=== PATIENT | male | born 1945 | race Caucasian/White ===

== ENCOUNTER 2017-10-11 02:50 | Emergency (ER) | payer MEDICARE, SELFPAY ==
[2017-10-11 02:51] VITALS: BP 134/69; PULSE 54; RESP 20; TEMP 36.4; O2SAT 98; BMI 25.8
--- NOTE | 2017-10-11 03:24 | ED.DCSUM_ITS ---
- ER Visit Summary Date of Service: 10/11/17 Chief Complaint: Unable to urinate History of Present Illness: The patient is a 72 M unable to urinate. Last urination was 3 hours ago. Normally urinates every 2 hours. History of BPH with TURP procedure July [address] Jean Baptiste. Taken off Flomax by PCP due to low blood pressure previously. States had right testicular swelling over the past 5 days, ultrasound performed outpatient Jocelyn today at [place]. He is placed on Levaquin by PCP for past 3 days. No fevers. No back pain. States that suprapubic discomfort. History of similar in the past. Physical Examination: General: Alert and oriented ?3, no acute distress HEENT: Normocephalic, atraumatic. Moist mucosa membranes Neck: supple, nontender. Cardiovascular: Regular rate and rhythm, no murmurs Respiratory: Normal breath sounds, symmetric, no distress Abdomen: Soft, mild suprapubic distention, nontender. : No testicular swelling, larger right-sided testicle versus left. No epididymal tenderness. Extremities: Nontender, no edema, pulses intact ?4 Neuro: no focal neurological deficits. Test Results: UA noted 250 blood. Urine culture pending. Emergency Department Course and Treatment: Patient initial straight cath had 100 cc of urine. Urine negative for infection. Discussed with patient no significant retention at this time. However he further stated he has been self cathing for the past 2 days. He has history of BPH with TURP in 2015. He was taken off Flomax. Patient was concerned that he would have recurrent symptoms and he will continue self cath and requested a Betancur. This was placed due to patient request. He will start Flomax for which he has at home. He will monitor his blood pressure. He will be given follow-up with urology as an outpatient. He will continue his Levaquin. All questions are answered. Treatment Plan: [] Disposition: Discharge Impression: Urine retention This note was generated with [employer] dictation software. It may contain incorrect words, spelling, and punctuation that were not noted in review of the chart prior to signing ED Disposition - Plan for ED Patient: Disposition: Home or Assisted Living Chief Complaint: Complaint Diagnosis: Urine retention Instructions: ED Retention Urinary Male Referrals: Julio Guzman, MAKAYLA-C [Primary Care Provider] - Baltazar Blood MD [STAFF PHYSICIAN] - 3-5 Days Additional Instructions: Start Flomax daily at home. Monitor blood pressure. Finish your antibiotics of Levaquin.
[2017-10-11] MEDS: Lidocaine Jelly 2% 20 ML Syringe (URO-JET) 20 APPLIC TOPICAL (03:36)
--- NOTE | 2017-10-11 03:43 | NURSING ---
100 CC OF CLEAR YELLOW URINE FROM STRAIGHT CATH
[2017-10-11 03:44] LABS: Bacteria 0 SEEN /hpf (None Seen); Mucous, Urine 0 SEEN /hpf (<or=2+); Squamous Epithelial Cells - UA 0 SEEN /hpf (0-5); White Blood Cells 0 SEEN /hpf (0-5)
[2017-10-11 03:45] LABS: Color, Urine Yellow (Yellow); Glucose, Dipstick Normal (Normal); Ketone-Dipstick Negative (Negative); Leukocyte Esterase-Dipstick Negative /ul (Negative); Nitrite-Dipstick Negative (Negative); Occult Blood-Urine 250 /ul (Negative); Protein-Dipstick Negative (Negative); Specific Gravity, Urine 1.015 (1.002-1.030); Urine Bilirubin Dipstick Negative (Negative); Urine Clarity Clear (Clear); Urine Urobilinogen Normal (Normal)
[2017-10-11 03:56] LABS: Red Blood Cells-Urine 5-10 SEEN /hpf (0-5)
[2017-10-11 05:04] VITALS: BP 115/61; PULSE 56; RESP 17; O2SAT 97
== END 2017-10-11 05:05 | disposition home or self-care (01) ==
PROVIDERS: Emergency Provider Emergency Medicine; Family Provider Nurse Practitioner Family; PCP Nurse Practitioner Family
DX: R33.9 Retention of urine, unspecified (principal); I10 Essential (primary) hypertension; N40.0 Benign prostatic hyperplasia without lower urinary tract symptoms; C91.10 Chronic lymphocytic leukemia of B-cell type not having achieved remission; Z79.899 Other long term (current) drug therapy
CPT/HCPCS: 51702; 81001; 87086; 99283; P9612

== ENCOUNTER → 2017-11-18 13:40 | Outpatient (CLI) | payer MEDICARE, SELFPAY ==
[2017-11-18 15:18] LABS: Albumin, Serum 3.4 g/dL (3.2-5.0); BUN 16 mg/dL (7-18); BUN/Creat Ratio 12.3 RATIO (10-20); Calcium,Total 8.3 mg/dL (8.5-10.1); Chloride 103 mmol/L (98-107); EST Glomerular Filtration Rate 58 mL/min (>60); Est Glom Filt Rate - Afr Amer 70 mL/min (>60); Glucose 117 mg/dL (74-106); Phosphorus 2.3 mg/dL (2.5-4.9); Potassium 3.9 mmol/L (3.5-5.1); Sodium Level 141 mmol/L (136-145)
== END ==
PROVIDERS: Family Provider Nurse Practitioner Family; PCP Nurse Practitioner Family; Visit Provider Internal Medicine Nephrology
DX: N18.3 Chronic kidney disease, stage 3 (moderate) (principal)
CPT/HCPCS: 36415; 80069

== ENCOUNTER → 2017-11-19 14:03 | Outpatient (CLI) | payer MEDICARE, SELFPAY ==
--- NOTE | 2017-11-19 14:25 | FLU_PTH ---
PATIENT: DAVID DOYLE LOC: [facility] U#:[id number] AGE/SX: 79/M ROOM: RE11/19/[address]: ERICK Camejo : 1945 BED: DIS: SPEC #: [id number] RECD: 11/19/17 15:30 STATUS: STEW BEVERLY #: [id number] TOMMY: 11/19/17 14:[address]: Julio Guzman NP DEPT: CYTOLOGY RECD BY: Lloyd Thorne Tissues: Urine Procedures: Special Stain Group II Cytospin Fluid HEADER OPERATION: Not noted PRE-OP DIAGNOSIS: Hematuria TISSUE SUBMITTED: Urine for cytology DIAGNOSIS CYTOLOGY Urine for cytology (cytospin): Negative for malignant cells. Bloody specimen. See cytology study and comment. SJ:rosmery 11/21/17 COMMENT Clinical correlation and appropriate follow up are necessary. CYTOLOGY STUDY Slides are reviewed. The specimen is bloody and consists of benign squamous cells and urothelial cells. CYTOLOGY GROSS Received is 30 ml of cloudy dark ehsan fluid labeled with the patient's name and and designated per the requisition as urine. Submitted for cytology. 11/20/17 TC:5 CPT: 90539
[2017-11-19 14:27] LABS: Cytology, Body Fluid / CSF SEE PATHOLOGY REPORT
[2017-11-19 15:03] LABS: Absolute Lymphocyte Count 0.74 X10^3/ul (0.83-4.51); Absolute Neutrophil Count 0.4 X10^3/uL (2.0-7.7); Basophil# 0.02 X10^3/uL; Basophil% 1.1 % (0-1); Eosinophil# 0.03 X10^3/uL; Eosinophils% 1.7 % (0-5); Hematocrit 37.6 % (40-54); Hemoglobin 12.2 g/dl (13.0-16.5); Lymphocyte # 0.74 X10^3/ul (4.0); Lymphocyte % 41.1 % (19-41); Mean Corp Hgb Conc 32.4 g/gl (32-36); Mean Corpuscular Hgb 30.7 pg (27.0-32.0); Mean Corpuscular Volume 94.5 fL (80-94); Monocyte# 0.61 X10^3/uL; Monocyte% 33.9 % (0-10); Neutrophil # 0.38 X10^3/uL (2.7-7.7); Neutrophil % 21.1 % (47-70); Platelet Count 91 K/mm3 (150-450); RBC Distribution Width CV 14.2 % (11.6-14.6); RBC Distribution Width SD 46.8 fl (35.1-43.9); Red Blood Count 3.98 M/mm3 (4.6-6.2); White Blood Count 1.8 K/mm3 (4.4-11.0)
[2017-11-19 15:04] LABS: Differential Indicated SCAN CRITERIA MET; POSITIVE COUNT NO; POSITIVE DIFFERENTIAL YES; POSITIVE MORPHOLOGY NO
== END ==
PROVIDERS: Family Provider Nurse Practitioner Family; PCP Nurse Practitioner Family; Visit Provider Nurse Practitioner Family
DX: R31.29 Other microscopic hematuria (principal); R50.9 Fever, unspecified; C91.10 Chronic lymphocytic leukemia of B-cell type not having achieved remission
CPT/HCPCS: 85025; 87086; 88108; 88305; 88313

== ENCOUNTER → 2018-04-24 19:15 | Outpatient (CLI) | payer MEDICARE, SELFPAY ==
[2018-04-09 11:06] VITALS: BMI 26.1
--- OUTSIDE RECORDS SUMMARY | 2018-06-10 15:06 | XMS RPT_ITS ---
:1945 Author Organization [facility] Support Name Relationship Address Phone R Unavailable Unavailable Unavailable JORDAN DOYLE Unavailable [address] + [place] [address] R Unavailable Unavailable Unavailable JORDAN DOYLE Unavailable [address] + [place] [address] R Unavailable Unavailable Unavailable JORDAN DOYLE Unavailable [address] + [place] [address] R Unavailable Unavailable Unavailable JORDAN DOYLE Unavailable [address] + [place] [address] R Unavailable Unavailable Unavailable JORDAN DOYLE Unavailable [address] + [place] [address] JORDAN DOYLE Unavailable [address] + [place] [address] DAVID DOYLE Unavailable Unavailable Unavailable R Unavailable Unavailable Unavailable JORDAN DOYLE Unavailable [address] + [place] [address] JORDAN DOYLE Unavailable [address] + [place] [address] DAVID DOYLE Unavailable Unavailable Unavailable R Unavailable Unavailable Unavailable JORDAN DOYLE Unavailable [address] + [place] [address] JORDAN DOYLE Unavailable [address] + [place] [address] DAVID DOYLE Unavailable Unavailable Unavailable R Unavailable Unavailable Unavailable JORDAN DOYLE Unavailable [address] + [place] [address] R Unavailable Unavailable Unavailable JORDAN DOYLE Unavailable [address] + [place] [address] R Unavailable Unavailable Unavailable JORDAN DOYLE Unavailable [address] + [place] [address] R Unavailable Unavailable Unavailable JORDAN DOYLE Unavailable [address] + [place] [address] JORDAN DOYLE Unavailable [address] + [place] [address] JORDAN DOYLE Unavailable [address] + [place] [address] R Unavailable Unavailable Unavailable NAYLA DOYLELEY Unavailable [address] [phone] [place] [address] R Unavailable Unavailable Unavailable NAYLA DOYLELEY Unavailable [address] [phone] [place] [address] JORDAN DOYLE Unavailable [address] + [place] [address] JORDAN DOYLE Unavailable [address] + [place] [address] NAYLA DOYLELEY Unavailable [address] + [place] [address] VIVEKLETICIADAVID Unavailable Unavailable Unavailable R Unavailable Unavailable Unavailable NAYLA DOYLELEY Unavailable [address] [phone] [place] [address] R Unavailable Unavailable Unavailable NAYLA DOYLELEY Unavailable [address] [phone] [place] [address] R Unavailable Unavailable Unavailable NAYLA DOYLELEY Unavailable [address] [phone] [place] [address] JORDAN DOYLE Unavailable [address] + [place] [address] VIVEKLETICIADAVID Unavailable Unavailable Unavailable R Unavailable Unavailable Unavailable VIVEKNAYLAJORDAN Unavailable [address] [phone] [place] [address] R Unavailable Unavailable Unavailable NAYLA DOYLELEY Unavailable [address] [phone] [place] [address] Care Team Providers Name Role Phone LUCAS WHYTE Attending Unavailable ANGÉLICA JEAN BAPTISTE Referring Unavailable ANGÉLICA JEAN BAPTISTE Primary Care Unavailable LUCAS WHYTE Attending Unavailable ANGÉLICA JEAN BAPTISTE Referring Unavailable ANGÉLICA JEAN BAPTISTE Primary Care Unavailable ZANE SOLORZANO Attending Unavailable LUCAS WHYTE Referring Unavailable ANGÉLICA JEAN BAPTISTE Primary Care Unavailable LUCAS WHYTE Attending Unavailable ANGÉLICA JEAN BAPTISTE Referring Unavailable ANGÉLICA JEAN BAPTISTE Primary Care Unavailable LUCAS WHYTE Attending Unavailable ANGÉLICA JEAN BAPTISTE Referring Unavailable PRAH, ALFREDO Primary Care Unavailable THOMAS JULIO YING Attending Unavailable THOMAS JULIO YING Primary Care Unavailable LD LUZ CNP Attending Unavailable THOMAS JULIO YING Primary Care Unavailable Natty, Ld Orta Attending Unavailable Ld Luz Referring Unavailable Prah, Alfredo Attending Unavailable SchenectadyJulio ortega BANK VAULT ATTENDANT-C Referring Unavailable THOMAS, JULIO Primary Care Unavailable Prah, Alfredo Consulting Unavailable Prah, Alfredo Attending Unavailable THOMAS, JULIO Primary Care Unavailable ThomasJulio sweeney. BANK VAULT ATTENDANT-C Referring Unavailable Prah, Alfredo Attending Unavailable Prah, Alfredo Referring Unavailable THOMAS, JULIO Primary Care Unavailable Prah, Alfredo Consulting Unavailable Kandi, Alfredo Attending Unavailable ThomasJulio ortega BANK VAULT ATTENDANT-C Referring Unavailable THOMAS, JULIO Primary Care Unavailable Prah, Alfredo Consulting Unavailable Gi Wright Attending Unavailable Kandi, Alfredo Attending Unavailable ThomasJulio ortega BANK VAULT ATTENDANT-C Referring Unavailable THOMAS, JULIO Primary Care Unavailable Prah, Alfredo Consulting Unavailable Gi Wright Attending Unavailable THOMAS, JULIO Primary Care Unavailable Prah, Alfredo Attending Unavailable ThomasJulio ortega BANK VAULT ATTENDANT-C Referring Unavailable THOMAS, JLUIO Primary Care Unavailable Prah, Alfredo Consulting Unavailable Noah Potter Attending Unavailable Julio Guzman BANK VAULT ATTENDANT-C Primary Care Unavailable Ld Luz Attending Unavailable SchenectadyJulio ortega BANK VAULT ATTENDANT-C Primary Care Unavailable Prabahman, Alfredo Attending Unavailable SchenectadyJulio ortega BANK VAULT ATTENDANT-C Referring Unavailable THOMAS, JULIO Primary Care Unavailable Prabahman, Alfredo Consulting Unavailable Gi Wright Attending Unavailable Gi Wright Referring Unavailable SchenectadyJulio ortega. BANK VAULT ATTENDANT-C Primary Care Unavailable ThomasJulio sweeney BANK VAULT ATTENDANT-C Attending Unavailable SchenectadyJulio ortega. BANK VAULT ATTENDANT-C Referring Unavailable SchenectadyJulio sweeney. BANK VAULT ATTENDANT-C Primary Care Unavailable Prabahman, Alfredo Attending Unavailable SchenectadyJulio ortega. BANK VAULT ATTENDANT-C Referring Unavailable THOMAS, JULIO Primary Care Unavailable Prah, Alfredo Consulting Unavailable Baltazar Blood Attending Unavailable Julio Guzman BANK VAULT ATTENDANT-C Primary Care Unavailable Kandi, Alfredo Attending Unavailable SchenectadyJulio ortega BANK VAULT ATTENDANT-C Referring Unavailable THOMAS, JULIO Primary Care Unavailable Prah, Alfredo Consulting Unavailable Prah, Alfredo Attending Unavailable Thomas, Julio D. 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 / Community D80.1(ICD-10) Hospital Repository Unknown R31.29 - Other Natty, Active [facility] microscopic hematuria / Ld M Community R31.29(ICD-10) Hospital Repository Admitting Follow-up / 145() LUCAS WHYTE Active [place] [address] diagnosis [facility] Repository Admitting Chronic lymphocytic JEANINEZANE [place] [address] diagnosis leukemia of B-cell type [place] in remission / [facility] C91.11(ICD-10) Center Repository Admitting Fever, unspecified / [place] [address] diagnosis R50.9(ICD-10) [facility] Repository Unknown 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, unspecified, in Community remission / Hospital C91.91(ICD-10) Repository Unknown C91.10 - Chronic Alfredo Chau Active [facility] lymphocytic leukemia of Community B-cell type not having Hospital achieved remission / Repository C91.10(ICD-10) Unknown Z79.899 - Other long-term Alfredo Chau Active [facility] (current) drug therapy / Community Z79.899(ICD-10) Hospital Repository PROCEDURES PROCEDURES No Procedure Records FoundRESULTS RESULTS ONCOLOGY VISIT REPORT Observed: 05/08/2018 Status: F Source: AMITY 11:33 AM [facility] REPOSITORY [facility] [address] [place] [address] OFFICE VISIT Date of Service: 05/08/18 1130 MR#: [id number] Acct: [id number] Name: DAVID DOYLE Rep #: [id number] : 1945 From: Alfredo Chau MD Age/Sex: 72/M Location: ONC Status: Signed Subjective - Date of Service Date of Service:: 05/08/18 - Chief Complaint F/u for CLL. 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 S/P left neck node biopsy showing SLL/CLL 2010 and bone marrow aspirate and biopsy showing extensive involvement by B cell CLL 11/16/2010. Deletion 6q and flow cytometry consistent with CLL/SLL. CD38 negative. Progressive anemia and thrombocytopenia, S/P 4 cycles of FR therapy 11/06/2010 - 02/07/2011. S/P BR x3 cycles 04/16/2011 - 06/20/2011. S/P febrile neutropenia requiring hospitalization 06/28/2011. Progressive CLL October 2012 and on ibrutinib since 12/30/2012 under the care if Dr. Wade Horta at [facility]. Hypogammaglobulinemia, received monthly IVIG from 04/16/2016 to 06/25/2016. He remains on Ibrutinib. Information from [facility] suggested he should get IVIG monthly for 6 months as of his last visit. IVIG is on hold since August 2017 because of high levels. He had CBC done on 11/19/2017 which showed WBC 1.8 and Neutrophils 0.4. He stopped Ibrutinib on 11/22/2017 and counts recovered. He is back on Ibrutinib. Had follow up at [facility]. Comes in for IVIG. - Past Medical/Social History Past Medical History Past Medical History: Anemia,Hypertension,Thyroid disease Other Past Medical History: HYPOGAMMAGLOBULINEMIA Pneumonia 2weeks ago. Tx'd with oral antibiotics . Cancer: Leukemia,Other Past Surgical History Surgical: Cholecystectomy Other Surgical History: MULTIPLE KNEE SURGERIES L SHOULDER Family History Paternal Past Medical History: Heart disease Maternal Past Medical History: Unknown Social History Social History: No changes Smoking Status Never smoker Review of Systems Constitutional:: Denies: Fever, Sweats, Weight loss, Appetite change, Chills Cardiovascular:: Denies: Chest pain, Palpitations, Dyspnea on exertion, Orthopnea, PND, Shortness of breath Respiratory: Denies: Cough, Hemoptysis, Shortness of Breath, Wheezing Gastrointestinal:: Denies: Abdominal pain, Nausea, Vomiting, Diarrhea, Constipation, Hematochezia Genitourinary: Denies: Dysuria, Hematuria, 15, Flank pain Musculoskeletal:: Denies: Back pain, Myalgia, Arthralgia Skin: Denies: Rash, Skin Changes, Wounds Neurological:: Denies: Headache, Dizziness, Visual changes, Tinnitus, Hearing loss Psychiatric: Denies: Anxiety, Depression, Homicidal Ideations, Suicidal Ideations Vital Signs Height 5 ft 10 in Weight: 81.012 kg Weight in Pounds 178.6 lbs Pulse Ox 99 - Physical Exam General: Alert, Oriented x3, No apparent distress HEENT: Atraumatic, PERRLA, EOMI, Normocephalic Oropharynx:: Dry mucosa Neck:: Supple, Trachea midline. Negative for: JVD, bilateral Cardiac:: Regular rate, Regular rhythm, Normal S1, Normal S2. Negative for: Murmur Lungs: Clear to auscultation, Excusion symmetrical. Negative for: Rhonchi, Wheezes Abdomen:: Bowel sounds x 4, Soft, Non-tender, Non-distended. Negative for: Hepatosplenomegaly Extremities:: Negative for: Cyanosis, Edema Neurological: Neuro grossly intact Skin:: Negative for: Lesions, Rash, Petechiae, Ecchymosis Psychiatric:: Appropriate affect, Euthymic Lymphatics:: Negative for: Cervical lymphadenopathy, Supraclavicular lymphadenopathy, Axillary lymphadenopathy Laboratory Data: Laboratory Tests Assessment and Plan CLL on Ibrutinib, in hematologic remission, clinically stable. Counts have recovered. Hypogammaglobulinemia, IgG was 550 on 05/07/2018. Plan is to hold IVIG. Check Ig Levels before next visit. RTC 4 weeks with labs. Medications: Prescriptions This Visit Medication Instructions Recorded Finasteride [Proscar] 5 mg PO DAILY 10/30/17 Losartan Potassium [Cozaar] 50 mg PO DAILY 04/09/18 Bethanechol Chloride 25 mg PO TID 05/08/18 Primary Care Provider: Julio Guzman Referring Provider: - Problem List (1) Hypogammaglobulinemia, acquired Status: Chronic (2) Chronic lymphocytic leukemia in remission Status: Chronic 05/08/18 1133 <Electronically signed by Alfredo Chau MD> Date Alfredo Chau MD Cosigner Signature: Date (if applicable) CC: CBC W/DIFF, AUTOMATED Collected: 05/07/2018 Status: F Source: DEJON 11:13 AM [facility] REPOSITORY Order Comment: Reason for Laboratory Test . TYPE CODE TESTS RESULT OUT OF RANGE REFERENCE UNITS LAB L100.1000 4.4-11.0 K/mm3 Normal WBC 10.8 LAB L100.1200 4.6-6.2 M/mm3 Low RBC 4.54 LAB L100.1300 13.0-16.5 g/dl Normal HGB 13.7 LAB L100.1400 40-54 % Normal HCT 42.0 LAB L100.1500 80-94 fL Normal MCV 92.5 LAB L100.1600 27.0-32.0 pg Normal MCH 30.2 LAB L100.1700 32-36 g/gl Normal MCHC 32.6 LAB L100.1810 11.6-14.6 % High RDW CV 15.6 LAB L100.1820 35.1-43.9 fl High RDW SD 51.8 LAB L100.1900 150-450 K/mm3 Low PLT 111 LAB L100.2000 6.2-12.0 fl Normal MPV 11.7 LAB L100.2100 47-70 % High NEUT% 83.1 LAB L100.2200 19-41 % Low LY% 9.2 LAB L100.2300 0-10 % Normal MONO% 6.6 LAB L100.2400 0-5 % Normal EO% 0.3 LAB L100.2500 0-1 % Normal BASO% 0.3 LAB L100.2550 0.0-0.9 % Normal IM GRAN % 0.500 Result Comment: IG% - Immature Granulocytes (promyelocytes, myelocytes and metamyelocytes) > 1% indicates that a LEFT SHIFT is Present. LAB L100.2620 2.0-7.7 X10 3/uL High Absolute Neut 9.0 LAB L100.2720 0.83-4.51 X10 3/ul Normal Absolute Lymph 0.99 Performed By: #### L100.0100 #### [facility] [address] [place], [address] COMPREHENSIVE METABOLIC Collected: 05/07/2018 Status: F Source: DEJON GARCIA 11:13 AM [facility] REPOSITORY Order Comment: Reason for Laboratory Test . TYPE CODE TESTS RESULT OUT OF RANGE REFERENCE UNITS LAB L501.0100 74-106 mg/dL Normal GLU 84 Result Comment: Please note revised GLUCOSE reference range effective 2017. LAB L501.1000 7-18 mg/dL Normal BUN 16 LAB L501.1100 0.70-1.30 mg/dL Normal CREAT,SERUM 1.21 Result Comment: The validity of the calculated GFR AND GFRAA in patients over 70 years has not been determined. Clinical correlation is essential. LAB L501.1110 >60 mL/min Normal EST GFR 63 Result Comment: Non- GFR Calc LAB L501.1115 >60 mL/min Normal EST GFR - AA 76 Result Comment: GFR Calc LAB L501.1255 ml/min Normal Estimated CRCL 56.98 LAB L501.1300 10-20 RATIO Normal BUN/CRE 13.2 LAB L501.1500 6.4-8. g/dL Low 2 T PROT 6.3 LAB L501.1800 3.2-5. g/dL Normal 0 ALB 3.4 LAB L501.1950 2.2-4. g/dL Normal 2 GLOB 2.9 LAB L501.2000 0.9-2. RATIO Normal 4 A/G 1.2 LAB L501.2200 8.5-10 mg/dL Low .1 CA 8.3 LAB L501.4100 15-37 U/L High AST 87 LAB L501.4305 45-117 U/L High ALK P 137 LAB L501.4405 16-61 U/L High ALT 88 LAB L501.4600 0.20-1 mg/dL High .00 T BILI 4.10 LAB L501.5300 136-14 mmol/L Normal 5 NA 138 LAB L501.5600 3.5-5. mmol/L Normal 1 K 4.2 LAB L501.5900 98-107 mmol/L Normal CL 104 LAB L501.6100 21.0-3 mmol/L Normal 2.0 CO2 28.0 LAB L501.6200 5-15 Normal GAP 6 Performed By: #### L500.4050 #### [facility] [address] [place], [address] IMMUNOGLOBULIN G Collected: 05/07/2018 Status: F Source: DEJON 11:13 AM [facility] REPOSITORY Order Comment: Reason for Laboratory Test . TYPE CODE TESTS RESULT OUT OF REFERENCE UNITS RANGE LAB L3200.7832 009-1735 mg/dL Low IMMUNO G 550 Result Comment: Performed at: [facility] [id number] New Client Banking Services Clerk: Ricardo Martins PhD, Phone: [phone] Performed By: #### L3200.1300 #### [facility] (refer to report for specific site) refer to report for address and phone number Observed: 04/24/2018 Status: F Source: AMITY CULTURE, URINE 10:06 AM [facility] REPOSITORY Urine Culture Culture exhibits no growth. Performed By: #### M100.0650 #### [facility] [address] [place], [address] ONCOLOGY VISIT REPORT Observed: 04/09/2018 Status: F Source: DEJON 4:10 PM [facility] REPOSITORY [facility] [address] [place] [address] OFFICE VISIT Date of Service: 04/09/18 1115 MR#: [id number] Acct: [id number] Name: DAVID DOYLE Rep #: [id number] : 1945 From: Alfredo Chau MD Age/Sex: 72/M Location: ONC Status: Signed Subjective - Date of Service Date of Service:: 04/09/18 - Chief Complaint F/u for CLL. 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 S/P left neck node biopsy showing SLL/CLL 2010 and bone marrow aspirate and biopsy showing extensive involvement by B cell CLL 11/16/2010. Deletion 6q and flow cytometry consistent with CLL/SLL. CD38 negative. Progressive anemia and thrombocytopenia, S/P 4 cycles of FR therapy 11/06/2010 - 02/07/2011. S/P BR x3 cycles 04/16/2011 - 06/20/2011. S/P febrile neutropenia requiring hospitalization 06/28/2011. Progressive CLL October 2012 and on ibrutinib since 12/30/2012 under the care if Dr. Wade Horta at [facility]. Hypogammaglobulinemia, received monthly IVIG from 04/16/2016 to 06/25/2016. He remains on Ibrutinib. Information from [facility] suggested he should get IVIG monthly for 6 months as of his last visit. IVIG is on hold since August 2017 because of high levels. He had CBC done on 11/19/2017 which showed WBC 1.8 and Neutrophils 0.4. He stopped Ibrutinib on 11/22/2017 and counts recovered. He is back on Ibrutinib. Had follow up at [facility]. Comes in for IVIG. He developed a cold-URI symptoms yesterday. - Past Medical/Social History Past Medical History Past Medical History: Anemia,Hypertension,Thyroid disease Other Past Medical History: HYPOGAMMAGLOBULINEMIA Pneumonia 2weeks ago. Tx'd with oral antibiotics . Cancer: Leukemia,Other Past Surgical History Surgical: Cholecystectomy Other Surgical History: MULTIPLE KNEE SURGERIES L SHOULDER Family History Paternal Past Medical History: Heart disease Maternal Past Medical History: Unknown Social History Social History: No changes Smoking Status Never smoker Review of Systems Constitutional:: Denies: Fever, Sweats, Weight loss, Appetite change, Chills Cardiovascular:: Denies: Chest pain, Palpitations, Dyspnea on exertion, Orthopnea, PND, Shortness of breath Respiratory: Denies: Cough, Hemoptysis, Shortness of Breath, Wheezing Gastrointestinal:: Denies: Abdominal pain, Nausea, Vomiting, Diarrhea, Constipation, Hematochezia Genitourinary: Denies: Dysuria, Hematuria, 15, Flank pain Musculoskeletal:: Denies: Back pain, Myalgia, Arthralgia Skin: Denies: Rash, Skin Changes, Wounds Neurological:: Denies: Headache, Dizziness, Visual changes, Tinnitus, Hearing loss Psychiatric: Denies: Anxiety, Depression, Homicidal Ideations, Suicidal Ideations Vital Signs Height 5 ft 10 in Weight: 82.554 kg Weight in Pounds 182.0 lbs Pulse Ox 99 - Physical Exam General: Alert, Oriented x3, No apparent distress HEENT: Atraumatic, PERRLA, EOMI, Normocephalic Oropharynx:: Dry mucosa Neck:: Supple, Trachea midline. Negative for: JVD, bilateral Cardiac:: Regular rate, Regular rhythm, Normal S1, Normal S2. Negative for: Murmur Lungs: Clear to auscultation, Excusion symmetrical. Negative for: Rhonchi, Wheezes Abdomen:: Bowel sounds x 4, Soft, Non-tender, Non-distended. Negative for: Hepatosplenomegaly Extremities:: Negative for: Cyanosis, Edema Neurological: Neuro grossly intact Skin:: Negative for: Lesions, Rash, Petechiae, Ecchymosis Psychiatric:: Appropriate affect, Euthymic Lymphatics:: Negative for: Cervical lymphadenopathy, Supraclavicular lymphadenopathy, Axillary lymphadenopathy Laboratory Data: 03/31/2018 labs done at [facility] reviewed. IgG 400. Assessment and Plan CLL on Ibrutinib, in hematologic remission, clinically stable. Counts have recovered. Hypogammaglobulinemia, IgG is less than 600. Plan is to resume IVIG. Check Ig Levels before next visit. RTC 4 weeks with labs. Medications: Prescriptions This Visit Medication Instructions Recorded Finasteride [Proscar] 5 mg PO DAILY 10/30/17 Losartan Potassium [Cozaar] 50 mg PO DAILY 04/09/18 Primary Care Provider: Julio Guzman Referring Provider: - Problem List (1) Hypogammaglobulinemia, acquired Status: Chronic (2) Chronic lymphocytic leukemia in remission Status: Chronic Code Visit Office Visits / Consults: [id number] OV L3 Est 04/09/18 1610 <Electronically signed by Alfredo Chau MD> Date Alfredo Chau MD Cosigner Signature: Date (if applicable) CC: METABOLIC PANEL - CHRI Collected: 03/31/2018 Status: F Source: [facility] 1:44 PM [facility] REPOSITORY TYPE CODE TESTS RESULT OUT OF REFERENCE UNITS RANGE LAB NA 133-143 mmol/L Sodium 140 LAB K 3.5-5.0 mmol/L Potassium 4.3 LAB CL 98-108 mmol/L Chloride 103 LAB BUN 7-22 mg/dL BUN 22 LAB CREA 0.70-1.30 mg/dL Creatinine High 1.50 LAB GLUC 70-99 mg/dL Glucose 99 LAB CA 8.6-10.5 mg/dL Calcium 9.3 LAB ALP 32-126 U/L Alkaline Phosphatase 100 LAB AST 14-40 U/L AST 26 LAB TP 6.4-8.3 g/dL Low Total Protein 5.7 LAB ALB 3.5-5.0 g/dL Albumin 3.9 LAB BILT <1.5 mg/dL Bilirubin High Total 2.6 LAB CO2 22-30 mmol/L Carbon Dioxide 30 LAB GAP 7-17 mmol/L Anion Gap 11 LAB ALT 10-52 U/L ALT 32 LAB GFR >60 mL/min/1.7 Low 3sqM Est GFR,non 46 LAB GFRA >60 mL/min/1.7 Low 3sqM Est GFR, 56 LAB [facility] 278-305 mOsm/kg Osmolality (Calc) 297 Performed By: #### DEONDREJ #### [facility] [address] [place] [address] #### ALEXANDRE, BTKRB #### [facility] [address] [place] [address] [place] [address] INORG PHOSPHATE - CHRI Collected: 03/31/2018 Status: F Source: [facility] 1:44 PM [facility] REPOSITORY TYPE CODE TESTS RESULT OUT OF REFERENCE UNITS RANGE LAB IP 2.2-4.6 mg/dL Inorg Phosphate 3.0 Performed By: #### CARLADFJ #### [facility] [address] [place] [address] #### BENTONMM, BTKRB #### [facility] [address] [place] [address] [address] [place] [address] LD - CHRI Collected: 03/31/2018 Status: F Source: [facility] 1:44 PM [facility] REPOSITORY TYPE CODE TESTS RESULT OUT OF RANGE REFERENCE UNITS LAB LD 100-190 U/L LD Total 183 Performed By: #### CARLADFJ #### [facility] [address] [place] [address] #### QIMM, BTKRB #### [facility] [address] [place] [address] [facility] [address] [place] [address] MAGNESIUM - CHRI Collected: 03/31/2018 Status: F Source: [facility] 1:44 PM [facility] REPOSITORY TYPE CODE TESTS RESULT OUT OF REFERENCE UNITS RANGE LAB MG 1.6-2.6 mg/dL Magnesium 1.7 Performed By: #### CBCDFJ #### [facility], [facility] [address] [place] [address] #### QIMM, BTKRB #### [facility] [address] [place] [id number] [place] [address] [place] [address] URIC ACID - CHRI Collected: 03/31/2018 Status: F Source: [facility] 1:44 PM [facility] REPOSITORY TYPE CODE TESTS RESULT OUT OF RANGE REFERENCE UNITS LAB URIC 3.5-7.0 mg/dL High Uric Acid 8.6 Performed By: #### CBCDFJ #### [facility] [address] [place] [address] #### QIMM, BTKRB #### [facility] [address] [place] [address] [facility] [address] [place] [address] CBC WITH DIFF SANDRO Collected: 03/31/2018 Status: F Source: [facility] 1:44 PM [facility] REPOSITORY TYPE CODE TESTS RESULT OUT OF REFERENCE UNITS RANGE LAB WBC 3.73-10.10 K/uL WBC Count 4.69 LAB RBC 4.38-5.83 M/uL RBC Count 4.58 LAB HGB 13.4-16.8 g/dL Hemoglobin 13.9 LAB HCT 39.6-48.8 % Hematocrit 42.6 LAB MCV 79.0-94.5 fL Mean Cell 93.0 Volume LAB MCH 26.1-33.3 pg Mean Cell 30.3 Hgb LAB MCHC 31.9-36.5 g/dL Mean Cell 32.6 Hgb Conc LAB RDW 10.9-14.3 % RBC 14.8 High Distribution LAB PLT 146-337 K/uL Platelet 125 Low Count LAB MPV 8.7-12.3 fL Mean 11.2 Platelet Volume LAB NRBC 0.0-0.2 /100 WBC NUCLEATED 0.0 RBC LAB DTYPE Electronic DIFFERENTIAL TYPE Differential LAB IGRE % IMMATURE 1.5 GRANS % LAB SEGS % NEUTROPHIL 71.5 SEGMENTED LAB LYM % LYMPHOCYTE 17.1 % LAB MON % MONOCYTE % 8.1 LAB EOS % EOSINOPHIL 0.9 % LAB BASO % BASOPHIL % 0.9 LAB IGABS 0.00-0.07 K/uL IMMATURE 0.07 GRANS ABSOLUTE LAB SBANS 1.57-6.19 K/uL SEGS + 3.36 Bands,Absolute LAB ALYM 0.83-3.57 K/uL Abs Lymph 0.80 Low LAB AMONO 0.24-0.93 K/uL Abs Barron 0.38 LAB AEOS 0.00-0.48 K/uL Abs Eos 0.04 LAB ABASO 0.00-0.09 K/uL Abs Baso 0.04 Performed By: #### DEONDREJ #### [facility] [address] [place] [address] #### ALEXANDRE, BTKRB #### [facility] [address] [place] [address] [place] [address] QUANTITATIVE Collected: 03/31/2018 Status: F Source: [facility]UN[facility] 1:44 PM [facility] REPOSITORY TYPE CODE TESTS RESULT OUT OF RANGE REFERENCE UNITS LAB IGG 600-1560 mg/dL Low IgG 409 LAB IGA 90-410 mg/dL IgA 170 LAB IGM 30-360 mg/dL Low IgM 20 Performed By: #### CARLADFJ #### [facility] [address] [place] [address] #### BENTONMM, BTKRB #### [facility] [address] [place] [address] [address] [address] BTK RESISTANCE Observed: 03/31/2018 Status: F Source: [facility] MUTATION,BLD - BK 1:44 PM [facility] REPOSITORY Peripheral blood NOT DETECTED 0.0 The BTK C481S mutation is NOT detected by digital droplet PCR in DNA extracted from immunodensity-purified B-cells. Oscar Horta M.D. Performed By: #### CBCDFJ #### Sandro [facility], [facility] [address] [place], [place] [address] #### QIMM, BTKRB #### [facility] [address] [place] [address] [facility] [address] [place], [place] [address] IMMUNOPHENOTYPING, BLOOD Collected: Status: F Source: [facility] 03/31/2018 1:44 PM [facility] REPOSITORY TYPE CODE TESTS RESULT OUT OF REFERENCE UNITS RANGE LAB ICINT Immunophenotyping (PBIPP) SEE NOTES Result Comment: (NOTE) IMMUNOPHENOTYPING DIAGNOSIS PATIENT NAME: DAVID DOYLE : 1945 ACCN#: [id number] REVIEWED BY: Jethro Gilbert M.D. [id number] SAMPLE TYPE: Peripheral Blood LABORATORY INTERPRETATION: Flow cytometric analysis demonstrates lambda restricted (dim) population of B cells that express immunophenotype c/w chronic lymphocytic leukemia. CLL cells represent 2% of all lymphocytes and 0.3% of all leukocytes analyzed. These findings are c/w positive CLL MRD (0.3%) . The CD4:CD8 ratio is normal. The T lymphocytes show no evidence of an aberrant loss of expression of CD3, CD5 or CD7 antigens. However, discrete subset of lymphocytes shows CD3 expression without coexpression of CD26 antigen (85% of all [id number] T cells). This is an aberrant T cell immunophenotype and while it may be secondary to immunomodulation, the possibility it represents a clonal T cell process cannot be excluded. Close follow-up and correlation with detailed phenotypic characterization of T lymphocytes including characterization of TCR-Vb repertoire is recommended if clinically indicated. PHENOTYPIC DESCRIPTION: Flow cytometric analysis of peripheral blood was performed using a ten color technique with a gating strategy based on CD45 staining and light side scatter characteristics. Lymphocytes represent 16.2 % of the total events analyzed. Of the lymphocytes: 86.9 % are T cells (CD3+) with a CD4:CD8 ratio of 0.9 and an absolute CD4+/CD3+ count of 310 ABS/mm3. 9.0 % are NK cells (positive for CD56 and/or CD16 and negative for CD3). The B cells represent 2.0 % of the lymphocytes (0.3 % of the total events analyzed) and zane as indicated in the tables below. 1.5 % of the lymphocytes coexpress CD19, CD5, CD43 and lack CD79b. Analysis of surface immunoglobulin light chains shows a [place]:Lambda ratio of 0:2 with dim staining intensity. The T cells are further characterized in the table below. MARKER DESCRIPTION LYM REG% ABS/mm3 NORMAL % NML ABS ABSOLUTE LYMPHOCYTE COUNT [phone] CD19+ B CELL 2.0 16 2.0-21.0 20-1008 CD19+/CD20+ B CELL 1.3 10 2.0-21.0 20-1008 SIG SURFACE IG 2 K/L KAPPA/LAMBDA 0:2 RATIO CD2+ T CELL 93.7 750 70.0-92.0 700-4416 CD3+ T CELL 86.9 695 59.0-92.0 590-4416 CD4+/CD3- T CELL 3.2 CD4+/CD3+ T HELPER 38.7 310 32.0-62.0 320-2976 CD8+/CD3- T CELL 1.6 CD8+/CD3+ T SUPPRESSOR 45.3 362 11.0-40.0 110-1920 HSRA CD4/CD8 0.9 RATIO CD5+/CD19- T CELL 79.0 CD5+/CD19+ 2.2 CD23+ B CELL SUBSET 1.9 CD19+/CD10+ 0.0 CD10+ MASOUD 0.0 CD7+/CD2- T CELL 0.4 CD7+/CD2+ T CELL 69.2 CD13+/HLA DR- MONO/GRAN 0.[address]+/CD13+ 2.5 HLADR+/CD13- 68.7 CD14+/CD13- 0.0 CD13+/CD14+ 0.8 CD56/16+/CD3- NATURAL KILLER 9.0 72 3.0-25.0 30-1200 CLL MARKERS LYM REG % CD19+/CD79b- 1.6 CD19+/CD79b+ 0.0 CD43+/CD19+ 1.5 CD43+/CD79b+ 0.0 CD38+/CD19+ 0.0 CD19+/CD9+ 1.0 CD81+/CD19+ 1.5 CD81+/CD19- 97.7 CD19+/CD81- 0.2 FMC7+/CD19- 0.1 CD19+/FMC7+ 0.0 CD19+/CD22+ 0.6 CD19+/CD5+/CD43+/CD79b-/CD9+/CD38+ 0.0 CD19+/CD5+/CD43+/CD79b-/CD9+/CD38- 0.9 CD19+/CD5+/CD43+/CD79b-/CD9-/CD38+ 0.0 CD19+/CD5+/CD43+/CD79b-/CD9-/CD38- 0.6 TOTAL CD19+/CD5+/CD43+/CD79b- 1.5 T CELL MARKERS LYM REG % *CD26-/CD3+ 64.2 *CD26-/CD4+ 20.4 *CD26-/CD7+ 59.2 MARKERS TESTED: CD10, CD13, CD14, CD19, CD2, CD20, CD22, CD23, CD26, CD3, CD38, CD4, CD43, CD45, CD5, CD56/16, CD7, CD79b, CD8, CD81, CD9, FMC7, HLA DR, KAPPA, LAMBDA MARKERS BILLED: 25 This test was developed and its performance characteristics determined The Flow Cytometry Laboratory at [facility]. It has not been cleared or approved by the FDA. This laboratory is certified under the Clinical Laboratory Improvement Amendments (CLIA) as qualified to perform high complexity clinical laboratory testing. This test is used for clinical purposes. It should not be regarded as investigational or for research. The [facility] Flow [facility]ometry Laboratory lower limit of CLL MRD detection is 0.1% of the gated lymphocytes. Performed By: #### PBIPP #### [facility] [address] [place] [address] [facility] [address] [place], [place] [address] ONCOLOGY VISIT REPORT Observed: 01/15/2018 Status: F Source: [facility] 11:10 AM [facility] REPOSITORY [facility] [address] [facility] [place] [address] OFFICE VISIT Date of Service: 01/15/18 1053 MR#: [id number] Acct: [id number] Name: DAVID DOYLE Rep #: [id number] : 1945 From: Alfredo Chau MD Age/Sex: 72/M Location: ONC Status: Signed Subjective - Date of Service Date of Service:: 01/15/18 - Chief Complaint F/u for CLL. 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 S/P left neck node biopsy showing SLL/CLL 2010 and bone marrow aspirate and biopsy showing extensive involvement by B cell CLL 11/16/2010. Deletion 6q and flow cytometry consistent with CLL/SLL. CD38 negative. Progressive anemia and thrombocytopenia, S/P 4 cycles of FR therapy 11/06/2010 - 02/07/2011. S/P BR x3 cycles 04/16/2011 - 06/20/2011. S/P febrile neutropenia requiring hospitalization 06/28/2011. Progressive CLL October 2012 and on ibrutinib since 12/30/2012 under the care if Dr. Wade Horta at [facility]. Hypogammaglobulinemia, received monthly IVIG from 04/16/2016 to 06/25/2016. He remains on Ibrutinib. Information from [facility] suggested he should get IVIG monthly for 6 months as of his last visit. IVIG is on hold since August 2017 because of high levels. He had CBC done on 11/19/2017 which showed WBC 1.8 and Neutrophils 0.4. He stopped Ibrutinib on 11/22/2017 and counts recovered. He did not feel well from around 11/13/2017. He is back on Ibrutinib. Comes in for follow up. - Past Medical/Social History Past Medical History Past Medical History: Anemia,Hypertension,Thyroid disease Other Past Medical History: HYPOGAMMAGLOBULINEMIA Pneumonia 2weeks ago. Tx'd with oral antibiotics . Cancer: Leukemia,Other Past Surgical History Surgical: Cholecystectomy Other Surgical History: MULTIPLE KNEE SURGERIES L SHOULDER Family History Paternal Past Medical History: Heart disease Maternal Past Medical History: Unknown Social History Social History: No changes Smoking Status Never smoker Review of Systems Constitutional:: Denies: Fever, Sweats, Weight loss, Appetite change, Chills Cardiovascular:: Denies: Chest pain, Palpitations, Dyspnea on exertion, Orthopnea, PND, Shortness of breath Respiratory: Denies: Cough, Hemoptysis, Shortness of Breath, Wheezing Gastrointestinal:: Denies: Abdominal pain, Nausea, Vomiting, Diarrhea, Constipation, Hematochezia Genitourinary: Denies: Dysuria, Hematuria, 15, Flank pain Musculoskeletal:: Denies: Back pain, Myalgia, Arthralgia Skin: Denies: Rash, Skin Changes, Wounds Neurological:: Denies: Headache, Dizziness, Visual changes, Tinnitus, Hearing loss Psychiatric: Denies: Anxiety, Depression, Homicidal Ideations, Suicidal Ideations Vital Signs Height 5 ft 10 in Weight: 82.1 kg Weight in Pounds 181.0 lbs Pulse Ox 99 - Physical Exam General: Alert, Oriented x3, No apparent distress HEENT: Atraumatic, PERRLA, EOMI, Normocephalic Oropharynx:: Dry mucosa Neck:: Supple, Trachea midline. Negative for: JVD, bilateral Cardiac:: Regular rate, Regular rhythm, Normal S1, Normal S2. Negative for: Murmur Lungs: Clear to auscultation, Excusion symmetrical. Negative for: Rhonchi, Wheezes Abdomen:: Bowel sounds x 4, Soft, Non-tender, Non-distended. Negative for: Hepatosplenomegaly Extremities:: Negative for: Cyanosis, Edema Neurological: Neuro grossly intact Skin:: Negative for: Lesions, Rash, Petechiae, Ecchymosis Psychiatric:: Appropriate affect, Euthymic Lymphatics:: Negative for: Cervical lymphadenopathy, Supraclavicular lymphadenopathy, Axillary lymphadenopathy Laboratory Data: 01/06/2018 CBC/CMP done at [facility] reviewed, within normal limits. Assessment and Plan CLL on Ibrutinib, in hematologic remission, clinically stable. Counts have recovered. Hypogammaglobulinemia, IVIG replacement on hold. Plan is to resume Ibrutinib. Check Ig Levels before next visit. RTC 2 months. Medications: Prescriptions This Visit Medication Instructions Recorded Finasteride [Proscar] 5 mg PO DAILY 10/30/17 Primary Care Provider: Julio Guzman Referring Provider: - Problem List (1) Hypogammaglobulinemia, acquired Status: Chronic (2) Chronic lymphocytic leukemia in remission Status: Chronic Code Visit Office Visits / Consults: [id number] OV L3 Est 01/15/18 1110 <Electronically signed by Alfredo Chau MD> Date Alfredo Chau MD Cosigner Signature: Date (if applicable) CC: CBC WITH DIFF SANDRO Collected: 01/06/2018 Status: F Source: [facility] 10:55 AM [facility] REPOSITORY TYPE CODE TESTS RESULT OUT OF REFERENCE UNITS RANGE LAB WBC 4.23-9.07 K/uL WBC Count 7.54 LAB RBC 4.63-6.08 M/uL RBC Count 4.41 Low LAB HGB 13.7-17.5 g/dL Hemoglobin 13.1 Low LAB HCT 40.1-51.0 % Hematocrit 40.8 LAB MCV 79.0-92.2 fL Mean Cell 92.5 High Volume LAB MCH 25.7-32.2 pg Mean Cell 29.7 Hgb LAB MCHC 32.3-36.5 g/dL Mean Cell 32.1 Low Hgb Conc LAB RDW 11.6-14.4 % RBC 14.5 High Distribution LAB PLT 163-337 K/uL Platelet 105 Low Count LAB MPV 9.4-12.4 fL Mean 12.2 Platelet Volume LAB NRBC 0.0-0.2 /100 WBC NUCLEATED 0.0 RBC LAB DTYPE Electronic DIFFERENTIAL TYPE Differential LAB IGRE % IMMATURE 1.3 GRANS % LAB SEGS % NEUTROPHIL 70.1 SEGMENTED LAB LYM % LYMPHOCYTE 18.6 % LAB MON % MONOCYTE % 7.8 LAB EOS % EOSINOPHIL 1.7 % LAB BASO % BASOPHIL % 0.5 LAB IGABS <0.04 K/uL IMMATURE 0.10 High GRANS ABSOLUTE LAB SBANS 1.78-5.38 K/uL SEGS + 5.28 Bands,Absolute LAB ALYM 1.32-3.57 K/uL Abs Lymph 1.40 LAB AMONO 0.30-0.82 K/uL Abs Barron 0.59 LAB AEOS <0.55 K/uL Abs Eos 0.13 LAB ABASO <0.09 K/uL Abs Baso 0.04 Performed By: #### CBCDFJ #### [facility]ro [facility], [facility] [address] [place] [address] #### BTKRB #### [facility] [address] [place] [address] [facility] [address] [place], [place] [address] METABOLIC PANEL - CHRI Collected: 01/06/2018 Status: F Source: [facility] 10:55 AM [facility] REPOSITORY TYPE CODE TESTS RESULT OUT OF REFERENCE UNITS RANGE LAB NA 133-143 mmol/L Sodium 139 LAB K 3.5-5.0 mmol/L Potassium 4.4 LAB CL 98-108 mmol/L Chloride 105 LAB BUN 7-22 mg/dL BUN 20 LAB CREA 0.70-1.30 mg/dL Creatinine High 1.31 LAB GLUC 70-99 mg/dL Glucose 89 LAB CA 8.6-10.5 mg/dL Calcium 8.8 LAB ALP 32-126 U/L Alkaline Phosphatase 103 LAB AST 14-40 U/L AST 21 LAB TP 6.4-8.3 g/dL Low Total Protein 5.9 LAB ALB 3.5-5.0 g/dL Albumin 3.8 LAB BILT <1.5 mg/dL Bilirubin High Total 2.4 LAB CO2 22-30 mmol/L Carbon Dioxide 27 LAB GAP 7-17 mmol/L Anion Gap 11 LAB ALT 10-52 U/L ALT 18 LAB GFR >60 mL/min/1.7 Low 3sqM Est GFR,non 54 LAB GFRA >60 mL/min/1.7 3sqM Est GFR, >60 LAB [facility] 278-305 mOsm/kg Osmolality (Calc) 294 Performed By: #### CBCDFJ #### [facility] [address] [place] [address] #### BTKRB #### [facility] [address] [place] [address] [facility] [address] [place] [address] INORG PHOSPHATE - CHRI Collected: 01/06/2018 Status: F Source: [facility] 10:55 AM [facility] REPOSITORY TYPE CODE TESTS RESULT OUT OF REFERENCE UNITS RANGE LAB IP 2.2-4.6 mg/dL Inorg Phosphate 2.9 Performed By: #### CARLADFJ #### [facility] [address] [place] [address] #### BTKRB #### [facility] [address] [place] [address] [facility] [address] [address] LD - CHRI Collected: 01/06/2018 Status: F Source: [facility] 10:55 [facility] REPOSITORY TYPE CODE TESTS RESULT OUT OF RANGE REFERENCE UNITS LAB LD 100-190 U/L High LD Total 198 Performed By: #### CARLADFJ #### [facility] [address] [place] [address] #### BTKRB #### [facility] [address] [place] [address] [facility] [address] [place] [address] MAGNESIUM - CHRI Collected: 01/06/2018 Status: F Source: [facility] 10:55 AM [facility] REPOSITORY TYPE CODE TESTS RESULT OUT OF REFERENCE UNITS RANGE LAB MG 1.6-2.6 mg/dL Magnesium 2.0 Performed By: #### CARLADFJ #### [facility] [address] [place] [address] #### BTKRB #### [facility] [address] [place] [address] [facility] [address] [place] [address] URIC ACID - CHRI Collected: 01/06/2018 Status: F Source: [facility] 10:55 AM [facility] REPOSITORY TYPE CODE TESTS RESULT OUT OF RANGE REFERENCE UNITS LAB URIC 3.5-7.0 mg/dL High Uric Acid 8.9 Performed By: #### CBCDFJ #### Sandro [facility], [facility] [address] [place] [address] #### BTKRB #### [facility] [address] [place] [address] [facility] [address] [place] [address] BTK RESISTANCE Observed: 01/06/2018 Status: F Source: [facility] MUTATION,BLD - BK 10:55 AM [facility] REPOSITORY Peripheral blood NOT DETECTED 0.0 The BTK C481S mutation is NOT detected by digital droplet PCR in DNA extracted from immunodensity-purified B-cells. Jose Sinclair M.D. Performed By: #### CBCDFJ #### [facility]ro [facility], [facility] [address] [place] [address] #### BTKRB #### [facility] [address] [place] [address] [facility] [address] [place] [address] CBC WITH DIFF SANDRO Collected: 11/27/2017 Status: F Source: [facility] 2:24 PM [facility] REPOSITORY TYPE CODE TESTS RESULT OUT OF REFERENCE UNITS RANGE LAB WBC 4.23-9.07 K/uL WBC Count 5.15 LAB RBC 4.63-6.08 M/uL RBC Count 4.02 Low LAB HGB 13.7-17.5 g/dL Hemoglobin 12.2 Low LAB HCT 40.1-51.0 % Hematocrit 37.1 Low LAB MCV 79.0-92.2 fL Mean Cell 92.3 High Volume LAB MCH 25.7-32.2 pg Mean Cell 30.3 Hgb LAB MCHC 32.3-36.5 g/dL Mean Cell 32.9 Hgb Conc LAB RDW 11.6-14.4 % RBC 14.1 Distribution LAB PLT 163-337 K/uL Platelet 141 Low Count LAB MPV 9.4-12.4 fL Mean 11.0 Platelet Volume LAB NRBC 0.0-0.2 /100 WBC NUCLEATED 0.0 RBC LAB DTYPE Electronic DIFFERENTIAL TYPE Differential LAB IGRE % IMMATURE 2.9 GRANS % LAB SEGS % NEUTROPHIL 60.2 SEGMENTED LAB LYM % LYMPHOCYTE 21.2 % LAB MON % MONOCYTE % 12.6 LAB EOS % EOSINOPHIL 2.3 % LAB BASO % BASOPHIL % 0.8 LAB IGABS <0.04 K/uL IMMATURE 0.15 High GRANS ABSOLUTE LAB SBANS 1.78-5.38 K/uL SEGS + 3.10 Bands,Absolute LAB ALYM 1.32-3.57 K/uL Abs Lymph 1.09 Low LAB AMONO 0.30-0.82 K/uL Abs Barron 0.65 LAB AEOS <0.55 K/uL Abs Eos 0.12 LAB ABASO <0.09 K/uL Abs Baso 0.04 Performed By: #### CARLADFJ #### [facility]ro [facility], [facility] [address] [place], [place] [address] METABOLIC PANEL - CHRI Collected: 11/27/2017 Status: F Source: [facility] 2:24 PM [facility] REPOSITORY TYPE CODE TESTS RESULT OUT OF REFERENCE UNITS RANGE LAB NA 133-143 mmol/L Sodium 139 LAB K 3.5-5.0 mmol/L Potassium 4.4 LAB CL 98-108 mmol/L Chloride 104 LAB BUN 7-22 mg/dL BUN 20 LAB CREA 0.70-1.30 mg/dL Creatinine 1.18 LAB GLUC 70-99 mg/dL Glucose 89 LAB CA 8.6-10.5 mg/dL Calcium 8.6 LAB ALP 32-126 U/L Alkaline High Phosphatase 156 LAB AST 14-40 U/L AST 21 LAB TP 6.4-8.3 g/dL Low Total Protein 5.8 LAB ALB 3.5-5.0 g/dL Albumin 3.8 LAB BILT <1.5 mg/dL Bilirubin High Total 2.4 LAB CO2 22-30 mmol/L Carbon Dioxide 27 LAB GAP 7-17 mmol/L Anion Gap 12 LAB ALT 10-52 U/L ALT 39 LAB GFR >60 mL/min/1.7 3sqM Est GFR,non >60 LAB GFRA >60 mL/min/1.7 3sqM Est GFR, >60 LAB [facility] 278-305 mOsm/kg Osmolality (Calc) 294 Performed By: #### CARLADFJ #### Sandro [facility], [facility] [address] [place], [place] [address] LD - CHRI Collected: 11/27/2017 Status: F Source: [facility] 2:24 PM [facility] REPOSITORY TYPE CODE TESTS RESULT OUT OF RANGE REFERENCE UNITS LAB LD 100-190 U/L High LD Total 210 Performed By: #### CBCDFJ #### [facility] [address] [place], [place] [address] ONCOLOGY VISIT REPORT Observed: 11/25/2017 Status: F Source: [facility] 4:34 PM [facility] REPOSITORY [facility] [address] [place] [address] OFFICE VISIT Date of Service: 11/25/17 1613 MR#: [id number] Acct: [id number] Name: DAVID DOYLE Rep #: [id number] : 1945 From: Alfredo Chau MD Age/Sex: 72/M Location: OMD Status: Signed Subjective - Date of Service Date of Service:: 11/25/17 - Chief Complaint F/u for low white counts. 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 S/P left neck node biopsy showing SLL/CLL 2010 and bone marrow aspirate and biopsy showing extensive involvement by B cell CLL 11/16/2010. Deletion 6q and flow cytometry consistent with CLL/SLL. CD38 negative. Progressive anemia and thrombocytopenia, S/P 4 cycles of FR therapy 11/06/2010 - 02/07/2011. S/P BR x3 cycles 04/16/2011 - 06/20/2011. S/P febrile neutropenia requiring hospitalization 06/28/2011. Progressive CLL October 2012 and on ibrutinib since 12/30/2012 under the care if Dr. Wade Horta at [facility]. Hypogammaglobulinemia, received monthly IVIG from 04/16/2016 to 06/25/2016. He remains on Ibrutinib. Information from [facility] suggested he should get IVIG monthly for 6 months as of his last visit. IVIG is on hold since August 2017 because of high levels. He had CBC done on 11/19/2017 which showed WBC 1.8 and Neutrophils 0.4. He stopped Ibrutinib on 11/22/2017, comes for follow up. He did not feel well from around 11/13/2017. - Past Medical/Social History Past Medical History Past Medical History: Anemia,Hypertension,Thyroid disease Other Past Medical History: HYPOGAMMAGLOBULINEMIA Pneumonia 2weeks ago. Tx'd with oral antibiotics . Cancer: Leukemia,Other Past Surgical History Surgical: Cholecystectomy Other Surgical History: MULTIPLE KNEE SURGERIES L SHOULDER Family History Paternal Past Medical History: Heart disease Maternal Past Medical History: Unknown Social History Social History: No changes Smoking Status Never smoker Review of Systems Constitutional:: Denies: Fever, Sweats, Weight loss, Appetite change, Chills Cardiovascular:: Denies: Chest pain, Palpitations, Dyspnea on exertion, Orthopnea, PND, Shortness of breath Respiratory: Denies: Cough, Hemoptysis, Shortness of Breath, Wheezing Gastrointestinal:: Denies: Abdominal pain, Nausea, Vomiting, Diarrhea, Constipation, Hematochezia Genitourinary: Denies: Dysuria, Hematuria, 15, Flank pain Musculoskeletal:: Denies: Back pain, Myalgia, Arthralgia Skin: Denies: Rash, Skin Changes, Wounds Neurological:: Denies: Headache, Dizziness, Visual changes, Tinnitus, Hearing loss Psychiatric: Denies: Anxiety, Depression, Homicidal Ideations, Suicidal Ideations Vital Signs Height 5 ft 10 in Weight: 81.193 kg Weight in Pounds 179.0 lbs Pulse Ox 99 - Physical Exam General: Alert, Oriented x3, No apparent distress HEENT: Atraumatic, PERRLA, EOMI, Normocephalic Oropharynx:: Dry mucosa Neck:: Supple, Trachea midline. Negative for: JVD, bilateral Cardiac:: Regular rate, Regular rhythm, Normal S1, Normal S2. Negative for: Murmur Lungs: Clear to auscultation, Excusion symmetrical. Negative for: Rhonchi, Wheezes Abdomen:: Bowel sounds x 4, Soft, Non-tender, Non-distended. Negative for: Hepatosplenomegaly Extremities:: Negative for: Cyanosis, Edema Neurological: Neuro grossly intact Skin:: Negative for: Lesions, Rash, Petechiae, Ecchymosis Psychiatric:: Appropriate affect, Euthymic Lymphatics:: Negative for: Cervical lymphadenopathy, Supraclavicular lymphadenopathy, Axillary lymphadenopathy Laboratory Data: Laboratory Tests WBC 4.5 (4.4-11.0) K/mm3 RBC 4.09 L (4.6-6.2) M/mm3 Hgb 12.5 L (13.0-16.5) g/dl Assessment and Plan CLL on Ibrutinib, in hematologic remission, clinically stable. Counts have recovered. Discussed the case with [facility] provider, can resume Ibrutinib. Hypogammaglobulinemia, IVIG replacement on hold. Plan is to resume Ibrutinib. RTC as scheduled. Medications: Prescriptions This Visit Medication Instructions Recorded Spironolactone [Aldactone] 25 mg PO DAILY 08/07/17 Finasteride [Proscar] 5 mg PO DAILY 10/30/17 Primary Care Provider: Julio Guzman Referring Provider: - Problem List (1) Hypogammaglobulinemia, acquired Status: Chronic (2) Chronic lymphocytic leukemia in remission Status: Chronic (3) Neutropenia Status: Resolved Qualifiers: Neutropenia type: unspecified Qualified Code(s): D70.9 - Neutropenia, unspecified Code Visit Office Visits / Consults: 46292 OV L3 Est 11/25/17 1634 <Electronically signed by Alfredo Chau MD> Date Alfredo Chau MD Cosigner Signature: Date (if applicable) CC: CBC W/DIFF, AUTOMATED Collected: 11/25/2017 Status: F Source: [facility] 2:16 PM [facility] REPOSITORY Order Comment: Reason for Laboratory Test . TYPE CODE TESTS RESULT OUT OF RANGE REFERENCE UNITS LAB L100.1000 4.4-11.0 K/mm3 Normal WBC 4.5 LAB L100.1200 4.6-6.2 M/mm3 Low RBC 4.09 LAB L100.1300 13.0-16.5 g/dl Low HGB 12.5 LAB L100.1400 40-54 % Low HCT 38.3 LAB L100.1500 80-94 fL Normal MCV 93.6 LAB L100.1600 27.0-32.0 pg Normal MCH 30.6 LAB L100.1700 32-36 g/gl Normal MCHC 32.6 LAB L100.1810 11.6-14.6 % Normal RDW CV 14.3 LAB L100.1820 35.1-43.9 fl High RDW SD 48.2 LAB L100.1900 150-450 K/mm3 Low PLT 122 LAB L100.2000 6.2-12.0 fl Normal MPV 10.5 LAB L100.2100 47-70 % Normal NEUT% 62.3 LAB L100.2200 19-41 % Low LY% 15.4 LAB L100.2300 0-10 % High MONO% 17.4 LAB L100.2400 0-5 % Normal EO% 2.2 LAB L100.2500 0-1 % Normal BASO% 0.9 LAB L100.2550 0.0-0.9 % High IM GRAN % 1.800 Result Comment: IG% - Immature Granulocytes (promyelocytes, myelocytes and metamyelocytes) > 1% indicates that a LEFT SHIFT is Present. LAB L100.2620 2.0-7.7 X10 3/uL Normal Absolute Neut 2.8 LAB L100.2720 0.83-4.51 X10 3/ul Low Absolute Lymph 0.69 Performed By: #### L100.0100 #### [facility] [address] [place], [address] CBC W/DIFF, AUTOMATED Collected: 11/19/2017 Status: F Source: [facility] 2:25 PM [facility] REPOSITORY TYPE CODE TESTS RESULT OUT OF RANGE REFERENCE UNITS LAB L100.1000 4.4-11.0 K/mm3 Low WBC 1.8 LAB L100.1200 4.6-6.2 M/mm3 Low RBC 3.98 LAB L100.1300 13.0-16.5 g/dl Low HGB 12.2 LAB L100.1400 40-54 % Low HCT 37.6 LAB L100.1500 80-94 fL High MCV 94.5 LAB L100.1600 27.0-32.0 pg Normal MCH 30.7 LAB L100.1700 32-36 g/gl Normal MCHC 32.4 LAB L100.1810 11.6-14.6 % Normal RDW CV 14.2 LAB L100.1820 35.1-43.9 fl High RDW SD 46.8 LAB L100.1900 150-450 K/mm3 Low PLT 91 LAB L100.2000 6.2-12.0 fl Normal MPV 11.0 LAB L100.2100 47-70 % Low NEUT% 21.1 LAB L100.2200 19-41 % High LY% 41.1 LAB L100.2300 0-10 % High MONO% 33.9 LAB L100.2400 0-5 % Normal EO% 1.7 LAB L100.2500 0-1 % High BASO% 1.1 LAB L100.2550 0.0-0.9 % High IM GRAN % 1.100 Result Comment: IG% - Immature Granulocytes (promyelocytes, myelocytes and metamyelocytes) > 1% indicates that a LEFT SHIFT is Present. LAB L100.2620 2.0-7.7 X10 3/uL Low Absolute Neut 0.4 LAB L100.2720 0.83-4.51 X10 3/ul Low Absolute Lymph 0.74 LAB L100.4500 SMEAR Normal COMMENT Result Comment: NEUTROPENIA NOTED Performed By: #### L100.0100 #### [facility] [address] [place], [place], [address] FLUID/WASHING Observed: 11/19/2017 Status: F Source: AMITY 2:25 PM [facility] REPOSITORY Patient: DAVID DOYLE : 1945 (72/M) Acct Num: [id number] Phys: ERICK Camejo Unit Num: [id number] Loc: LAB Specimen: [id number] Received: 11/19/17 - 1530 Spec Type: Fluid TISSUES TISSUES: Urine COMMENT Clinical correlation and appropriate follow up are necessary. CYTOLOGY GROSS Received is 30 ml of cloudy dark ehsan fluid labeled with the patient's name and and designated per the requisition as urine. Submitted for cytology. / TC:5 CPT: 69046 CYTOLOGY STUDY Slides are reviewed. The specimen is bloody and consists of benign squamous cells and urothelial cells. DIAGNOSIS CYTOLOGY Urine for cytology (cytospin): Negative for malignant cells. Bloody specimen. See cytology study and comment. SJ:rosmery 11/21/17 HEADER OPERATION: Not noted PRE-OP DIAGNOSIS: Hematuria TISSUE SUBMITTED: Urine for cytology Signed Saravanan Johnston 11/21/17 <signature on file> Performed By: #### PFLU #### [facility] [address] [place], [address] Observed: 11/19/2017 Status: F Source: DEJON CULTURE, URINE 2:25 PM [facility] REPOSITORY Urine Culture Culture exhibits no growth. Performed By: #### M100.0650 #### [facility] [address] [place], [address] CYTOLOGY, BODY FLUID / Collected: 11/19/2017 Status: F Source: DEJON CSF 2:25 PM [facility] REPOSITORY Order Comment: Specimen Source: URINE CYTOLOGY TYPE CODE TESTS RESULT OUT OF RANGE REFERENCE UNITS LAB L350.1000 SEE Normal PATHOLOGY CYTOLOGY,BF REPORT /CSF Result Comment: Specimen submitted to Anatomical Pathology Department for testing. Performed By: #### L350.1000 #### [facility] [address] [place], [address] RENAL PROFILE Collected: 11/18/2017 Status: F Source: DEJON 1:48 PM [facility] REPOSITORY TYPE CODE TESTS RESULT OUT OF RANGE REFERENCE UNITS LAB L501.0100 74-106 mg/dL High GLU 117 Result Comment: Fasting Glucose result from 100 to 125 mg/dL suggests IMPAIRED HOMEOSTASIS per A.D.A. criteria. Please note revised GLUCOSE reference range effective 2017. LAB L501.1000 7-18 mg/dL Normal BUN 16 LAB L501.1100 0.70-1.30 mg/dL Normal CREAT,SERUM 1.30 Result Comment: The validity of the calculated GFR AND GFRAA in patients over 70 years has not been determined. Clinical correlation is essential. LAB L501.1110 >60 mL/min Low EST GFR 58 Result Comment: Non- GFR Calc LAB L501.1115 >60 mL/min Normal EST GFR - AA 70 Result Comment: GFR Calc LAB L501.1300 10-20 RATIO Normal BUN/CRE 12.3 LAB L501.1800 3.2-5.0 g/dL Normal ALB 3.4 LAB L501.2200 8.5-10.1 mg/dL Low CA 8.3 LAB L501.2300 2.5-4.9 mg/dL Low PHOS 2.3 LAB L501.5300 136-145 mmol/L NA Normal 141 LAB L501.5600 3.5-5.1 mmol/L K Normal 3.9 LAB L501.5900 98-107 mmol/L CL Normal 103 LAB L501.6100 21.0-32.0 mmol/L Normal CO2 32.0 Performed By: #### L500.3600 #### [facility] [address] [place], [address] ONCOLOGY VISIT REPORT Observed: 10/30/2017 Status: F Source: AMITY 3:05 PM [facility] REPOSITORY [facility] [place] [address] OFFICE VISIT Date of Service: 10/30/17 1455 MR#: [id number] Acct: [id number] Name: DAVID DOYLE Tru Rep #: [id number] : 1945 From: Alfredo Chau MD Age/Sex: 72/M Location: [facility] Status: Signed Subjective - Date of Service Date of Service:: 10/30/17 - Chief Complaint F/u for IVIG. 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 S/P left neck node biopsy showing SLL/CLL 2010 and bone marrow aspirate and biopsy showing extensive involvement by B cell CLL 11/16/2010. Deletion 6q and flow cytometry consistent with CLL/SLL. CD38 negative. Progressive anemia and thrombocytopenia, S/P 4 cycles of FR therapy 11/06/2010 - 02/07/2011. S/P BR x3 cycles 04/16/2011 - 06/20/2011. S/P febrile neutropenia requiring hospitalization 06/28/2011. Progressive CLL October 2012 and on ibrutinib since 12/30/2012 under the care if Dr. Wade Horta at [facility]. Hypogammaglobulinemia, received monthly IVIG from 04/16/2016 to 06/25/2016. He remains on Ibrutinib. Information from [facility] suggested he should get IVIG monthly for 6 months as of his last visit. Comes for follow up. IVIG is on hold since August 2017 because of high levels. He feels well, had urine retention and does catheterization. He has developed epididymitis and took Levoquin. - Past Medical/Social History Past Medical History Past Medical History: Anemia,Hypertension,Thyroid disease Other Past Medical History: HYPOGAMMAGLOBULINEMIA Pneumonia 2weeks ago. Tx'd with oral antibiotics . Cancer: Leukemia,Other Past Surgical History Surgical: Cholecystectomy Other Surgical History: MULTIPLE KNEE SURGERIES L SHOULDER Family History Paternal Past Medical History: Heart disease Maternal Past Medical History: Unknown Social History Social History: No changes Smoking Status Never smoker Review of Systems Constitutional:: Denies: Fever, Sweats, Weight loss, Appetite change, Chills Cardiovascular:: Denies: Chest pain, Palpitations, Dyspnea on exertion, Orthopnea, PND, Shortness of breath Respiratory: Denies: Cough, Hemoptysis, Shortness of Breath, Wheezing Gastrointestinal:: Denies: Abdominal pain, Nausea, Vomiting, Diarrhea, Constipation, Hematochezia Genitourinary: Denies: Dysuria, Hematuria, 15, Flank pain Musculoskeletal:: Denies: Back pain, Myalgia, Arthralgia Skin: Denies: Rash, Skin Changes, Wounds Neurological:: Denies: Headache, Dizziness, Visual changes, Tinnitus, Hearing loss Psychiatric: Denies: Anxiety, Depression, Homicidal Ideations, Suicidal Ideations Vital Signs Height 5 ft 10 in Weight: 82.1 kg Weight in Pounds 181.0 lbs Pulse Ox 99 - Physical Exam General: Alert, Oriented x3, No apparent distress HEENT: Atraumatic, PERRLA, EOMI, Normocephalic Oropharynx:: Dry mucosa Neck:: Supple, Trachea midline. Negative for: JVD, bilateral Cardiac:: Regular rate, Regular rhythm, Normal S1, Normal S2. Negative for: Murmur Lungs: Clear to auscultation, Excusion symmetrical. Negative for: Rhonchi, Wheezes Abdomen:: Bowel sounds x 4, Soft, Non-tender, Non-distended, - - sliight tederness R testis.. Negative for: Hepatosplenomegaly Extremities:: Negative for: Cyanosis, Edema Neurological: Neuro grossly intact Skin:: Negative for: Lesions, Rash, Petechiae, Ecchymosis Psychiatric:: Appropriate affect, Euthymic Lymphatics:: Negative for: Cervical lymphadenopathy, Supraclavicular lymphadenopathy, Axillary lymphadenopathy Assessment and Plan CLL on Ibrutinib, in hematologic remission, clinically stable. Hypogammaglobulinemia, IVIG replacement on hold. Epididymitis. Plan is to hold IVIG. Follow up with Urologist. RTC 8 wks with cbc/cmp. Medications: Prescriptions This Visit Medication Instructions Recorded Spironolactone [Aldactone] 25 mg PO DAILY 08/07/17 Finasteride [Proscar] 5 mg PO DAILY 10/30/17 Primary Care Provider: Julio Guzman Referring Provider: - Problem List (1) Hypogammaglobulinemia, acquired Status: Chronic (2) Chronic lymphocytic leukemia in remission Status: Chronic Code Visit Office Visits / Consults: 45032 OV L3 Est 10/30/17 1505 <Electronically signed by Alfredo Chau MD> Date Alfredo Chau MD Cosigner Signature: Date (if applicable) CC: US RENAL Observed: 10/24/2017 Status: F Source: [facility] [employer] 3:00 PM [facility] REPOSITORY ORIGINAL US RENAL CLINICAL INDICATION: INCOMPLETE BLADDER EMPTYING the patient ate 3 hours ago. He feels like he has an urgency to urinate for about 2 weeks. Incomplete bladder emptying. COMPARISON: Ultrasound of the abdomen 09/05/2011 FINDINGS: KIDNEYS: RIGHT: 9.2 x 4.6 x 4.2 cm Cortex: Unremarkable No hydronephrosis, shadowing stone, or discrete cortical mass. There are multiple subcentimeter anechoic structures scattered throughout the cortex of the RIGHT kidney which likely represent simple cysts. LEFT: 9.0 x 5.5 x 4.3 cm Cortex: Unremarkable No hydronephrosis, shadowing stone, or discrete cortical mass. There is an exophytic, anechoic structure within the mid LEFT kidney which measures 2.0 x 2.0 x 1.9 cm. There are multiple other subcentime ter anechoic structures scattered throughout the cortex of the LEFT kidney which likely represent simple cysts. Urinary bladder is unremarkable. Aorta: Segmentally visualized; unremarkable. IVC: Segmentally visualized; patent. IMPRESSION: 1. There is a simple cyst within the mid LEFT kidney. 2. There are multiple subcentimeter anechoic structures scattered throughout the kidneys bilaterally which likely represents a simple cysts. Interpreted By: Vivian Ceja MD Preliminary Report By: Vivian Ceja MD Electronically Signed By: Vivian Ceja MD Dictated Date: 10/24/2017 4:23:52 PM Prelim Date: 10/24/2017 4:23:52 PM Sign Date: 10/24/2017 4:41:49 PM EMERGENCY DEPARTMENT Observed: 10/11/2017 Status: F Source: AMITY SUMMARY 4:56 AM [facility] Medical Records Department [address] [place] [address] Emergency Department Summary 10/11/17 0323 MR#: [id number] Acct: [id number] Name: DAVID DOYLE Rep #: [id number] : 1945 72 From: Noah Garrison PCP: ERICK Camejo Status: REG ER - ER Visit Summary Date of Service: 10/11/17 Chief Complaint: Unable to urinate History of Present Illness: The patient is a 72 M unable to urinate. Last urination was 3 hours ago. Normally urinates every 2 hours. History of BPH with TURP procedure July [address] Jean Baptiste. Taken off Flomax by PCP due to low blood pressure previously. States had right testicular swelling over the past 5 days, ultrasound performed outpatient Jocelyn today at [place]. He is placed on Levaquin by PCP for past 3 days. No fevers. No back pain. States that suprapubic discomfort. History of similar in the past. Physical Examination: General: Alert and oriented 3, no acute distress HEENT: Normocephalic, atraumatic. Moist mucosa membranes Neck: supple, nontender. Cardiovascular: Regular rate and rhythm, no murmurs Respiratory: Normal breath sounds, symmetric, no distress Abdomen: Soft, mild suprapubic distention, nontender. : No testicular swelling, larger right-sided testicle versus left. No epididymal tenderness. Extremities: Nontender, no edema, pulses intact 4 Neuro: no focal neurological deficits. Test Results: UA noted 250 blood. Urine culture pending. Emergency Department Course and Treatment: Patient initial straight cath had 100 cc of urine. Urine negative for infection. Discussed with patient no significant retention at this time. However he further stated he has been self cathing for the past 2 days. He has history of BPH with TURP in 2016. He was taken off Flomax. Patient was concerned that he would have recurrent symptoms and he will continue self cath and requested a Betancur. This was placed due to patient request. He will start Flomax for which he has at home. He will monitor his blood pressure. He will be given follow-up with urology as an outpatient. He will continue his Levaquin. All questions are answered. Treatment Plan: [] Disposition: Discharge Impression: Urine retention This note was generated with [employer] dictation software. It may contain incorrect words, spelling, and punctuation that were not noted in review of the chart prior to signing ED Disposition - Plan for ED Patient: Disposition: Home or Assisted Living Chief Complaint: Complaint Diagnosis: Urine retention Instructions: ED Retention Urinary Male Referrals: Julio Guzman NP-C [Primary Care Provider] - Baltazar Blood MD [STAFF PHYSICIAN] - 3-5 Days Additional Instructions: Start Flomax daily at home. Monitor blood pressure. Finish your antibiotics of Levaquin. What to do if you have Problems For any increased pain, shortness of breath, bleeding, nausea or vomiting, chest pain, or any unexpected problems, contact your Primary Care Provider. Call [facility] ([phone]) or report to the closest Emergency Room. Call 911 if necessary. 10/11/17 0456 <Electronically signed by Noah Garrison> Date Noah Garrison Cosigner Signature (If Indicated): Date CC: BANK [employer]ULT ATTENDANT-C Julio Hillpkins URINALYSIS, COMPLETE Collected: 10/11/2017 Status: F Source: DEJON 3:30 AM [facility] REPOSITORY Order Comment: How was Urine Obtained? CATHETER SPECIMEN TYPE CODE TESTS RESULT OUT OF RANGE REFERENCE UNITS LAB L400.3000 Yellow COLOR Normal Yellow LAB L400.3050 Clear Normal CLARITY Clear LAB L400.3200 Normal mg/dl Normal GLUCOSE, UR Normal LAB L400.3300 Negative mg/dL Normal BILIRUBIN URINE Negative LAB L400.3400 Negative mg/dl Normal KETONE UR Negative LAB L400.3465 1.002-1.030 Normal SP.GR. DIPSTX 1.015 LAB L400.3550 5.0 - 8.0 pH UR Normal 6.0 LAB L400.3600 Negative mg/dl PROT Normal DIPSTX Negative LAB L400.3700 Normal mg/dl Normal UROBILI Normal LAB L400.3750 Negative Normal NITRITE UR Negative LAB L400.3780 Negative /ul High OCCULT BLOOD-UR 250 LAB L400.3800 Negative /ul LEUK Normal ESTERASE Negative LAB L400.4050 0-5 /hpf WBC 0 Normal SEEN LAB L400.4100 0-5 /hpf Normal RBC-UA 5-10 SEEN LAB L400.4150 0-5 /hpf SQUAM 0 Normal EPI SEEN LAB L400.4300 None Seen /hpf 0 Normal BACTERIA SEEN LAB L400.4350 <or=2+ /hpf 0 Normal MUCUS, URINE SEEN Performed By: #### L400.0001 #### [facility] [address] [place], [place], [address] Observed: 10/11/2017 Status: F Source: DEJON CULTURE, URINE 3:30 AM [facility] REPOSITORY Has pt arrived? Y Urine Culture Culture exhibits no growth. Performed By: #### M100.0650 #### [facility] [address] [place], [address] US SCROTUM CONTENTS Observed: 10/10/2017 Status: F Source: [place] [employer] 8:30 AM [facility] REPOSITORY ORIGINAL Scrotal ultrasound, 10/10/2017. CLINICAL INFORMATION: Right testicular swelling. COMPARISON: None Right and left testicles measure 3 x 2.3 x 2.4 and 3.3 x 2.3 x 2.2 cm size respectively. Punctate hyperechoic focus in right testicle could be a small calcification. There is bilateral testicular blood flow. Right epididymis is enlarged and very heterogeneous and contains irregular shaped fluid collection. Epididymitis is a consideration. The left epididymis is normal size and there is a hypoechoic left epi didymal cyst or spermatocele measuring 6.6 mm. There are bilateral scrotal fluid collections suggesting [id number] hydroceles. IMPRESSION: Normal-sized testicles with small punctate calcification within the right testicular substance. Enlarged heterogeneous right epididymis with irregular cystic space raising concern for epididymitis. Small to moderate bilateral scrotal hydroceles. Interpreted By: Sandro Malave MD Preliminary Report By: Sandro Malave MD Electronically Signed By: Sandro Malave MD Dictated Date: 10/11/2017 9:57:51 AM Prelim Date: 10/11/2017 9:57:51 AM Sign Date: 10/11/2017 10:02:30 AM CBC WITH DIFF SANDRO Collected: 10/09/2017 Status: F Source: [facility] 11:29 AM [facility] REPOSITORY TYPE CODE TESTS RESULT OUT OF REFERENCE UNITS RANGE LAB WBC 4.23-9.07 K/uL WBC High Count 9.62 LAB RBC 4.63-6.08 M/uL Low RBC Count 4.32 LAB HGB 13.7-17.5 g/dL Hemoglobin 13.7 LAB HCT 40.1-51.0 % Hematocrit 41.1 LAB MCV 79.0-92.2 fL Mean High Cell Volume 95.1 Result Comment: Results inconsistent with previous results LAB MCH 25.7-32.2 pg Mean Cell 31.7 Hgb LAB MCHC 32.3-36.5 g/dL Mean Cell 33.3 Hgb Conc LAB RDW 11.6-14.4 % RBC 14.6 High Distribution LAB PLT 163-337 K/uL Platelet 132 Low Count LAB MPV 9.4-12.4 fL Mean 11.1 Platelet Volume LAB NRBC 0.0-0.2 /100 WBC NUCLEATED 0.0 RBC LAB DTYPE Electronic DIFFERENTIAL TYPE Differential LAB IGRE % IMMATURE 1.7 GRANS % LAB SEGS % NEUTROPHIL 78.5 SEGMENTED LAB LYM % LYMPHOCYTE 12.5 % LAB MON % MONOCYTE % 6.7 LAB EOS % EOSINOPHIL 0.3 % LAB BASO % BASOPHIL % 0.3 LAB IGABS 0.00-0.03 K/uL IMMATURE 0.16 High GRANS ABSOLUTE LAB SBANS 1.78-5.38 K/uL SEGS + 7.56 High Bands,Absolute LAB ALYM 1.32-3.57 K/uL Abs Lymph 1.20 Low LAB AMONO 0.30-0.82 K/uL Abs Barron 0.64 LAB AEOS 0.04-0.54 K/uL Abs Eos <0.04 Low LAB ABASO 0.01-0.08 K/uL Abs Baso <0.04 Performed By: #### CBCDFJ #### Sandro CC[facility], [facility] [address] [place] [address] #### BTKRB #### [facility] [address] [place] [address] METABOLIC PANEL - CHRI Collected: 10/09/2017 Status: F Source: [facility] 11:29 AM [facility] REPOSITORY TYPE CODE TESTS RESULT OUT OF REFERENCE UNITS RANGE LAB NA 133-143 mmol/L Sodium 138 LAB K 3.5-5.0 mmol/L Potassium 4.7 LAB CL 98-108 mmol/L Chloride 102 LAB BUN 7-22 mg/dL BUN 18 LAB CREA 0.70-1.30 mg/dL Creatinine High 1.47 LAB GLUC 70-99 mg/dL Glucose 96 LAB CA 8.6-10.5 mg/dL Calcium 9.2 LAB ALP 32-126 U/L Alkaline Phosphatase 109 LAB AST 14-40 U/L AST 16 LAB TP 6.4-8.3 g/dL Low Total Protein 6.1 LAB ALB 3.5-5.0 g/dL Albumin 4.2 LAB BILT <1.5 mg/dL Bilirubin High Total 3.6 LAB CO2 22-30 mmol/L Carbon Dioxide 30 LAB GAP 7-17 mmol/L Anion Gap 11 LAB ALT 10-52 U/L ALT 15 LAB GFR >60 mL/min/1.7 Low 3sqM Est GFR,non 47 LAB GFRA >60 mL/min/1.7 Low 3sqM Est GFR, 57 LAB [facility] 278-305 mOsm/kg Osmolality (Calc) 292 Performed By: #### CBCDFJ #### [facility] [address] [place] [address] #### BTKRB #### [facility] [address] [place] [address] [facility] [address] [place] [address] INORG PHOSPHATE - CHRI Collected: 10/09/2017 Status: F Source: [facility] 11:29 AM [facility] REPOSITORY TYPE CODE TESTS RESULT OUT OF REFERENCE UNITS RANGE LAB IP 2.2-4.6 mg/dL Inorg Phosphate 2.9 Performed By: #### CARLADFJ #### [facility] [address] [place], [place] [id number] #### BTKRB #### [facility] [address] [place] [address] [place] [address] LD - CHRI Collected: 10/09/2017 Status: F Source: [facility] 11:29 [facility] REPOSITORY TYPE CODE TESTS RESULT OUT OF RANGE REFERENCE UNITS LAB LD 100-190 U/L High LD Total 208 Performed By: #### CBCDFJ #### Sandro [facility] [address] [place] [address] #### BTKRB #### [facility] [address] [place] [address] [facility] [address] [place] [address] MAGNESIUM - CHRI Collected: 10/09/2017 Status: F Source: [facility] 11:29 AM [facility] REPOSITORY TYPE CODE TESTS RESULT OUT OF REFERENCE UNITS RANGE LAB MG 1.6-2.6 mg/dL Magnesium 2.0 Performed By: #### CBCDFJ #### Sandro MATTSON, [facility] [address] [place] [address] #### BTKRB #### [facility] [address] [place] [address] [facility] [address] [place] [address] URIC ACID - CHRI Collected: 10/09/2017 Status: F Source: [facility] 11:29 AM [facility] REPOSITORY TYPE CODE TESTS RESULT OUT OF RANGE REFERENCE UNITS LAB URIC 3.5-7.0 mg/dL High Uric Acid 8.8 Performed By: #### CBCDFJ #### Sandro [facility] [address] [place] [address] #### BTKRB #### [facility] [address] [place] [id number] [place] [address] [address] [place] [address] BTK RESISTANCE Observed: 10/09/2017 Status: F Source: [facility], BLOOD 11:29 AM [facility] REPOSITORY Peripheral blood NOT DETECTED 0.0 The BTK C481S mutation is NOT detected by digital droplet PCR in DNA extracted from immunodensity-purified B-cells. Tanja Randolph MD,PhD Performed By: #### CBCDFJ #### Sandro [facility], [facility] [address] [place] [address] #### BTKRB #### [facility] [address] [place] [address] [place] [address] ONCOLOGY VISIT REPORT Observed: 09/04/2017 Status: F Source: [facility] 11:27 AM [facility] REPOSITORY [facility] [address] [place] [address] OFFICE VISIT Date of Service: 09/04/17 1110 MR#: [id number] Acct: [id number] Name: DAVID DOYLE Tru Rep #: [id number] : 1945 From: Alfredo Chau MD Age/Sex: 71/M Location: [facility] Status: Signed Subjective - Date of Service Date of Service:: 09/04/17 - Chief Complaint F/u for IVIG. 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 S/P left neck node biopsy showing SLL/CLL 2010 and bone marrow aspirate and biopsy showing extensive involvement by B cell CLL 11/16/2010. Deletion 6q and flow cytometry consistent with CLL/SLL. CD38 negative. Progressive anemia and thrombocytopenia, S/P 4 cycles of FR therapy 11/06/2010 - 02/07/2011. S/P BR x3 cycles 04/16/2011 - 06/20/2011. S/P febrile neutropenia requiring hospitalization 06/28/2011. Progressive CLL October 2012 and on ibrutinib since 12/30/2012 under the care if Dr. Wade Horta at [facility]. Hypogammaglobulinemia, received monthly IVIG from 04/16/2016 to 06/25/2016. He remains on Ibrutinib. Information from [facility] suggested he should get IVIG monthly for 6 months as of his last visit. Comes for IVIG today for the 5th month which was held last month because IgG was greater than 700. - Past Medical/Social History Past Medical History Past Medical History: Anemia,Hypertension,Thyroid disease Other Past Medical History: HYPOGAMMAGLOBULINEMIA Pneumonia 2weeks ago. Tx'd with oral antibiotics . Cancer: Leukemia,Other Past Surgical History Surgical: Cholecystectomy Other Surgical History: MULTIPLE KNEE SURGERIES L SHOULDER Family History Paternal Past Medical History: Heart disease Maternal Past Medical History: Unknown Social History Social History: No changes Smoking Status Never smoker Review of Systems Constitutional:: Denies: Fever, Sweats, Weight loss, Appetite change, Chills Cardiovascular:: Denies: Chest pain, Palpitations, Dyspnea on exertion, Orthopnea, PND, Shortness of breath Respiratory: Denies: Cough, Hemoptysis, Shortness of Breath, Wheezing Gastrointestinal:: Denies: Abdominal pain, Nausea, Vomiting, Diarrhea, Constipation, Hematochezia Genitourinary: Denies: Dysuria, Hematuria, 15, Flank pain Musculoskeletal:: Denies: Back pain, Myalgia, Arthralgia Skin: Denies: Rash, Skin Changes, Wounds Neurological:: Denies: Headache, Dizziness, Visual changes, Tinnitus, Hearing loss Psychiatric: Denies: Anxiety, Depression, Homicidal Ideations, Suicidal Ideations Vital Signs Height 5 ft 10 in Weight: 86.001 kg Weight in Pounds 189.6 lbs Pulse Ox 100 - Physical Exam General: Alert, Oriented x3, No apparent distress HEENT: Atraumatic, PERRLA, EOMI, Normocephalic Oropharynx:: Dry mucosa Laboratory Data: Laboratory Tests Creatinine 1.92 H Alkaline Phosphatase 161 H IgG 571 L Assessment and Plan CLL on Ibrutinib, in hematologic remission, clinically stable. Hypogammaglobulinemia on IVIG replacement as suggested by [facility] treatment group. IgG level was 571 on 08/28/2017. He would like to hold off IVIG for the Spring and Summer. Increased Cr is being addressed by Machine [employer] Eng[employer]ver. Plan is to hold IVIG. RTC 8 wks. Medications: Prescriptions This Visit Medication Instructions Recorded Lactobacillus Acidophilus/Fos 1 each PO 07/10/17 [Acidophilus Probiotic Tablet] Spironolactone [Aldactone] 25 mg PO DAILY 08/07/17 Medications Added to Medication List This Visit Immune Globulin 20 gm [Octagam 10% 20gm] 30 gm ONC NC 09/04/17 08:30 Ordered Premixed Bag 1 bag IV X1 Primary Care Provider: Julio Guzman Referring Provider: - Problem List (1) Hypogammaglobulinemia, acquired Status: Chronic (2) Chronic lymphocytic leukemia in remission Status: Chronic Code Visit Office Visits / Consults: 38256 OV L3 Est 09/04/17 1127 <Electronically signed by Alfredo Chau MD> Date Alfredo Chau MD Cosigner Signature: Date (if applicable) CC: CBC W/DIFF, AUTOMATED Collected: 08/28/2017 Status: C Source: DEJON 1:37 PM [facility] REPOSITORY Order Comment: Reason for Laboratory Test . TYPE CODE TESTS RESULT OUT OF RANGE REFERENCE UNITS LAB L100.1000 4.4-11.0 K/mm3 Normal WBC 5.1 LAB L100.1200 4.6-6.2 M/mm3 Normal RBC 4.63 LAB L100.1300 13.0-16.5 g/dl Normal HGB 14.2 LAB L100.1400 40-54 % Normal HCT 43.1 LAB L100.1500 80-94 fL Normal MCV 93.1 LAB L100.1600 27.0-32.0 pg Normal MCH 30.7 LAB L100.1700 32-36 g/gl Normal MCHC 32.9 LAB L100.1810 11.6-14.6 % High RDW CV 15.3 LAB L100.1820 35.1-43.9 fl High RDW SD 51.8 LAB L100.1900 150-450 K/mm3 Low PLT 145 LAB L100.2000 6.2-12.0 fl Normal MPV 12.0 LAB L100.2100 47-70 % Normal NEUT% 62.1 LAB L100.2200 19-41 % Normal LY% 22.4 LAB L100.2300 0-10 % High MONO% 10.3 LAB L100.2400 0-5 % Normal EO% 1.9 LAB L100.2500 0-1 % Normal BASO% 0.8 LAB L100.2550 0.0-0.9 % High IM GRAN % 2.500 Result Comment: IG% - Immature Granulocytes (promyelocytes, myelocytes and metamyelocytes) > 1% indicates that a LEFT SHIFT is Present. LAB L100.2620 2.0-7.7 X10 3/uL Normal Absolute Neut 3.2 LAB L100.2720 0.83-4.51 X10 3/ul Normal Absolute Lymph 1.15 LAB L100.9900 Normal PATH REV Reviewed Result Comment: AMENDED REPORT 08/29/17 1156 PATH REV previously reported as: September christina Performed By: #### L100.0100, L500.4050 #### [facility] [address] [place], [address] COMPREHENSIVE METABOLIC Collected: 08/28/2017 Status: F Source: [facility] 1:37 PM [facility] REPOSITORY Order Comment: Reason for Laboratory Test . TYPE CODE TESTS RESULT OUT OF RANGE REFERENCE UNITS LAB L501.0100 74-106 mg/dL Normal GLU 106 Result Comment: Fasting Glucose result from 100 to 125 mg/dL suggests IMPAIRED HOMEOSTASIS per A.D.A. criteria. Please note revised GLUCOSE reference range effective 2017. LAB L501.1000 7-18 mg/dL High BUN 25 LAB L501.1100 0.70-1.30 mg/dL High CREAT,SERUM 1.92 Result Comment: The validity of the calculated GFR AND GFRAA in patients over 70 years has not been determined. Clinical correlation is essential. LAB L501.1110 >60 mL/min Low EST GFR 37 Result Comment: Non- GFR Calc LAB L501.1115 >60 mL/min Low EST GFR - AA 45 Result Comment: GFR Calc LAB L501.1255 ml/min Normal Estimated CRCL 36.44 LAB L501.1300 10-20 RATIO Normal BUN/CRE 13.0 LAB L501.1500 6.4-8. g/dL Normal 2 T PROT 6.6 LAB L501.1800 3.2-5. g/dL Normal 0 ALB 3.6 LAB L501.1950 2.2-4. g/dL Normal 2 GLOB 3.0 LAB L501.2000 0.9-2. RATIO Normal 4 A/G 1.2 LAB L501.2200 8.5-10 mg/dL Low .1 CA 8.4 LAB L501.4100 15-37 U/L High AST 44 LAB L501.4305 45-117 U/L High ALK P 161 LAB L501.4405 16-61 U/L High ALT 88 LAB L501.4600 0.20-1 mg/dL High .00 T BILI 1.40 LAB L501.5300 136-14 mmol/L Normal 5 NA 138 LAB L501.5600 3.5-5. mmol/L Normal 1 K 4.6 LAB L501.5900 98-107 mmol/L Normal CL 105 LAB L501.6100 21.0-3 mmol/L Normal 2.0 CO2 25.0 LAB L501.6200 5-15 Normal GAP 8 Performed By: #### L100.0100, L500.4050 #### [facility] [address] [place], [address] IMMUNOGLOBULINS G/A/M Collected: 08/28/2017 Status: F Source: [facility] 1:37 PM [facility] REPOSITORY Order Comment: Reason for Laboratory Test . Is Patient Fasting? N TYPE CODE TESTS RESULT OUT OF RANGE REFERENCE UNITS LAB L3200.7034 912-6003 mg/dL Low IMMUNO G 571 LAB L3200.1400 61-437 mg/dL Normal IMMUNO A 177 LAB L3200.1500 15-143 mg/dL Normal IMMUNOGL M 20 Result Comment: Result confirmed on concentration. Performed at: - [facility] [id number] New Client Banking Services Clerk: Ricardo Martins PhD, Phone: [phone] Performed By: #### L3200.1200 #### [facility] (refer to report for specific site) refer to report for address and phone number ONCOLOGY VISIT REPORT Observed: 08/07/2017 Status: F Source: [facility] 10:51 AM [facility] REPOSITORY [facility] [address] OFFICE VISIT Date of Service: 08/07/17 1042 MR#: [id number] Acct: [id number] Name: DAVID DOYLE Rep #: [id number] : 1945 From: Alfredo Chau MD Age/Sex: 71/M Location: [facility] Status: Signed Subjective - Date of Service Date of Service:: 08/07/17 - Chief Complaint F/u for IVIG. 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 S/P left neck node biopsy showing SLL/CLL 2010 and bone marrow aspirate and biopsy showing extensive involvement by B cell CLL 11/16/2010. Deletion 6q and flow cytometry consistent with CLL/SLL. CD38 negative. Progressive anemia and thrombocytopenia, S/P 4 cycles of FR therapy 11/06/2010 - 02/07/2011. S/P BR x3 cycles 04/16/2011 - 06/20/2011. S/P febrile neutropenia requiring hospitalization 06/28/2011. Progressive CLL October 2012 and on ibrutinib since 12/30/2012 [address] care if Dr. Wade Horta at [facility]. Hypogammaglobulinemia, received monthly IVIG from 04/16/2016 to 06/25/2016. He remains on Ibrutinib. Information from [facility] suggested he should get IVIG monthly for 6 months as of his last visit. Comes for IVIG today for the 5th month. - Past Medical/Social History Past Medical History Past Medical History: Anemia,Hypertension,Thyroid disease Other Past Medical History: HYPOGAMMAGLOBULINEMIA Pneumonia 2weeks ago. Tx'd with oral antibiotics . Cancer: Leukemia,Other Past Surgical History Surgical: Cholecystectomy Other Surgical History: MULTIPLE KNEE SURGERIES L SHOULDER Family History Paternal Past Medical History: Heart disease Maternal Past Medical History: Unknown Social History Social History: No changes Smoking Status Never smoker Review of Systems Constitutional:: Denies: Fever, Sweats, Weight loss, Appetite change, Chills Cardiovascular:: Denies: Chest pain, Palpitations, Dyspnea on exertion, Orthopnea, PND, Shortness of breath Respiratory: Denies: Cough, Hemoptysis, Shortness of Breath, Wheezing Gastrointestinal:: Denies: Abdominal pain, Nausea, Vomiting, Diarrhea, Constipation, Hematochezia Genitourinary: Denies: Dysuria, Hematuria, 15, Flank pain Musculoskeletal:: Denies: Back pain, Myalgia, Arthralgia Skin: Denies: Rash, Skin Changes, Wounds Neurological:: Denies: Headache, Dizziness, Visual changes, Tinnitus, Hearing loss Psychiatric: Denies: Anxiety, Depression, Homicidal Ideations, Suicidal Ideations Vital Signs Height 5 ft 10 in Weight: 87.09 kg Weight in Pounds 192.0 lbs Pulse Ox 98 - Physical Exam General: Alert, Oriented x3, No apparent distress HEENT: Atraumatic, PERRLA, EOMI, Normocephalic Oropharynx:: Dry mucosa Neck:: Supple, Trachea midline. Negative for: JVD, bilateral Cardiac:: Regular rate, Regular rhythm, Normal S1, Normal S2. Negative for: Murmur Lungs: Clear to auscultation, Excusion symmetrical. Negative for: Rhonchi, Wheezes Abdomen:: Bowel sounds x 4, Soft, Non-tender, Non-distended. Negative for: Hepatosplenomegaly Extremities:: Negative for: Cyanosis, Edema Neurological: Neuro grossly intact Skin:: Negative for: Lesions, Rash, Petechiae, Ecchymosis Psychiatric:: Appropriate affect, Euthymic Lymphatics:: Negative for: Cervical lymphadenopathy, Supraclavicular lymphadenopathy, Axillary lymphadenopathy Laboratory Data: 08/05/2017 IgG 724, CBC/CMP normal. Assessment and Plan CLL on Ibrutinib, clinically stable. Hypogammaglobulinemia on IVIG replacement as suggested by [facility] treatment group. IgG level is greater than normal. Plan is to hold IVIG this month. RTC 4 wks with CBC, CMP/IgG/A/M . Medications: Prescriptions This Visit Medication Instructions Recorded Lactobacillus Acidophilus/Fos 1 each PO 07/10/17 [Acidophilus Probiotic Tablet] Spironolactone [Aldactone] 25 mg PO DAILY 08/07/17 Primary Care Provider: Julio Guzman Referring Provider: - Problem List (1) Hypogammaglobulinemia, acquired Status: Chronic (2) Chronic lymphocytic leukemia in remission Status: Chronic Code Visit Office Visits / Consults: 11950 OV L3 Est 08/07/17 1051 <Electronically signed by Alfredo Chau MD> Date Alfredo Chau MD Cosigner Signature: Date (if applicable) CC: COMPREHENSIVE METABOLIC Collected: 08/05/2017 Status: F Source: DEJON GARCIA 1:40 PM [facility] REPOSITORY Order Comment: Reason for Laboratory Test . TYPE CODE TESTS RESULT OUT OF RANGE REFERENCE UNITS LAB L501.0100 74-106 mg/dL Normal GLU 81 Result Comment: Please note revised GLUCOSE reference range effective 2017. LAB L501.1000 7-18 mg/dL High BUN 19 LAB L501.1100 0.70-1.30 mg/dL High CREAT,SERUM 1.52 Result Comment: The validity of the calculated GFR AND GFRAA in patients over 70 years has not been determined. Clinical correlation is essential. LAB L501.1110 >60 mL/min Low EST GFR 48 Result Comment: Non- GFR Calc LAB L501.1115 >60 mL/min Low EST GFR - AA 58 Result Comment: GFR Calc LAB L501.1255 ml/min Normal Estimated CRCL 46.03 LAB L501.1300 10-20 RATIO Normal BUN/CRE 12.5 LAB L501.1500 6.4-8. g/dL Normal 2 T PROT 6.5 LAB L501.1800 3.2-5. g/dL Normal 0 ALB 3.5 LAB L501.1950 2.2-4. g/dL Normal 2 GLOB 3.0 LAB L501.2000 0.9-2. RATIO Normal 4 A/G 1.2 LAB L501.2200 8.5-10 mg/dL Low .1 CA 8.4 LAB L501.4100 15-37 U/L Normal AST 19 LAB L501.4305 45-117 U/L Normal ALK P 95 LAB L501.4405 16-61 U/L Normal ALT 26 Result Comment: Please note revised ALT reference range effective 2017. LAB L501.4600 0.20-1.00 mg/dL High T BILI 2.50 LAB L501.5300 136-145 mmol/L Normal NA 142 LAB L501.5600 3.5-5.1 mmol/L Normal K 4.5 LAB L501.5900 98-107 mmol/L Normal CL 105 LAB L501.6100 21.0-32.0 mmol/L Normal CO2 32.0 LAB L501.6200 5-15 Normal GAP 5 Performed By: #### L500.4050, L100.0100 #### [facility] [address] [place], [address] CBC W/DIFF, AUTOMATED Collected: 08/05/2017 Status: F Source: [facility] 1:40 PM [facility] REPOSITORY Order Comment: Reason for Laboratory Test . TYPE CODE TESTS RESULT OUT OF RANGE REFERENCE UNITS LAB L100.1000 4.4-11.0 K/mm3 Normal WBC 6.4 LAB L100.1200 4.6-6.2 M/mm3 Normal RBC 4.90 LAB L100.1300 13.0-16.5 g/dl Normal HGB 14.8 LAB L100.1400 40-54 % Normal HCT 45.5 LAB L100.1500 80-94 fL Normal MCV 92.9 LAB L100.1600 27.0-32.0 pg Normal MCH 30.2 LAB L100.1700 32-36 g/gl Normal MCHC 32.5 LAB L100.1810 11.6-14.6 % High RDW CV 15.0 LAB L100.1820 35.1-43.9 fl High RDW SD 49.2 LAB L100.1900 150-450 K/mm3 Low PLT 110 LAB L100.2000 6.2-12.0 fl Normal MPV 11.2 LAB L100.2100 47-70 % High NEUT% 71.5 LAB L100.2200 19-41 % Low LY% 18.7 LAB L100.2300 0-10 % Normal MONO% 6.4 LAB L100.2400 0-5 % Normal EO% 1.7 LAB L100.2500 0-1 % Normal BASO% 0.3 LAB L100.2550 0.0-0.9 % High IM GRAN % 1.400 Result Comment: IG% - Immature Granulocytes (promyelocytes, myelocytes and metamyelocytes) > 1% indicates that a LEFT SHIFT is Present. LAB L100.2620 2.0-7.7 X10 3/uL Normal Absolute Neut 4.6 LAB L100.2720 0.83-4.51 X10 3/ul Normal Absolute Lymph 1.20 Performed By: #### L500.4050, L100.0100 #### [facility] [address] [place], [address] IMMUNOGLOBULINS G/A/M Collected: 08/05/2017 Status: F Source: [facility] 1:40 PM [facility] REPOSITORY Order Comment: Reason for Laboratory Test . Is Patient Fasting? N TYPE CODE TESTS RESULT OUT OF RANGE REFERENCE UNITS LAB L3200.6481 249-4301 mg/dL Normal IMMUNO G 724 LAB L3200.1400 61-437 mg/dL Normal IMMUNO A 174 LAB L3200.1500 15-143 mg/dL Normal IMMUNOGL M 22 Result Comment: Result confirmed on concentration. Performed at: - [facility] [address] [id number] New Client Banking Services Clerk: Ricardo Martins PhD, Phone: [phone] Performed By: #### L3200.1200 #### [facility] (refer to report for specific site) refer to report for address and phone number CBC WITH DIFF SANDRO Collected: 07/22/2017 Status: F Source: [facility] 1:39 PM [facility] REPOSITORY TYPE CODE TESTS RESULT OUT OF REFERENCE UNITS RANGE LAB WBC 4.23-9.07 K/uL WBC Count 5.56 LAB RBC 4.63-6.08 M/uL RBC Count 4.84 LAB HGB 13.7-17.5 g/dL Hemoglobin 14.3 LAB HCT 40.1-51.0 % Hematocrit 43.4 LAB MCV 79.0-92.2 fL Mean Cell 89.7 Volume LAB MCH 25.7-32.2 pg Mean Cell 29.5 Hgb LAB MCHC 32.3-36.5 g/dL Mean Cell 32.9 Hgb Conc LAB RDW 11.6-14.4 % RBC 14.3 Distribution LAB PLT 163-337 K/uL Platelet 100 Low Count LAB MPV 9.4-12.4 fL Mean 12.1 Platelet Volume LAB NRBC 0.0-0.2 /100 WBC NUCLEATED 0.0 RBC LAB DTYPE Electronic DIFFERENTIAL TYPE Differential LAB IGRE % IMMATURE 1.1 GRANS % LAB SEGS % NEUTROPHIL 71.0 SEGMENTED LAB LYM % LYMPHOCYTE 19.8 % LAB MON % MONOCYTE % 6.5 LAB EOS % EOSINOPHIL 0.9 % LAB BASO % BASOPHIL % 0.7 LAB IGABS 0.00-0.03 K/uL IMMATURE 0.06 High GRANS ABSOLUTE LAB SBANS 1.78-5.38 K/uL SEGS + 3.95 Bands,Absolute LAB ALYM 1.32-3.57 K/uL Abs Lymph 1.10 Low LAB AMONO 0.30-0.82 K/uL Abs Barron 0.36 LAB AEOS 0.04-0.54 K/uL Abs Eos 0.05 LAB ABASO 0.01-0.08 K/uL Abs Baso 0.04 Performed By: #### CBCDFJ #### Sandro EAGLET, [facility] [address] [place] [address] #### QIMM, BTKRB #### [facility] [address] [place] [id number] [place] [address] [place] [address] METABOLIC PANEL - CHRI Collected: 07/22/2017 Status: F Source: [facility] 1:39 PM [facility] REPOSITORY TYPE CODE TESTS RESULT OUT OF REFERENCE UNITS RANGE LAB NA 133-143 mmol/L Sodium 141 LAB K 3.5-5.0 mmol/L Potassium 4.1 LAB CL 98-108 mmol/L Chloride 103 LAB BUN 7-22 mg/dL BUN 17 LAB CREA 0.70-1.30 mg/dL Creatinine High 1.44 LAB GLUC 70-99 mg/dL Glucose High 100 LAB CA 8.6-10.5 mg/dL Calcium 9.3 LAB ALP 32-126 U/L Alkaline Phosphatase 93 LAB AST 14-40 U/L AST 37 LAB TP 6.4-8.3 g/dL Low Total Protein 6.1 LAB ALB 3.5-5.0 g/dL Albumin 3.8 LAB BILT <1.5 mg/dL Bilirubin High Total 2.5 LAB CO2 22-30 mmol/L Carbon High Dioxide 33 LAB GAP 7-17 mmol/L Anion Gap 9 LAB ALT 10-52 U/L ALT 41 LAB GFR >60 mL/min/1.7 Low 3sqM Est GFR,non 48 LAB GFRA >60 mL/min/1.7 Low 3sqM Est GFR, 59 LAB [facility] 278-305 mOsm/kg Osmolality (Calc) 296 Performed By: #### JONAH #### Sandro [facility] [address] [place] [address] #### QICATARINO, BTKRB #### [facility] [address] [place] [address] [place] [address] INORG PHOSPHATE - CHRI Collected: 07/22/2017 Status: F Source: [facility] 1:39 PM [facility] REPOSITORY TYPE CODE TESTS RESULT OUT OF REFERENCE UNITS RANGE LAB IP 2.2-4.6 mg/dL Inorg Phosphate 2.3 Performed By: #### DEONDREJ #### [facility] [address] [place] [address] #### QIMM, BTKRB #### [facility] [address] [place] [address] [place] [address] LD - CHRI Collected: 07/22/2017 Status: F Source: [facility] 1:39 PM [facility] REPOSITORY TYPE CODE TESTS RESULT OUT OF RANGE REFERENCE UNITS LAB LD 100-190 U/L LD Total 170 Performed By: #### DEONDREJ #### [facility] [address] [place], [place] [id number] #### QIMM, BTKRB #### [facility] [address] [place] [address] [place] [address] MAGNESIUM - CHRI Collected: 07/22/2017 Status: F Source: [facility] 1:39 PM [facility] REPOSITORY TYPE CODE TESTS RESULT OUT OF REFERENCE UNITS RANGE LAB MG 1.6-2.6 mg/dL Magnesium 1.9 Performed By: ###Preston MENDOSAJ #### Sandro [facility], [facility] [address] [place] [address] #### ALEXANDRE, BTKRB #### [facility] [address] [place] [address] [facility] [address] [place] [address] URIC ACID - CHRI Collected: 07/22/2017 Status: F Source: [facility] 1:39 PM [facility] REPOSITORY TYPE CODE TESTS RESULT OUT OF RANGE REFERENCE UNITS LAB URIC 3.5-7.0 mg/dL High Uric Acid 8.1 Performed By: #### DEONDREJ #### Sandro [place], [facility] [address] [place] [address] #### ALEXANDRE, BTKRB #### [facility] [address] [place] [id number] [place] [address] [place] [address] QUANTITATIVE Collected: 07/22/2017 Status: F Source: [facility] IMMUNOGLOBULINS 1:39 PM [facility] REPOSITORY TYPE CODE TESTS RESULT OUT OF RANGE REFERENCE UNITS LAB IGG 600-1560 mg/dL IgG 860 LAB IGA 90-410 mg/dL IgA 170 LAB IGM 30-360 mg/dL Low IgM 23 Performed By: ###Preston MENDOSAJ #### Sandro [place], [facility] [address] [place] [address] #### ALEXANDRE, BTKRB #### [facility] [address] [place] [address] [facility] [address] [place] [address] BTK RESISTANCE Observed: 07/22/2017 Status: F Source: [facility] MUTATION, BLOOD 1:39 PM [facility] REPOSITORY Peripheral blood NOT DETECTED 0.0 The BTK C481S mutation is NOT detected by digital droplet PCR in DNA extracted from immunodensity-purified B-cells. Oscar Horta M.D. Performed By: ###Preston MCKENZIE #### Sandro EAGLET, [facility] [address] [place], [place] [address] #### QIMM, BTKRB #### [facility] [address] [place] [address] [facility] [address] [place], [place] [address] IMMUNOPHENOTYPING, BLOOD Collected: Status: F Source: [facility] 07/22/2017 1:39 PM [facility] REPOSITORY TYPE CODE TESTS RESULT OUT OF REFERENCE UNITS RANGE LAB ICINT Immunophenotyping (PBIPP) SEE NOTES Result Comment: (NOTE) IMMUNOPHENOTYPING DIAGNOSIS PATIENT NAME: DAVID DOYLE : 1945 ACCN#: [id number] REVIEWED BY: Latoya Escobedo M.D. [id number] SAMPLE TYPE: Peripheral Blood LABORATORY INTERPRETATION: Immunophenotypic analysis demonstrates a monoclonal lambda population of B lymphocytes, consistent with a B cell lymphoproliferative disorder. The immunophenotype is consistent with chronic lymphocytic leukemia. The T cells are unremarkable. PHENOTYPIC DESCRIPTION: Flow cytometric analysis of peripheral blood was performed using a ten color technique with a gating strategy based on CD45 staining and light side scatter characteristics. Lymphocytes represent 18.4 % of the total events analyzed. Of the lymphocytes: 84.8 % are T cells (CD3+) with a CD4:CD8 ratio of 1.0 and an absolute CD4+/CD3+ count of 442 ABS/mm3. 9.6 % are NK cells (positive for CD56 and/or CD16 and negative for CD3). The B cells represent 4.5 % of the lymphocytes (0.8% of the total events analyzed) and express CD19+, CD5+, CD20+ dim, CD23+, CD43+, CD81+, CD9+ and are essentially negative for CD10, CD79b, CD38, CD22 and FMC7. 4.1 % of the lymphocytes coexpress CD19, CD5, CD43 and lack CD79b. Analysis of surface immunoglobulin light chains shows a [place]:Lambda ratio of 1:5 with dim staining intensity. MARKER DESCRIPTION LYM REG% ABS/mm3 NORMAL % NML ABS ABSOLUTE LYMPHOCYTE COUNT 1100 [phone] CD19+ B CELL 4.5 50 2.0-21.0 20-1008 CD19+/CD20+ B CELL 2.8 31 2.0-21.0 20-1008 SIG SURFACE IG 6 K/L KAPPA/LAMBDA 1:5 RATIO CD2+ T CELL 93.1 1024 70.0-92.0 700-4416 CD3+ T CELL 84.8 933 59.0-92.0 590-4416 CD4+/CD3- T CELL 1.3 CD4+/CD3+ T HELPER 40.2 442 32.0-62.0 320-2976 CD8+/CD3- T CELL 2.4 CD8+/CD3+ T SUPPRESSOR 41.1 452 11.0-40.0 110-1920 HSRA CD4/CD8 1.0 RATIO CD5+/CD19- T CELL 77.0 CD5+/CD19+ 4.6 CD23+ B CELL SUBSET 4.1 CD19+/CD10+ 0.0 CD10+ MASOUD 0.1 CD7+/CD2- T CELL 0.7 CD7+/CD2+ T CELL 76.3 CD13+/HLA DR- MONO/GRAN 0.[address]+/CD13+ 1.4 HLADR+/CD13- 54.0 CD14+/CD13- 0.2 CD13+/CD14+ 0.4 CD56/16+/CD3- NATURAL KILLER 9.6 106 3.0-25.0 30-1200 CLL MARKERS LYM REG % CD19+/CD79b- 4.2 CD19+/CD79b+ 0.0 CD43+/CD19+ 4.1 CD43+/CD79b+ 0.0 CD38+/CD19+ 0.0 CD19+/CD9+ 3.6 CD81+/CD19+ 3.0 CD81+/CD19- 93.5 CD19+/CD81- 1.2 FMC7+/CD19- 0.0 CD19+/FMC7+ 0.1 CD19+/CD22+ 0.3 CD19+/CD5+/CD43+/CD79b-/CD9+/CD38+ 0.0 CD19+/CD5+/CD43+/CD79b-/CD9+/CD38- 3.5 CD19+/CD5+/CD43+/CD79b-/CD9-/CD38+ 0.0 CD19+/CD5+/CD43+/CD79b-/CD9-/CD38- 0.6 TOTAL CD19+/CD5+/CD43+/CD79b- 4.1 MARKERS TESTED: CD10, CD13, CD14, CD19, CD2, CD20, CD22, CD23, CD3, CD38, CD4, CD43, CD45, CD5, CD56/16, CD7, CD79b, CD8, CD81, CD9, FMC7, HLA DR, KAPPA, LAMBDA MARKERS BILLED: 24 This test was developed and its performance characteristics determined The Flow Cytometry Laboratory at [facility]. It has not been cleared or approved by the FDA. This laboratory is certified under the Clinical Laboratory Improvement Amendments (CLIA) as qualified to perform high complexity clinical laboratory testing. This test is used for clinical purposes. It should not be regarded as investigational or for research. The [facility] Flow [facility] Laboratory lower limit of CLL MRD detection is 0.1% of the gated lymphocytes. Performed By: #### PBIPP #### [facility] [address] [place] [address] CBC W/DIFF, AUTOMATED Collected: 07/08/2017 Status: F Source: DEJON 9:56 AM [facility] REPOSITORY TYPE CODE TESTS RESULT OUT OF RANGE REFERENCE UNITS LAB L100.1000 4.4-11.0 K/mm3 Normal WBC 6.9 LAB L100.1200 4.6-6.2 M/mm3 Normal RBC 4.91 LAB L100.1300 13.0-16.5 g/dl Normal HGB 14.7 LAB L100.1400 40-54 % Normal HCT 45.6 LAB L100.1500 80-94 fL Normal MCV 92.9 LAB L100.1600 27.0-32.0 pg Normal MCH 29.9 LAB L100.1700 32-36 g/gl Normal MCHC 32.2 LAB L100.1810 11.6-14.6 % High RDW CV 14.9 LAB L100.1820 35.1-43.9 fl High RDW SD 50.4 LAB L100.1900 150-450 K/mm3 Low PLT 111 LAB L100.2000 6.2-12.0 fl Normal MPV 11.7 LAB L100.2100 47-70 % High NEUT% 71.6 LAB L100.2200 19-41 % Low LY% 18.8 LAB L100.2300 0-10 % Normal MONO% 6.7 LAB L100.2400 0-5 % Normal EO% 0.9 LAB L100.2500 0-1 % Normal BASO% 0.3 LAB L100.2550 0.0-0.9 % High IM GRAN % 1.700 Result Comment: IG% - Immature Granulocytes (promyelocytes, myelocytes and metamyelocytes) > 1% indicates that a LEFT SHIFT is Present. LAB L100.2620 2.0-7.7 X10 3/uL Normal Absolute Neut 4.9 LAB L100.2720 0.83-4.51 X10 3/ul Normal Absolute Lymph 1.29 Performed By: #### L100.0100 #### [facility] [address] [place], [place], [address] COMPREHENSIVE METABOLIC Collected: 07/08/2017 Status: F Source: [facility] 9:55 AM [facility] REPOSITORY Order Comment: Reason for Laboratory Test IVIG TYPE CODE TESTS RESULT OUT OF RANGE REFERENCE UNITS LAB L501.0100 74-106 mg/dL Normal GLU 90 Result Comment: Please note revised GLUCOSE reference range effective 2017. LAB L501.1000 7-18 mg/dL Normal BUN 18 LAB L501.1100 0.70-1.30 mg/dL High CREAT,SERUM 1.44 Result Comment: The validity of the calculated GFR AND GFRAA in patients over 70 years has not been determined. Clinical correlation is essential. LAB L501.1110 >60 mL/min Low EST GFR 51 Result Comment: Non- GFR Calc LAB L501.1115 >60 mL/min Normal EST GFR - AA 62 Result Comment: GFR Calc LAB L501.1255 ml/min Normal Estimated CRCL 48.58 LAB L501.1300 10-20 RATIO Normal BUN/CRE 12.5 LAB L501.1500 6.4-8. g/dL Normal 2 T PROT 6.4 LAB L501.1800 3.2-5. g/dL Normal 0 ALB 3.4 LAB L501.1950 2.2-4. g/dL Normal 2 GLOB 3.0 LAB L501.2000 0.9-2. RATIO Normal 4 A/G 1.1 LAB L501.2200 8.5-10 mg/dL Low .1 CA 8.2 LAB L501.4100 15-37 U/L Normal AST 26 LAB L501.4305 45-117 U/L Normal ALK P 100 LAB L501.4405 16-61 U/L Normal ALT 34 Result Comment: Please note revised ALT reference range effective 2017. LAB L501.4600 0.20-1.00 mg/dL High T BILI 2.50 LAB L501.5300 136-145 mmol/L Normal NA 140 LAB L501.5600 3.5-5.1 mmol/L Normal K 4.7 LAB L501.5900 98-107 mmol/L Normal CL 104 LAB L501.6100 21.0-32.0 mmol/L Normal CO2 30.0 LAB L501.6200 5-15 Normal GAP 6 Performed By: #### L500.4050 #### [facility] [address] [place], [address] CBC W/DIFF, AUTOMATED Collected: 06/12/2017 Status: F Source: [facility] 10:06 AM [facility] REPOSITORY Order Comment: Reason for Laboratory Test PRE-TREATMENT TYPE CODE TESTS RESULT OUT OF RANGE REFERENCE UNITS LAB L100.1000 4.4-11.0 K/mm3 Normal WBC 8.2 LAB L100.1200 4.6-6.2 M/mm3 Normal RBC 4.84 LAB L100.1300 13.0-16.5 g/dl Normal HGB 14.5 LAB L100.1400 40-54 % Normal HCT 45.6 LAB L100.1500 80-94 fL High MCV 94.2 LAB L100.1600 27.0-32.0 pg Normal MCH 30.0 LAB L100.1700 32-36 g/gl Low MCHC 31.8 LAB L100.1810 11.6-14.6 % High RDW CV 15.1 LAB L100.1820 35.1-43.9 fl High RDW SD 51.5 LAB L100.1900 150-450 K/mm3 Low PLT 98 LAB L100.2000 6.2-12.0 fl Normal MPV 11.8 LAB L100.2100 47-70 % Normal NEUT% 69.2 LAB L100.2200 19-41 % Normal LY% 19.6 LAB L100.2300 0-10 % Normal MONO% 7.8 LAB L100.2400 0-5 % Normal EO% 1.2 LAB L100.2500 0-1 % Normal BASO% 0.4 LAB L100.2550 0.0-0.9 % High IM GRAN % 1.800 Result Comment: IG% - Immature Granulocytes (promyelocytes, myelocytes and metamyelocytes) > 1% indicates that a LEFT SHIFT is Present. LAB L100.2620 2.0-7.7 X10 3/uL Normal Absolute Neut 5.7 LAB L100.2720 0.83-4.51 X10 3/ul Normal Absolute Lymph 1.61 Performed By: #### L100.0100 #### [facility] [address] [place], [place], [address] COMPREHENSIVE METABOLIC Collected: 06/12/2017 Status: F Source: [facility] 10:06 AM [facility] REPOSITORY Order Comment: Reason for Laboratory Test PRE-TREATMENT TYPE CODE TESTS RESULT OUT OF RANGE REFERENCE UNITS LAB L501.0100 70-110 mg/dL Normal GLU 82 LAB L501.1000 7-18 mg/dL Normal BUN 16 LAB L501.1100 0.70-1.30 mg/dL High 1.34 CREAT,SERUM Result Comment: The validity of the calculated GFR AND GFRAA in patients over 70 years has not been determined. Clinical correlation is essential. LAB L501.1110 >60 mL/min Low EST GFR 56 Result Comment: Non- GFR Calc LAB L501.1115 >60 mL/min Normal EST GFR - AA 67 Result Comment: GFR Calc LAB L501.1255 ml/min Normal Estimated CRCL 52.21 LAB L501.1300 10-20 RATIO Normal BUN/CRE 11.9 LAB L501.1500 6.4-8. g/dL Normal 2 T PROT 6.6 LAB L501.1800 3.2-5. g/dL Normal 0 ALB 3.7 LAB L501.1950 2.2-4. g/dL Normal 2 GLOB 2.9 LAB L501.2000 0.9-2. RATIO Normal 4 A/G 1.3 LAB L501.2200 8.5-10 mg/dL Low .1 CA 8.0 LAB L501.4100 15-37 U/L Normal AST 26 LAB L501.4305 45-117 U/L Normal ALK P 95 LAB L501.4405 16-61 U/L Normal ALT 30 Result Comment: Please note revised ALT reference range effective 2017. LAB L501.4600 0.20-1.00 mg/dL High T BILI 2.70 LAB L501.5300 136-145 mmol/L Normal NA 140 LAB L501.5600 3.5-5.1 mmol/L Normal K 4.3 LAB L501.5900 98-107 mmol/L Normal CL 104 LAB L501.6100 21.0-32.0 mmol/L Normal CO2 30.0 LAB L501.6200 5-15 Normal GAP 6 Performed By: #### L500.4050 #### [facility] [address] [place], [address] ALLERGIES ALLERGIES DATE TYPE / CODE NAME / CODE REACTION SEVERITY SOURCE 05/08/2018 Drug Penicillins/ Abd SV [facility] Allergy/4160 [id number](R cramps/diarrhea Hospital 42167(SNOMED XNORM) Repository CT) ENCOUNTERS ENCOUNTERS ADMIT/DISCHARGE ACCOUNT NUMBER ADMITTING ENCOUNTER LOCATION SOURCE CLASS 05/19/2018 [id number] Ambulatory [facility] ding:LAB.FUT Repository URE 05/08/2018 [id number] Ambulatory BMSBuilding: [place] BMS.CF.[facility] Repository 05/08/2018 [id number] Ambulatory [facility] ding:OMD Repository 04/24/2018 [id number] Ambulatory [facility] ding:LABSPEC Repository 04/09/2018 [id number] Ambulatory BMSBuilding: [place] BMS.CF.[facility] Repository 03/31/2018 [id number] Ambulatory Building:CT5 [facility] Repository 01/15/2018 [id number] Ambulatory BMSBuilding: [place] BMS.CF.[facility] Repository 01/06/2018 [id number] Ambulatory Building:CT5 [facility] Repository 12/09/2017 [id number] Ambulatory [facility] ding:LAB.FUT Repository URE 11/27/2017 [id number] Ambulatory Building:CT5 [facility] Repository 11/25/2017 [id number] Ambulatory BMSBuilding: [place] BMS.CF.[facility] Repository 11/19/2017 [id number] Ambulatory [facility] ding:LAB Repository 11/18/2017 [id number] Ambulatory [facility] ding:LAB.FUT Repository URE 10/30/2017 [id number] Ambulatory BMSBuilding: [place] BMS.CF.[facility] Repository 10/24/2017/10/25/19 [id number] Ambulatory [address] ding:[facility] Repository 10/21/2017 [id number] Ambulatory [facility] ding:LAB.FUT Repository URE 10/11/2017/10/12/19 [id number] Emergency [address] ding:ED Repository 10/10/2017/10/11/19 [id number] Ambulatory [address] ding:[facility] Repository 10/09/2017 [id number] Ambulatory Building:CT5 [facility] Repository 09/04/2017 [id number] Ambulatory BMSBuilding: [place] BMS.CF.[facility] Repository 08/12/2017 [id number] Ambulatory [facility] ding:LAB.FUT Repository URE 08/07/2017 [id number] Ambulatory BMSBuilding: [place] BMS.CF.[facility] Repository 07/22/2017 [id number] Ambulatory Building:CT5 [facility] Repository 07/10/2017 [id number] Ambulatory BMSBuilding: [place] BMS.[facility] Repository 06/12/2017 [id number] Ambulatory BMSBuilding: [place] BMS.[facility] Repository PAYERS PAYERS ENCOUNTER GUARANTOR PAYER SUBSCRIBER SOURCE 05/19/2018 DAVID Ott Primary Insurance:LISHA Cherycarmen DOYLE[address] [place], [place] [address]y Number: ROSSDOB: [facility] RUBI [id number], [place] Date:0447-94-16JB BOX Repository [address]Mbk: [phone] [place], [place] [phone] (HP) [address]OO: 05/19/2018 Secondary NOT GIVENUNK [place] Insurance:SELF PAY Community INSURANCEPolicy Number: Hospital Effective Repository Date:2018-05-19 05/08/2018 DAVID Ott Primary Insurance:AETNA DAVID Tru [place] [id number] SPR[address] MCRPolicy Number: ROSSDOB: Community RUN DRAPPLE [id number] [facility] Date:8057-89-84GJ BOX Repository [address]Mnx: [phone] [place], [place] [phone] (HP) [address]ZD: 05/08/2018 Secondary NOT GIVENUNK [place] Insurance:SELF PAY Community INSURANCEPolicy Number: Hospital Effective Repository Date:2018-05-08 05/08/2018 DAVID Ott Primary Insurance:AETNA DAVID Tru [place] spring MCRPolicy Number: ROSSDOB: Community RUN DRAPPLE [id number] Memorial Hospital, [place] Date:4177-16-96VB BOX Repository [address]Wqr: [phone] [facility] [place] [phone] (HP) [address]JO: 05/08/2018 Secondary NOT GIVENUNK [place] Insurance:SELF PAY Community INSURANCEPolicy Number: Hospital Effective Repository Date:2016-10-01 04/24/2018 DAVID Ott Primary Insurance:AETNA DAVID Ott [place] [id number] SPR[address] MCRPolicy Number: ROSSDOB: Community RUN DRAPPLE [id number] Memorial Hospital[place] Date:4017-14-05ET BOX Repository [address]Hyv: [phone] [place] [phone] (HP) [address]HY: 04/24/2018 Secondary NOT GIVENUNK [place] Insurance:SELF PAY Community INSURANCEPolicy Number: Hospital Effective Repository Date:2018-04-24 04/09/2018 DAVID Ott Primary Insurance:AETNA DAVID Ott Dejoncarmen [id number] MCRPolicy Number: ROSSDOB: Community RUN DRTC [id number], [place] Date:0193-64-20KK BOX Repository [address]Nsf: [phone] [place] [phone] (HP) [address]UV: 04/09/2018 Secondary NOT GIVENUNK [place] Insurance:SELF PAY Community INSURANCEPolicy Number: Hospital Effective Repository Date:2018-04-09 03/31/2018 DAVID Ott Primary DAVID Ott [facility] ROSSDOB: Insurance:MEDICARE ROSSB: [place] [facility] HOSPITALOPolicy Number: [id number] Flexion [facility] Tappr [facility] [id number] [facility], Date:9417-71-41Soua [facility], Repository [place] [address]Mro: Name:[facility] [address]Bzw: (VO) (HG) 01/15/2018 DAVID Ott Primary Insurance:AETNA DAVID Ashford [id number] SPRING MCRPolicy Number: ROSSDOB: Community RUN DRTC [id number], [place] Date:6366-92-34AU BOX Repository [address]Wsd: [phone], [place] [phone] (HP) [address]YI: 01/15/2018 Secondary NOT GIVENUNK [place] Insurance:SELF PAY Community INSURANCEPolicy Number: Hospital Effective Repository Date:2018-01-15 01/06/2018 DAVID Ott Primary [facility]ID Ott [facility]: Insurance:MEDICARE [facility] MEX[facility]OB: [place] AETNA PPOPolicy Number: [id number] [facility] Tappr [place] [id number] [facility], Date:0942-86-04Lydp [facility], Repository [place] [address]Fgx: Name:CARE [place] [address]Yuf: (HP) (HP) 12/09/2017 DAVID Ott Primary Insurance:AETNA DAVID Ott [place] [id number] [facility] Number: ROSSDOB: Community RUN RUBI [id number] Memorial Hospital, [place] Date:0791-90-22BG BOX Repository [address]Vcb: [phone] [facility] [place] [phone] (HP) [address]FX: 12/09/2017 Secondary NOT GIVENUNK [place] Insurance:SELF PAY Community INSURANCEPolicy Number: Hospital Effective Repository Date:2017-12-09 11/27/2017 DAVID Ott Primary DAVID Tru [facility] ROSSDOB: Insurance:RESEARCH ROSSDOB: [place] MEDICARE [id number] [place], [place] [address]icy [facility]ENTERSRINIVAS SUN, Number: RUBI SUN, [facility] [address]Khg: [id number] [place] [address]Wrx: Date:Plan Name:CARE () (HP) 11/27/[address] [facility] Insurance:MEDICARE ROSSDOB: [facility] UptownOPolicy Number: [id number] [facility] [id number] [facility] Date:2375-99-78Cpaw RUBI SUN, Repository Name:[facility] [address]Bft: (HP) 11/25/2017 DAVID Tru Primary Insurance:AETNA DAVID Ott [place] [id number] [place] [facility]PITALPoly Number: ROSSDOB: Community RUN RUBI [id number] Memorial Hospital, [place] Date:8446-19-77SF BOX Repository [address]Aah: [phone] [place] [phone] (HP) [address]ZG: 11/25/2017 Secondary NOT GIVENUNK [place] Insurance:SELF PAY Community INSURANCEPolicy Number: Hospital Effective Repository Date:2017-11-25 11/19/2017 DAVID Ott Primary Insurance:AETNA DAVID Ott [place] [id number] SPRING MCRPolicy Number: ROSSDOB: Community RUN DRAPPLE [id number] Memorial Hospital, [place] Date:2140-52-48ZA BOX Repository [address]Oou: [phone] [place] [phone] (HP) [address]GT: 11/19/2017 Secondary NOT GIVENUNK [place] Insurance:SELF PAY Community INSURANCEPolicy Number: Hospital Effective Repository Date:2017-11-19 11/18/2017 DAVID Ott Primary Insurance:AETHARJIT Ott [place] spring MCRPolicy Number: ROSSDOB: Community RUN DRAPPLE [id number] Memorial Hospital, [place] Date:7780-38-25UJ BOX Repository [address]Yse: [phone] [place] [phone] (HP) [phone]: 11/18/2017 Secondary NOT GIVENUNK [place] Insurance:SELF PAY Community INSURANCEPolicy Number: Hospital Effective Repository Date:2017-11-18 10/30/2017 DAVID Ott Primary Insurance:AETNA DAVID Ott [place] spring MCRPolicy Number: ROSSDOB: Community RUN DRAPPLE [id number] Memorial Hospital, [place] Date:1472-79-70WJ BOX Repository [address]Hsw: [phone] [place] [phone] (HP) [address]GH: 10/30/2017 Secondary NOT GIVENUNK [place] Insurance:SELF PAY Community INSURANCEPolicy Number: Hospital Effective Repository Date:2017-10-30 10/24/2017 DAVID Ott Primary Insurance:AETNA DAVID Ott [facility] VIVEKDOB: MEDICARE HMO AMEPjacobi medical centerjustin CARRANZAB: [facility] Number: [id number] Repository SPR[place] RUN [id number] SPR[place] RUN RUBI ORUTSARARMIUT, Date:2017-10-22 - [place], [place] 8431-33-38Dbvi Name:[place] [address]Iou: [address]~HSDU745@S [address]Bi GURINDER Maier SS.NET.COMTel: [phone]: (800) (HP)Tel: [phone] (WP) (HP) 10/21/2017 DAVID Ott Primary Insurance:AETHARJIT Ott [place] [id number] SPRING MCRPolicy Number: ROSSDOB: Community RUN RUBI [id number], [place] Date:8886-32-37FH BOX Repository [address]Owr: [id number] GURINDER MAIER [phone]: [phone] [phone] (HP) [phone] 10/21/2017 Secondary NOT GIVENUNK [place] Insurance:SELF PAY Community INSURANCEPolicy Number: Hospital Effective Repository Date:2017-10-21 10/11/2017 DAVID Ott Primary Insurance:AETHARJIT Ott [place] [id number] SPRING MCRPolicy Number: ROSSDOB: Community RUN RUBI [id number] [id number], [place] Date:5149-65-57LN BOX Repository [address]Tum: [id number] [place] [phone]~33 [address]QG: [phone] (HP) [phone] 10/11/2017 Secondary NOT GIVENUNK [place] Insurance:SELF PAY Community INSURANCEPolicy Number: Hospital Effective Repository Date:2017-10-11 10/10/2017 DAVID Ott Primary Insurance:AETHARJIT Ott [facility] ROSSDOB: MEDICARE HMO AMEPolicy TEREB: [facility] Number: [id number] Repository SPR[place] RUN [id number] SPR[place] RUN RUBI SUN, Date:2017-10-08 - [place], [place] 6687-01-94Zfpt Name:[place] [address]Hmk: [id number]~[id number]@S [address]Xj GURINDER Maier SS.NET.COMTel: [phone]: (800) (HP)Tel: 000-0000 (WP) (HP) 10/09/2017 DAVID Ott Primary DAVID Ott [facility] ROSSDOB: Insurance:MEDICARE ROSSDOB: [place] AETNA PPOPolicy Number: [id number] [facility] CenterBN6V3ZEffeSt. [facility] CENTERSRINIVAS ORUTSARARMIUT, Date:0512-91-59Jign [facility]ALE[facility], Repository [place] [address]Mfr: Name:[facility] [address]Ith: (GU) (HP) 09/04/2017 DAVID Ott Primary Insurance:AETNA DAVID Ott [place] [id number] SPRING MCRPolicy Number: ROSSDOB: Community RUN RUBI [id number], [place] Date:8912-44-33TM BOX Repository [address]Dpl: [id number] [place], [place] [phone]~33 [phone]: [phone] (HP) [phone] 09/04/2017 Secondary NOT GIVENUNK [place] Insurance:SELF PAY Community INSURANCEPolicy Number: Hospital Effective Repository Date:2017-09-04 08/12/2017 DAVID Ott Primary Insurance:AETNA DAVID Ott [place] [id number] SPRING MCRPolicy Number: ROSSDOB: Community RUN GREG [id number], [place] Date:0388-21-77HN BOX Repository [address]Yvp: [id number] [place], [place] [phone]~33 [address]TQ: [phone] 0-3 (HP) [phone] 08/12/2017 Secondary NOT GIVENUNK [place] Insurance:SELF PAY Community INSURANCEPolicy Number: Hospital Effective Repository Date:2017-08-12 08/07/2017 DAVID Ott Primary Insurance:AETNA DAVID Ott [place] [id number] SPRING MCRPolicy Number: ROSSDOB: Community RUN DRAPPLE [id number] Memorial Hospital, [place] Date:4421-89-97CD BOX Repository [address]Iui: [id number] GURINDER MAIER [phone]~33 [phone]: [phone] 0-3 (HP) [phone] 08/07/2017 Secondary NOT GIVENUNK [place] Insurance:SELF PAY Community INSURANCEPolicy Number: Hospital Effective Repository Date:2017-08-07 07/22/2017 DAVID Ott Primary DAVID Ott [facility] ROSSDOB: Insurance:MEDICARE ROSSDOB: [place] AETNA PPOPolicy Number: [id number] [facility] [id number] [facility], Date:6004-44-14HfkpPelham Medical Center, Repository [place] [address]Tpo: Name:[facility] [address]Dri: (KU) (HP) 07/10/2017 DAVID Ott Primary Insurance:AETHARJIT Ott [place] [id number] SPR[place] MCRPolicy Number: ROSSDOB: Community RUN DRAPPLE [id number] Babb [place] [facility] [place] Date:9482-49-89VD BOX Repository [address]Mtu: [id number] SLADE [phone]~33 [phone]: [phone] 0-3 (HP) [phone] 07/10/2017 Secondary NOT GIVENUNK [place] Insurance:SELF PAY Community INSURANCEPolicy Number: Hospital Effective Repository Date:2017-07-10 06/12/2017 DAVID Ott Primary Insurance:AETNA DAVID Ott [place] [id number] SPRING MCRPolicy Number: ROSSDOB: Community RUN DRAPPLE [id number] Memorial Hospital, [place] Date:6199-96-82UW BOX Repository [address]Gca: [id number] LIVIER GURINDER [phone]: [phone] ([phone] 06/12/2017 Secondary NOT GIVENUNK [place] Insurance:SELF PAY Community INSURANCEPolicy Number: Hospital Effective Repository Date:2017-06-12
== END ==
PROVIDERS: Referring Provider Nurse Practitioner Adult Health; Visit Provider Nurse Practitioner Adult Health
DX: R31.29 Other microscopic hematuria (principal)
CPT/HCPCS: 87086

== ENCOUNTER → 2018-09-17 16:24 | Outpatient (CLI) | payer MEDICARE, SELFPAY ==
[2018-09-10 13:21] VITALS: BMI 26.5
--- NOTE | 2018-09-17 16:28 | CT_ITS ---
STUDY: CT PELVIS WITH CONTRAST REASON FOR EXAM: Male, 72 years old. Mass right buttock RADIATION DOSAGE (If Supplied By Facility): CTDIvol = ( 26.74 ) mGy, DLP = ( 1509.71 ) mGycm TECHNIQUE: Transaxial imaging of the pelvis was performed without oral contrast. 100 IV Isovue 300 was administered intravenously. Individualized dose optimization techniques were used for this CT. COMPARISON: CT abdomen and pelvis June 07, 2015 FINDINGS: Normal urinary bladder. Normal visualized small intestine. Normal visualized colon. There is no pelvic fluid. There is no pelvic lymphadenopathy or mass lesion. Normal visualized pelvic arteries. Induration and subcutaneous gas and fluid collection right perianal region measuring approximately 18 x 19 mm. Ischiorectal fossa and rectum appear normal. Normal osseous structures. CT/Pelvis WITH IV Contrast IMPRESSION: Small right perianal abscess Electronically Signed: Emerson Dwyer MD at 20:39 EDT , Service support ,
[2018-09-17 16:46] LABS: CREATININE FINGERSTICK 1.4 mg/dL (0.70-1.30)
== END ==
PROVIDERS: Family Provider Nurse Practitioner Family; PCP Nurse Practitioner Family; Referring Provider Surgery; Visit Provider Surgery
DX: R22.9 Localized swelling, mass and lump, unspecified (principal)
CPT/HCPCS: 72193

== ENCOUNTER 2018-09-29 11:09 | Day surgery (SDC) | payer MEDICARE, SELFPAY ==
[2018-09-19 09:01] VITALS: BMI 26.5
[2018-09-29] VITALS (7 sets, daily range): BP systolic 117–149; BP diastolic 55–83; PULSE 57–66; RESP 16; TEMP 36.3–36.8; O2SAT 97–100; BMI 25.8
--- NOTE | 2018-09-29 12:37 | HP.PCM_ITS ---
Problem List (1) Perirectal abscess Status: Acute History and Physical Date of Admission: 09/29/18 Intake Vital Signs 09/19/18 Body Mass Index (BMI) 26.5 Intake Visit Reasons: discuss CT Chief Complaint: right buttock lump--painful Allergies Penicillins Adverse Reaction (Severe, Verified 09/18/18 13:48) Abd cramps/diarrhea Medications Atenolol [Tenormin (Beta Kevin)] 25 mg PO BID 11/10/13 [History Confirmed 09/18/18] Levothyroxine [Synthroid] 100 mcg PO DAILY 02/22/14 [History Confirmed 09/18/18] Ibrutinib [Imbruvica] 420 mg PO DAILY 02/08/15 [History Confirmed 09/18/18] Fluticasone 0.05% [Flonase Nasal [place]] 2 spray NASAL DAILY 07/03/16 [History Confirmed 09/18/18] Finasteride [Proscar] 5 mg PO DAILY 10/30/17 [History Confirmed 09/18/18] Losartan Potassium [Cozaar] 50 mg PO DAILY 04/09/18 [History Confirmed 09/18/18] amoxicillin 875 mg-potassium clavulanate 125 mg tablet 1 tab PO BID #20 tab 09/18/18 [Rx Confirmed 09/18/18] PFS Medical History Actinic keratitis (Acute) Anemia (Acute) History of pneumonia (Acute) Hyperlipidemia (Acute) Hypogammaglobulinemia (Acute) Thyroid disease (Acute) CKD (chronic kidney disease) (Chronic) Surgical History History of arthroscopy of left knee (Acute) History of cholecystectomy (Acute) History of colonoscopy (Acute ~2018) History of knee surgery (Acute) Hx of shoulder surgery (Acute) Family History Father Heart disease Hypertension Mother Hypertension Social History Smoking Status: Never smoker HPI HPI HPI: DAVID DOYLE, is a 72 M who presents to the office today for HPI HPI Surgical H&P: Yes HPI: DAVID DOYLE, is a 72 M who presents to the office today for right buttock mass. The patient had a right buttock mass is been there for a month now. She reports that it is slightly better but he is not having any drainage or tenderness except when sitting on hard surface. ROS General General: No weight change or fatigue Cardio Cardiovascular: No murmur, pacemaker, heart disease, atrial fibrillation, high blood pressure, heart attack, heart stent, palpitations, shortness of breat with exertion or chest pain Psych Psychiatric: No depression or anxiety Resp Respiratory: No shortness of breath, No sleep apnea, No cough, No COPD, No asthma, No emphysema, No wheezing Gastro Gastrointestinal: No abdominal pain, No nausea or vomiting, No diarrhea, No constipation, No blood in stool, No acid reflux, No hemorrhoids, No ulcers, No gallbladder problem, No black,tarry stools Madhu Hematologic: No blood thinners Exam Const General: cooperative Orientation: alert, oriented x3 Resp Effort & Inspection: normal respiratory effort Auscultation: clear to auscultation bilaterally Cardio Rate: regular rate Rhythm: regular rhythm Heart Sounds: no murmurs GI Inspection: non-distended Palpation: soft, nontender Other: Right buttock firm soft tissue mass. Skin is nonerythematous On rectal exam there is no internal mass or blood. Assessment & Plan Problems 1. Perianal abscess K61.[address] scan revealed that he has an abscess in his right buttock with induration. 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 Patient likely needs exam under anesthesia with seton placement and debridement. I explained seton placement to the patient as well as the risks of the procedure. The patient agrees to proceed with exam under anesthesia. Paresh Weaver MD Pager: [facility] [address] [place] [address], [address] [place] [address] Office:
[2018-09-29] MEDS: Lubricating Jelly 60 GM Tube 30 GM TOPICAL (13:25)
[2018-09-29] MEDS: Dibucaine 30 GM Tube 1 APPLIC (13:35)
[2018-09-29] MEDS: Bupivacaine Mpf 0.5% 30 ML VIAL (13:40)
--- NOTE | 2018-09-29 14:12 | PCM.DC.REC ---
Discharge Diet: No Restrictions Discharge Activity: Return to Normal Activity, May Not Drive - while you are taking narcotic pain medications. Do not drive, work with heavy equipment or sign legal documents for 24 hours after your surgery., May Shower, May Take a Tub Bath Additional Activity Instructions:: Be aware that pain medications may cause nausea. You should typically eat light foods as you take your pain medications. Pain medications may also cause constipation, if you have difficulty with this please discuss with your doctor. Sitz baths after BM and BID. If no BM for 2 days take miralax. Use Dibucaine cream as needed 4 times per day. Call your doctor if your incision/area has: Continuous Slow Oozing, Sudden Increased Bleeding, Increased Pain/ Swelling, Increased Redness, Foul Smelling Discharge, Swelling at the incision site Call your doctor if you observe: Fever of 101 or Higher Additional Dressing/Incision Instructions:: Leave the operative bandage on for 2 days. A local anesthetic plug was placed in the anal area, try not to expel for [address] dibucaine ointment on the perianal area as needed. Sitz baths twice daily and after bowel movements. Allergies/Adverse Reactions: Allergies Penicillins Adverse Reaction (Severe, Verified 09/26/18 14:43) Abd cramps/diarrhea Medications to take at Discharge Atenolol [Tenormin (Beta Kevin)] 25 mg PO BID 11/10/13 Levothyroxine [Synthroid] 100 mcg PO DAILY 02/22/14 Ibrutinib [Imbruvica] 420 mg PO DAILY 02/08/15 Fluticasone 0.05% [Flonase Nasal [place]] 2 spray NASAL DAILY 07/03/16 Finasteride [Proscar] 5 mg PO DAILY 10/30/17 Losartan Potassium [Cozaar] 50 mg PO DAILY 04/09/18 amoxicillin 875 mg-potassium clavulanate 125 mg tablet 1 tab PO BID #20 tab 09/18/18 Acyclovir [Zovirax] 400 mg PO BID 09/26/18 Dibucaine 1 applic TOPICAL 4X/DAY PRN PRN 14 Days #2 tube 09/29/18 Docusate Sodium [Colace] 100 mg PO BID #50 capsule 09/29/18 Oxycodone HCl/Acetaminophen [Percocet 5/325] 1 - 2 tablet PO Q4H PRN PRN 7 Days #50 tablet 09/29/18 The following prescriptions were given: Oxycodone HCl/Acetaminophen [Percocet 5/325] 1 - 2 tablet PO Q4H PRN PRN 7 Days #50 tablet PRN Reason: Pain Dibucaine 1 applic TOPICAL 4X/DAY PRN PRN 14 Days #2 tube PRN Reason: Pain Docusate Sodium [Colace] 100 mg PO BID #50 capsule Primary Care Physician: Julio Guzman, PATTERN SETTER-C [Primary Care Provider] - Test Results: Test results from this visit will be discussed in further detail at your follow-up appointment, if applicable. Please Follow Up With: Paresh Weaver MD When: Please call to schedule 1 week follow up appointment. [phone]
--- NOTE | 2018-09-29 14:18 | DCINST_ITS ---
Discharge Diet: No Restrictions Discharge Activity: Return to Normal Activity, May Not Drive - while you are taking narcotic pain medications. Do not drive, work with heavy equipment or sign legal documents for 24 hours after your surgery., May Shower, May Take a Tub Bath Additional Activity Instructions:: Be aware that pain medications may cause nausea. You should typically eat light foods as you take your pain medications. Pain medications may also cause constipation, if you have difficulty with this please discuss with your doctor. Sitz baths after BM and BID. If no BM for 2 days take miralax. Use Dibucaine cream as needed 4 times per day. Call your doctor if your incision/area has: Continuous Slow Oozing, Sudden Increased Bleeding, Increased Pain/ Swelling, Increased Redness, Foul Smelling Discharge, Swelling at the incision site Call your doctor if you observe: Fever of 101 or Higher Additional Dressing/Incision Instructions:: Leave the operative bandage on for 2 days. A local anesthetic plug was placed in the anal area, try not to expel for [address] dibucaine ointment on the perianal area as needed. Sitz baths twice daily and after bowel movements. Allergies/Adverse Reactions: Allergies Penicillins Adverse Reaction (Severe, Verified 09/26/18 14:43) Abd cramps/diarrhea Medications to take at Discharge Atenolol [Tenormin (Beta Kevin)] 25 mg PO BID 11/10/13 Levothyroxine [Synthroid] 100 mcg PO DAILY 02/22/14 Ibrutinib [Imbruvica] 420 mg PO DAILY 02/08/15 Fluticasone 0.05% [Flonase Nasal [place]] 2 spray NASAL DAILY 07/03/16 Finasteride [Proscar] 5 mg PO DAILY 10/30/17 Losartan Potassium [Cozaar] 50 mg PO DAILY 04/09/18 amoxicillin 875 mg-potassium clavulanate 125 mg tablet 1 tab PO BID #20 tab 09/18/18 Acyclovir [Zovirax] 400 mg PO BID 09/26/18 Dibucaine 1 applic TOPICAL 4X/DAY PRN PRN 14 Days #2 tube 09/29/18 Docusate Sodium [Colace] 100 mg PO BID #50 capsule 09/29/18 Oxycodone HCl/Acetaminophen [Percocet 5/325] 1 - 2 tablet PO Q4H PRN PRN 7 Days #50 tablet 09/29/18 The following prescriptions were given: Oxycodone HCl/Acetaminophen [Percocet 5/325] 1 - 2 tablet PO Q4H PRN PRN 7 Days #50 tablet PRN Reason: Pain Dibucaine 1 applic TOPICAL 4X/DAY PRN PRN 14 Days #2 tube PRN Reason: Pain Docusate Sodium [Colace] 100 mg PO BID #50 capsule Primary Care Physician: Julio Guzman, BOARD CERTIFIED FAMILY PHYSICIAN-C [Primary Care Provider] - Test Results: Test results from this visit will be discussed in further detail at your follow- up appointment, if applicable. Please Follow Up With: Paresh Weaver MD When: Please call to schedule 1 week follow up appointment. [phone]
--- NOTE | 2018-09-29 14:20 | PCM.OPRPT ---
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 A small retractor was placed into the rectum after being lubricated and there was copious purulent discharge from posterior rectum. Patient also had a posterior fissure. The purulent material was cultured. A small area in the right gluteus was anesthetized and a small skin ilir was made. A hemostat was used to dissect down to the abscess cavity. There was flow of purulent material through this incision. A seton suture vessel loop was placed into the posterior rectal opening and into the abscess cavity. A hemostat was used to grasp this from the abscess cavity and bring it through. The seton suture was secured together using a 3-0 silk suture. This was then trimmed. A dibucaine soaked Gelfoam pad was rolled and placed into the rectal vault. The patient was rolled back onto his back and taken to PACU in stable condition. - Admit VTE Documentation VTE Mechan Device Prophylaxis: SCD's
== END 2018-09-29 15:50 | disposition home or self-care (01) ==
LOC: SDC 11:12 → AC 11:49
PROVIDERS: Family Provider Nurse Practitioner Family; PCP Nurse Practitioner Family; Referring Provider Surgery; Visit Provider Surgery
PROC: (CPT 46020; principal; 2018-09-29 12:35)
DX: K60.2 Anal fissure, unspecified (principal); I12.9 Hypertensive chronic kidney disease with stage 1 through stage 4 chronic kidney disease, or unspecified chronic kidney disease; N18.9 Chronic kidney disease, unspecified; D80.1 Nonfamilial hypogammaglobulinemia; E07.9 Disorder of thyroid, unspecified; E78.5 Hyperlipidemia, unspecified; Z79.899 Other long term (current) drug therapy; Z88.0 Allergy status to penicillin; Z85.6 Personal history of leukemia; Z87.01 Personal history of pneumonia (recurrent); Z90.49 Acquired absence of other specified parts of digestive tract
CPT/HCPCS: 00902; 46020; 46050; 87070; 87075; 87077; 87186; 87205; J7120; J2405

== ENCOUNTER → 2018-10-24 14:59 | Outpatient (CLI) | payer MEDICARE, SELFPAY ==
[2018-10-10 08:48] VITALS: BMI 26.1
--- NOTE | 2018-10-24 15:01 | CT_ITS ---
HISTORY: Right buttock abscess x 2 months, minimal drainage from drain, recently completed antibiotics. Hx CLL with chemotherapy, hypertension. TECHNIQUE: CT of the pelvis was performed with IV contrast. A radiation dose optimization technique was used for this scan. IV Contrast dosage and agent: 100 ml of Isovue 300 Enteric contrast: None. Number of images including paperwork: 457. COMPARISON: 09/17/2018 FINDINGS: BLADDER: Unremarkable. REPRODUCTIVE ORGANS: Unremarkable. GASTROINTESTINAL TRACT: Colonic diverticulosis. Normal appendix. A seton is noted in the right perianal and gluteal soft tissues. A small rim-enhancing abscess is present with air and fluid component measuring approximately 1.7 x 1.4 cm on series 2 image 68. Abnormal enhancement extends superior, anterior and inferior to this collection. PERITONEUM AND RETROPERITONEUM: No free air. No significant free fluid. LYMPH NODES: No enlarged pelvic lymph nodes. ABDOMINAL WALL: No definite hernia. SKELETON AND SOFT TISSUE STRUCTURES: No acute skeletal findings. OTHER: Partially visualized left lower pole renal hypodense lesion measuring 7 mm, likely a cyst. CT/Pelvis WITH IV Contrast IMPRESSION: Residual right perianal abscess. Individualized dose optimization techniques were used for this CT. at 0406 Reported and signed by: Estela Naranoj MD Electronically Signed: Estela Naranjo MD at 4:06 EDT Tel , Service support ,
== END ==
PROVIDERS: Family Provider Nurse Practitioner Family; PCP Nurse Practitioner Family; Referring Provider Surgery; Visit Provider Surgery
DX: L02.31 Cutaneous abscess of buttock (principal)
CPT/HCPCS: 72193; Q9967

== ENCOUNTER → 2018-11-10 08:29 | Outpatient (CLI) | payer MEDICARE, SELFPAY ==
[2018-10-29 14:09] VITALS: BMI 25.8
[2018-11-10] VITALS (9 sets, daily range): BP systolic 121–192; BP diastolic 65–89; PULSE 44–54; RESP 12–18; TEMP 36.5; O2SAT 53–100; BMI 25.8
--- NOTE | 2018-11-10 08:47 | CT_ITS ---
PROCEDURE: CT guided drainage of the right perianal abscess. DATE OF EXAMINATION: November 10, 2018. INDICATION: Male, 73 years old. Right perianal abscess. PHYSICIAN: Dr. Jones. RADIATION DOSAGE (If Supplied By Facility): CTDIvol = ( 15.5 ) mGy, DLP = ( 633.23 ) mGycm CONSENT: The risks, benefits and alternatives to the procedure were explained to the patient, and the patient agreed to the procedure and signed the consent. SEDATION: 2 mg of Versed and 50 mcg of fentanyl intravenously. Conscious sedation protocol was followed. Conscious sedation was started at 9:51 AM and terminated at 10:08 AM. The patient was independently monitored by the department nurse. STERILE BARRIER TECHNIQUE: The following sterile barrier precautions were used during the procedure: hand hygiene; use of 2% chlorhexidine aseptic; use of a cap, mask, sterile gown, sterile gloves, sterile full body drape, and a large sterile sheet. PROCEDURE/TECHNIQUE: (All elements of maximal sterile barrier technique followed, including US elements as applicable) The risks, benefits, and alternatives to the procedure were explained to patient, and the patient agreed to the procedure and signed a consent form for the procedure. A timeout was performed to confirm the patient's identity, the type of procedure, to be performed and the site of entry. A small collection of air is seen along the right perianal region. An 18-gauge Chiba needle was placed into the collection. 2 cc of blood-tinged fluid was aspirated. The specimen was sent to the laboratory for analysis. CT/CT Guidance Abscess Drg w/Cath IMPRESSION: Percutaneous aspiration of a left perirectal abscess. Electronically Signed: Bowen Jones, at 11:27 EDT , Service support ,
[2018-11-10 08:48] LABS: Absolute Lymphocyte Count 0.76 X10^3/ul (0.83-4.51); Absolute Neutrophil Count 3.2 X10^3/uL (2.0-7.7); Basophil# 0.01 X10^3/uL; Basophil% 0.2 % (0-1); Eosinophil# 0.08 X10^3/uL; Eosinophils% 1.8 % (0-5); Hemoglobin 14.3 g/dl (13.0-16.5); Lymphocyte # 0.76 X10^3/ul (4.0); Lymphocyte % 17.4 % (19-41); Mean Corp Hgb Conc 32.5 g/gl (32-36); Mean Corpuscular Volume 92.2 fL (80-94); Mean Platelet Vol. 11.4 fl (6.2-12.0); Monocyte# 0.34 X10^3/uL; Monocyte% 7.8 % (0-10); Neutrophil # 3.16 X10^3/uL (2.7-7.7); Neutrophil % 72.3 % (47-70); Platelet Count 84 K/mm3 (150-450); RBC Distribution Width CV 14.4 % (11.6-14.6); RBC Distribution Width SD 48.2 fl (35.1-43.9); Red Blood Count 4.77 M/mm3 (4.6-6.2); White Blood Count 4.4 K/mm3 (4.4-11.0)
[2018-11-10 08:50] LABS: POSITIVE COUNT NO; POSITIVE DIFFERENTIAL NO; POSITIVE MORPHOLOGY NO
[2018-11-10 08:55] LABS: Partial Thromboplast Time 28.1 Seconds (24.1-36.2); Prothrombin Time (Protime)PT. 13.3 SECONDS (11.7-14.9)
[2018-11-10 09:04] LABS: ALB/GLOB Ratio 1.3 RATIO (0.9-2.4); AST(SGOT) 23 U/L (15-37); Alanine Aminotransfer ALT/SGPT 23 U/L (16-61); Albumin, Serum 3.5 g/dL (3.2-5.0); Alkaline Phosphatase 114 U/L (45-117); Anion Gap 1 (5-15); BUN 16 mg/dL (7-18); BUN/Creat Ratio 11.7 RATIO (10-20); Calcium,Total 8.6 mg/dL (8.5-10.1); Chloride 109 mmol/L (98-107); Creatinine, Serum 1.37 mg/dL (0.70-1.30); EST Glomerular Filtration Rate 54 mL/min (>60); Est Glom Filt Rate - Afr Amer 66 mL/min (>60); Globulin 2.7 g/dL (2.2-4.2); Glucose 92 mg/dL (74-106); Potassium 4.7 mmol/L (3.5-5.1); Protein, Total 6.2 g/dL (6.4-8.2); Sodium Level 140 mmol/L (136-145)
[2018-11-10] MEDS: Midazolam 2 MG/2 ML Syringe IV (09:51)
[2018-11-10] MEDS: fentaNYL 100 MCG/2 ML Ampul IV (09:53)
[2018-11-11 16:23] LABS: Immunoglobulin G 575 mg/dL (700-1600)
== END ==
PROVIDERS: Internal Medicine Medical Oncology; Family Provider Nurse Practitioner Family; PCP Nurse Practitioner Family; Referring Provider Surgery; Visit Provider Surgery
DX: L02.31 Cutaneous abscess of buttock (principal); K61.1 Rectal abscess; C91.91 Lymphoid leukemia, unspecified, in remission; D80.1 Nonfamilial hypogammaglobulinemia; Z79.899 Other long term (current) drug therapy; Z79.51 Long term (current) use of inhaled steroids; D64.9 Anemia, unspecified; E78.5 Hyperlipidemia, unspecified; E07.9 Disorder of thyroid, unspecified; N18.9 Chronic kidney disease, unspecified
CPT/HCPCS: 49406; 36415; 75989; 80053; 82784; 85025; 85610; 85730; 87070; 87075; 87205; 99156; 99157; J7030; J7040

== ENCOUNTER → 2019-08-06 10:43 | Outpatient (CLI) | payer MEDICARE, SELFPAY ==
[2019-06-16 10:11] VITALS: BMI 18.2
[2019-08-06 12:11] LABS: Absolute Lymphocyte Count 1.34 X10^3/uL (0.83-4.51); Absolute Neutrophil Count 5.1 X10^3/uL (2.0-7.7); Basophil# 0.06 X10^3/uL; Basophil% 0.8 % (0-1); Eosinophil# 0.09 X10^3/uL; Eosinophils% 1.2 % (0-5); Hemoglobin 15.6 g/dL (13.0-16.5); Lymphocyte # 1.34 X10^3/ul (4.0); Lymphocyte % 18.3 % (19-41); Mean Corp Hgb Conc 32.5 g/dL (32-36); Mean Corpuscular Hgb 30.8 pg (27.0-32.0); Mean Corpuscular Volume 94.9 fL (80-94); Mean Platelet Vol. 11.8 fl (6.2-12.0); Monocyte# 0.65 X10^3/uL; Monocyte% 8.9 % (0-10); NRBC Flagged by Analyzer 0 % (0-5); Neutrophil # 5.05 X10^3/uL (2.7-7.7); Neutrophil % 69.2 % (47-70); Platelet Count 110 K/mm3 (150-450); RBC Distribution Width CV 14.3 % (11.6-14.6); RBC Distribution Width SD 49.5 fl (35.1-43.9); Red Blood Count 5.06 M/mm3 (4.6-6.2); White Blood Count 7.3 K/mm3 (4.4-11.0)
[2019-08-06 12:28] LABS: ALB/GLOB Ratio 1.6 RATIO (0.9-2.4); AST(SGOT) 31 U/L (15-37); Alanine Aminotransfer ALT/SGPT 29 U/L (16-61); Albumin, Serum 3.7 g/dL (3.2-5.0); Alkaline Phosphatase 106 U/L (45-117); Anion Gap 4 (5-15); BUN 20 mg/dL (7-18); BUN/Creat Ratio 15.2 RATIO (10-20); Calcium,Total 8.4 mg/dL (8.5-10.1); Chloride 106 mmol/L (98-107); Creatinine, Serum 1.32 mg/dL (0.70-1.30); EST Glomerular Filtration Rate 56 mL/min (>60); Est Glom Filt Rate - Afr Amer 68 mL/min (>60); Globulin 2.3 g/dL (2.2-4.2); Glucose 81 mg/dL (74-106); LDH 231 U/L (87-241); Magnesium 2.1 mg/dL (1.6-2.6); Phosphorus 2.8 mg/dL (2.5-4.9); Potassium 4.8 mmol/L (3.5-5.1); Sodium Level 141 mmol/L (136-145); Uric Acid 7.7 mg/dL (3.5-7.2)
[2019-08-07 04:06] LABS: Immunoglobulin A 154 mg/dL (61-437)
[2019-08-07 12:50] LABS: Immunoglobulin G 372 mg/dL (700-1600); Immunoglobulin M 13 mg/dL (15-143)
== END ==
PROVIDERS: Internal Medicine Medical Oncology; PCP Nurse Practitioner Family; Visit Provider Internal Medicine Nephrology
DX: C91.10 Chronic lymphocytic leukemia of B-cell type not having achieved remission (principal); C91.91 Lymphoid leukemia, unspecified, in remission; D80.1 Nonfamilial hypogammaglobulinemia
CPT/HCPCS: 36415; 80053; 82784; 83615; 83735; 84100; 84550; 85025

== ENCOUNTER → 2020-04-11 10:58 | Outpatient (CLI) | payer MEDICARE, SELFPAY ==
[2020-02-24 10:07] VITALS: BMI 27.2
[2020-04-11 11:33] LABS: Absolute Lymphocyte Count 1.05 X10^3/uL (0.83-4.51); Absolute Neutrophil Count 5.2 X10^3/uL (2.0-7.7); Basophil# 0.04 X10^3/uL; Basophil% 0.6 % (0-1); Eosinophil# 0.06 X10^3/uL; Eosinophils% 0.9 % (0-5); Hematocrit 46.9 % (40-54); Hemoglobin 15.8 g/dL (13.0-16.5); Lymphocyte # 1.05 X10^3/ul (4.0); Lymphocyte % 14.9 % (19-41); Mean Corp Hgb Conc 33.7 g/dL (32-36); Mean Corpuscular Hgb 31.9 pg (27.0-32.0); Mean Corpuscular Volume 94.7 fL (80-94); Mean Platelet Vol. 11.5 fl (6.2-12.0); Monocyte# 0.56 X10^3/uL; NRBC Flagged by Analyzer 0 % (0-5); Neutrophil # 5.24 X10^3/uL (2.7-7.7); Neutrophil % 74.3 % (47-70); Platelet Count 107 K/mm3 (150-450); RBC Distribution Width CV 13.9 % (11.6-14.6); RBC Distribution Width SD 48.2 fl (35.1-43.9); Red Blood Count 4.95 M/mm3 (4.6-6.2)
[2020-04-11 11:48] LABS: ALB/GLOB Ratio 1.5 RATIO (0.9-2.4); AST(SGOT) 24 U/L (15-37); Alanine Aminotransfer ALT/SGPT 31 U/L (16-61); Albumin, Serum 3.8 g/dL (3.2-5.0); Alkaline Phosphatase 117 U/L (45-117); Anion Gap 2 (5-15); BUN 16 mg/dL (7-18); BUN/Creat Ratio 10.9 RATIO (10-20); Chloride 108 mmol/L (98-107); Creatinine, Serum 1.47 mg/dL (0.70-1.30); EST Glomerular Filtration Rate 50 mL/min (>60); Est Glom Filt Rate - Afr Amer 60 mL/min (>60); Globulin 2.6 g/dL (2.2-4.2); Glucose 95 mg/dL (74-106); LDH 238 U/L (87-241); Magnesium 2.2 mg/dL (1.6-2.6); Phosphorus 2.7 mg/dL (2.5-4.9); Potassium 4.4 mmol/L (3.5-5.1); Protein, Total 6.4 g/dL (6.4-8.2); Sodium Level 141 mmol/L (136-145); Uric Acid 8.2 mg/dL (3.5-7.2)
[2020-04-11 19:26] LABS: Xtra Tube EP Lab EXTRA TUBE
== END ==
PROVIDERS: PCP Nurse Practitioner Family
DX: C91.10 Chronic lymphocytic leukemia of B-cell type not having achieved remission (principal); D80.1 Nonfamilial hypogammaglobulinemia; N17.9 Acute kidney failure, unspecified
CPT/HCPCS: 36415; 80053; 82784; 83615; 83735; 84100; 84550; 85025

== ENCOUNTER → 2020-04-11 11:20 | Outpatient (CLI) | payer MEDICARE, SELFPAY ==
[2019-06-16 10:11] VITALS: BMI 18.2
[2020-02-24 10:07] VITALS: BMI 27.2
[2020-04-12 06:07] LABS: Immunoglobulin A 133 mg/dL (61-437); Immunoglobulin G 527 mg/dL (603-1613)
[2020-04-12 08:25] LABS: Immunoglobulin M 13 mg/dL (15-143)
== END ==
PROVIDERS: Internal Medicine Medical Oncology; PCP Nurse Practitioner Family; Referring Provider Internal Medicine Nephrology; Visit Provider Internal Medicine Nephrology
DX: N17.9 Acute kidney failure, unspecified (principal); D80.1 Nonfamilial hypogammaglobulinemia
CPT/HCPCS: 82784

== ENCOUNTER → 2020-06-10 | Outpatient (CLI) | payer MEDICARE, SELFPAY ==
[2020-02-24 10:07] VITALS: BMI 27.2
== END | disposition home or self-care (01) ==
LOC: LABSPEC 17:09
PROVIDERS: PCP Nurse Practitioner Family; Referring Provider Nurse Practitioner Family; Visit Provider Nurse Practitioner Family
DX: U07.1 COVID-19 (principal); J06.9 Acute upper respiratory infection, unspecified
CPT/HCPCS: 87635; C9803; U0003

== ENCOUNTER 2020-06-13 09:35 | Inpatient (IN) | payer MEDICARE, SELFPAY ==
[2020-02-24 10:07] VITALS: BMI 27.2
[2020-06-13] VITALS (8 sets, daily range): BP systolic 132–176; BP diastolic 71–95; PULSE 63–80; RESP 18–31; TEMP 36–37.3; O2SAT 2–94; BMI 26.9; BMI 26.4
--- NOTE | 2020-06-13 09:56 | EKG12_ITS ---
Test Reason : SOB Blood Pressure : / mmHG Vent. Rate : 069 BPM Atrial Rate : 069 BPM P-R Int : 188 ms QRS Dur : 104 ms QT Int : 410 ms P-R-T Axes : 031 -02 004 degrees QTc Int : 439 ms Sinus rhythm with Premature atrial complexes in a pattern of bigeminy Otherwise normal ECG Confirmed by CARLOZ COOL, LIOR ([id number]), technical writer and editor PETRA ARCEO ([id number]) on 06/15/2020 1:29:01 PM Referred By: GEORGE Confirmed By:LIOR CARTY MD
--- NOTE | 2020-06-13 09:59 | ED.DCSUM_ITS ---
- ER Visit Summary Date of Service: 06/13/20 Chief Complaint: Shortness of breath History of Present Illness: The patient is a 74 M who presents with shortness of breath that has been getting worse over the past 5 days. Patient states his breathing is worse with any exertion. Patient had an outpatient COVID-19 test on Saturday, 3 days ago, which was positive. Patient got his results today. Patient states his breathing is better when he sits and rests. Patient admits to a fever of 102 at home. Patient admits to some lower chest pain that comes on whenever he exerts himself and goes away with rest. Patient denies any cough. Patient denies any nausea or vomiting. Patient does admit to a mild hea dache. Patient states he did recently return from [place]. Patient also has a history of hypertension, hypothyroidism, and CLL. Patient denies any other cardiac or PE risk factors. Physical Examination: Vital signs are stable except for mild tachypnea of 31 and a pulse oximeter of 87% on room air. Patient is afebrile. Patient is in no acute distress. Oral mucosa is pink and moist. Neck is supple. Trachea is midline. There is no JVD. Heart was regular rate and rhythm. Lungs showed few rales in the lower lobes bilaterally. There is good respiratory effort. There are no retractions noted. Abdomen is soft. Bowel sounds are normal. There is no tenderness. Cranial nerves II through XII are intact. There are no focal motor or sensory deficits noted. Extremities are intact. There is no calf tenderness or edema. Test Results: EKG was obtained. On my interpretation, there is normal sinus rhythm with a rate of 69 and frequent PACs. There are no acute ST or T wave changes. Other than the PACs, this was unchanged compared to previous EKG dated 02/10/2015. CBC shows a slight leukocytosis of 11.5. BUN was 19 and creatinine was 1.32. Total bilirubin was slightly elevated at 2.5. Troponin was slightly elevated at 0.059. D-dimer was elevated at 1.41. Lactate was normal at 2.0. CTA of the chest was obtained. There is no evidence of pulmonary embolism. There are bilateral infiltrates, worse on the right. Emergency Department Course and Treatment: Patient was placed on oxygen. Patient was given albuterol inhaler here. Patient was feeling somewhat better on reexamination. Patient was given Decadron. Case was discussed with the hospitalist, Dr. Diego. She will admit the patient to her service. Patient understood and was agreeable with the plan. All questions were answered. Disposition: Admit to hospital Impression: 1. COVID-19 pneumonia 2. Hypoxemia This note was generated with [employer] dictation software. It may contain incorrect words, spelling, and punctuation that were not noted in review of the chart prior to signing ED Disposition - Plan for ED Patient: Disposition: Acute Care Hospital [facility] Diagnosis: Pneumonia due to COVID-19 virus, Hypoxemia Referrals: uJlio Guzman PAVER LAYER, PAVER LAYER-C [Primary Care Provider] -
[2020-06-13 10:17] LABS: Absolute Lymphocyte Count 0.49 X10^3/uL (0.83-4.51); Absolute Neutrophil Count 9.6 X10^3/uL (2.0-7.7); Basophil# 0.03 X10^3/uL; Basophil% 0.3 % (0-1); Hematocrit 41.3 % (40-54); Hemoglobin 13.2 g/dL (13.0-16.5); Lymphocyte # 0.49 X10^3/ul (4.0); Lymphocyte % 4.3 % (19-41); Mean Corpuscular Hgb 28.8 pg (27.0-32.0); Mean Corpuscular Volume 90.2 fL (80-94); Mean Platelet Vol. 12.5 fl (6.2-12.0); Monocyte# 1.09 X10^3/uL; Monocyte% 9.5 % (0-10); NRBC Flagged by Analyzer 0 % (0-5); Neutrophil # 9.58 X10^3/uL (2.7-7.7); Neutrophil % 83.6 % (47-70); POSITIVE DIFFERENTIAL YES; Platelet Count 139 K/mm3 (150-450); RBC Distribution Width CV 13.2 % (11.6-14.6); RBC Distribution Width SD 43.8 fl (35.1-43.9); Red Blood Count 4.58 M/mm3 (4.6-6.2); White Blood Count 11.5 K/mm3 (4.4-11.0)
[2020-06-13 10:20] LABS: Differential Indicated SCAN CRITERIA MET
[2020-06-13] MEDS: Acetaminophen 325 MG Tablet 650 MG PO (10:30)
[2020-06-13 10:31] LABS: ALB/GLOB Ratio 0.7 RATIO (0.9-2.4); AST(SGOT) 45 U/L (15-37); Alanine Aminotransfer ALT/SGPT 51 U/L (16-61); Albumin, Serum 2.4 g/dL (3.2-5.0); Alkaline Phosphatase 339 U/L (45-117); Anion Gap 9 (5-15); BUN 19 mg/dL (7-18); BUN/Creat Ratio 14.4 RATIO (10-20); Calcium,Total 8.2 mg/dL (8.5-10.1); Chloride 101 mmol/L (98-107); Creatinine, Serum 1.32 mg/dL (0.70-1.30); EST Glomerular Filtration Rate 56 mL/min (>60); Est Glom Filt Rate - Afr Amer 68 mL/min (>60); Estimated Creatinine Clearance 50.69 ml/min; Globulin 3.6 g/dL (2.2-4.2); Glucose 130 mg/dL (74-106); Potassium 3.8 mmol/L (3.5-5.1); Sodium Level 134 mmol/L (136-145)
[2020-06-13 10:33] LABS: D-Dimer Quantitative (DVT/PE) 1.41 FEU/ug/m (0.27-0.49)
--- NOTE | 2020-06-13 10:40 | CT_ITS ---
STUDY: CTA CHEST REASON FOR EXAM: Male, 74 years old. SOB, COVID + SYMPTOMS X 1 WK, HX-HLD, ANEMIA, CKD, HTN,M CLL-HAD CHEMO RADIATION DOSAGE (If Supplied By Facility): CTDIvol = ( 12.66 ) mGy, DLP = ( 441.72 ) mGycm TECHNIQUE: The examination was performed with the intravenous administration of IV 100mL Isovue-370. Post-processing of the angiographic images was performed, with multiplanar reformation and 3D reconstruction. Individualized dose optimization techniques were used for this CT. COMPARISON: None. FINDINGS: Normal enhancement of the main pulmonary artery and right and left pulmonary arteries. Normal enhancement of the bilateral peripheral pulmonary arteries. There is no demonstrated pulmonary embolism. There is atherosclerotic calcification of the aortic arch with tortuosity. There is no demonstrated aortic dissection. Normal heart and pericardium. Normal mediastinum. Normal hilar regions. Normal visualized trachea and bronchi. The lungs are well expanded. Dense consolidation in the right upper lobe as well as in the right middle lobe and right lower areas of groundglass appearance infiltrate in the left lower lobe as well as patchy infiltrates in the left upper lobe and lingular segment of the left upper lobe. Small right pleural effusion. Normal chest wall structures. Normal osseous structures. Normal visualized upper abdomen. CT/CTA Chest W/WO Contrast IMPRESSION: Bilateral pulmonary infiltrates worse in the right hemithorax. No evidence of pulmonary emboli. Electronically Signed: Bowen Jones MD at 11:43 EST , Service support ,
--- NOTE | 2020-06-13 12:19 | HP.PCM_ITS ---
Problem List (1) Pneumonia due to COVID-19 virus Status: Acute (2) Hypertension Status: Chronic Qualifiers: Hypertension type: essential hypertension Qualified Code(s): I10 - Essential (primary) hypertension History of Present Illness Date of Admission: 06/13/20 Chief Complaint: Shortness of breath - a couple of days The patient is a 74 year old M with past medical history of hyperlipidemia, hypogammaglobinemia, who comes in with shortness of breath ongoing for a couple of days. Patient started having symptoms of COVID-19 infection a week ago with fatigue, headaches, generalized body aches. He denied any fever or chills. He has some loose bowel movement. He received his COVID-19 test was positive on 06/10/20. Overnight was noted that his oxygen saturation was low. Labs in the ED showed temperature of 99.1F, heart rate 72, blood pressure was 176/95, respiratory rate was 31, SPO2 was 87% on room air, improved to 92% on 2 L. WBC count 11.5, hemoglobin 13.2, platelet count 139, D-dimer 1.41, sodium 134, potassium 3.8, chloride 101, bicarbonate 24, BUN 19, creatinine 1.32, which is about his baseline. Potassium was 2.0, improved to 0.90, total bilirubin was 2.5, AST 45, ALT 51, ALP 339, troponin 0.059, albumin 2.4 CTA of the chest shows bilateral pulmonary infiltrates, worse in the right hemithorax. No acute PE. 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 WITH LIGHT THERAPY-TRILLIUM GRAYLING Anemia D64.9 History of pneumonia Z87.01 Hyperlipidemia E78.5 Hypogammaglobulinemia D80.1 Thyroid disease E07.9 CKD (chronic kidney disease) N18.9 Allergies Penicillins Adverse Reaction (Severe, Verified 06/13/20 09:37) Abd cramps/diarrhea Home Medications: Ambulatory Orders Medication Instructions Recorded Atenolol [Tenormin (Beta Kevin)] 25 mg PO BID 11/10/13 Ibrutinib [Imbruvica] 420 mg PO DAILY 02/08/15 Fluticasone 0.05% [Flonase Nasal 2 spray NASAL PRN PRN 07/03/16 [place]] Finasteride [Proscar] 5 mg PO DAILY 10/30/17 Acyclovir [Zovirax] 400 mg PO BID 09/26/18 biotin 1 mg capsule 1 mg PO DAILY 10/29/18 Valsartan [Diovan] 160 mg PO DAILY 11/07/18 Levothyroxine [Synthroid] 100 mcg PO DAILY 04/21/19 Surgical History: Surgical History (Last Reviewed 02/24/20 @ 10:06 by Yashira Estrada) History of arthroscopy of left knee Z98.890 History of cholecystectomy Z98.890, Z90.49 History of colonoscopy Onset Date: ~2017 Z98.890 History of knee surgery Z98.890 left knee 1973 and two for bone chip removal 1993 Hx of shoulder surgery Z98.890 left shoulder, spurs Surgical History: cholecystectomy, - - Status post arthroscopy of the left knee, shoulder surgery, knee surgery Psychiatric History: No pertinent psych hx Lives: Spouse/ Significant Other Smoking Status: Never smoker Tobacco Use: Non-smoker Alcohol: None Drugs: None - *Family History Maternal Family History: Family History (Last Reviewed 02/24/20 @ 10:06 by Yashira Estrada) Father Heart disease Hypertension Mother Hypertension History Items: Hypertension Paternal Family History: Family History (Last Reviewed 02/24/20 @ 10:06 by Yashira Estrada) Father Heart disease Hypertension Mother Hypertension History Items: Heart Disease, Hypertension Review of Systems Constitutional: Reports: Anorexia, Malaise, Weakness, Fatigue. Denies: Chills, Fever, Weight Change Eyes: Denies: Blurred vision, Cataracts, Conjunctivae Inflammation, Pain, Redness, Vision Change HEENT: Denies: Difficulty Hearing, Difficulty Swallowing, Head Aches, Hearing Changes, Sinus Congestion, Sinus Drainage Cardiovascular: Reports: Chest Tightness. Denies: Chest Pain, Claudication, Orthopnea, Palpitations, Paroxysmal Noc. Dyspnea Respiratory: Reports: Cough, Shortness of Breath, Shortness of breath at rest, Shortness of breath upon exertion. Denies: Sputum production Gastrointestinal: Denies: Abdominal Pain, Constipation, Hematemesis, Hematochezia, Nausea, Vomiting Genitourinary: Denies: Dysuria, Frequency, Incontinence, Nocturia Musculoskeletal: Denies: Joint Pain, Joint stiffness, Joint swelling, Joint Tenderness Skin: Denies: Pruritis, Rash, Wounds Neurological: Denies: Difficulty swallowing, Focal weakness, Numbness, Tingling Psychiatric: Denies: Anxiety, Depression, Homicidal Ideations, Suicidal Ideations Hematologic/ Lymphatic: Denies: Easy Bruising, Easy Bleeding VTE Information - Inpt Only VTE Present on Admission: No VTE Pharm Prophylaxis ordered?: Yes Patient Problems: Active and Suspected Problems (Last Reviewed 02/24/20 @ 10:06 by Yashira Estrada) Pneumonia due to COVID-19 virus (Acute) Hypoxemia (Acute) - Physical Exam Vitals/I&O's: Vital Signs Temp Pulse Resp BP Pulse Ox 99.1 F 72 31 H 176/95 H 2 06/13/20 09:37 06/13/20 09:37 06/13/20 09:37 06/13/20 09:37 06/13/20 09:58 Oxygen Flow Rate (L/min) 2 Oxygen Delivery Method Nasal Cannula Weight: 85.3 kg Body Mass Index (BMI) 26.9 General: Alert, Oriented x3, Cooperative, No apparent distress, - - On 2 L of oxygen HEENT: Atraumatic, PERRLA, EOMI, Normocephalic Oral: Moist Mucosa Neck: Supple Lungs: Diminished Cardiovascular: Regular rate, Regular Rhythm, Normal S1, Normal S2, No murmurs Abdomen: Bowel Sounds Present, Soft, Non Tender, Non-Distended, No Hepato- splenomegaly Extremities: No edema Skin: No rashes Musculoskeletal: No Tenderness to Palpation of Joints or Extremities Neurological: Cranial nerves II-XII grossly intact Psych/Mental Status: Normal Affect, Appropriate Laboratory Results 06/13/20 09:40: WBC 11.5 H, RBC 4.58 L, Hgb 13.2, Hct 41.3, MCV 90.2, MCH 28.8, MCHC 32.0, RDW Std Deviation 43.8, RDW Coeff of Jesús 13.2, Plt Count 139 L, MPV 12.5 H, Immature Gran % (Auto) 2.300 H, Neut % (Auto) 83.6 H, Lymph % (Auto) 4.3 L, [place] % (Auto) 9.5, Eos % (Auto) 0.0, Baso % (Auto) 0.3, Absolute Neuts (auto) 9.6 H, Absolute Lymphs (auto) 0.49 L, Nucleated RBC % 0, Differential Comment COMMENT 06/13/20 09:40: D-Dimer Quant (PE/DVT) 1.41 H* 06/13/20 09:40: Sodium 134 L, Potassium 3.8, Chloride 101, Carbon Dioxide 24.0, Anion Gap 9, BUN 19 H, Creatinine 1.32 H, Estim Creat Clear Calc 50.69, Est GFR (MDRD) Af Amer 68, Est GFR (MDRD) Non-Af 56 L, BUN/Creatinine Ratio 14.4, Glucose 130 H, Calcium 8.2 L, Total Bilirubin 2.50 H, AST 45 H, ALT 51, Alkaline Phosphatase 339 H, Troponin I 0.059 H, Total Protein 6.0 L, Albumin 2.4 L, Globulin 3.6, Albumin/Globulin Ratio 0.7 L 06/13/20 09:40: Lactic Acid 2.0 Assessment/Plan All Active Problems (Last Reviewed 02/24/20 @ 10:06 by Yashira Estrada) Perirectal abscess (Acute) Pneumonia due to COVID-19 virus (Acute) Hypoxemia (Acute) Chronic lymphoid leukemia (Resolved) Encounter for venous access device care (Acute) Encounter for care related to vascular access port (Acute) Skin lesion (Acute) Neutropenia (Resolved) 1. Acute hypoxic respiratory sufficiency secondary to acute COVID-19 pneumonia Continue with breathing treatments, po steroids, encourage use of incentive spirometer. Wean off oxygen for SPO2 more than 94% 2. Acute COVID-19 pneumonia with hypoxia, severe Continue on oral Decadron ID consulted; recommendations for remdesivir per ID Trend labs in a.m. 3. Indeterminate troponins, will trend 4. Hypertension, controlled, on continue with home regimen -valsartan 5. Hypothyroidism, continue on synthroid 6. CLL/hypogammaglobulinemia, follows in the outpatient for IVIG Hold ibrutinib 7. DVT PPx- Lovenox SC 8. CODE STATUS: DNR CCA, no intubation I discussed and explained in details the various types of CODE STATUS-full code, DNR CCA, DNR CC. Patient chose DNR CCA, no intubation. He does not want any aggressive care in the event of cardiopulmonary arrest. Time spent discussing CODE STATUS 16 minutes Inpatient E&M: 11142 Init Hosp L3 Procedures: 53262 Advncd Care Plan 30 Min
[2020-06-13] MEDS: 0.9% Normal Saline 1,000 ML 1000 ML IV (12:26)
[2020-06-13] MEDS: dexAMETHasone 10 MG/ML Vial IV (12:31)
[2020-06-13 14:10] LABS: Reflex Lactate? Y
[2020-06-13] MEDS: 0.9% Saline Lock 10 ML Syringe IV ×2 (14:31→17:04)
[2020-06-13 15:06] LABS: Lactic Acid 0.9 mmol/L (0.4-1.9)
--- NOTE | 2020-06-13 15:10 | PCS.PANDOC ---
PANDEMIC DOCUMENTATION INITIATED: Date: 06/13/20 Time: 7795
--- NOTE | 2020-06-13 15:20 | CASEMGMT ---
LW/POA forms scanned into summary tab of echart. YRN Wallace
--- NOTE | 2020-06-13 15:42 | PCM.HP.ID ---
Problem List (1) Pneumonia due to COVID-19 virus Status: Acute Reason for Consult: covid Consulted by: Dr. Diego History of Present Illness: The patient is a 74 year old M with h/o CLL, presented with 1 week of chills, headache, dyspnea, not feeling well. No change in taste or smell. Lives with who is feeling ok. Came to ED, admitted on O2, dex. Full ROS performed and neg except as noted above. - Medical History Past Medical History (Chronic Problems): Chronic Problems (Last Reviewed 02/24/20 @ 10:06 by Yashira Estrada) Hypertension (Chronic) Hypogammaglobulinemia, acquired (Chronic) Chronic lymphocytic leukemia (Chronic) Chronic lymphocytic leukemia in remission (Chronic) Allergies/Adverse Reactions: Allergies Penicillins Adverse Reaction (Severe, Verified 06/13/20 09:37) Abd cramps/diarrhea Home Medications: Ambulatory Orders Medication Instructions Recorded Atenolol [Tenormin (Beta Kevin)] 25 mg PO BID 11/10/13 Ibrutinib [Imbruvica] 420 mg PO DAILY 02/08/15 Fluticasone 0.05% [Flonase Nasal 2 spray NASAL PRN PRN 07/03/16 [place]] Finasteride [Proscar] 5 mg PO DAILY 10/30/17 Acyclovir [Zovirax] 400 mg PO BID 09/26/18 biotin 1 mg capsule 1 mg PO DAILY 10/29/18 Valsartan [Diovan] 160 mg PO DAILY 11/07/18 Levothyroxine [Synthroid] 100 mcg PO DAILY 04/21/19 - Social History Tobacco Use: non-smoker Vital Signs Temp Pulse Resp BP Pulse Ox 97.1 F L 80 20 H 158/78 H 93 06/13/20 13:53 06/13/20 13:53 06/13/20 13:53 06/13/20 13:53 06/13/20 13:53 Oxygen Flow Rate (L/min) 2 Oxygen Delivery Method Nasal Cannula Weight: 83.461 kg Body Mass Index (BMI) 26.4 Laboratory Tests Past 24 Hrs 06/13/20 06/13/20 06/13/20 09:40 09:40 09:40 WBC 11.5 H RBC 4.58 L Hgb 13.2 Hct 41.3 MCV 90.2 MCH 28.8 MCHC 32.0 RDW Std Deviation 43.8 RDW Coeff of Jesús 13.2 Plt Count 139 L MPV 12.5 H Immature Gran % (Auto) 2.300 H Neut % (Auto) 83.6 H Lymph % (Auto) 4.3 L [place] % (Auto) 9.5 Eos % (Auto) 0.0 Baso % (Auto) 0.3 Absolute Neuts (auto) 9.6 H Absolute Lymphs (auto) 0.49 L Nucleated RBC % 0 Differential Comment COMMENT D-Dimer Quant (PE/DVT) 1.41 H* Sodium 134 L Potassium 3.8 Chloride 101 Carbon Dioxide 24.0 Anion Gap 9 BUN 19 H Creatinine 1.32 H Estim Creat Clear Calc 50.69 Est GFR (MDRD) Af Amer 68 Est GFR (MDRD) Non-Af 56 L BUN/Creatinine Ratio 14.4 Glucose 130 H Lactic Acid Calcium 8.2 L Total Bilirubin 2.50 H AST 45 H ALT 51 Alkaline Phosphatase 339 H Troponin I 0.059 H Total Protein 6.0 L Albumin 2.4 L Globulin 3.6 Albumin/Globulin Ratio 0.7 L 06/13/20 06/13/20 06/13/20 09:40 14:00 14:25 WBC RBC Hgb Hct MCV MCH MCHC RDW Std Deviation RDW Coeff of Jesús Plt Count MPV Immature Gran % (Auto) Neut % (Auto) Lymph % (Auto) [place] % (Auto) Eos % (Auto) Baso % (Auto) Absolute Neuts (auto) Absolute Lymphs (auto) Nucleated RBC % Differential Comment D-Dimer Quant (PE/DVT) Sodium Potassium Chloride Carbon Dioxide Anion Gap BUN Creatinine Estim Creat Clear Calc Est GFR (MDRD) Af Amer Est GFR (MDRD) Non-Af BUN/Creatinine Ratio Glucose Lactic Acid 2.0 0.9 Calcium Total Bilirubin AST ALT Alkaline Phosphatase Troponin I 0.047 H Total Protein Albumin Globulin Albumin/Globulin Ratio - Other Studies Radiology: [] reviewed Other Studies: [] Route of nutrition/ use of supplements: [] Nutritional Intake: [] IV Site: [] Betancur Catheter: [] - Physical Exam General: Alert, Oriented x3, Cooperative, No apparent distress HEENT: Atraumatic, PERRLA, EOMI Neck: Supple, No Nodes Lungs: Diminished Cardiovascular: Regular rate, Regular Rhythm Abdomen: Soft, Non Tender, Non-Distended Extremities: No edema Skin: No rashes IV Site: Peripheral, without redness Musculoskeletal: No Tenderness to Palpation of Joints or Extremities Neurological: Cranial nerves II-XII grossly intact - Assessment/Plan Antibiotics: [] Assessment/Plan: [] Active and Suspected Problems (Last Reviewed 02/24/20 @ 10:06 by Yashira Estrada) Pneumonia due to COVID-19 virus (Acute) Hypoxemia (Acute) Covid with hypoxia - sx started around 06/06, on dex, will order remdesivir and monitoring labs. D-dimer 1.4, on lovenox 30mg bid. Covid (+) 06/10. CT neg for PE. Will follow, thank you
[2020-06-13] MEDS: Atenolol 25 MG Tablet PO (19:56)
[2020-06-13] MEDS: Acyclovir 200 MG Capsule 400 MG PO (19:56)
[2020-06-13] MEDS: Enoxaparin 30 MG/0.3 ML Syringe SC (19:56)
[2020-06-14] VITALS (10 sets, daily range): BP systolic 143–181; BP diastolic 74–84; PULSE 56–85; RESP 16–20; TEMP 36.4–36.9; O2SAT 78–95
[2020-06-14] MEDS: 0.9% Saline Lock 10 ML Syringe IV (03:58)
[2020-06-14 04:20] LABS: Hematocrit 36.4 % (40-54); Hemoglobin 12.4 g/dL (13.0-16.5); Mean Corp Hgb Conc 34.1 g/dL (32-36); Mean Corpuscular Hgb 30.8 pg (27.0-32.0); Mean Corpuscular Volume 90.5 fL (80-94); Platelet Count 104 K/mm3 (150-450); RBC Distribution Width CV 13.4 % (11.6-14.6); Red Blood Count 4.02 M/mm3 (4.6-6.2); White Blood Count 5.9 K/mm3 (4.4-11.0)
[2020-06-14 04:34] LABS: ALB/GLOB Ratio 0.6 RATIO (0.9-2.4); AST(SGOT) 33 U/L (15-37); Alanine Aminotransfer ALT/SGPT 41 U/L (16-61); Alkaline Phosphatase 296 U/L (45-117); Anion Gap 9 (5-15); BUN 22 mg/dL (7-18); BUN/Creat Ratio 18.3 RATIO (10-20); Chloride 105 mmol/L (98-107); EST Glomerular Filtration Rate 63 mL/min (>60); Est Glom Filt Rate - Afr Amer 76 mL/min (>60); Estimated Creatinine Clearance 55.76 ml/min; Globulin 3.6 g/dL (2.2-4.2); Glucose 125 mg/dL (74-106); Potassium 3.9 mmol/L (3.5-5.1); Protein, Total 5.6 g/dL (6.4-8.2); Sodium Level 138 mmol/L (136-145)
--- NOTE | 2020-06-14 07:25 | PCM.PN.HOSP ---
Patient Problems: Active and Suspected Problems (Last Reviewed 02/24/20 @ 10:06 by Yashira Estrada) Pneumonia due to COVID-19 virus (Acute) Hypoxemia (Acute) Reason for Visit: Follow-up on hypoxia/Acute COVID-19 infection Subjective: Patient was seen and examined. Denies any new complaints. Denies worsening SOB, chest pain, palpitations. Objective: Physical exam: General: Alert, Oriented x3, Cooperative, No apparent distress, - - On 4 L of oxygen HEENT: Atraumatic, PERRLA, EOMI, Normocephalic Oral: Moist Mucosa Neck: Supple Lungs: Diminished Cardiovascular: Regular rate, Regular Rhythm, Normal S1, Normal S2, No murmurs Abdomen: Bowel Sounds Present, Soft, Non Tender, Non-Distended, No Hepato-splenomegaly Extremities: No edema Skin: No rashes Musculoskeletal: No Tenderness to Palpation of Joints or Extremities Neurological: Cranial nerves II-XII grossly intact Psych/Mental Status: Normal Affect, Appropriate Vitals/I&O's: Vital Signs Temp Pulse Resp BP Pulse Ox 97.8 F 56 L 16 158/81 H 93 06/14/20 04:00 06/14/20 04:00 06/14/20 04:00 06/14/20 04:00 06/14/20 04:00 Oxygen Flow Rate (L/min) 4 Oxygen Delivery Method Nasal Cannula Weight: 81.5 kg Body Mass Index (BMI) 26.4 Intake and Output for Last 24 Hours 06/12/20 06/13/20 06/14/20 23:59 23:59 23:59 Intake Total 1775 / 1775 240 / 240 Balance 1775 / 1775 240 / 240 Microbiology Past 72 Hours 06/13/20 15:45 Mucosa - Nasopharyngeal Respiratory Panel (PCR) - Final Laboratory Results 06/13/20 09:40: WBC 11.5 H, RBC 4.58 L, Hgb 13.2, Hct 41.3, MCV 90.2, MCH 28.8, MCHC 32.0, RDW Std Deviation 43.8, RDW Coeff of Jesús 13.2, Plt Count 139 L, MPV 12.5 H, Immature Gran % (Auto) 2.300 H, Neut % (Auto) 83.6 H, Lymph % (Auto) 4.3 L, [place] % (Auto) 9.5, Eos % (Auto) 0.0, Baso % (Auto) 0.3, Absolute Neuts (auto) 9.6 H, Absolute Lymphs (auto) 0.49 L, Nucleated RBC % 0, Differential Comment COMMENT 06/13/20 09:40: D-Dimer Quant (PE/DVT) 1.41 H* 06/13/20 09:40: Sodium 134 L, Potassium 3.8, Chloride 101, Carbon Dioxide 24.0, Anion Gap 9, BUN 19 H, Creatinine 1.32 H, Estim Creat Clear Calc 50.69, Est GFR (MDRD) Af Amer 68, Est GFR (MDRD) Non-Af 56 L, BUN/Creatinine Ratio 14.4, Glucose 130 H, Calcium 8.2 L, Total Bilirubin 2.50 H, AST 45 H, ALT 51, Alkaline Phosphatase 339 H, Troponin I 0.059 H, Total Protein 6.0 L, Albumin 2.4 L, Globulin 3.6, Albumin/Globulin Ratio 0.7 L 06/13/20 09:40: Lactic Acid 2.0 06/13/20 14:00: Troponin I 0.047 H 06/13/20 14:25: Lactic Acid 0.9 06/13/20 16:55: Troponin I 0.024 06/13/20 19:50: Troponin I 0.025 06/14/20 04:05: WBC 5.9, RBC 4.02 L, Hgb 12.4 L, Hct 36.4 L, MCV 90.5, MCH 30.8, MCHC 34.1 D, RDW Std Deviation 44.0 H, RDW Coeff of Jesús 13.4, Plt Count 104 L, MPV 12.0 06/14/20 04:05: Sodium 138, Potassium 3.9, Chloride 105, Carbon Dioxide 24.0, Anion Gap 9, BUN 22 H, Creatinine 1.20, Estim Creat Clear Calc 55.76, Est GFR (MDRD) Af Amer 76, Est GFR (MDRD) Non-Af 63, BUN/Creatinine Ratio 18.3, Glucose 125 H, Calcium 8.0 L, Total Bilirubin 1.20 H, AST 33, ALT 41, Alkaline Phosphatase 296 H, Total Protein 5.6 L, Albumin 2.0 L, Globulin 3.6, Albumin/Globulin Ratio 0.6 L Current Medications Acetaminophen (Acetaminophen 325 Mg Tablet) 650 mg PO Q6H PRN PRN PRN Reason: Pain Score 1-10/Temp > 100.7 F Acyclovir (Acyclovir 200 Mg Capsule) 400 mg PO BID [facility] Last Admin: 06/13/20 19:56 Dose: 400 mg Documented by: Albuterol Sulfate (Albuterol 2.5 Mg/3 Ml Vial.Neb.) 2.5 mg INHALATION Q2H PRN PRN PRN Reason: Shortness of Breath/Wheezing Atenolol (Atenolol 25 Mg Tablet) 25 mg PO BID [facility] Last Admin: 06/13/20 19:56 Dose: 25 mg Documented by: Dexamethasone (Dexamethasone 4 Mg Tablet) 6 mg PO DAILY [facility] Stop: 06/22/20 10:01 Enoxaparin Sodium (Enoxaparin 30 Mg/0.3 Ml Syringe) 30 mg SC BID [facility] Last Admin: 06/13/20 19:56 Dose: 30 mg Documented by: Finasteride (Finasteride 5 Mg Tablet) 5 mg PO DAILY [facility] Fluticasone Propionate (Fluticasone 0.05% 1 [place] Nasal.Sry) 2 spray NASAL DAILY PRN PRN PRN Reason: ALLERGIES Sodium Chloride () 250 mls @ 15 mls/hr IV .[id number] PRN PRN Reason: Saline Flush Last Infusion: 06/13/20 20:00 Dose: 0 mls/hr Documented by: Sodium Chloride () 250 mls @ 15 mls/hr IV .[id number] PRN PRN Reason: Additional IVPB Infusion Remdesivir 100 mg/ Sodium (Chloride) 250 mls @ 125 mls/hr IV DAILY [facility]; Protocol Stop: 06/17/20 11:59 Levothyroxine Sodium (Levothyroxine 100 Mcg Tablet) 100 mcg PO DAILY [facility] Losartan Potassium (Losartan Potassium 50 Mg Tablet) 50 mg PO DAILY [facility] Ondansetron HCl (Ondansetron 4 Mg/2 Ml Vial) 4 mg IV Q8H PRN PRN PRN Reason: NAUSEA/VOMITING Senna/Docusate Sodium (Senna/Docusate Sodium 1 Tablet) 2 tablet PO BID PRN PRN PRN Reason: Constipation Sodium Chloride (0.9% Saline Lock 10 Ml Syringe) 10 - 40 ml IV UD PRN PRN Reason: SALINE FLUSH Last Admin: 02/02/21 03:58 Dose: 10 ml Documented by: STROKE Vital Signs/Narrative: Vital Signs Temp Pulse Resp BP Pulse Ox 06/14/20 04:00 97.8 F 56 L 16 158/81 H 93 Medical Necessity - Tobacco Use Smoking Status: Never smoker Tobacco Use: Non-smoker Assessment/Plan All Active Problems (Last Reviewed 02/24/20 @ 10:06 by Yashira Estrada) Perirectal abscess (Acute) Pneumonia due to COVID-19 virus (Acute) Hypoxemia (Acute) Chronic lymphoid leukemia (Resolved) Encounter for venous access device care (Acute) Encounter for care related to vascular access port (Acute) Skin lesion (Acute) Neutropenia (Resolved) 1. Acute hypoxic respiratory sufficiency secondary to acute COVID-19 pneumonia Continue with breathing treatments, po steroids, encourage use of incentive spirometer. Wean off oxygen for SPO2 more than 94% 2. Acute COVID-19 pneumonia with hypoxia, severe Continue on oral Decadron and remdesivir ID following 3. Indeterminate troponin, likely secondary to demand from hypoxia 4. Hypertension, controlled, on continue with home regimen -Losartan, atenolol 5. Hypothyroidism, continue on synthroid 6. CLL/hypogammaglobulinemia, follows in the outpatient for IVIG Continue hold ibrutinib 7. DVT PPx- Lovenox SC 8. CODE STATUS: DNR CCA, no intubation Inpatient E&M: 16042 Subs Hosp L2
[2020-06-14 08:27] LABS: BNP,B-Type NATRIURETIC PEPTIDE 68.3 pg/mL (0-100)
--- NOTE | 2020-06-14 10:00 | PCM.PN.ID ---
Patient Problems: Active and Suspected Problems (Last Reviewed 02/24/20 @ 10:06 by Yashira Estrada) Pneumonia due to COVID-19 virus (Acute) Hypoxemia (Acute) Subjective: Feeling better, dyspnea improved, no fever - Physical Exam Vitals/I&O's: Vital Signs Temp Pulse Resp BP Pulse Ox 97.8 F 56 L 16 158/81 H 93 06/14/20 04:00 06/14/20 04:00 06/14/20 04:00 06/14/20 04:00 06/14/20 06:59 Oxygen Flow Rate (L/min) 4 Oxygen Delivery Method Nasal Cannula Weight: 81.5 kg Body Mass Index (BMI) 26.4 Intake and Output for Last 24 Hours 06/12/20 06/13/20 06/14/20 23:59 23:59 23:59 Intake Total 1775 / 1775 240 / 240 Balance 1775 / 1775 240 / 240 General: Alert, Cooperative, No apparent distress Lungs: Clear to auscultation, Diminished Cardiovascular: Regular rate, Regular Rhythm Abdomen: Soft, Non Tender, Non-Distended Skin: No rashes Microbiology Past 72 Hours 06/13/20 15:45 Mucosa - Nasopharyngeal Respiratory Panel (PCR) - Final Laboratory Results 06/13/20 09:40: WBC 11.5 H, RBC 4.58 L, Hgb 13.2, Hct 41.3, MCV 90.2, MCH 28.8, MCHC 32.0, RDW Std Deviation 43.8, RDW Coeff of Jesús 13.2, Plt Count 139 L, MPV 12.5 H, Immature Gran % (Auto) 2.300 H, Neut % (Auto) 83.6 H, Lymph % (Auto) 4.3 L, [place] % (Auto) 9.5, Eos % (Auto) 0.0, Baso % (Auto) 0.3, Absolute Neuts (auto) 9.6 H, Absolute Lymphs (auto) 0.49 L, Nucleated RBC % 0, Differential Comment COMMENT 06/13/20 09:40: D-Dimer Quant (PE/DVT) 1.41 H* 06/13/20 09:40: Sodium 134 L, Potassium 3.8, Chloride 101, Carbon Dioxide 24.0, Anion Gap 9, BUN 19 H, Creatinine 1.32 H, Estim Creat Clear Calc 50.69, Est GFR (MDRD) Af Amer 68, Est GFR (MDRD) Non-Af 56 L, BUN/Creatinine Ratio 14.4, Glucose 130 H, Calcium 8.2 L, Total Bilirubin 2.50 H, AST 45 H, ALT 51, Alkaline Phosphatase 339 H, Troponin I 0.059 H, Total Protein 6.0 L, Albumin 2.4 L, Globulin 3.6, Albumin/Globulin Ratio 0.7 L 06/13/20 09:40: Lactic Acid 2.0 06/13/20 14:00: Troponin I 0.047 H 06/13/20 14:25: Lactic Acid 0.9 06/13/20 16:55: Troponin I 0.024 06/13/20 19:50: Troponin I 0.025 06/14/20 04:05: WBC 5.9, RBC 4.02 L, Hgb 12.4 L, Hct 36.4 L, MCV 90.5, MCH 30.8, MCHC 34.1 D, RDW Std Deviation 44.0 H, RDW Coeff of Jesús 13.4, Plt Count 104 L, MPV 12.0 06/14/20 04:05: Sodium 138, Potassium 3.9, Chloride 105, Carbon Dioxide 24.0, Anion Gap 9, BUN 22 H, Creatinine 1.20, Estim Creat Clear Calc 55.76, Est GFR (MDRD) Af Amer 76, Est GFR (MDRD) Non-Af 63, BUN/Creatinine Ratio 18.3, Glucose 125 H, Calcium 8.0 L, Total Bilirubin 1.20 H, AST 33, ALT 41, Alkaline Phosphatase 296 H, Total Protein 5.6 L, Albumin 2.0 L, Globulin 3.6, Albumin/Globulin Ratio 0.6 L 06/14/20 04:05: B-Natriuretic Peptide 68.3 Current Medications Acetaminophen (Acetaminophen 325 Mg Tablet) 650 mg PO Q6H PRN PRN PRN Reason: Pain Score 1-10/Temp > 100.7 F Acyclovir (Acyclovir 200 Mg Capsule) 400 mg PO BID [facility] Last Admin: 06/13/20 19:56 Dose: 400 mg Documented by: Albuterol Sulfate (Albuterol 2.5 Mg/3 Ml Vial.Neb.) 2.5 mg INHALATION Q2H PRN PRN PRN Reason: Shortness of Breath/Wheezing Atenolol (Atenolol 25 Mg Tablet) 25 mg PO BID [facility] Last Admin: 06/13/20 19:56 Dose: 25 mg Documented by: Dexamethasone (Dexamethasone 4 Mg Tablet) 6 mg PO DAILY [facility] Stop: 06/22/20 10:01 Enoxaparin Sodium (Enoxaparin 30 Mg/0.3 Ml Syringe) 30 mg SC BID [facility] Last Admin: 06/13/20 19:56 Dose: 30 mg Documented by: Finasteride (Finasteride 5 Mg Tablet) 5 mg PO DAILY [facility] Fluticasone Propionate (Fluticasone 0.05% 1 [place] Nasal.Sry) 2 spray NASAL DAILY PRN PRN PRN Reason: ALLERGIES Sodium Chloride () 250 mls @ 15 mls/hr IV .[id number] PRN PRN Reason: Saline Flush Last Infusion: 06/13/20 20:00 Dose: 0 mls/hr Documented by: Sodium Chloride () 250 mls @ 15 mls/hr IV .[id number] PRN PRN Reason: Additional IVPB Infusion Remdesivir 100 mg/ Sodium (Chloride) 250 mls @ 125 mls/hr IV DAILY [facility]; Protocol Stop: 06/17/20 11:59 Levothyroxine Sodium (Levothyroxine 100 Mcg Tablet) 100 mcg PO DAILY [facility] Losartan Potassium (Losartan Potassium 50 Mg Tablet) 50 mg PO DAILY [facility] Ondansetron HCl (Ondansetron 4 Mg/2 Ml Vial) 4 mg IV Q8H PRN PRN PRN Reason: NAUSEA/VOMITING Senna/Docusate Sodium (Senna/Docusate Sodium 1 Tablet) 2 tablet PO BID PRN PRN PRN Reason: Constipation Sodium Chloride (0.9% Saline Lock 10 Ml Syringe) 10 - 40 ml IV UD PRN PRN Reason: SALINE FLUSH Last Admin: 06/14/20 03:58 Dose: 10 ml Documented by: Medical Necessity - Tobacco Use Smoking Status: Never smoker Tobacco Use: Non-smoker Route of nutrition/ use of supplements: [] Nutritional Intake: [] IV Site: [] Betancur Catheter: [] - Assessment/Plan Antibiotics: [] Assessment/Plan: [] Active and Suspected Problems (Last Reviewed 02/24/20 @ 10:06 by Yashira K [place]) Pneumonia due to COVID-19 virus (Acute) Hypoxemia (Acute) Covid with hypoxia - sx started around 06/06, on dex, on remdesivir. D-dimer 1.4, on lovenox 30mg bid. Covid (+) 06/10. CT neg for PE. Plan on 20 days of quarantine starting 06/06, 10 days of dex, recommend 2 weeks of eliquis 2.5mg bid or xarelto 10mg daily at discharge. Will follow
[2020-06-14] MEDS: Acyclovir 200 MG Capsule 400 MG PO ×2 (11:11→21:19)
[2020-06-14] MEDS: dexAMETHasone 4 MG Tablet 6 MG PO (11:11)
[2020-06-14] MEDS: Atenolol 25 MG Tablet PO ×2 (11:12→21:19)
[2020-06-14] MEDS: Levothyroxine 100 MCG Tablet PO (11:12)
[2020-06-14] MEDS: Finasteride 5 MG Tablet PO (11:12)
[2020-06-14] MEDS: Enoxaparin 30 MG/0.3 ML Syringe SC ×2 (11:12→21:19)
[2020-06-14] MEDS: Losartan Potassium 50 MG Tablet PO (11:14)
--- NOTE | 2020-06-14 11:32 | CASEMGMT ---
Addendum entered by Rakesh Porter 06/20/20 13:16: COVID testing through [facility] Original Note: RN CM Assessment Note Introduced role of CM to patient via phone. Patient is awake, alert and able to participate in assessment. Demographics, PCP verified. The patient states he lives independently with his @ home. No DME and no assistance needed. Pt states his is not symptomatic and pt is able to isolate at home. His daughter from [place] is coming to assist on dc. Presentation: shortness of breath Diagnosis: COVID-19 pneumonia PCP: [facility] Specialists: Dr. Wright, nephrology; Dr. David, hematology @ [facility] Insurance: [facility] Preferred Pharmacy: [facility] [place] Prescription Benefit: yes LNOK: Living Arrangements: Lives in one story home with 2 steps into home. States he has been independent with ADL's and does not require assistance. Tranportation: drives DME: pulse ox. no other equipment @ home. Reviewed list of DME providers per [facility] website: Eugene Velázquez [facility] (hospital affiliated). Pt states he does not have a preference. Will order home oxygen through [facility] HHC: none SNF: none Patient DC Goals: Home DC Plan: anticipate home with home oxygen. Recommend oxygen testing at rest and with exertion prior to dc. CM available for discharge planning coordination. Contact CM for any concerns/needs that may arise. Nazario HARGROVE RN ACM
--- NOTE | 2020-06-14 16:18 | CHAPLAIN ---
Type of Pastoral Visit ___ Initial Visit ___ Follow-up Visit ___ On-call Visit ___ General Patient Visit ___ Spiritual Assessment ___ Family Conference ___ Bereavement ___ Rapid Response ___ Code Blue _x__ Other (describe below) Pastoral Care Referral From _x__ Patient ___ Family ___ Nurse ___ Physician ___ Apartment Maintenance ___ Chief Strategy Officer ___ Other (describe below) Sacrament/Intervention _x__ Active listening ___ Anointing ___ Jain ___ Bereavement ___ Communion _x__ Jessica exploration ___ ___ Life review _x__ Prayer ___ Reconciliation ___ Sacrament of Sick ___ Supportive presence ___ Wedding ___ Other (describe below) Pastoral Comments patient is in isolation so phone call was made to room; pt answers call and welcomes the support of this model photographers'; pt states a daughter has come home from out of state to be supportive of his ; pt has active membership in a local zoroastrianism and receives support from them; pt requests prayer for his recovery and expresses gratitude for the call
[2020-06-14] MEDS: Albuterol 2.5 MG/3 ML VIAL.NEB. INHALATION (21:52)
[2020-06-15] VITALS (33 sets, daily range): BP systolic 137–183; BP diastolic 68–101; PULSE 49–93; RESP 16–24; TEMP 36.1–36.6; O2SAT 90–96
[2020-06-15 04:41] LABS: Hematocrit 37.9 % (40-54); Hemoglobin 12.7 g/dL (13.0-16.5); Mean Corp Hgb Conc 33.5 g/dL (32-36); Mean Corpuscular Hgb 29.5 pg (27.0-32.0); Mean Corpuscular Volume 88.1 fL (80-94); Mean Platelet Vol. 12.1 fl (6.2-12.0); Platelet Count 142 K/mm3 (150-450); RBC Distribution Width CV 13.2 % (11.6-14.6); RBC Distribution Width SD 42.7 fl (35.1-43.9); White Blood Count 13.2 K/mm3 (4.4-11.0)
[2020-06-15 04:58] LABS: ALB/GLOB Ratio 0.7 RATIO (0.9-2.4); AST(SGOT) 27 U/L (15-37); Alanine Aminotransfer ALT/SGPT 38 U/L (16-61); Albumin, Serum 2.1 g/dL (3.2-5.0); Alkaline Phosphatase 244 U/L (45-117); Anion Gap 7 (5-15); BUN 28 mg/dL (7-18); BUN/Creat Ratio 26.4 RATIO (10-20); Calcium,Total 8.2 mg/dL (8.5-10.1); Chloride 107 mmol/L (98-107); Creatinine, Serum 1.06 mg/dL (0.70-1.30); EST Glomerular Filtration Rate 72 mL/min (>60); Est Glom Filt Rate - Afr Amer 88 mL/min (>60); Estimated Creatinine Clearance 63.13 ml/min; Globulin 3.1 g/dL (2.2-4.2); Glucose 119 mg/dL (74-106); Protein, Total 5.2 g/dL (6.4-8.2); Sodium Level 139 mmol/L (136-145)
--- NOTE | 2020-06-15 07:26 | PCM.PN.HOSP ---
Patient Problems: Active and Suspected Problems (Last Reviewed 02/24/20 @ 10:06 by Yashira Estrada) Pneumonia due to COVID-19 virus (Acute) Hypoxemia (Acute) Encounter for venous access device care (Acute) Reason for Visit: Follow-up on hypoxia/Acute COVID-19 infection Subjective: Patient was seen and examined. His oxygen requirements went up. Currently on able 60L, FiO2 55% He denies fever or chills or chest pain or palpitations. Objective: Physical exam: General: Alert, Oriented x3, Cooperative, No apparent distress, - - on Airvo HEENT: Atraumatic, PERRLA, EOMI, Normocephalic Oral: Moist Mucosa Neck: Supple Lungs: Diminished Cardiovascular: Regular rate, Regular Rhythm, Normal S1, Normal S2, No murmurs Abdomen: Bowel Sounds Present, Soft, Non Tender, Non-Distended, No Hepato-splenomegaly Extremities: No edema Skin: No rashes Musculoskeletal: No Tenderness to Palpation of Joints or Extremities Neurological: Cranial nerves II-XII grossly intact Psych/Mental Status: Normal Affect, Appropriate Vitals/I&O's: Vital Signs Temp Pulse Resp BP Pulse Ox 97.1 F L 57 L 16 168/88 H 96 06/15/20 04:00 06/15/20 07:00 06/15/20 07:00 06/15/20 07:00 06/15/20 07:00 Oxygen Flow Rate (L/min) [ 0 AMBULATING on Room Air] Oxygen Flow Rate (L/min) [ 6 AMBULATION with Oxygen] Oxygen Flow Rate (L/min) [At 0 REST on Room Air] Oxygen Flow Rate (L/min) 60 Oxygen Delivery Method Airvo Weight: 82.6 kg Body Mass Index (BMI) 26.4 Intake and Output for Last 24 Hours 06/13/20 06/14/20 06/15/20 23:59 23:59 23:59 Intake Total 1775 / 1775 490 / 490 120 / 120 Output Total 350 / 350 325 / 325 Balance 1775 / 1775 140 / 140 -205 / -205 Microbiology Past 72 Hours 06/13/20 15:45 Mucosa - Nasopharyngeal Respiratory Panel (PCR) - Final Laboratory Results 06/14/20 04:05: B-Natriuretic Peptide 68.3 06/15/20 04:30: WBC 13.2 H, RBC 4.30 L, Hgb 12.7 L, Hct 37.9 L, MCV 88.1, MCH 29.5, MCHC 33.5, RDW Std Deviation 42.7, RDW Coeff of Jesús 13.2, Plt Count 142 L, MPV 12.1 H 06/15/20 04:30: Sodium 139, Potassium 4.0, Chloride 107, Carbon Dioxide 25.0, Anion Gap 7, BUN 28 H, Creatinine 1.06, Estim Creat Clear Calc 63.13, Est GFR (MDRD) Af Amer 88, Est GFR (MDRD) Non-Af 72, BUN/Creatinine Ratio 26.4 H, Glucose 119 H, Calcium 8.2 L, Total Bilirubin 0.90, AST 27, ALT 38, Alkaline Phosphatase 244 H, Total Protein 5.2 L, Albumin 2.1 L, Globulin 3.1, Albumin/Globulin Ratio 0.7 L Current Medications Acetaminophen (Acetaminophen 325 Mg Tablet) 650 mg PO Q6H PRN PRN PRN Reason: Pain Score 1-10/Temp > 100.7 F Acyclovir (Acyclovir 200 Mg Capsule) 400 mg PO BID [facility] Last Admin: 06/14/20 21:19 Dose: 400 mg Documented by: Albuterol Sulfate (Albuterol 2.5 Mg/3 Ml Vial.Neb.) 2.5 mg INHALATION Q2H PRN PRN PRN Reason: Shortness of Breath/Wheezing Last Admin: 06/14/20 21:52 Dose: 2.5 mg Documented by: Atenolol (Atenolol 25 Mg Tablet) 25 mg PO BID [facility] Last Admin: 06/14/20 21:19 Dose: 25 mg Documented by: Dexamethasone (Dexamethasone 4 Mg Tablet) 6 mg PO DAILY [facility] Stop: 06/22/20 10:01 Last Admin: 06/14/20 11:11 Dose: 6 mg Documented by: Enoxaparin Sodium (Enoxaparin 30 Mg/0.3 Ml Syringe) 30 mg SC BID [facility] Last Admin: 06/14/20 21:19 Dose: 30 mg Documented by: Finasteride (Finasteride 5 Mg Tablet) 5 mg PO DAILY [facility] Last Admin: 06/14/20 11:12 Dose: 5 mg Documented by: Fluticasone Propionate (Fluticasone 0.05% 1 [place] Nasal.Sry) 2 spray NASAL DAILY PRN PRN PRN Reason: ALLERGIES Sodium Chloride () 250 mls @ 15 mls/hr IV .[id number] PRN PRN Reason: Saline Flush Last Infusion: 06/13/20 20:00 Dose: 0 mls/hr Documented by: Sodium Chloride () 250 mls @ 15 mls/hr IV .[id number] PRN PRN Reason: Additional IVPB Infusion Remdesivir 100 mg/ Sodium (Chloride) 250 mls @ 125 mls/hr IV DAILY [facility]; Protocol Stop: 06/17/20 11:59 Last Infusion: 06/14/20 14:16 Dose: Infused Documented by: Levothyroxine Sodium (Levothyroxine 100 Mcg Tablet) 100 mcg PO DAILY [facility] Last Admin: 06/14/20 11:12 Dose: 100 mcg Documented by: Losartan Potassium (Losartan Potassium 50 Mg Tablet) 50 mg PO DAILY [facility] Last Admin: 06/14/20 11:14 Dose: 50 mg Documented by: Ondansetron HCl (Ondansetron 4 Mg/2 Ml Vial) 4 mg IV Q8H PRN PRN PRN Reason: NAUSEA/VOMITING Senna/Docusate Sodium (Senna/Docusate Sodium 1 Tablet) 2 tablet PO BID PRN PRN PRN Reason: Constipation Sodium Chloride (0.9% Saline Lock 10 Ml Syringe) 10 - 40 ml IV UD PRN PRN Reason: SALINE FLUSH Last Admin: 06/14/20 03:58 Dose: 10 ml Documented by: STROKE Vital Signs/Narrative: Vital Signs Temp Pulse Resp BP Pulse Ox 06/15/20 07:00 57 L 16 168/88 H 96 06/15/20 06:00 57 L 17 154/82 H 96 06/15/20 05:00 60 22 H 163/92 H 94 06/15/20 04:56 59 L 22 H 94 06/15/20 04:00 97.1 F L 53 L 16 145/101 H 94 Medical Necessity - Tobacco Use Smoking Status: Never smoker Tobacco Use: Non-smoker Assessment/Plan All Active Problems (Last Reviewed 02/24/20 @ 10:06 by Yashira Estrada) Perirectal abscess (Acute) Pneumonia due to COVID-19 virus (Acute) Hypoxemia (Acute) Chronic lymphoid leukemia (Resolved) Encounter for venous access device care (Acute) Encounter for care related to vascular access port (Acute) Skin lesion (Acute) Neutropenia (Resolved) 1. Acute hypoxic respiratory sufficiency secondary to acute COVID-19 pneumonia, worsening Currently on high oxygen levels with Airvo. Continue with breathing treatments, po steroids, encourage use of incentive spirometer. Wean off oxygen for SPO2 more than 94% 2. Acute COVID-19 pneumonia with hypoxia, severe Continue on oral Decadron and remdesivir ID following 3. Indeterminate troponin, likely secondary to demand from hypoxia 4. Hypertension, controlled, on continue with home regimen -Losartan, atenolol 5. Hypothyroidism, continue on Synthroid 6. CLL/hypogammaglobulinemia, follows in the outpatient for IVIG Continue hold ibrutinib 7. DVT PPx- Lovenox SC 8. CODE STATUS: DNR CCA, no intubation Inpatient E&M: 89885 Subs Hosp L3
--- NOTE | 2020-06-15 10:28 | CON.PCM_ITS ---
Problem List (1) Pneumonia due to COVID-19 virus Status: Acute (2) Hypoxemia Status: Acute (3) Chronic lymphoid leukemia Status: Resolved Comment: research trial at [facility] (4) Encounter for venous access device care Status: Acute (5) Hypogammaglobulinemia, acquired Status: Chronic (6) Chronic lymphocytic leukemia in remission Status: Chronic Reason for Consult Date of Consultation: 06/15/20 Reason for Consultation: Hypoxic respiratory failure History of Present Illness: The patient is a 74 year old M, with past medical history listed below, who presented to [facility] on 06/13/2020 secondary to progressive shortness of breath over the past 5 days. Patient had reported initial symptoms approximately 7 days prior with headache and body aches. Patient had developed some shortness of breath and was tested on the for COVID-19 that was found to be positive. On the day of presentation, patient had reported shortness of breath at rest and a fever to 102 ?F at home. Patient had some lower chest pain that was worse with exertion, but denied any cough, nausea, vomiting or diarrhea. Patient was recently in [place]. Patient does have a history of CLL and is on chronic immunosuppression. Patient denies any previous pulmonary issues such as asthma, tobacco exposure or COPD. Patient does report a remote history of asbestos. In the ER, patient was noted to be tachypneic at 31 breaths/min and saturating 87% on room air. Lungs reportedly had rales bilaterally. EKG was unremarkable. Patient did have a slight leukocytosis at 11.5 with an elevated creatinine of 1.32. Total bili was slightly elevated at 2.5, but liver functions were otherwise within normal limits. D-dimer was elevated at 1.41 and a lactate was normal at 2. A CTA of the chest showed no PE, but bilateral infiltrates, right greater than left. Patient was admitted to the cohort unit on supplemental oxygen and was doing well until last night. Over the last 24 hours, patient has had progressive worsening in oxygenation requiring Airvo at 60% to maintain saturations. Patient feels better this morning on higher flow nasal cannula oxygen. Patient is still having intermittent chest pains with deep inhalation, but feels this is also improved. Patient denies any nausea or vomiting. Review of systems otherwise negative from a constitutional, HEENT, respiratory, cardiovascular, GI, genitourinary, musculoskeletal, skin, neurologic, psychiatric and hematologic system unless stated above. 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 WITH LIGHT THERAPY-[facility] [place] Anemia D64.9 History of pneumonia Z87.01 Hyperlipidemia E78.5 Hypogammaglobulinemia D80.1 Thyroid disease E07.9 CKD (chronic kidney disease) N18.9 Allergies Penicillins Adverse Reaction (Severe, Verified 06/13/20 09:37) Abd cramps/diarrhea Home Medications: Ambulatory Orders Medication Instructions Recorded Atenolol [Tenormin (Beta Kevin)] 25 mg PO BID 11/10/13 Ibrutinib [Imbruvica] 420 mg PO DAILY 02/08/15 Fluticasone 0.05% [Flonase Nasal 2 spray NASAL PRN PRN 07/03/16 [place]] Finasteride [Proscar] 5 mg PO DAILY 10/30/17 Acyclovir [Zovirax] 400 mg PO BID 09/26/18 biotin 1 mg capsule 1 mg PO DAILY 10/29/18 Valsartan [Diovan] 160 mg PO DAILY 11/07/18 Levothyroxine [Synthroid] 100 mcg PO DAILY 04/21/19 Surgical History: Surgical History (Last Reviewed 02/24/20 @ 10:06 by Yashira Estrada) History of arthroscopy of left knee Z98.890 History of cholecystectomy Z98.890, Z90.49 History of colonoscopy Onset Date: ~2017 Z98.890 History of knee surgery Z98.890 left knee 1973 and two for bone chip removal 1993 Hx of shoulder surgery Z98.890 left shoulder, spurs Surgical History: cholecystectomy, - - Status post arthroscopy of the left knee, shoulder surgery, knee surgery Psychiatric History: No pertinent psych hx Lives: Spouse/ Significant Other Smoking Status: Never smoker Tobacco Use: Non-smoker Alcohol: None Drugs: None - *Family History Maternal Family History: Family History (Last Reviewed 02/24/20 @ 10:06 by Yashira Estrada) Father Heart disease Hypertension Mother Hypertension History Items: Hypertension Paternal Family History: Family History (Last Reviewed 02/24/20 @ 10:06 by Yashira Estrada) Father Heart disease Hypertension Mother Hypertension History Items: Heart Disease, Hypertension Review of Systems Comment: See HPI Patient Problems: Active and Suspected Problems (Last Reviewed 02/24/20 @ 10:06 by Yashira Estrada) Pneumonia due to COVID-19 virus (Acute) Hypoxemia (Acute) Objective: All imaging was personally reviewed. CTA was described in HPI. Patient does not have a recent echocardiogram or pulmonary function test available for aleksandar goldman. - Physical Exam Vitals/I&O's: Vital Signs Temp Pulse Resp BP Pulse Ox 36.2 C L 65 19 H 168/88 H 95 06/15/20 04:00 06/15/20 07:30 06/15/20 07:30 06/15/20 07:00 06/15/20 07:30 Oxygen Flow Rate (L/min) [ 0 AMBULATING on Room Air] Oxygen Flow Rate (L/min) [ 6 AMBULATION with Oxygen] Oxygen Flow Rate (L/min) [At 0 REST on Room Air] Oxygen Flow Rate (L/min) 60 Oxygen Delivery Method Airvo Weight: 82.6 kg Body Mass Index (BMI) 26.4 Intake and Output for Last 24 Hours 06/13/20 06/14/20 06/15/20 23:59 23:59 23:59 Intake Total 1775 / 1775 490 / 490 120 / 120 Output Total 350 / 350 325 / 325 Balance 1775 / 1775 140 / 140 -205 / -205 General: Alert, Oriented x3, Cooperative, No apparent distress - On Airvo, - - Appears stated age HEENT: Atraumatic, PERRLA, EOMI, Normocephalic, - - No scleral icterus or injection noted Oral: Moist Mucosa, No Gingival or Mucosal Lesions/ Ulcerations Neck: Supple, No JVD, No Nodes, Trachea Midline Lungs: No rhonchi, No wheeze, No rales, Diminished, - - Symmetric expansion. No dullness to percussion. Cardiovascular: Regular rate, Regular Rhythm, Normal S1, Normal S2, No murmurs, No rub noted, No Gallop Abdomen: Bowel Sounds Present, Soft, Non Tender, Non-Distended Extremities: No clubbing, No cyanosis, No edema Skin: No rashes, No breakdown Musculoskeletal: No Tenderness to Palpation of Joints or Extremities Lymphatic: No Cervical, Supraclavicular, or Inguinal Adenopathy Neurological: Cranial nerves II-XII grossly intact, Neuro grossly intact, Motor Exam 5/5 strength throughout Psych/Mental Status: Alert and oriented to time, place, person, mood and affect Microbiology Past 72 Hours 06/13/20 10:12 Blood Culture (Wb) - Anticubital Right Blood Culture - Preliminary No growth in 48 hours. 06/13/20 09:40 Blood Culture (Wb) - Anticubital Left Blood Culture - Preliminary No growth in 48 hours. 06/13/20 15:45 Mucosa - Nasopharyngeal Respiratory Panel (PCR) - Final Laboratory Results 06/15/20 04:30: WBC 13.2 H, RBC 4.30 L, Hgb 12.7 L, Hct 37.9 L, MCV 88.1, MCH 29.5, MCHC 33.5, RDW Std Deviation 42.7, RDW Coeff of Jesús 13.2, Plt Count 142 L, MPV 12.1 H 06/15/20 04:30: Sodium 139, Potassium 4.0, Chloride 107, Carbon Dioxide 25.0, Anion Gap 7, BUN 28 H, Creatinine 1.06, Estim Creat Clear Calc 63.13, Est GFR (MDRD) Af Amer 88, Est GFR (MDRD) Non-Af 72, BUN/Creatinine Ratio 26.4 H, Glucose 119 H, Calcium 8.2 L, Total Bilirubin 0.90, AST 27, ALT 38, Alkaline Phosphatase 244 H, Total Protein 5.2 L, Albumin 2.1 L, Globulin 3.1, Albumin/Globulin Ratio 0.7 L Current Medications Acetaminophen (Acetaminophen 325 Mg Tablet) 650 mg PO Q6H PRN PRN PRN Reason: Pain Score 1-10/Temp > 100.7 F Acyclovir (Acyclovir 200 Mg Capsule) 400 mg PO BID [facility] Last Admin: 06/14/20 21:19 Dose: 400 mg Documented by: Albuterol Sulfate (Albuterol 2.5 Mg/3 Ml Vial.Neb.) 2.5 mg INHALATION Q2H PRN PRN PRN Reason: Shortness of Breath/Wheezing Last Admin: 06/14/20 21:52 Dose: 2.5 mg Documented by: Atenolol (Atenolol 25 Mg Tablet) 25 mg PO BID [facility] Last Admin: 06/14/20 21:19 Dose: 25 mg Documented by: Dexamethasone (Dexamethasone 4 Mg Tablet) 6 mg PO DAILY [facility] Stop: 06/22/20 10:01 Last Admin: 06/14/20 11:11 Dose: 6 mg Documented by: Enoxaparin Sodium (Enoxaparin 30 Mg/0.3 Ml Syringe) 30 mg SC BID [facility] Last Admin: 06/14/20 21:19 Dose: 30 mg Documented by: Finasteride (Finasteride 5 Mg Tablet) 5 mg PO DAILY [facility] Last Admin: 06/14/20 11:12 Dose: 5 mg Documented by: Fluticasone Propionate (Fluticasone 0.05% 1 [place] Nasal.Sry) 2 spray NASAL DAILY PRN PRN PRN Reason: ALLERGIES Sodium Chloride () 250 mls @ 15 mls/hr IV .[id number] PRN PRN Reason: Saline Flush Last Infusion: 06/13/20 20:00 Dose: 0 mls/hr Documented by: Sodium Chloride () 250 mls @ 15 mls/hr IV .[id number] PRN PRN Reason: Additional IVPB Infusion Remdesivir 100 mg/ Sodium (Chloride) 250 mls @ 125 mls/hr IV DAILY [facility]; Protocol Stop: 06/17/20 11:59 Last Infusion: 06/14/20 14:16 Dose: Infused Documented by: Levothyroxine Sodium (Levothyroxine 100 Mcg Tablet) 100 mcg PO DAILY [facility] Last Admin: 06/14/20 11:12 Dose: 100 mcg Documented by: Losartan Potassium (Losartan Potassium 50 Mg Tablet) 50 mg PO DAILY [facility] Last Admin: 06/14/20 11:14 Dose: 50 mg Documented by: Ondansetron HCl (Ondansetron 4 Mg/2 Ml Vial) 4 mg IV Q8H PRN PRN PRN Reason: NAUSEA/VOMITING Senna/Docusate Sodium (Senna/Docusate Sodium 1 Tablet) 2 tablet PO BID PRN PRN PRN Reason: Constipation Sodium Chloride (0.9% Saline Lock 10 Ml Syringe) 10 - 40 ml IV UD PRN PRN Reason: SALINE FLUSH Last Admin: 06/14/20 03:58 Dose: 10 ml Documented by: Assessment/Plan Active and Suspected Problems (Last Reviewed 02/24/20 @ 10:06 by Yashira Estrada) Pneumonia due to COVID-19 virus (Acute) Hypoxemia (Acute) RECOMMENDATIONS: 1. Continue Decadron and remdesivir with appropriate monitoring 2. Wean supplemental oxygen as tolerated 3. Okay to hold Imbruvica during acute condition 4. Encourage incentive spirometer and Acapella IMPRESSIONS: 1. Acute hypoxic respiratory failure secondary to acute COVID-19 pneumonia Patient does not have a significant pulmonary history, but is immunosuppressed at baseline. Increasing oxygen demands may be secondary to progression of COVID-19. Patient is appropriately on Decadron and remdesivir. Infectious disease is following. Continue to wean oxygen as tolerated. Did discuss with the patient and he is potentially open to intubation if it will make a difference. May challenge with diuretics intermittently to keep fluid balance even. 2. Indeterminate troponin Clinical suspicion for elevated troponin secondary to global hypoxia. Patient does not have any significant EKG changes at this time. Okay to use Lovenox, but full anticoagulation is likely not indicated. 3. 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 Okay to hold Imbruvica from my perspective. Unclear if IVIG needs to be continued. Would defer to infectious disease. Patient is not currently acting as a bacterial superinfection at this time. Inpatient E&M: 37903 Init Hosp L3
[2020-06-15] MEDS: Finasteride 5 MG Tablet PO (11:54)
[2020-06-15] MEDS: Enoxaparin 30 MG/0.3 ML Syringe SC ×2 (11:54→19:53)
[2020-06-15] MEDS: Levothyroxine 100 MCG Tablet PO (11:54)
[2020-06-15] MEDS: Atenolol 25 MG Tablet PO ×2 (11:55→19:53)
[2020-06-15] MEDS: Losartan Potassium 50 MG Tablet PO (11:55)
[2020-06-15] MEDS: dexAMETHasone 4 MG Tablet 6 MG PO (11:55)
[2020-06-15] MEDS: Acyclovir 200 MG Capsule 400 MG PO ×2 (11:55→19:53)
[2020-06-15] MEDS: 0.9% Saline Lock 10 ML Syringe IV (11:55)
--- NOTE | 2020-06-15 13:19 | PCM.PN.ID ---
Patient Problems: Active and Suspected Problems (Last Reviewed 02/24/20 @ 10:06 by Yashira Estrada) Pneumonia due to COVID-19 virus (Acute) Hypoxemia (Acute) Encounter for venous access device care (Acute) Subjective: Feeling a little better, no fever, no n/v/d - Physical Exam Vitals/I&O's: Vital Signs Temp Pulse Resp BP Pulse Ox 97.1 F L 65 19 H 168/88 H 95 06/15/20 04:00 06/15/20 07:30 06/15/20 07:30 06/15/20 07:00 06/15/20 07:30 Oxygen Flow Rate (L/min) [ 0 AMBULATING on Room Air] Oxygen Flow Rate (L/min) [ 6 AMBULATION with Oxygen] Oxygen Flow Rate (L/min) [At 0 REST on Room Air] Oxygen Flow Rate (L/min) 60 Oxygen Delivery Method Airvo Weight: 82.6 kg Body Mass Index (BMI) 26.4 Intake and Output for Last 24 Hours 06/13/20 06/14/20 06/15/20 23:59 23:59 23:59 Intake Total 1775 / 1775 490 / 490 420 / 420 Output Total 350 / 350 1075 / 1075 Balance 1775 / 1775 140 / 140 -655 / -655 General: Alert, Cooperative, No apparent distress Lungs: Diminished Cardiovascular: Regular rate, Regular Rhythm Abdomen: Soft, Non Tender, Non-Distended Skin: No rashes Microbiology Past 72 Hours 06/13/20 10:12 Blood Culture (Wb) - Anticubital Right Blood Culture - Preliminary No growth in 48 hours. 06/13/20 09:40 Blood Culture (Wb) - Anticubital Left Blood Culture - Preliminary No growth in 48 hours. 06/13/20 15:45 Mucosa - Nasopharyngeal Respiratory Panel (PCR) - Final Laboratory Results 06/15/20 04:30: WBC 13.2 H, RBC 4.30 L, Hgb 12.7 L, Hct 37.9 L, MCV 88.1, MCH 29.5, MCHC 33.5, RDW Std Deviation 42.7, RDW Coeff of Jesús 13.2, Plt Count 142 L, MPV 12.1 H 06/15/20 04:30: Sodium 139, Potassium 4.0, Chloride 107, Carbon Dioxide 25.0, Anion Gap 7, BUN 28 H, Creatinine 1.06, Estim Creat Clear Calc 63.13, Est GFR (MDRD) Af Amer 88, Est GFR (MDRD) Non-Af 72, BUN/Creatinine Ratio 26.4 H, Glucose 119 H, Calcium 8.2 L, Total Bilirubin 0.90, AST 27, ALT 38, Alkaline Phosphatase 244 H, Total Protein 5.2 L, Albumin 2.1 L, Globulin 3.1, Albumin/Globulin Ratio 0.7 L Current Medications Acetaminophen (Acetaminophen 325 Mg Tablet) 650 mg PO Q6H PRN PRN PRN Reason: Pain Score 1-10/Temp > 100.7 F Acyclovir (Acyclovir 200 Mg Capsule) 400 mg PO BID [facility] Last Admin: 06/15/20 11:55 Dose: 400 mg Documented by: Albuterol Sulfate (Albuterol 2.5 Mg/3 Ml Vial.Neb.) 2.5 mg INHALATION Q2H PRN PRN PRN Reason: Shortness of Breath/Wheezing Last Admin: 06/14/20 21:52 Dose: 2.5 mg Documented by: Atenolol (Atenolol 25 Mg Tablet) 25 mg PO BID [facility] Last Admin: 06/15/20 11:55 Dose: 25 mg Documented by: Dexamethasone (Dexamethasone 4 Mg Tablet) 6 mg PO DAILY [facility] Stop: 06/22/20 10:01 Last Admin: 06/15/20 11:55 Dose: 6 mg Documented by: Enoxaparin Sodium (Enoxaparin 30 Mg/0.3 Ml Syringe) 30 mg SC BID [facility] Last Admin: 06/15/20 11:54 Dose: 30 mg Documented by: Finasteride (Finasteride 5 Mg Tablet) 5 mg PO DAILY [facility] Last Admin: 06/15/20 11:54 Dose: 5 mg Documented by: Fluticasone Propionate (Fluticasone 0.05% 1 [place] Nasal.Sry) 2 spray NASAL DAILY PRN PRN PRN Reason: ALLERGIES Sodium Chloride () 250 mls @ 15 mls/hr IV .[id number] PRN PRN Reason: Saline Flush Last Infusion: 06/13/20 20:00 Dose: 0 mls/hr Documented by: Sodium Chloride () 250 mls @ 15 mls/hr IV .[id number] PRN PRN Reason: Additional IVPB Infusion Remdesivir 100 mg/ Sodium (Chloride) 250 mls @ 125 mls/hr IV DAILY [facility]; Protocol Stop: 06/17/20 11:59 Last Admin: 06/15/20 11:54 Dose: 125 mls/hr Documented by: Levothyroxine Sodium (Levothyroxine 100 Mcg Tablet) 100 mcg PO DAILY [facility] Last Admin: 06/15/20 11:54 Dose: 100 mcg Documented by: Losartan Potassium (Losartan Potassium 50 Mg Tablet) 50 mg PO DAILY [facility] Last Admin: 06/15/20 11:55 Dose: 50 mg Documented by: Ondansetron HCl (Ondansetron 4 Mg/2 Ml Vial) 4 mg IV Q8H PRN PRN PRN Reason: NAUSEA/VOMITING Senna/Docusate Sodium (Senna/Docusate Sodium 1 Tablet) 2 tablet PO BID PRN PRN PRN Reason: Constipation Sodium Chloride (0.9% Saline Lock 10 Ml Syringe) 10 - 40 ml IV UD PRN PRN Reason: SALINE FLUSH Last Admin: 06/15/20 11:55 Dose: 10 ml Documented by: Medical Necessity - Tobacco Use Smoking Status: Never smoker Tobacco Use: Non-smoker Route of nutrition/ use of supplements: [] Nutritional Intake: [] IV Site: [] Betancur Catheter: [] - Assessment/Plan Antibiotics: [] Assessment/Plan: [] Active and Suspected Problems (Last Reviewed 02/24/20 @ 10:06 by Yashira Estrada) Pneumonia due to COVID-19 virus (Acute) Hypoxemia (Acute) Covid with hypoxia - sx started around 06/06, on dex, on remdesivir. D-dimer 1.4, on lovenox 30mg bid. Covid (+) 06/10. CT neg for PE. Plan on 20 days of quarantine starting 06/06, 10 days of dex, recommend 2 weeks of eliquis 2.5mg bid or xarelto 10mg daily at discharge. Pulm following now. Will follow
[2020-06-16] VITALS (36 sets, daily range): BP systolic 103–183; BP diastolic 68–97; PULSE 48–129; RESP 15–26; TEMP 35.9–36.7; O2SAT 90–95
[2020-06-16 04:03] LABS: Hematocrit 39.1 % (40-54); Hemoglobin 12.9 g/dL (13.0-16.5); Mean Corpuscular Hgb 29.7 pg (27.0-32.0); Mean Corpuscular Volume 89.9 fL (80-94); Mean Platelet Vol. 11.8 fl (6.2-12.0); Platelet Count 168 K/mm3 (150-450); RBC Distribution Width CV 13.3 % (11.6-14.6); RBC Distribution Width SD 44.3 fl (35.1-43.9); Red Blood Count 4.35 M/mm3 (4.6-6.2); White Blood Count 14.2 K/mm3 (4.4-11.0)
[2020-06-16 05:07] LABS: ALB/GLOB Ratio 0.7 RATIO (0.9-2.4); AST(SGOT) 40 U/L (15-37); Alanine Aminotransfer ALT/SGPT 45 U/L (16-61); Alkaline Phosphatase 243 U/L (45-117); Anion Gap 6 (5-15); BUN 32 mg/dL (7-18); BUN/Creat Ratio 29.1 RATIO (10-20); Calcium,Total 8.3 mg/dL (8.5-10.1); Chloride 108 mmol/L (98-107); EST Glomerular Filtration Rate 69 mL/min (>60); Est Glom Filt Rate - Afr Amer 84 mL/min (>60); Estimated Creatinine Clearance 60.83 ml/min; Glucose 113 mg/dL (74-106); Potassium 4.2 mmol/L (3.5-5.1); Sodium Level 139 mmol/L (136-145)
[2020-06-16 06:02] LABS: Magnesium 2.2 mg/dL (1.6-2.6); Phosphorus 4.1 mg/dL (2.5-4.9)
--- NOTE | 2020-06-16 06:58 | PCM.PN.INT ---
Subjective: Patient did well overnight. Patient was on nasal cannula for some time yesterday evening, but did have to be transitioned to Airvo secondary to perceived apnea overnight. Patient feels subjectively improved compared to previous. Patient is not reporting any current chest pain, nausea or vomiting. General: Alert, Oriented x3, Cooperative, No apparent distress - On Airvo HEENT: Atraumatic, PERRLA, EOMI, Normocephalic, - - No scleral icterus or injection noted Oral: Moist Mucosa, No Gingival or Mucosal Lesions/ Ulcerations Neck: Supple, No JVD, No Nodes, Trachea Midline Lungs: No rhonchi, No wheeze, No rales, Diminished Cardiovascular: Regular rate, Regular Rhythm, Normal S1, Normal S2, No murmurs, No rub noted, No Gallop Abdomen: Bowel Sounds Present, Soft, Non Tender, Non-Distended Extremities: No clubbing, No cyanosis, No edema Skin: No rashes, No breakdown Musculoskeletal: No Tenderness to Palpation of Joints or Extremities Lymphatic: No Cervical, Supraclavicular, or Inguinal Adenopathy Neurological: Cranial nerves II-XII grossly intact, Neuro grossly intact, Motor Exam 5/5 strength throughout Psych/Mental Status: Alert and oriented to time, place, person, mood and affect Vital Signs Temp Pulse Resp BP Pulse Ox 36.2 C L 51 L 21 H 139/79 H 91 06/16/20 00:00 06/16/20 06:00 06/16/20 06:00 06/16/20 06:00 06/16/20 06:00 Oxygen Flow Rate (L/min) [ 0 AMBULATING on Room Air] Oxygen Flow Rate (L/min) [ 6 AMBULATION with Oxygen] Oxygen Flow Rate (L/min) [At 0 REST on Room Air] Oxygen Flow Rate (L/min) 60 Oxygen Delivery Method Airvo Weight: 82.2 kg Body Mass Index (BMI) 26.4 Intake and Output for Last 24 Hours 06/14/20 06/15/20 06/16/20 23:59 23:59 23:59 Intake Total 490 / 490 1120 / 1120 0 / 0 Output Total 350 / 350 2700 / 2700 400 / 400 Balance 140 / 140 -1580 / -1580 -400 / -400 Labs (Last 48 Hours) 06/14/20 06/15/20 06/15/20 04:05 04:30 04:30 WBC 13.2 H RBC 4.30 L Hgb 12.7 L Hct 37.9 L MCV 88.1 MCH 29.5 MCHC 33.5 RDW Std Deviation 42.7 RDW Coeff of Jesús 13.2 Plt Count 142 L MPV 12.1 H Sodium 139 Potassium 4.0 Chloride 107 Carbon Dioxide 25.0 Anion Gap 7 BUN 28 H Creatinine 1.06 Estim Creat Clear Calc 63.13 Est GFR (MDRD) Af Amer 88 Est GFR (MDRD) Non-Af 72 BUN/Creatinine Ratio 26.4 H Glucose 119 H Calcium 8.2 L Phosphorus Magnesium Total Bilirubin 0.90 AST 27 ALT 38 Alkaline Phosphatase 244 H B-Natriuretic Peptide 68.3 Total Protein 5.2 L Albumin 2.1 L Globulin 3.1 Albumin/Globulin Ratio 0.7 L 06/16/20 06/16/20 06/16/20 03:50 03:50 03:50 WBC 14.2 H RBC 4.35 L Hgb 12.9 L Hct 39.1 L MCV 89.9 MCH 29.7 MCHC 33.0 RDW Std Deviation 44.3 H RDW Coeff of Jesús 13.3 Plt Count 168 MPV 11.8 Sodium 139 Potassium 4.2 Chloride 108 H Carbon Dioxide 25.0 Anion Gap 6 BUN 32 H Creatinine 1.10 Estim Creat Clear Calc 60.83 Est GFR (MDRD) Af Amer 84 Est GFR (MDRD) Non-Af 69 BUN/Creatinine Ratio 29.1 H Glucose 113 H Calcium 8.3 L Phosphorus 4.1 Magnesium 2.2 Total Bilirubin 1.00 AST 40 H ALT 45 Alkaline Phosphatase 243 H B-Natriuretic Peptide Total Protein 5.0 L Albumin 2.0 L Globulin 3.0 Albumin/Globulin Ratio 0.7 L Microbiology 06/13/20 10:12 Blood Culture (Wb) - Anticubital Right Blood Culture - Preliminary No growth in 48 hours. 06/13/20 09:40 Blood Culture (Wb) - Anticubital Left Blood Culture - Preliminary No growth in 48 hours. Medical Necessity - Tobacco Use Smoking Status: Never smoker Tobacco Use: Non-smoker Assessment/Plan All Active Problems (Last Reviewed 02/24/20 @ 10:06 by Yashira Estrada) Perirectal abscess (Acute) Pneumonia due to COVID-19 virus (Acute) Hypoxemia (Acute) Chronic lymphoid leukemia (Resolved) Encounter for venous access device care (Acute) Encounter for care related to vascular access port (Acute) Skin lesion (Acute) Neutropenia (Resolved) RECOMMENDATIONS: 1. Continue Decadron and remdesivir with appropriate monitoring 2. Wean supplemental oxygen as tolerated 3. Okay to hold Imbruvica during acute condition 4. Encourage incentive spirometer and Acapella 5. No need to discontinue Remdesivir with mild liver enzyme increase IMPRESSIONS: 1. Acute hypoxic respiratory failure secondary to acute COVID-19 pneumonia Patient does not have a significant pulmonary history, but is immunosuppressed at baseline. Increasing oxygen demands may be secondary to progression of COVID-19. Patient is appropriately on Decadron and remdesivir. Infectious disease is following. Continue to wean oxygen as tolerated. Did discuss with the patient and he is potentially open to intubation if it will make a difference. May challenge with diuretics intermittently to keep fluid balance even. Some of patient's liver function are elevated, but not to the point that Remdesivir would be able to be discontinued. 2. Indeterminate troponin Clinical suspicion for elevated troponin secondary to global hypoxia. Patient does not have any significant EKG changes at this time. Okay to use Lovenox, but full anticoagulation is likely not indicated. 3. 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 Okay to hold Imbruvica from my perspective. Unclear if IVIG needs to be continued. Would defer to infectious disease. Patient is not currently acting as a bacterial superinfection at this time. Inpatient E&M: [id number] [facility] L3
[2020-06-16] MEDS: Enoxaparin 30 MG/0.3 ML Syringe SC (08:30)
[2020-06-16] MEDS: dexAMETHasone 4 MG Tablet 6 MG PO (08:31)
[2020-06-16] MEDS: Acyclovir 200 MG Capsule 400 MG PO ×2 (08:31→21:28)
[2020-06-16] MEDS: Losartan Potassium 50 MG Tablet PO (08:31)
[2020-06-16] MEDS: Finasteride 5 MG Tablet PO (08:32)
[2020-06-16] MEDS: Atenolol 25 MG Tablet PO (08:32)
--- NOTE | 2020-06-16 09:34 | EKG12_ITS ---
Test Reason : CONVERTED TO SR Blood Pressure : / mmHG Vent. Rate : 058 BPM Atrial Rate : 058 BPM P-R Int : 172 ms QRS Dur : 096 ms QT Int : 472 ms P-R-T Axes : 034 031 -05 degrees QTc Int : 463 ms Sinus bradycardia Otherwise normal ECG When compared with ECG of 16-JUN-2020 10:00, MANUAL COMPARISON REQUIRED, DATA IS UNCONFIRMED Confirmed by CARLOZ COOL, LIOR ([id number]), editor in chief newspaper LIAN ARMAS ([id number]) on 06/21/2020 8:34:03 AM Referred By: Rosaura VIVEROS Confirmed By:LIOR CARTY MD
[2020-06-16] MEDS: Levothyroxine 100 MCG Tablet PO (09:57)
[2020-06-16] MEDS: 0.9% Saline Lock 10 ML Syringe IV ×2 (09:58→13:10)
--- NOTE | 2020-06-16 10:00 | EKG12_ITS ---
Test Reason : ARRYTHMIA Blood Pressure : / mmHG Vent. Rate : 123 BPM Atrial Rate : 104 BPM P-R Int : 000 ms QRS Dur : 100 ms QT Int : 312 ms P-R-T Axes : 000 011 -46 degrees QTc Int : [address] depression, consider subendocardial injury or digitalis effect Abnormal ECG Confirmed by CARLOZ COOL, LIOR ([id number]), editor in chief LIAN ARMAS ([id number]) on 06/21/2020 8:38:36 AM Referred By: JACKELINE Confirmed By:LIOR CARTY MD
[2020-06-16] MEDS: Acetaminophen 325 MG Tablet 650 MG PO (12:15)
[2020-06-16] MEDS: Metoprolol Tartrate 5 MG/5 ML Vial 2.5 MG IV (13:09)
--- NOTE | 2020-06-16 13:17 | PCM.PN.HOSP ---
Patient Problems: Active and Suspected Problems (Last Reviewed 02/24/20 @ 10:06 by Yashira Estrada) Pneumonia due to COVID-19 virus (Acute) Hypoxemia (Acute) Encounter for venous access device care (Acute) Subjective: Patient was transitioned from 7 L high flow nasal cannula to Airvo early this morning she is on a flow rate of 60 L/min with an FiO2 of 55%. Vitals/I&O's: Vital Signs Temp Pulse Resp BP Pulse Ox 97.9 F 124 H 25 H 131/72 H 93 06/16/20 12:00 06/16/20 13:09 06/16/20 13:00 06/16/20 13:09 06/16/20 13:00 Oxygen Flow Rate (L/min) [ 0 AMBULATING on Room Air] Oxygen Flow Rate (L/min) [ 6 AMBULATION with Oxygen] Oxygen Flow Rate (L/min) [At 0 REST on Room Air] Oxygen Flow Rate (L/min) 60 Oxygen Delivery Method Airvo Weight: 82.2 kg Body Mass Index (BMI) 26.4 Intake and Output for Last 24 Hours 06/14/20 06/15/20 06/16/20 23:59 23:59 23:59 Intake Total 490 / 490 1120 / 1120 840 / 840 Output Total 350 / 350 2700 / 2700 1600 / 1600 Balance 140 / 140 -1580 / -1580 -760 / -760 General: Alert, Oriented x3, Cooperative, No apparent distress, Well developed, Well nourished, - - Older white male sitting up in bed on air Vo, TV is very loud, patient is in no acute distress and appears nontoxic HEENT: Atraumatic, PERRLA, EOMI, Normocephalic, EAC Clear Oral: Moist Mucosa, No Gingival or Mucosal Lesions/ Ulcerations, - - Mallampati 2, dentition fair Neck: Supple, No Nodes, Trachea Midline, Thyroid Normal Size and Texture Lungs: No rhonchi, No wheeze, No rales, Diminished - Fusilli Cardiovascular: Normal S1, Normal S2, No murmurs, No Ectopic Activity, No rub noted, No Gallop, Tachycardic, - - Irregularly irregular rhythm Abdomen: Bowel Sounds Present, Soft, Non Tender, Non-Distended, No hernias noted Extremities: No clubbing, No cyanosis, No edema, Capillary Refill Less than 3 Seconds, Peripheral Pulses Normal Skin: No rashes, No breakdown, - - Pale Musculoskeletal: No Tenderness to Palpation of Joints or Extremities, No Muscle Wasting, Arthritic Changes Lymphatic: No Cervical, Supraclavicular, or Inguinal Adenopathy Neurological: Cranial nerves II-XII grossly intact, Neuro grossly intact, Muscle tone normal, Sensory exam intact to light touch and pain, Coordination normal Psych/Mental Status: Normal Affect, Appropriate Microbiology Past 72 Hours 06/13/20 10:12 Blood Culture (Wb) - Anticubital Right Blood Culture - Preliminary No growth in 48 hours. 06/13/20 09:40 Blood Culture (Wb) - Anticubital Left Blood Culture - Preliminary No growth in 48 hours. 06/13/20 15:45 Mucosa - Nasopharyngeal Respiratory Panel (PCR) - Final Laboratory Results 06/16/20 03:50: WBC 14.2 H, RBC 4.35 L, Hgb 12.9 L, Hct 39.1 L, MCV 89.9, MCH 29.7, MCHC 33.0, RDW Std Deviation 44.3 H, RDW Coeff of Jesús 13.3, Plt Count 168, MPV 11.8 06/16/20 03:50: Sodium 139, Potassium 4.2, Chloride 108 H, Carbon Dioxide 25.0, Anion Gap 6, BUN 32 H, Creatinine 1.10, Estim Creat Clear Calc 60.83, Est GFR (MDRD) Af Amer 84, Est GFR (MDRD) Non-Af 69, BUN/Creatinine Ratio 29.1 H, Glucose 113 H, Calcium 8.3 L, Total Bilirubin 1.00, AST 40 H, ALT 45, Alkaline Phosphatase 243 H, Total Protein 5.0 L, Albumin 2.0 L, Globulin 3.0, Albumin/Globulin Ratio 0.7 L 06/16/20 03:50: Phosphorus 4.1, Magnesium 2.2 Current Medications Acetaminophen (Acetaminophen 325 Mg Tablet) 650 mg PO Q6H PRN PRN PRN Reason: Pain Score 1-10/Temp > 100.7 F Last Admin: 06/16/20 12:15 Dose: 650 mg Documented by: Acyclovir (Acyclovir 200 Mg Capsule) 400 mg PO BID BIJAL Last Admin: 06/16/20 08:31 Dose: 400 mg Documented by: Albuterol Sulfate (Albuterol 2.5 Mg/3 Ml Vial.Neb.) 2.5 mg INHALATION Q2H PRN PRN PRN Reason: Shortness of Breath/Wheezing Last Admin: 06/14/20 21:52 Dose: 2.5 mg Documented by: Atenolol (Atenolol 50 Mg Tablet) 50 mg PO BID [facility] Dexamethasone (Dexamethasone 4 Mg Tablet) 6 mg PO DAILY [facility] Stop: 06/22/20 10:01 Last Admin: 06/16/20 08:31 Dose: 6 mg Documented by: Enoxaparin Sodium (Enoxaparin 30 Mg/0.3 Ml Syringe) 30 mg SC BID [facility] Last Admin: 06/16/20 08:30 Dose: 30 mg Documented by: Finasteride (Finasteride 5 Mg Tablet) 5 mg PO DAILY [facility] Last Admin: 06/16/20 08:32 Dose: 5 mg Documented by: Fluticasone Propionate (Fluticasone 0.05% 1 [place] Nasal.Sry) 2 spray NASAL DAILY PRN PRN PRN Reason: ALLERGIES Sodium Chloride () 250 mls @ 15 mls/hr IV .[id number] PRN PRN Reason: Saline Flush Last Infusion: 06/16/20 00:09 Dose: Infused Documented by: Sodium Chloride () 250 mls @ 15 mls/hr IV .[id number] PRN PRN Reason: Additional IVPB Infusion Remdesivir 100 mg/ Sodium (Chloride) 250 mls @ 125 mls/hr IV DAILY [facility]; Protocol Stop: 06/17/20 11:59 Last Infusion: 06/16/20 12:01 Dose: Infused Documented by: Levothyroxine Sodium (Levothyroxine 100 Mcg Tablet) 100 mcg PO DAILY [facility] Last Admin: 06/16/20 09:57 Dose: 100 mcg Documented by: Losartan Potassium (Losartan Potassium 50 Mg Tablet) 50 mg PO DAILY [facility] Last Admin: 06/16/20 08:31 Dose: 50 mg Documented by: Ondansetron HCl (Ondansetron 4 Mg/2 Ml Vial) 4 mg IV Q8H PRN PRN PRN Reason: NAUSEA/VOMITING Senna/Docusate Sodium (Senna/Docusate Sodium 1 Tablet) 2 tablet PO BID PRN PRN PRN Reason: Constipation Sodium Chloride (0.9% Saline Lock 10 Ml Syringe) 10 - 40 ml IV UD PRN PRN Reason: SALINE FLUSH Last Admin: 06/16/20 13:10 Dose: 10 ml Documented by: STROKE Vital Signs/Narrative: Vital Signs Temp Pulse Resp BP BP Pulse Ox 06/16/20 13:09 124 H 131/72 H 06/16/20 13:00 124 H 25 H 131/72 H 93 06/16/20 12:00 97.9 F 118 H 25 H 155/91 H 94 06/16/20 11:15 109 H 25 H 91 06/16/20 11:09 122 H 06/16/20 11:00 97 26 H 150/97 H 93 06/16/20 10:00 98.1 F 112 H 24 H 150/94 H 92 06/16/20 09:31 129 H Medical Necessity - Tobacco Use Smoking Status: Never smoker Tobacco Use: Non-smoker Assessment/Plan All Active Problems (Last Reviewed 02/24/20 @ 10:06 by Yashira Estrada) Perirectal abscess (Acute) Pneumonia due to COVID-19 virus (Acute) Hypoxemia (Acute) Chronic lymphoid leukemia (Resolved) Encounter for venous access device care (Acute) Encounter for care related to vascular access port (Acute) Skin lesion (Acute) Neutropenia (Resolved) Acute hypoxic respiratory failure secondary to acute Covid pneumonia -Patient is on Decadron with completion date of 06/22/2020 -Continue remdesivir with a completion date of 06/17/2020 -Remains on Airvo but FiO2 has been weaned to 55% and sats remain above 92% -Patient remains tachypneic with respiratory rates in the mid 20s -Sinew to wean oxygen as able -Continue IS and Acapella -Appreciate ID and pulmonary input New onset A. fib with RVR -Patient has failed beta-blockers and heart rate still is in the 1 teens to 120s -Amnio bolus now with a drip to follow -Start Eliquis 5 mg twice daily -See prophylactic Lovenox -Consider echo out of isolation -check TSH Indeterminate troponin -Suspect related to demand ischemia -No EKG changes were noted Leukocytosis -Suspect related to Decadron -Continue to monitor Mild anemia -Close to baseline -Continue to monitor CKD stage II -Creatinine is stable -Continue to monitor -Watch urine output Hypertension -Continue atenolol -Hold ARB sitter restarting if blood pressures remain elevated Hypothyroidism -Continue levothyroxine 100 mgcs daily Hypogammaglobulinemia -No acute issues -Follow-up with hematology as an outpatient CLL -Hold biological agent until she is recovered DVT prophylaxis -Eliquis 5 mg twice daily CODE STATUS -DNR CCA no intubation Inpatient E&M: [id number] [facility] L3
[2020-06-16] MEDS: Amiodarone 360 MG in Dextrose 5% Viaflo Bag 192.8 ML 33.3 MG CONT INF (16:20)
[2020-06-16] MEDS: Amiodarone 360 MG in Dextrose 5% Viaflo Bag 192.8 ML 16.7 MG CONT INF (21:25)
[2020-06-16] MEDS: APIXABAN 5 MG TABLET PO (21:27)
[2020-06-16] MEDS: Atenolol 50 MG Tablet PO (21:31)
--- NOTE | 2020-06-16 22:51 | CPS ---
Pt.'s FiO2 increased to 60%; improve oxygenation while sleeping
[2020-06-17] VITALS (34 sets, daily range): BP systolic 109–166; BP diastolic 63–101; PULSE 51–95; RESP 12–30; TEMP 35.8–36.7; O2SAT 89–98
[2020-06-17] MEDS: Albuterol 2.5 MG/3 ML VIAL.NEB. INHALATION (04:09)
--- NOTE | 2020-06-17 04:10 | RAD_ITS ---
HISTORY: COVID +SOB, INCREASED O2 REQUIREMENTS EXAM: XR Chest 1 View: COMPARISON: Most recent comparison study is a chest CT from June 13, 2020. Most recent comparison chest x-rays from October 16, 2016 FINDINGS: # of images incl. paperwork: 1 Severe bilateral airspace disease, right greater than left is similar to that is from the CT scan of the chest Heart is not enlarged. No acute osseous pathology perceived. Pulmonary vascularity is distinct. No effusions. RAD/Chest 1 View (Portable) IMPRESSION: Severe bilateral airspace disease right greater than left consistent with Covid 19 pneumonia. Findings appear to be similar to that of the chest CT June 13, 2020. at 0456 Reported and signed by: Louis Vazquez MD Electronically Signed: Louis Vazquez MD at 4:54 EST Tel , Service support ,
[2020-06-17 05:08] LABS: Hematocrit 42.5 % (40-54); Hemoglobin 13.9 g/dL (13.0-16.5); Mean Corp Hgb Conc 32.7 g/dL (32-36); Mean Corpuscular Volume 88.7 fL (80-94); Mean Platelet Vol. 11.7 fl (6.2-12.0); Platelet Count 212 K/mm3 (150-450); RBC Distribution Width CV 13.6 % (11.6-14.6); RBC Distribution Width SD 44.4 fl (35.1-43.9); Red Blood Count 4.79 M/mm3 (4.6-6.2); White Blood Count 17.8 K/mm3 (4.4-11.0)
[2020-06-17 05:33] LABS: ALB/GLOB Ratio 0.7 RATIO (0.9-2.4); AST(SGOT) 103 U/L (15-37); Alanine Aminotransfer ALT/SGPT 127 U/L (16-61); Albumin, Serum 2.2 g/dL (3.2-5.0); Alkaline Phosphatase 259 U/L (45-117); Anion Gap 7 (5-15); BUN 31 mg/dL (7-18); BUN/Creat Ratio 28.7 RATIO (10-20); Calcium,Total 8.1 mg/dL (8.5-10.1); Chloride 107 mmol/L (98-107); Creatinine, Serum 1.08 mg/dL (0.70-1.30); EST Glomerular Filtration Rate 71 mL/min (>60); Est Glom Filt Rate - Afr Amer 86 mL/min (>60); Estimated Creatinine Clearance 61.96 ml/min; Globulin 3.1 g/dL (2.2-4.2); Glucose 115 mg/dL (74-106); Potassium 3.9 mmol/L (3.5-5.1); Protein, Total 5.3 g/dL (6.4-8.2); Sodium Level 139 mmol/L (136-145); Thyroid Stim Hormone (TSH) 0.97 uIU/mL (0.358-3.74)
--- NOTE | 2020-06-17 07:23 | PCM.PN.INT ---
Subjective: Patient with decompensation overnight requiring up to 80% Airvo with tachypnea into the 40s. Patient was placed on AVAPS this morning and feels subjectively improved. Chest x-ray overnight shows increasing infiltrates bilaterally. Did discuss with the patient at length and he states that he would be willing to be intubated if necessary, especially with his recent decompensation. Patient does not feel that this is necessary at this time as the BiPAP has made a big difference. General: Alert, Oriented x3, Cooperative, No apparent distress - On BiPAP, - - Good BiPAP synchrony noted HEENT: Atraumatic, PERRLA, EOMI, Normocephalic Oral: No Gingival or Mucosal Lesions/ Ulcerations, Dry Mucosa Neck: Supple, No JVD, No Nodes, Trachea Midline Lungs: No rhonchi, No wheeze, No rales, Diminished, - - Symmetric expansion Cardiovascular: Normal S1, Normal S2, Irregular Rate, No rub noted, No Gallop, - - Remains in A. fib on telemetry Abdomen: Bowel Sounds Present, Soft, Non Tender, Non-Distended Extremities: No clubbing, No cyanosis, Edema - Trace lower extremity Skin: - - No change compared to previous Musculoskeletal: No Tenderness to Palpation of Joints or Extremities Lymphatic: No Cervical, Supraclavicular, or Inguinal Adenopathy Neurological: Cranial nerves II-XII grossly intact, Neuro grossly intact, Motor Exam 5/5 strength throughout Psych/Mental Status: Alert and oriented to time, place, person, mood and affect Vital Signs Temp Pulse Resp BP Pulse Ox 36.0 C L 83 30 H 116/66 92 06/17/20 04:00 06/17/20 07:00 06/17/20 07:00 06/17/20 07:00 06/17/20 07:00 Oxygen Flow Rate (L/min) [ 0 AMBULATING on Room Air] Oxygen Flow Rate (L/min) [ 6 AMBULATION with Oxygen] Oxygen Flow Rate (L/min) [At 0 REST on Room Air] Oxygen Flow Rate (L/min) 60 Oxygen Delivery Method Bi-pap Weight: 81.2 kg Body Mass Index (BMI) 26.4 Intake and Output for Last 24 Hours 06/15/20 06/16/20 06/17/20 23:59 23:59 23:59 Intake Total 1120 / 1120 1352.27 / 1352.27 Output Total 2700 / 2700 2600 / 2800 800 / 800 Balance -1580 / -1580 -1247.73 / -1447.73 -800 / -800 Labs (Last 48 Hours) 06/16/20 06/16/20 06/16/20 03:50 03:50 03:50 WBC 14.2 H RBC 4.35 L Hgb 12.9 L Hct 39.1 L MCV 89.9 MCH 29.7 MCHC 33.0 RDW Std Deviation 44.3 H RDW Coeff of Jesús 13.3 Plt Count 168 MPV 11.8 Sodium 139 Potassium 4.2 Chloride 108 H Carbon Dioxide 25.0 Anion Gap 6 BUN 32 H Creatinine 1.10 Estim Creat Clear Calc 60.83 Est GFR (MDRD) Af Amer 84 Est GFR (MDRD) Non-Af 69 BUN/Creatinine Ratio 29.1 H Glucose 113 H Calcium 8.3 L Phosphorus 4.1 Magnesium 2.2 Total Bilirubin 1.00 AST 40 H ALT 45 Alkaline Phosphatase 243 H Total Protein 5.0 L Albumin 2.0 L Globulin 3.0 Albumin/Globulin Ratio 0.7 L TSH 06/17/20 06/17/20 04:48 04:48 WBC 17.8 H RBC 4.79 Hgb 13.9 Hct 42.5 MCV 88.7 MCH 29.0 MCHC 32.7 RDW Std Deviation 44.4 H RDW Coeff of Jesús 13.6 Plt Count 212 MPV 11.7 Sodium 139 Potassium 3.9 Chloride 107 Carbon Dioxide 25.0 Anion Gap 7 BUN 31 H Creatinine 1.08 Estim Creat Clear Calc 61.96 Est GFR (MDRD) Af Amer 86 Est GFR (MDRD) Non-Af 71 BUN/Creatinine Ratio 28.7 H Glucose 115 H Calcium 8.1 L Phosphorus Magnesium Total Bilirubin 1.10 H AST 103 H ALT 127 H Alkaline Phosphatase 259 H Total Protein 5.3 L Albumin 2.2 L Globulin 3.1 Albumin/Globulin Ratio 0.7 L TSH 0.97 Microbiology 06/13/20 10:12 Blood Culture (Wb) - Anticubital Right Blood Culture - Preliminary No growth in 48 hours. 06/13/20 09:40 Blood Culture (Wb) - Anticubital Left Blood Culture - Preliminary No growth in 48 hours. Clinical Impression(s) from Imaging Studies Chest X-Ray 06/17/20 04:10 IMPRESSION: Severe bilateral airspace disease right greater than left consistent with Covid 19 pneumonia. Findings appear to be similar to that of the chest CT June 13, 2020. at 0456 Reported and signed by: Louis Vazquez MD Electronically Signed: Louis Vazquez MD at 4:54 EST Tel , Service support , Medical Necessity - Tobacco Use Smoking Status: Never smoker Tobacco Use: Non-smoker Assessment/Plan All Active Problems (Last Reviewed 02/24/20 @ 10:06 by Yashira Estrada) Perirectal abscess (Acute) Pneumonia due to COVID-19 virus (Acute) Hypoxemia (Acute) Chronic lymphoid leukemia (Resolved) Encounter for venous access device care (Acute) Encounter for care related to vascular access port (Acute) Skin lesion (Acute) Neutropenia (Resolved) RECOMMENDATIONS: 1. Continue Decadron and remdesivir with appropriate monitoring 2. BiPAP breaks as tolerated. Wean FiO2 as tolerated 3. Okay to hold Imbruvica during acute condition 4. Encourage incentive spirometer and Acapella 5. No need to discontinue Remdesivir with mild liver enzyme increase 6. Change CODE STATUS to full code IMPRESSIONS: 1. Acute hypoxic respiratory failure secondary to acute COVID-19 pneumonia Patient does not have a significant pulmonary history, but is immunosuppressed at baseline. Increasing oxygen demands may be secondary to progression of COVID-19. Patient is appropriately on Decadron and remdesivir. Infectious disease is following. Continue to wean oxygen as tolerated. Patient with worsening infiltrates on chest x-ray. Patient has been negative for the past 2 days with decreasing weights, so it is likely not secondary to fluid retention. Clinical suspicion for an element of atelectasis and BiPAP will help with recruitment. Cannot exclude the necessity of intubation. Liver enzymes are only slightly elevated and patient can likely complete course from my perspective. 2. Indeterminate troponin Clinical suspicion for elevated troponin secondary to global hypoxia. Patient does not have any significant EKG changes at this time. Okay to use Lovenox, but full anticoagulation is likely not indicated. 3. 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 Okay to hold Imbruvica from my perspective. Unclear if IVIG needs to be continued. Would defer to infectious disease. Patient is not currently acting as a bacterial superinfection at this time. TIME: 32 minutes critical care time spent addressing patient's acute hypoxic respiratory failure, CLL, review of CODE STATUS, review of all data and collaboration with care team (6:30 AM to 7:30 AM) [id number]: [id number] Critical care first hour
--- NOTE | 2020-06-17 07:33 | PCM.PN.HOSP ---
Patient Problems: Active and Suspected Problems (Last Reviewed 02/24/20 @ 10:06 by Yashira Estrada) Pneumonia due to COVID-19 virus (Acute) Hypoxemia (Acute) Encounter for venous access device care (Acute) Reason for Visit: Follow-up on hypoxic respiratory failure/Acute COVID-19 infection Subjective: Patient was seen and examined. He got progressively worse overnight. Currently on BiPAP. Upon further discussion with him by requirements analyst, CODE STATUS revoked to full code. He complains of chest tightness and stated that his breathing is fair' Objective: Physical exam: General: Alert, Oriented x3, Cooperative, No apparent distress, - - on Airvo HEENT: Atraumatic, PERRLA, EOMI, Normocephalic Oral: Moist Mucosa Neck: Supple Lungs: Diminished Cardiovascular: Regular rate, Regular Rhythm, Normal S1, Normal S2, No murmurs Abdomen: Bowel Sounds Present, Soft, Non Tender, Non-Distended, No Hepato-splenomegaly Extremities: No edema Skin: No rashes Musculoskeletal: No Tenderness to Palpation of Joints or Extremities Neurological: Cranial nerves II-XII grossly intact Psych/Mental Status: Normal Affect, Appropriate Vitals/I&O's: Vital Signs Temp Pulse Resp BP Pulse Ox 96.8 F L 76 30 H 116/66 92 06/17/20 04:00 06/17/20 07:29 06/17/20 07:00 06/17/20 07:00 06/17/20 07:00 Oxygen Flow Rate (L/min) [ 0 AMBULATING on Room Air] Oxygen Flow Rate (L/min) [ 6 AMBULATION with Oxygen] Oxygen Flow Rate (L/min) [At 0 REST on Room Air] Oxygen Flow Rate (L/min) 60 Oxygen Delivery Method Bi-pap Weight: 81.2 kg Body Mass Index (BMI) 26.4 Intake and Output for Last 24 Hours 06/15/20 06/16/20 06/17/20 23:59 23:59 23:59 Intake Total 1120 / 1120 1352.27 / 1352.27 Output Total 2700 / 2700 2600 / 2800 800 / 800 Balance -1580 / -1580 -1247.73 / -1447.73 -800 / -800 Microbiology Past 72 Hours 06/13/20 10:12 Blood Culture (Wb) - Anticubital Right Blood Culture - Preliminary No growth in 48 hours. 06/13/20 09:40 Blood Culture (Wb) - Anticubital Left Blood Culture - Preliminary No growth in 48 hours. Laboratory Results 06/17/20 04:48: WBC 17.8 H, RBC 4.79, Hgb 13.9, Hct 42.5, MCV 88.7, MCH 29.0, MCHC 32.7, RDW Std Deviation 44.4 H, RDW Coeff of Jesús 13.6, Plt Count 212, MPV 11.7 06/17/20 04:48: Sodium 139, Potassium 3.9, Chloride 107, Carbon Dioxide 25.0, Anion Gap 7, BUN 31 H, Creatinine 1.08, Estim Creat Clear Calc 61.96, Est GFR (MDRD) Af Amer 86, Est GFR (MDRD) Non-Af 71, BUN/Creatinine Ratio 28.7 H, Glucose 115 H, Calcium 8.1 L, Total Bilirubin 1.10 H, AST 103 H, ALT 127 H, Alkaline Phosphatase 259 H, Total Protein 5.3 L, Albumin 2.2 L, Globulin 3.1, Albumin/Globulin Ratio 0.7 L, TSH 0.97 Current Medications Acetaminophen (Acetaminophen 325 Mg Tablet) 650 mg PO Q6H PRN PRN PRN Reason: Pain Score 1-10/Temp > 100.7 F Last Admin: 06/16/20 12:15 Dose: 650 mg Documented by: Acyclovir (Acyclovir 200 Mg Capsule) 400 mg PO BID [facility] Last Admin: 06/16/20 21:28 Dose: 400 mg Documented by: Albuterol Sulfate (Albuterol 2.5 Mg/3 Ml Vial.Neb.) 2.5 mg INHALATION Q2H PRN PRN PRN Reason: Shortness of Breath/Wheezing Last Admin: 06/17/20 04:09 Dose: 2.5 mg Documented by: Apixaban (Apixaban 5 Mg Tablet) 5 mg PO BID [facility] Last Admin: 06/16/20 21:27 Dose: 5 mg Documented by: Atenolol (Atenolol 50 Mg Tablet) 50 mg PO BID [facility] Last Admin: 06/16/20 21:31 Dose: 50 mg Documented by: Dexamethasone (Dexamethasone 4 Mg Tablet) 6 mg PO DAILY [facility] Stop: 06/22/20 10:01 Last Admin: 06/16/20 08:31 Dose: 6 mg Documented by: Finasteride (Finasteride 5 Mg Tablet) 5 mg PO DAILY [facility] Last Admin: 06/16/20 08:32 Dose: 5 mg Documented by: Fluticasone Propionate (Fluticasone 0.05% 1 [place] Nasal.Sry) 2 spray NASAL DAILY PRN PRN PRN Reason: ALLERGIES Sodium Chloride () 250 mls @ 15 mls/hr IV .[id number] PRN PRN Reason: Saline Flush Last Infusion: 06/16/20 00:09 Dose: Infused Documented by: Sodium Chloride () 250 mls @ 15 mls/hr IV .[id number] PRN PRN Reason: Additional IVPB Infusion Remdesivir 100 mg/ Sodium (Chloride) 250 mls @ 125 mls/hr IV DAILY [facility]; Protocol Stop: 06/17/20 11:59 Last Infusion: 06/16/20 12:01 Dose: Infused Documented by: Amiodarone HCl 360 mg/ (Dextrose) 200 mls @ 16.667 mls/hr CONT INF .Q12H [facility] Stop: 06/17/20 15:19 Last Admin: 06/16/20 21:25 Dose: 0.5 mg/min, 16.7 mls/hr Documented by: Levothyroxine Sodium (Levothyroxine 100 Mcg Tablet) 100 mcg PO DAILY [facility] Last Admin: 06/16/20 09:57 Dose: 100 mcg Documented by: Losartan Potassium (Losartan Potassium 50 Mg Tablet) 50 mg PO DAILY [facility] Last Admin: 06/16/20 08:31 Dose: 50 mg Documented by: Ondansetron HCl (Ondansetron 4 Mg/2 Ml Vial) 4 mg IV Q8H PRN PRN PRN Reason: NAUSEA/VOMITING Senna/Docusate Sodium (Senna/Docusate Sodium 1 Tablet) 2 tablet PO BID PRN PRN PRN Reason: Constipation Sodium Chloride (0.9% Saline Lock 10 Ml Syringe) 10 - 40 ml IV UD PRN PRN Reason: SALINE FLUSH Last Admin: 06/16/20 13:10 Dose: 10 ml Documented by: STROKE Vital Signs/Narrative: Vital Signs Temp Pulse Resp BP Pulse Ox 06/17/20 07:29 76 06/17/20 07:00 83 30 H 116/66 92 06/17/20 06:56 86 24 H 91 06/17/20 06:05 95 24 H 92 06/17/20 06:00 89 24 H 137/101 H 89 06/17/20 05:00 87 20 H 135/83 H 91 06/17/20 04:09 84 22 H 93 06/17/20 04:00 96.8 F L 74 16 144/78 H 89 Medical Necessity - Tobacco Use Smoking Status: Never smoker Tobacco Use: Non-smoker Assessment/Plan All Active Problems (Last Reviewed 02/24/20 @ 10:06 by Yashira Estrada) Perirectal abscess (Acute) Pneumonia due to COVID-19 virus (Acute) Hypoxemia (Acute) Chronic lymphoid leukemia (Resolved) Encounter for venous access device care (Acute) Encounter for care related to vascular access port (Acute) Skin lesion (Acute) Neutropenia (Resolved) 1. Acute hypoxic respiratory sufficiency secondary to acute COVID-19 pneumonia, worsening Currently on BiPAP, continue with breathing treatments, po steroids, encourage use of incentive spirometer. Wean off oxygen for SPO2 more than 94% 2. Acute COVID-19 pneumonia with hypoxia, severe Continue on oral Decadron and remdesivir ID following 3. A. fib with RVR, new onset, controlled, continue on amiodarone drip, will transition to oral amiodarone Continue on apixaban and atenolol 4. Hypertension, controlled, on continue with home regimen -atenolol Will hold losartan for now due to pending hemodynamic instability 5. Hypothyroidism, continue on Synthroid 6. CLL/hypogammaglobulinemia, follows in the outpatient for IVIG Continue hold ibrutinib 7. DVT PPx- Lovenox SC 8. CODE STATUS: Full code Inpatient E&M: 54253 Subs Hosp L3
[2020-06-17] MEDS: dexAMETHasone 4 MG Tablet 6 MG PO (13:03)
[2020-06-17] MEDS: Finasteride 5 MG Tablet PO (13:05)
[2020-06-17] MEDS: Levothyroxine 100 MCG Tablet PO (13:05)
[2020-06-17] MEDS: APIXABAN 5 MG TABLET PO ×2 (13:05→21:47)
[2020-06-17] MEDS: Acyclovir 200 MG Capsule 400 MG PO ×2 (13:06→21:48)
[2020-06-17] MEDS: Atenolol 50 MG Tablet PO ×2 (13:06→21:47)
--- NOTE | 2020-06-17 14:37 | PCM.PN.ID ---
Patient Problems: Active and Suspected Problems (Last Reviewed 02/24/20 @ 10:06 by Yashira Estrada) Pneumonia due to COVID-19 virus (Acute) Hypoxemia (Acute) Encounter for venous access device care (Acute) Subjective: Feeling ok, breathing better on bipap, no fever - Physical Exam Vitals/I&O's: Vital Signs Temp Pulse Resp BP Pulse Ox 98.1 F 61 23 H 132/73 H 92 06/17/20 08:00 06/17/20 11:01 06/17/20 11:01 06/17/20 11:00 06/17/20 11:01 Oxygen Flow Rate (L/min) [ 0 AMBULATING on Room Air] Oxygen Flow Rate (L/min) [ 6 AMBULATION with Oxygen] Oxygen Flow Rate (L/min) [At 0 REST on Room Air] Oxygen Flow Rate (L/min) 60 Oxygen Delivery Method Bi-pap Weight: 81.2 kg Body Mass Index (BMI) 26.4 Intake and Output for Last 24 Hours 06/15/20 06/16/20 06/17/20 23:59 23:59 23:59 Intake Total 1120 / 1120 1352.27 / 1352.27 200 / 200 Output Total 2700 / 2700 2600 / 2800 800 / 800 Balance -1580 / -1580 -1247.73 / -1447.73 -600 / -600 General: Alert, Cooperative Lungs: Diminished Cardiovascular: Regular rate, Regular Rhythm Abdomen: Soft, Non Tender, Non-Distended Skin: No rashes Microbiology Past 72 Hours 06/13/20 10:12 Blood Culture (Wb) - Anticubital Right Blood Culture - Preliminary No growth in 48 hours. 06/13/20 09:40 Blood Culture (Wb) - Anticubital Left Blood Culture - Preliminary No growth in 48 hours. Laboratory Results 06/17/20 04:48: WBC 17.8 H, RBC 4.79, Hgb 13.9, Hct 42.5, MCV 88.7, MCH 29.0, MCHC 32.7, RDW Std Deviation 44.4 H, RDW Coeff of Jesús 13.6, Plt Count 212, MPV 11.7 06/17/20 04:48: Sodium 139, Potassium 3.9, Chloride 107, Carbon Dioxide 25.0, Anion Gap 7, BUN 31 H, Creatinine 1.08, Estim Creat Clear Calc 61.96, Est GFR (MDRD) Af Amer 86, Est GFR (MDRD) Non-Af 71, BUN/Creatinine Ratio 28.7 H, Glucose 115 H, Calcium 8.1 L, Total Bilirubin 1.10 H, AST 103 H, ALT 127 H, Alkaline Phosphatase 259 H, Total Protein 5.3 L, Albumin 2.2 L, Globulin 3.1, Albumin/Globulin Ratio 0.7 L, TSH 0.97 Current Medications Acetaminophen (Acetaminophen 325 Mg Tablet) 650 mg PO Q6H PRN PRN PRN Reason: Pain Score 1-10/Temp > 100.7 F Last Admin: 06/16/20 12:15 Dose: 650 mg Documented by: Acyclovir (Acyclovir 200 Mg Capsule) 400 mg PO BID [facility] Last Admin: 06/17/20 13:06 Dose: 400 mg Documented by: Albuterol Sulfate (Albuterol 2.5 Mg/3 Ml Vial.Neb.) 2.5 mg INHALATION Q2H PRN PRN PRN Reason: Shortness of Breath/Wheezing Last Admin: 06/17/20 04:09 Dose: 2.5 mg Documented by: Amiodarone HCl (Amiodarone 200 Mg Tablet) 200 mg PO BID [facility] Apixaban (Apixaban 5 Mg Tablet) 5 mg PO BID [facility] Last Admin: 06/17/20 13:05 Dose: 5 mg Documented by: Atenolol (Atenolol 50 Mg Tablet) 50 mg PO BID [facility] Last Admin: 06/17/20 13:06 Dose: 50 mg Documented by: Chlorhexidine Gluconate (Chlorhexidine Gluc 2% Cloth 1 Each [place]) 1 each TOPICAL DAILY [facility] Dexamethasone (Dexamethasone 4 Mg Tablet) 6 mg PO DAILY [facility] Stop: 06/22/20 10:01 Last Admin: 06/17/20 13:03 Dose: 6 mg Documented by: Finasteride (Finasteride 5 Mg Tablet) 5 mg PO DAILY [facility] Last Admin: 06/17/20 13:05 Dose: 5 mg Documented by: Fluticasone Propionate (Fluticasone 0.05% 1 [place] Nasal.Sry) 2 spray NASAL DAILY PRN PRN PRN Reason: ALLERGIES Sodium Chloride () 250 mls @ 15 mls/hr IV .[id number] PRN PRN Reason: Saline Flush Last Infusion: 06/16/20 00:09 Dose: Infused Documented by: Sodium Chloride () 250 mls @ 15 mls/hr IV .[id number] PRN PRN Reason: Additional IVPB Infusion Amiodarone HCl 360 mg/ (Dextrose) 200 mls @ 16.667 mls/hr CONT INF .Q12H [facility] Stop: 06/17/20 15:19 Last Infusion: 06/17/20 09:24 Dose: Infused Documented by: Levothyroxine Sodium (Levothyroxine 100 Mcg Tablet) 100 mcg PO DAILY [facility] Last Admin: 06/17/20 13:05 Dose: 100 mcg Documented by: Ondansetron HCl (Ondansetron 4 Mg/2 Ml Vial) 4 mg IV Q8H PRN PRN PRN Reason: NAUSEA/VOMITING Senna/Docusate Sodium (Senna/Docusate Sodium 1 Tablet) 2 tablet PO BID PRN PRN PRN Reason: Constipation Sodium Chloride (0.9% Saline Lock 10 Ml Syringe) 10 - 40 ml IV UD PRN PRN Reason: SALINE FLUSH Last Admin: 06/16/20 13:10 Dose: 10 ml Documented by: Medical Necessity - Tobacco Use Smoking Status: Never smoker Tobacco Use: Non-smoker Route of nutrition/ use of supplements: [] Nutritional Intake: [] IV Site: [] Betancur Catheter: [] - Assessment/Plan Antibiotics: [] Assessment/Plan: [] Active and Suspected Problems (Last Reviewed 02/24/20 @ 10:06 by Yashira Estrada) Pneumonia due to COVID-19 virus (Acute) Hypoxemia (Acute) Covid with hypoxia - sx started around 06/06, on dex, on remdesivir. D-dimer 1.4, on lovenox 30mg bid. Covid (+) 06/10. CT neg for PE. Plan on 20 days of quarantine starting 06/06, 10 days of dex, recommend 2 weeks of eliquis 2.5mg bid or xarelto 10mg daily at discharge. Pulm following now. On bipap. Will follow
[2020-06-17] MEDS: Amiodarone 200 MG Tablet PO (21:47)
[2020-06-17] MEDS: 0.9% Saline Lock 10 ML Syringe IV (21:48)
[2020-06-17] MEDS: Acetaminophen 325 MG Tablet 650 MG PO (23:34)
[2020-06-17] MEDS: MELATONIN 10 MG TABLET 5 MG PO (23:34)
[2020-06-18] VITALS (35 sets, daily range): BP systolic 102–171; BP diastolic 65–90; PULSE 46–68; RESP 12–24; TEMP 36.1–36.6; O2SAT 60–97
[2020-06-18 05:09] LABS: Hematocrit 40.5 % (40-54); Hemoglobin 13.2 g/dL (13.0-16.5); Mean Corp Hgb Conc 32.6 g/dL (32-36); Mean Corpuscular Hgb 29.3 pg (27.0-32.0); Mean Corpuscular Volume 89.8 fL (80-94); Mean Platelet Vol. 11.7 fl (6.2-12.0); Platelet Count 185 K/mm3 (150-450); RBC Distribution Width CV 13.9 % (11.6-14.6); RBC Distribution Width SD 45.2 fl (35.1-43.9); Red Blood Count 4.51 M/mm3 (4.6-6.2); White Blood Count 14.7 K/mm3 (4.4-11.0)
[2020-06-18 05:31] LABS: ALB/GLOB Ratio 0.7 RATIO (0.9-2.4); AST(SGOT) 34 U/L (15-37); Alanine Aminotransfer ALT/SGPT 90 U/L (16-61); Alkaline Phosphatase 216 U/L (45-117); Anion Gap 7 (5-15); BUN 36 mg/dL (7-18); BUN/Creat Ratio 34.6 RATIO (10-20); Calcium,Total 7.7 mg/dL (8.5-10.1); Chloride 107 mmol/L (98-107); Creatinine, Serum 1.04 mg/dL (0.70-1.30); EST Glomerular Filtration Rate 74 mL/min (>60); Est Glom Filt Rate - Afr Amer 90 mL/min (>60); Estimated Creatinine Clearance 64.34 ml/min; Globulin 2.9 g/dL (2.2-4.2); Glucose 130 mg/dL (74-106); Potassium 4.4 mmol/L (3.5-5.1); Protein, Total 4.9 g/dL (6.4-8.2); Sodium Level 139 mmol/L (136-145)
--- NOTE | 2020-06-18 07:23 | PCM.PN.INT ---
Subjective: Patient did okay overnight. Patient has had bradycardia, but blood pressures have been stable. Patient had an episode of feeling flushed overnight. Patient is also had some periods of nonsustained V. tach. No recurrence of A. fib is been reported. Patient was transitioned to p.o. amiodarone yesterday. General: Alert, Oriented x3, Cooperative, - - Mild conversational dyspnea. Patient denies any nausea or vomiting. HEENT: Atraumatic, PERRLA, EOMI, Normocephalic, - - Slight scleral injection Oral: Moist Mucosa, No Gingival or Mucosal Lesions/ Ulcerations Neck: Supple, No JVD, No Nodes, Trachea Midline Lungs: No rhonchi, No wheeze, No rales, Diminished, - - Symmetric expansion Cardiovascular: Normal S1, Normal S2, No murmurs, Bradycardic, No rub noted, No Gallop Abdomen: Bowel Sounds Present, Soft, Non Tender, Non-Distended Extremities: No clubbing, No cyanosis, Edema - Trace Skin: - - No change compared to previous Musculoskeletal: No Tenderness to Palpation of Joints or Extremities Lymphatic: No Cervical, Supraclavicular, or Inguinal Adenopathy Neurological: Cranial nerves II-XII grossly intact, Neuro grossly intact, Motor Exam 5/5 strength throughout Psych/Mental Status: Alert and oriented to time, place, person, mood and affect Vital Signs Temp Pulse Resp BP Pulse Ox 36.1 C L 51 L 17 160/86 H 92 06/18/20 04:00 06/18/20 07:00 06/18/20 07:00 06/18/20 07:00 06/18/20 07:00 Oxygen Flow Rate (L/min) [ 0 AMBULATING on Room Air] Oxygen Flow Rate (L/min) [ 6 AMBULATION with Oxygen] Oxygen Flow Rate (L/min) [At 0 REST on Room Air] Oxygen Flow Rate (L/min) 60 Oxygen Delivery Method Airvo Weight: 82.6 kg Body Mass Index (BMI) 26.4 Intake and Output for Last 24 Hours 06/16/20 06/17/20 06/18/20 23:59 23:59 23:59 Intake Total 1352.27 / 1352.27 550 / 550 Output Total 2600 / 2800 1350 / 1550 360 / 360 Balance -1247.73 / -1447.73 -800 / -1000 -360 / -360 Labs (Last 48 Hours) 06/17/20 06/17/20 06/18/20 04:48 04:48 05:00 WBC 17.8 H 14.7 H RBC 4.79 4.51 L Hgb 13.9 13.2 Hct 42.5 40.5 MCV 88.7 89.8 MCH 29.0 29.3 MCHC 32.7 32.6 RDW Std Deviation 44.4 H 45.2 H RDW Coeff of Jesús 13.6 13.9 Plt Count 212 185 MPV 11.7 11.7 Sodium 139 Potassium 3.9 Chloride 107 Carbon Dioxide 25.0 Anion Gap 7 BUN 31 H Creatinine 1.08 Estim Creat Clear Calc 61.96 Est GFR (MDRD) Af Amer 86 Est GFR (MDRD) Non-Af 71 BUN/Creatinine Ratio 28.7 H Glucose 115 H Calcium 8.1 L Total Bilirubin 1.10 H AST 103 H ALT 127 H Alkaline Phosphatase 259 H Total Protein 5.3 L Albumin 2.2 L Globulin 3.1 Albumin/Globulin Ratio 0.7 L TSH 0.97 06/18/20 05:00 WBC RBC Hgb Hct MCV MCH MCHC RDW Std Deviation RDW Coeff of Jesús Plt Count MPV Sodium 139 Potassium 4.4 Chloride 107 Carbon Dioxide 25.0 Anion Gap 7 BUN 36 H Creatinine 1.04 Estim Creat Clear Calc 64.34 Est GFR (MDRD) Af Amer 90 Est GFR (MDRD) Non-Af 74 BUN/Creatinine Ratio 34.6 H Glucose 130 H Calcium 7.7 L Total Bilirubin 0.90 AST 34 ALT 90 H Alkaline Phosphatase 216 H Total Protein 4.9 L Albumin 2.0 L Globulin 2.9 Albumin/Globulin Ratio 0.7 L TSH Medical Necessity - Tobacco Use Smoking Status: Never smoker Tobacco Use: Non-smoker Assessment/Plan All Active Problems (Last Reviewed 02/24/20 @ 10:06 by Yashira Estrada) Perirectal abscess (Acute) Pneumonia due to COVID-19 virus (Acute) Hypoxemia (Acute) Chronic lymphoid leukemia (Resolved) Encounter for venous access device care (Acute) Encounter for care related to vascular access port (Acute) Skin lesion (Acute) Neutropenia (Resolved) RECOMMENDATIONS: 1. Continue Decadron and remdesivir with appropriate monitoring 2. BiPAP breaks as tolerated. Wean FiO2 as tolerated 3. Okay to hold Imbruvica during acute condition 4. Encourage incentive spirometer and Acapella 5. Decrease atenolol given bradycardia. Continue amiodarone. 6. Change CODE STATUS to full code IMPRESSIONS: 1. Acute hypoxic respiratory failure secondary to acute COVID-19 pneumonia Patient does not have a significant pulmonary history, but is immunosuppressed at baseline. Increasing oxygen demands may be secondary to progression of COVID-19. Patient is appropriately on Decadron and remdesivir. Infectious disease is following. Continue to wean oxygen as tolerated. Patient with worsening infiltrates on chest x-ray. Patient has been negative for the past 2 days with decreasing weights, so it is likely not secondary to fluid retention. Patient tolerating Airvo at this time. Clinical suspicion the BiPAP will be required overnight. 2. Indeterminate troponin/new onset A. fib Clinical suspicion for elevated troponin secondary to global hypoxia. Patient does not have any significant EKG changes at this time. Patient currently on full anticoagulation given new onset A. fib. Will decrease atenolol given bradycardia. Continue amiodarone p.o. for now. 3. 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 Okay to hold Imbruvica from my perspective. Unclear if IVIG needs to be continued. Would defer to infectious disease. Patient is not currently acting as a bacterial superinfection at this time. TIME: 33 minutes critical care time spent addressing patient's acute hypoxic respiratory failure, CLL, review of CODE STATUS, review of all data and collaboration with care team (6 AM to 7 AM) 9xxxx: [id number] Critical care first hour
--- NOTE | 2020-06-18 07:56 | PN_ITS ---
Patient Problems: Active and Suspected Problems (Last Reviewed 02/24/20 @ 10:06 by Yashira Estrada) Pneumonia due to COVID-19 virus (Acute) Hypoxemia (Acute) Encounter for venous access device care (Acute) Reason for Visit: Follow-up on hypoxic respiratory failure/Acute COVID-19 infection Subjective: Patient was seen and examined. No acute events. He remains on Airvo. He feels improved. Denies fever or chills. Objective: Physical exam: General: Alert, Oriented x3, Cooperative, No apparent distress, - - on Airvo HEENT: Atraumatic, PERRLA, EOMI, Normocephalic Oral: Moist Mucosa Neck: Supple Lungs: Diminished Cardiovascular: Regular rate, Regular Rhythm, Normal S1, Normal S2, No murmurs Abdomen: Bowel Sounds Present, Soft, Non Tender, Non-Distended, No Hepato- splenomegaly Extremities: No edema Skin: No rashes Musculoskeletal: No Tenderness to Palpation of Joints or Extremities Neurological: Cranial nerves II-XII grossly intact Psych/Mental Status: Normal Affect, Appropriate Vitals/I&O's: Vital Signs Temp Pulse Resp BP Pulse Ox 96.9 F L 51 L 17 160/86 H 92 06/18/20 04:00 06/18/20 07:00 06/18/20 07:00 06/18/20 07:00 06/18/20 07:00 Oxygen Flow Rate (L/min) [ 0 AMBULATING on Room Air] Oxygen Flow Rate (L/min) [ 6 AMBULATION with Oxygen] Oxygen Flow Rate (L/min) [At 0 REST on Room Air] Oxygen Flow Rate (L/min) 60 Oxygen Delivery Method Airvo Weight: 82.6 kg Body Mass Index (BMI) 26.4 Intake and Output for Last 24 Hours 06/16/20 06/17/20 06/18/20 23:59 23:59 23:59 Intake Total 1352.27 / 1352.27 550 / 550 Output Total 2600 / 2800 1350 / 1550 360 / 360 Balance -1247.73 / -1447.73 -800 / -1000 -360 / -360 Microbiology Past 72 Hours 06/13/20 10:12 Blood Culture (Wb) - Anticubital Right Blood Culture - Preliminary No growth in 48 hours. 06/13/20 09:40 Blood Culture (Wb) - Anticubital Left Blood Culture - Preliminary No growth in 48 hours. Laboratory Results 06/18/20 05:00: WBC 14.7 H, RBC 4.51 L, Hgb 13.2, Hct 40.5, MCV 89.8, MCH 29.3, MCHC 32.6, RDW Std Deviation 45.2 H, RDW Coeff of Jesús 13.9, Plt Count 185, MPV 11.7 06/18/20 05:00: Sodium 139, Potassium 4.4, Chloride 107, Carbon Dioxide 25.0, Anion Gap 7, BUN 36 H, Creatinine 1.04, Estim Creat Clear Calc 64.34, Est GFR (MDRD) Af Amer 90, Est GFR (MDRD) Non-Af 74, BUN/Creatinine Ratio 34.6 H, Glucose 130 H, Calcium 7.7 L, Total Bilirubin 0.90, AST 34, ALT 90 H, Alkaline Phosphatase 216 H, Total Protein 4.9 L, Albumin 2.0 L, Globulin 2.9, Albumin/Globulin Ratio 0.7 L Current Medications Acetaminophen (Acetaminophen 325 Mg Tablet) 650 mg PO Q6H PRN PRN PRN Reason: Pain Score 1-10/Temp > 100.7 F Last Admin: 06/17/20 23:34 Dose: 650 mg Documented by: Acyclovir (Acyclovir 200 Mg Capsule) 400 mg PO BID [facility] Last Admin: 06/17/20 21:48 Dose: 400 mg Documented by: Albuterol Sulfate (Albuterol 2.5 Mg/3 Ml Vial.Neb.) 2.5 mg INHALATION Q2H PRN PRN PRN Reason: Shortness of Breath/Wheezing Last Admin: 06/17/20 04:09 Dose: 2.5 mg Documented by: Amiodarone HCl (Amiodarone 200 Mg Tablet) 200 mg PO BID [facility] Last Admin: 06/17/20 21:47 Dose: 200 mg Documented by: Apixaban (Apixaban 5 Mg Tablet) 5 mg PO BID [facility] Last Admin: 06/17/20 21:47 Dose: 5 mg Documented by: Atenolol (Atenolol 25 Mg Tablet) 25 mg PO BID [facility] Chlorhexidine Gluconate (Chlorhexidine Gluc 2% Cloth 1 Each [place]) 1 each TOPICAL DAILY [facility] Dexamethasone (Dexamethasone 4 Mg Tablet) 6 mg PO DAILY [facility] Stop: 06/22/20 10:01 Last Admin: 06/17/20 13:03 Dose: 6 mg Documented by: Finasteride (Finasteride 5 Mg Tablet) 5 mg PO DAILY [facility] Last Admin: 06/17/20 13:05 Dose: 5 mg Documented by: Fluticasone Propionate (Fluticasone 0.05% 1 [place] Nasal.Sry) 2 spray NASAL DAILY PRN PRN PRN Reason: ALLERGIES Sodium Chloride () 250 mls @ 15 mls/hr IV .[id number] PRN PRN Reason: Saline Flush Last Infusion: 06/16/20 00:09 Dose: Infused Documented by: Sodium Chloride () 250 mls @ 15 mls/hr IV .[id number] PRN PRN Reason: Additional IVPB Infusion Levothyroxine Sodium (Levothyroxine 100 Mcg Tablet) 100 mcg PO DAILY [facility] Last Admin: 06/17/20 13:05 Dose: 100 mcg Documented by: Melatonin (Melatonin 10 Mg Tablet) 5 mg PO QHS PRN PRN Reason: SLEEP Last Admin: 06/17/20 23:34 Dose: 5 mg Documented by: Ondansetron HCl (Ondansetron 4 Mg/2 Ml Vial) 4 mg IV Q8H PRN PRN PRN Reason: NAUSEA/VOMITING Senna/Docusate Sodium (Senna/Docusate Sodium 1 Tablet) 2 tablet PO BID PRN PRN PRN Reason: Constipation Sodium Chloride (0.9% Saline Lock 10 Ml Syringe) 10 - 40 ml IV UD PRN PRN Reason: SALINE FLUSH Last Admin: 06/17/20 21:48 Dose: 20 ml Documented by: STROKE Vital Signs/Narrative: Vital Signs Temp Pulse Resp BP Pulse Ox 06/18/20 07:00 51 L 17 160/86 H 92 06/18/20 06:00 46 L 17 112/65 92 06/18/20 05:00 48 L 19 H 125/69 H 94 06/18/20 04:36 50 L 16 94 06/18/20 04:00 96.9 F L 49 L 18 120/67 92 Medical Necessity - Tobacco Use Smoking Status: Never smoker Tobacco Use: Non-smoker Assessment/Plan All Active Problems (Last Reviewed 02/24/20 @ 10:06 by Yashira Estrada) Perirectal abscess (Acute) Pneumonia due to COVID-19 virus (Acute) Hypoxemia (Acute) Chronic lymphoid leukemia (Resolved) Encounter for venous access device care (Acute) Encounter for care related to vascular access port (Acute) Skin lesion (Acute) Neutropenia (Resolved) 1. Acute hypoxic respiratory sufficiency secondary to acute COVID-19 pneumonia, worsening On Airvo/BiPAP, continue with breathing treatments, po steroids, encourage use of incentive spirometer. Wean off oxygen for SPO2 more than 94% 2. Acute COVID-19 pneumonia with hypoxia, severe Continue on oral Decadron' Completed Remdesivir ID and pulmo following 3. A. fib with RVR, rate controlled, newly diagnosed Continue on oral amiodarone Continue on apixaban and atenolol 4. Hypertension, uncontrolled, on continue with home regimen -atenolol Will resume losartan 5. Hypothyroidism, continue on Synthroid 6. CLL/hypogammaglobulinemia, follows in the outpatient for IVIG Continue hold ibrutinib 7. DVT PPx- Lovenox SC 8. CODE STATUS: Full code Inpatient E&M: 56018 Subs Hosp L3
[2020-06-18] MEDS: Acyclovir 200 MG Capsule 400 MG PO ×2 (08:34→20:08)
[2020-06-18] MEDS: dexAMETHasone 4 MG Tablet 6 MG PO (08:35)
[2020-06-18] MEDS: Levothyroxine 100 MCG Tablet PO (08:35)
[2020-06-18] MEDS: Amiodarone 200 MG Tablet PO ×2 (08:36→20:06)
[2020-06-18] MEDS: APIXABAN 5 MG TABLET PO ×2 (08:36→20:03)
[2020-06-18] MEDS: Finasteride 5 MG Tablet PO (08:36)
[2020-06-18] MEDS: Atenolol 25 MG Tablet PO ×2 (09:12→20:04)
--- NOTE | 2020-06-18 10:10 | CM.UR ---
Participated in interdisciplinary ICU rounds this am. Family participated via phone. Patient remains on 70% Airvo. Case management will continue to follow. Shasta Lara RN, CCM.
[2020-06-18] MEDS: CHLORHEXIDINE GLUC 2% CLOTH 1 EACH TOWELETTE TOPICAL (11:26)
[2020-06-18] MEDS: Acetaminophen 325 MG Tablet 650 MG PO (20:03)
[2020-06-18] MEDS: MELATONIN 10 MG TABLET 5 MG PO (20:06)
[2020-06-18] MEDS: Losartan Potassium 50 MG Tablet PO (22:06)
[2020-06-19] VITALS (22 sets, daily range): BP systolic 124–167; BP diastolic 72–96; PULSE 45–64; RESP 12–20; TEMP 36.3–37.2; O2SAT 89–96
[2020-06-19 05:17] LABS: Hematocrit 42.4 % (40-54); Hemoglobin 13.5 g/dL (13.0-16.5); Mean Corp Hgb Conc 31.8 g/dL (32-36); Mean Corpuscular Hgb 28.7 pg (27.0-32.0); Mean Corpuscular Volume 90.2 fL (80-94); Mean Platelet Vol. 11.8 fl (6.2-12.0); POSITIVE COUNT YES; POSITIVE DIFFERENTIAL YES; POSITIVE MORPHOLOGY YES; Platelet Count 194 K/mm3 (150-450); RBC Distribution Width CV 13.8 % (11.6-14.6); RBC Distribution Width SD 45.3 fl (35.1-43.9)
[2020-06-19 05:23] LABS: Differential Indicated MANUAL DIFF
[2020-06-19 05:37] LABS: Anion Gap 7 (5-15); BUN 36 mg/dL (7-18); Calcium,Total 7.9 mg/dL (8.5-10.1); Chloride 108 mmol/L (98-107); Creatinine, Serum 1.06 mg/dL (0.70-1.30); EST Glomerular Filtration Rate 72 mL/min (>60); Est Glom Filt Rate - Afr Amer 88 mL/min (>60); Estimated Creatinine Clearance 63.13 ml/min; Glucose 131 mg/dL (74-106); Potassium 4.4 mmol/L (3.5-5.1); Sodium Level 140 mmol/L (136-145)
[2020-06-19] MEDS: Furosemide 20 MG/2 ML VIAL IV (06:24)
[2020-06-19 06:57] LABS: Lymphocyte 5 % (19-41); Monocyte 4 % (0-10); Neutrophil-Segmented 91 % (47-70); Platelet Estimate ADEQUATE (ADEQ); Red Cell Morphology NORM C+C NORMAL (NORM C&C); Total Cells Counted 100 (MANUAL DIFF)
[2020-06-19 06:58] LABS: Absolute Lymphocyte Count 0.75 X10^3/uL (0.83-4.51); Absolute Neutrophil Count 13.7 X10^3/uL (2.0-7.7); Lymphocyte # 0.75 X10^3/ul (4.0); Neutrophil # 16.67 X10^3/uL (2.7-7.7)
--- NOTE | 2020-06-19 07:07 | PN_ITS ---
Subjective: Patient did well overnight. Patient did have some bradycardia, but no hypotension was reported. Patient's oxygen status has remained relatively st able. Patient reports a mild cough. No chest pain is been reported. General: Alert, Oriented x3, Cooperative, No apparent distress, - - Minimal conversational dyspnea HEENT: Atraumatic, PERRLA, EOMI, Normocephalic, - - No scleral icterus or injection noted Oral: Moist Mucosa, No Gingival or Mucosal Lesions/ Ulcerations Neck: Supple, No JVD, No Nodes, Trachea Midline Lungs: No rhonchi, No wheeze, No rales, Diminished Cardiovascular: Regular Rhythm, Normal S1, Normal S2, No murmurs, Bradycardic, No rub noted, No Gallop, - - Sinus bradycardia noted on monitor Abdomen: Bowel Sounds Present, Soft, Non Tender, Non-Distended Extremities: No clubbing, No cyanosis, No edema Skin: No rashes, No breakdown Musculoskeletal: No Tenderness to Palpation of Joints or Extremities Lymphatic: No Cervical, Supraclavicular, or Inguinal Adenopathy Neurological: Cranial nerves II-XII grossly intact, Neuro grossly intact, Motor Exam 5/5 strength throughout Psych/Mental Status: Alert and oriented to time, place, person, mood and affect Vital Signs Temp Pulse Resp BP Pulse Ox 36.3 C L 55 L 18 124/96 H 93 06/19/20 04:00 06/19/20 07:00 06/19/20 07:00 06/19/20 07:00 06/19/20 07:00 Oxygen Flow Rate (L/min) [ 0 AMBULATING on Room Air] Oxygen Flow Rate (L/min) [ 6 AMBULATION with Oxygen] Oxygen Flow Rate (L/min) [At 0 REST on Room Air] Oxygen Flow Rate (L/min) 60 Oxygen Delivery Method Airvo Weight: 82 kg Body Mass Index (BMI) 26.4 Intake and Output for Last 24 Hours 06/17/20 06/18/20 06/19/20 23:59 23:59 23:59 Intake Total 550 / 550 700 / 820 240 / 240 Output Total 1350 / 1550 1060 / 1610 800 / 800 Balance -800 / -1000 -360 / -790 -560 / -560 Labs (Last 48 Hours) 06/18/20 06/18/20 06/19/20 05:00 05:00 04:35 WBC 14.7 H 15.0 H RBC 4.51 L 4.70 Hgb 13.2 13.5 Hct 40.5 42.4 MCV 89.8 90.2 MCH 29.3 28.7 MCHC 32.6 31.8 L RDW Std Deviation 45.2 H 45.3 H RDW Coeff of Jesús 13.9 13.8 Plt Count 185 194 MPV 11.7 11.8 Neut % (Auto) Not Reportable Absolute Neuts (auto) 13.7 H Absolute Lymphs (auto) 0.75 L Total Counted 100 Neutrophils % (Manual) 91 H Lymphocytes % (Manual) 5 L Monocytes % (Manual) 4 Diff Path Review May foll Platelet Estimate ADEQUATE RBC Morphology NORM C+C Sodium 139 Potassium 4.4 Chloride 107 Carbon Dioxide 25.0 Anion Gap 7 BUN 36 H Creatinine 1.04 Estim Creat Clear Calc 64.34 Est GFR (MDRD) Af Amer 90 Est GFR (MDRD) Non-Af 74 BUN/Creatinine Ratio 34.6 H Glucose 130 H Calcium 7.7 L Total Bilirubin 0.90 AST 34 ALT 90 H Alkaline Phosphatase 216 H Total Protein 4.9 L Albumin 2.0 L Globulin 2.9 Albumin/Globulin Ratio 0.7 L 06/19/20 04:35 WBC RBC Hgb Hct MCV MCH MCHC RDW Std Deviation RDW Coeff of Jesús Plt Count MPV Neut % (Auto) Absolute Neuts (auto) Absolute Lymphs (auto) Total Counted Neutrophils % (Manual) Lymphocytes % (Manual) Monocytes % (Manual) Diff Path Review Platelet Estimate RBC Morphology Sodium 140 Potassium 4.4 Chloride 108 H Carbon Dioxide 25.0 Anion Gap 7 BUN 36 H Creatinine 1.06 Estim Creat Clear Calc 63.13 Est GFR (MDRD) Af Amer 88 Est GFR (MDRD) Non-Af 72 BUN/Creatinine Ratio 34.0 H Glucose 131 H Calcium 7.9 L Total Bilirubin AST ALT Alkaline Phosphatase Total Protein Albumin Globulin Albumin/Globulin Ratio Microbiology 06/13/20 10:12 Blood Culture (Wb) - Anticubital Right Blood Culture - Final No growth in 5 days. 06/13/20 09:40 Blood Culture (Wb) - Anticubital Left Blood Culture - Final No growth in 5 days. Medical Necessity - Tobacco Use Smoking Status: Never smoker Tobacco Use: Non-smoker Assessment/Plan All Active Problems (Last Reviewed 10/14/20 @ 10:06 by Yashira Estrada) Perirectal abscess (Acute) Pneumonia due to COVID-19 virus (Acute) Hypoxemia (Acute) Chronic lymphoid leukemia (Resolved) Encounter for venous access device care (Acute) Encounter for care related to vascular access port (Acute) Skin lesion (Acute) Neutropenia (Resolved) RECOMMENDATIONS: 1. Continue Decadron. Completed remdesivir 2. Wean oxygen as tolerated. 3. Okay to hold Imbruvica during acute condition 4. Encourage incentive spirometer and Acapella 5. Discontinue atenolol given bradycardia. Continue amiodarone. 6. Small challenge of Lasix 7. Okay to leave the intensive care unit IMPRESSIONS: 1. Acute hypoxic respiratory failure secondary to acute COVID-19 pneumonia Patient does not have a significant pulmonary history, but is immunosuppressed at baseline. Increasing oxygen demands may be secondary to progression of COVID-19. Patient is appropriately on Decadron and completed remdesivir. Infectious disease is following. Continue to wean oxygen as tolerated. Patient appears to be stabilizing from a respiratory standpoint. Continue to wean oxygen as tolerated and will give a challenge of Lasix therapy today. 2. Indeterminate troponin/new onset A. fib Clinical suspicion for elevated troponin secondary to global hypoxia. Patient does not have any significant EKG changes at this time. Patient currently on full anticoagulation given new onset A. fib. Will discontinue atenolol given bradycardia. Continue amiodarone p.o. for now. 3. 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 Okay to hold Imbruvica from my perspective. Unclear if IVIG needs to be continued. Would defer to infectious disease. Patient is not currently acting as a bacterial superinfection at this time. Inpatient E&M: 27926 [facility] Hosp L3
--- NOTE | 2020-06-19 07:37 | PCM.PN.HOSP ---
Patient Problems: Active and Suspected Problems (Last Reviewed 02/24/20 @ 10:06 by Yashira Estrada) Pneumonia due to COVID-19 virus (Acute) Hypoxemia (Acute) Encounter for venous access device care (Acute) Reason for Visit: Follow-up on hypoxic respiratory failure/Acute COVID-19 infection Subjective: Patient was seen and examined. No acute events. He remains on Airvo. He feels improved. He was bradycardic overnight with atenolol being discontinued. Objective: Physical exam: General: Alert, Oriented x3, Cooperative, No apparent distress, - - on Airvo HEENT: Atraumatic, PERRLA, EOMI, Normocephalic Oral: Moist Mucosa Neck: Supple Lungs: Diminished Cardiovascular: Regular rate, Regular Rhythm, Normal S1, Normal S2, No murmurs Abdomen: Bowel Sounds Present, Soft, Non Tender, Non-Distended, No Hepato-splenomegaly Extremities: No edema Skin: No rashes Musculoskeletal: No Tenderness to Palpation of Joints or Extremities Neurological: Cranial nerves II-XII grossly intact Psych/Mental Status: Normal Affect, Appropriate Vitals/I&O's: Vital Signs Temp Pulse Resp BP Pulse Ox 97.3 F L 55 L 18 124/96 H 93 06/19/20 04:00 06/19/20 07:00 06/19/20 07:00 06/19/20 07:00 06/19/20 07:00 Oxygen Flow Rate (L/min) [ 0 AMBULATING on Room Air] Oxygen Flow Rate (L/min) [ 6 AMBULATION with Oxygen] Oxygen Flow Rate (L/min) [At 0 REST on Room Air] Oxygen Flow Rate (L/min) 60 Oxygen Delivery Method Airvo Weight: 82 kg Body Mass Index (BMI) 26.4 Intake and Output for Last 24 Hours 06/17/20 06/18/20 06/19/20 23:59 23:59 23:59 Intake Total 550 / 550 700 / 820 240 / 240 Output Total 1350 / 1550 1060 / 1610 800 / 800 Balance -800 / -1000 -360 / -790 -560 / -560 Microbiology Past 72 Hours 06/13/20 10:12 Blood Culture (Wb) - Anticubital Right Blood Culture - Final No growth in 5 days. 06/13/20 09:40 Blood Culture (Wb) - Anticubital Left Blood Culture - Final No growth in 5 days. Laboratory Results 06/19/20 04:35: WBC 15.0 H, RBC 4.70, Hgb 13.5, Hct 42.4, MCV 90.2, MCH 28.7, MCHC 31.8 L, RDW Std Deviation 45.3 H, RDW Coeff of Jesús 13.8, Plt Count 194, MPV 11.8, Neut % (Auto) Not Reportable, Absolute Neuts (auto) 13.7 H, Absolute Lymphs (auto) 0.75 L, Total Counted 100, Neutrophils % (Manual) 91 H, Lymphocytes % (Manual) 5 L, Monocytes % (Manual) 4, Diff Path Review September, Platelet Estimate ADEQUATE, RBC Morphology NORM C+C 06/19/20 04:35: Sodium 140, Potassium 4.4, Chloride 108 H, Carbon Dioxide 25.0, Anion Gap 7, BUN 36 H, Creatinine 1.06, Estim Creat Clear Calc 63.13, Est GFR (MDRD) Af Amer 88, Est GFR (MDRD) Non-Af 72, BUN/Creatinine Ratio 34.0 H, Glucose 131 H, Calcium 7.9 L Current Medications Acetaminophen (Acetaminophen 325 Mg Tablet) 650 mg PO Q6H PRN PRN PRN Reason: Pain Score 1-10/Temp > 100.7 F Last Admin: 06/18/20 20:03 Dose: 650 mg Documented by: Acyclovir (Acyclovir 200 Mg Capsule) 400 mg PO BID [facility] Last Admin: 06/18/20 20:08 Dose: 400 mg Documented by: Albuterol Sulfate (Albuterol 2.5 Mg/3 Ml Vial.Neb.) 2.5 mg INHALATION Q2H PRN PRN PRN Reason: Shortness of Breath/Wheezing Last Admin: 06/17/20 04:09 Dose: 2.5 mg Documented by: Amiodarone HCl (Amiodarone 200 Mg Tablet) 200 mg PO BID [facility] Last Admin: 06/18/20 20:06 Dose: 200 mg Documented by: Apixaban (Apixaban 5 Mg Tablet) 5 mg PO BID [facility] Last Admin: 06/18/20 20:03 Dose: 5 mg Documented by: Chlorhexidine Gluconate (Chlorhexidine Gluc 2% Cloth 1 Each Towelette) 1 each TOPICAL DAILY [facility] Last Admin: 06/18/20 11:26 Dose: 1 each Documented by: Dexamethasone (Dexamethasone 4 Mg Tablet) 6 mg PO DAILY [facility] Stop: 06/22/20 10:01 Last Admin: 06/18/20 08:35 Dose: 6 mg Documented by: Finasteride (Finasteride 5 Mg Tablet) 5 mg PO DAILY [facility] Last Admin: 06/18/20 08:36 Dose: 5 mg Documented by: Fluticasone Propionate (Fluticasone 0.05% 1 [place] Nasal.Sry) 2 spray NASAL DAILY PRN PRN PRN Reason: ALLERGIES Sodium Chloride () 250 mls @ 15 mls/hr IV .[id number] PRN PRN Reason: Saline Flush Last Infusion: 06/16/20 00:09 Dose: Infused Documented by: Sodium Chloride () 250 mls @ 15 mls/hr IV .[id number] PRN PRN Reason: Additional IVPB Infusion Levothyroxine Sodium (Levothyroxine 100 Mcg Tablet) 100 mcg PO DAILY [facility] Last Admin: 06/18/20 08:35 Dose: 100 mcg Documented by: Losartan Potassium (Losartan Potassium 50 Mg Tablet) 50 mg PO DAILY [facility] Last Admin: 06/18/20 22:06 Dose: 50 mg Documented by: Melatonin (Melatonin 10 Mg Tablet) 5 mg PO QHS PRN PRN Reason: SLEEP Last Admin: 06/18/20 20:06 Dose: 5 mg Documented by: Ondansetron HCl (Ondansetron 4 Mg/2 Ml Vial) 4 mg IV Q8H PRN PRN PRN Reason: NAUSEA/VOMITING Senna/Docusate Sodium (Senna/Docusate Sodium 1 Tablet) 2 tablet PO BID PRN PRN PRN Reason: Constipation Sodium Chloride (0.9% Saline Lock 10 Ml Syringe) 10 - 40 ml IV UD PRN PRN Reason: SALINE FLUSH Last Admin: 06/17/20 21:48 Dose: 20 ml Documented by: Sodium Chloride (Sodium Chloride 0.65% 1 [place].Btl) 2 spray NASAL TID PRN PRN PRN Reason: NASAL DRYNESS STROKE Vital Signs/Narrative: Vital Signs Temp Pulse Resp BP Pulse Ox 06/19/20 07:00 55 L 18 124/96 H 93 06/19/20 06:00 48 L 14 166/77 H 96 06/19/20 05:00 45 L 16 144/85 H 94 06/19/20 04:00 97.3 F L 48 L 12 144/81 H 95 06/19/20 03:38 49 L Medical Necessity - Tobacco Use Smoking Status: Never smoker Tobacco Use: Non-smoker Assessment/Plan All Active Problems (Last Reviewed 02/24/20 @ 10:06 by Yashira Estrada) Perirectal abscess (Acute) Pneumonia due to COVID-19 virus (Acute) Hypoxemia (Acute) Chronic lymphoid leukemia (Resolved) Encounter for venous access device care (Acute) Encounter for care related to vascular access port (Acute) Skin lesion (Acute) Neutropenia (Resolved) 74-year-old immunocompromised patient who comes in on 06/13/20 with acute COVID-19 pneumonia and hypoxia 1. Acute hypoxic respiratory sufficiency secondary to acute COVID-19 pneumonia, remains about the same On Airvo/BiPAP, continue with breathing treatments, po steroids, encourage use of incentive spirometer. Wean off oxygen for SPO2 more than 94% 2. Acute COVID-19 pneumonia with hypoxia, severe Continue on oral Decadron Completed Remdesivir ID and pulmo following 3. A. fib with RVR, rate controlled, newly diagnosed. Overnight patient was bradycardic, atenolol held Continue on oral amiodarone and apixaban 4. Hypertension, uncontrolled, on continue with home regimen -atenolol Will resume losartan 5. Hypothyroidism, continue on Synthroid 6. CLL/hypogammaglobulinemia, follows in the outpatient for IVIG Continue hold ibrutinib 7. DVT PPx- Lovenox SC 8. CODE STATUS: Full code Inpatient E&M: 83234 Subs Hosp L3
[2020-06-19] MEDS: Acyclovir 200 MG Capsule 400 MG PO ×2 (08:21→20:19)
[2020-06-19] MEDS: APIXABAN 5 MG TABLET PO ×2 (08:21→20:19)
[2020-06-19] MEDS: Losartan Potassium 50 MG Tablet PO (08:21)
[2020-06-19] MEDS: Levothyroxine 100 MCG Tablet PO (08:21)
[2020-06-19] MEDS: Sodium Chloride 0.65% 1 SPRAY SPRAY.BTL 2 SPRAY NASAL (08:22)
[2020-06-19] MEDS: dexAMETHasone 4 MG Tablet 6 MG PO (08:22)
[2020-06-19] MEDS: Amiodarone 200 MG Tablet PO ×2 (08:22→20:19)
[2020-06-19] MEDS: Finasteride 5 MG Tablet PO (08:22)
--- NOTE | 2020-06-19 08:45 | NURSING ---
report called for transfer to room 213, transferred per bed , resp therapist present, belongings sent with patient
[2020-06-20] VITALS (18 sets, daily range): BP systolic 127–148; BP diastolic 73–91; PULSE 53–77; RESP 12–24; TEMP 36–36.6; O2SAT 88–95
--- NOTE | 2020-06-20 06:54 | PN_ITS ---
Patient Problems: Active and Suspected Problems (Last Reviewed 02/24/20 @ 10:06 by Yashira Estrada) Pneumonia due to COVID-19 virus (Acute) Hypoxemia (Acute) Encounter for venous access device care (Acute) Subjective: The patient was seen and examined at the bedside this morning. Events from the last 24 hours have been reviewed. The patient is currently afebrile, hemodynamically stable and maintaining appropriate saturations on Airvo heated high flow oxygen. The patient has completed a treatment course of remdesivir and remains on Decadron. The patient is currently documented to be overall net negative 5+ liters for the hospital admission. Objective: The patient's most recent lab work, culture data and imaging studies have all been personally reviewed. Coronavirus PCR was positive on June 10. - Physical Exam Vitals/I&O's: Vital Signs Temp Pulse Resp BP Pulse Ox 97.8 F 53 L 16 147/91 H 90 06/20/20 02:15 06/20/20 03:49 06/20/20 03:00 06/20/20 02:15 06/20/20 03:04 Oxygen Flow Rate (L/min) [ 0 AMBULATING on Room Air] Oxygen Flow Rate (L/min) [ 6 AMBULATION with Oxygen] Oxygen Flow Rate (L/min) [At 0 REST on Room Air] Oxygen Flow Rate (L/min) 60 Oxygen Delivery Method Bi-pap Weight: 180 lb 1.883 oz Body Mass Index (BMI) 26.4 Intake and Output for Last 24 Hours 06/18/20 06/19/20 06/20/20 23:59 23:59 23:59 Intake Total 700 / 820 540 / 540 Output Total 1060 / 1610 3250 / 3800 900 / 900 Balance -360 / -790 -2710 / -3260 -900 / -900 General: Alert, Cooperative, No apparent distress HEENT: Atraumatic, Normocephalic Oral: No Gingival or Mucosal Lesions/ Ulcerations Neck: Supple, No Nodes, Trachea Midline Lungs: No rhonchi, No wheeze, No rales, Diminished Cardiovascular: Regular rate, Regular Rhythm Abdomen: Bowel Sounds Present, Soft, Non Tender Extremities: No clubbing, No cyanosis, No edema Skin: No breakdown Musculoskeletal: No Tenderness to Palpation of Joints or Extremities, No Muscle Wasting Lymphatic: No Cervical, Supraclavicular, or Inguinal Adenopathy Neurological: Cranial nerves II-XII grossly intact, Neuro grossly intact Psych/Mental Status: Normal Affect, Appropriate Labs (Last 48 Hours) 06/19/20 06/19/20 06/20/20 04:35 04:35 05:16 WBC 15.0 H Cancelled Corrected WBC Cancelled RBC 4.70 Cancelled Hgb 13.5 Cancelled Hct 42.4 Cancelled MCV 90.2 Cancelled MCH 28.7 Cancelled MCHC 31.8 L Cancelled RDW Std Deviation 45.3 H Cancelled RDW Coeff of Jesús 13.8 Cancelled Plt Count 194 Cancelled MPV 11.8 Cancelled Immature Gran % (Auto) Cancelled Neut % (Auto) Not Reportable Cancelled Lymph % (Auto) Cancelled [place] % (Auto) Cancelled Eos % (Auto) Cancelled Baso % (Auto) Cancelled Absolute Neuts (auto) 13.7 H Cancelled Absolute Lymphs (auto) 0.75 L Cancelled Total Counted 100 Cancelled Neutrophils % (Manual) 91 H Cancelled Band Neutrophils % Cancelled Lymphocytes % (Manual) 5 L Cancelled Monocytes % (Manual) 4 Cancelled Eosinophils % (Manual) Cancelled Basophils % (Manual) Cancelled Metamyelocytes % Cancelled Myelocytes % Cancelled Promyelocytes % Cancelled Blast Cells % Cancelled Plasma Cell % (Manual) Cancelled Other Cells % Cancelled Nucleated RBC % Cancelled Nucleated RBCs/100 WBC Cancelled Differential Comment Cancelled Diff Path Review May foll Cancelled Hypersegmented Neuts Cancelled Atypical Lymphocytes Cancelled Reactive Lymphocytes Cancelled Smudge Cells Cancelled Toxic Granulation Cancelled Toxic Vacuolation Cancelled Dohle Bodies Cancelled Shanta Rods Cancelled Platelet Estimate ADEQUATE Cancelled Plt Morphology Comment Cancelled RBC Morphology NORM C+C Cancelled Polychromasia Cancelled Hypochromasia Cancelled Poikilocytosis Cancelled Basophilic Stippling Cancelled Anisocytosis Cancelled Microcytosis Cancelled Macrocytosis Cancelled Spherocytes Cancelled Sickle Cells Cancelled Target Cells Cancelled Tear Drop Cells Cancelled Ovalocytes Cancelled Stomatocytes Cancelled [place] Bodies Cancelled [place] Cells Cancelled Bite Cells Cancelled Crenated Cell Cancelled Acanthocytes (Spur) Cancelled Rouleaux Cancelled Schistocytes Cancelled Sodium 140 Potassium 4.4 Chloride 108 H Carbon Dioxide 25.0 Anion Gap 7 BUN 36 H Creatinine 1.06 Estim Creat Clear Calc 63.13 Est GFR (MDRD) Af Amer 88 Est GFR (MDRD) Non-Af 72 BUN/Creatinine Ratio 34.0 H Glucose 131 H Calcium 7.9 L Total Bilirubin AST ALT Alkaline Phosphatase Total Protein Albumin Globulin Albumin/Globulin Ratio 06/20/20 05:16 WBC Corrected WBC RBC Hgb Hct MCV MCH MCHC RDW Std Deviation RDW Coeff of Jesús Plt Count MPV Immature Gran % (Auto) Neut % (Auto) Lymph % (Auto) [place] % (Auto) Eos % (Auto) Baso % (Auto) Absolute Neuts (auto) Absolute Lymphs (auto) Total Counted Neutrophils % (Manual) Band Neutrophils % Lymphocytes % (Manual) Monocytes % (Manual) Eosinophils % (Manual) Basophils % (Manual) Metamyelocytes % Myelocytes % Promyelocytes % Blast Cells % Plasma Cell % (Manual) Other Cells % Nucleated RBC % Nucleated RBCs/100 WBC Differential Comment Diff Path Review Hypersegmented Neuts Atypical Lymphocytes Reactive Lymphocytes Smudge Cells Toxic Granulation Toxic Vacuolation Dohle Bodies Shanta Rods Platelet Estimate Plt Morphology Comment RBC Morphology Polychromasia Hypochromasia Poikilocytosis Basophilic Stippling Anisocytosis Microcytosis Macrocytosis Spherocytes Sickle Cells Target Cells Tear Drop Cells Ovalocytes Stomatocytes [place] Bodies [place] Cells Bite Cells Crenated Cell Acanthocytes (Spur) Rouleaux Schistocytes Sodium Cancelled Potassium Cancelled Chloride Cancelled Carbon Dioxide Cancelled Anion Gap Cancelled BUN Cancelled Creatinine Cancelled Estim Creat Clear Calc Cancelled Est GFR (MDRD) Af Amer Cancelled Est GFR (MDRD) Non-Af Cancelled BUN/Creatinine Ratio Cancelled Glucose Cancelled Calcium Cancelled Total Bilirubin Cancelled AST Cancelled ALT Cancelled Alkaline Phosphatase Cancelled Total Protein Cancelled Albumin Cancelled Globulin Cancelled Albumin/Globulin Ratio Cancelled Microbiology 06/13/20 10:12 Blood Culture (Wb) - Anticubital Right Blood Culture - Final No growth in 5 days. 06/13/20 09:40 Blood Culture (Wb) - Anticubital Left Blood Culture - Final No growth in 5 days. Clinical Impression(s) from Imaging Studies Chest CTA 06/13/20 10:40 IMPRESSION: Bilateral pulmonary infiltrates worse in the right hemithorax. No evidence of pulmonary emboli. Electronically Signed: Bowen Jones MD at 11:43 EST , Service support , Chest X-Ray 06/17/20 04:10 IMPRESSION: Severe bilateral airspace disease right greater than left consistent with Covid 19 pneumonia. Findings appear to be similar to that of the chest CT June 13, 2020. at 0456 Reported and signed by: Louis Vazquez MD Electronically Signed: Louis Vazquez MD at 4:54 EST Tel , Service support , Current Medications Acetaminophen (Acetaminophen 325 Mg Tablet) 650 mg PO Q6H PRN PRN PRN Reason: Pain Score 1-10/Temp > 100.7 F Last Admin: 06/18/20 20:03 Dose: 650 mg Documented by: Acyclovir (Acyclovir 200 Mg Capsule) 400 mg PO BID [facility] Last Admin: 06/19/20 20:19 Dose: 400 mg Documented by: Albuterol Sulfate (Albuterol 2.5 Mg/3 Ml Vial.Neb.) 2.5 mg INHALATION Q2H PRN PRN PRN Reason: Shortness of Breath/Wheezing Last Admin: 06/17/20 04:09 Dose: 2.5 mg Documented by: Amiodarone HCl (Amiodarone 200 Mg Tablet) 200 mg PO BID [facility] Last Admin: 06/19/20 20:19 Dose: 200 mg Documented by: Apixaban (Apixaban 5 Mg Tablet) 5 mg PO BID [facility] Last Admin: 06/19/20 20:19 Dose: 5 mg Documented by: Chlorhexidine Gluconate (Chlorhexidine Gluc 2% Cloth 1 Each Towelette) 1 each TOPICAL DAILY [facility] Last Admin: 06/19/20 09:12 Dose: Not Given Documented by: Dexamethasone (Dexamethasone 4 Mg Tablet) 6 mg PO DAILY [facility] Stop: 06/22/20 10:01 Last Admin: 06/19/20 08:22 Dose: 6 mg Documented by: Finasteride (Finasteride 5 Mg Tablet) 5 mg PO DAILY [facility] Last Admin: 06/19/20 08:22 Dose: 5 mg Documented by: Fluticasone Propionate (Fluticasone 0.05% 1 [place] Nasal.Sry) 2 spray NASAL DAILY PRN PRN PRN Reason: ALLERGIES Sodium Chloride () 250 mls @ 15 mls/hr IV .[id number] PRN PRN Reason: Saline Flush Last Infusion: 06/16/20 00:09 Dose: Infused Documented by: Sodium Chloride () 250 mls @ 15 mls/hr IV .[id number] PRN PRN Reason: Additional IVPB Infusion Levothyroxine Sodium (Levothyroxine 100 Mcg Tablet) 100 mcg PO DAILY [facility] Last Admin: 06/19/20 08:21 Dose: 100 mcg Documented by: Losartan Potassium (Losartan Potassium 50 Mg Tablet) 50 mg PO DAILY [facility] Last Admin: 06/19/20 08:21 Dose: 50 mg Documented by: Melatonin (Melatonin 10 Mg Tablet) 5 mg PO QHS PRN PRN Reason: SLEEP Last Admin: 06/18/20 20:06 Dose: 5 mg Documented by: Ondansetron HCl (Ondansetron 4 Mg/2 Ml Vial) 4 mg IV Q8H PRN PRN PRN Reason: NAUSEA/VOMITING Senna/Docusate Sodium (Senna/Docusate Sodium 1 Tablet) 2 tablet PO BID PRN PRN PRN Reason: Constipation Sodium Chloride (0.9% Saline Lock 10 Ml Syringe) 10 - 40 ml IV UD PRN PRN Reason: SALINE FLUSH Last Admin: 06/17/20 21:48 Dose: 20 ml Documented by: Sodium Chloride (Sodium Chloride 0.65% 1 [place].Btl) 2 spray NASAL TID PRN PRN PRN Reason: NASAL DRYNESS Last Admin: 06/19/20 08:22 Dose: 2 spray Documented by: Medical Necessity - Tobacco Use Smoking Status: Never smoker Tobacco Use: Non-smoker Assessment/Plan All Active Problems (Last Reviewed 02/24/20 @ 10:06 by Yashira Estrada) Perirectal abscess (Acute) Pneumonia due to COVID-19 virus (Acute) Hypoxemia (Acute) Chronic lymphoid leukemia (Resolved) Encounter for venous access device care (Acute) Encounter for care related to vascular access port (Acute) Skin lesion (Acute) Neutropenia (Resolved) RECOMMENDATIONS: 1. Continue to wean FiO2 to maintain oxygen saturations at or above 90%. 2. Continue amiodarone and systemic anticoagulation with Eliquis. 3. Continue Decadron to complete 10-day treatment course. 4. Continue IV diuretic therapy as tolerated by hemodynamics and renal function. IMPRESSIONS: 1. Acute hypoxemic respiratory failure secondary to COVID-19 pneumonia Although the patient does not have a significant pulmonary history, he is immunosuppressed at baseline. Plan to continue current supportive measures including supplemental oxygen to maintain saturations at or above 90%. The patient has already completed a treatment course of remdesivir and will remain on Decadron accordingly. The patient will remain systemic anticoagulated on Eliquis as well. Continue gentle IV diuretic therapy as tolerated by hemodynamics and renal function. 2. New onset atrial fibrillation/indeterminate troponin Likely precipitated by presenting hypoxemia. Plan to continue supportive measures including amiodarone and Eliquis. 3. 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 Continue to hold Imbruvica. This note was generated with [employer] dictation software. It may contain incorrect words, spelling, and punctuation that were not noted in checking the note before signing. Inpatient E&M: 91036 [facility] Hosp L3
--- NOTE | 2020-06-20 07:40 | PN_ITS ---
Patient Problems: Active and Suspected Problems (Last Reviewed 02/24/20 @ 10:06 by Yashira Estrada) Pneumonia due to COVID-19 virus (Acute) Hypoxemia (Acute) Encounter for venous access device care (Acute) Reason for Visit: Acute hypoxic respiratory failure COVID-19 pneumonia Subjective: Patient is a 74-year-old gentleman with multiple comorbidities including CLL and hypogammaglobulinemia on IVIG as outpatient presented with progressive shortness of breath diagnosed with acute hypoxic respiratory failure secondary to COVID-19 pneumonia Objective: GENERAL: Dyspneic at rest on BiPAP HEENT: Atraumatic; EYES; Anicteric, Normal Conjunctiva NECK; supple, normal thyroid, RESPIRATORY: Diminished to auscultation CARDIOVASCULAR: Regular S1 S2, GI: soft, normoactive bowel sounds, : No Renal angle tenderness; EXTREMITIES: No edema, no clubbing, MUSCULOSKELETAL: no muscle waisting NEURO: Awake; no lateralizing signs. SKIN: No Rash PSYCH; appears anxious Vitals/I&O's: Vital Signs Temp Pulse Resp BP Pulse Ox 97.8 F 58 L 18 147/91 H 88 06/20/20 02:15 06/20/20 07:05 06/20/20 07:05 06/20/20 02:15 06/20/20 07:05 Oxygen Flow Rate (L/min) [ 0 AMBULATING on Room Air] Oxygen Flow Rate (L/min) [ 6 AMBULATION with Oxygen] Oxygen Flow Rate (L/min) [At 0 REST on Room Air] Oxygen Flow Rate (L/min) 60 Oxygen Delivery Method Bi-pap Weight: 81.7 kg Body Mass Index (BMI) 26.4 Intake and Output for Last 24 Hours 06/18/20 06/19/20 06/20/20 23:59 23:59 23:59 Intake Total 700 / 820 540 / 540 Output Total 1060 / 1610 3250 / 3800 900 / 900 Balance -360 / -790 -2710 / -3260 -900 / -900 Microbiology Past 72 Hours 06/13/20 10:12 Blood Culture (Wb) - Anticubital Right Blood Culture - Final No growth in 5 days. 06/13/20 09:40 Blood Culture (Wb) - Anticubital Left Blood Culture - Final No growth in 5 days. Laboratory Results 06/20/20 05:16: WBC Cancelled, Corrected WBC Cancelled, RBC Cancelled, Hgb Cancelled, Hct Cancelled, MCV Cancelled, MCH Cancelled, MCHC Cancelled, RDW Std Deviation Cancelled, RDW Coeff of Jesús Cancelled, Plt Count Cancelled, MPV Cancelled, Immature Gran % (Auto) Cancelled, Neut % (Auto) Cancelled, Lymph % (Auto) Cancelled, [place] % (Auto) Cancelled, Eos % (Auto) Cancelled, Baso % (Auto) Cancelled, Absolute Neuts (auto) Cancelled, Absolute Lymphs (auto) Cancelled, Total Counted Cancelled, Neutrophils % (Manual) Cancelled, Band Neutrophils % Cancelled, Lymphocytes % (Manual) Cancelled, Monocytes % (Manual) Cancelled, Eosinophils % (Manual) Cancelled, Basophils % (Manual) Cancelled, Metamyelocytes % Cancelled, Myelocytes % Cancelled, Promyelocytes % Cancelled, Blast Cells % Cancelled, Plasma Cell % (Manual) Cancelled, Other Cells % Cancelled, Nucleated RBC % Cancelled, Nucleated RBCs/100 WBC Cancelled, Differential Comment Cancelled, Diff Path Review Cancelled, Hypersegmented Neuts Cancelled, Atypical Lymphocytes Cancelled, Reactive Lymphocytes Cancelled, Smudge Cells Cancelled, Toxic Granulation Cancelled, Toxic Vacuolation Cancelled, Dohle Bodies Cancelled, Shanta Rods Cancelled, Platelet Estimate Cancelled, Plt Morphology Comment Cancelled, RBC Morphology Cancelled, Polychromasia Cancelled, Hy pochromasia Cancelled, Poikilocytosis Cancelled, Basophilic Stippling Cancelled, Anisocytosis Cancelled, Microcytosis Cancelled, Macrocytosis Cancelled, Spherocytes Cancelled, Sickle Cells Cancelled, Target Cells Cancelled, Tear Drop Cells Cancelled, Ovalocytes Cancelled, Stomatocytes Cancelled, [place] Bodies Cancelled, [place] Cells Cancelled, Bite Cells Cancelled, Crenated Cell Cancelled, Acanthocytes (Spur) Cancelled, Rouleaux Cancelled, Schistocytes Cancelled 06/20/20 05:16: Sodium Cancelled, Potassium Cancelled, Chloride Cancelled, Carbon Dioxide Cancelled, Anion Gap Cancelled, BUN Cancelled, Creatinine Cancelled, Estim Creat Clear Calc Cancelled, Est GFR (MDRD) Af Amer Cancelled, Est GFR (MDRD) Non-Af Cancelled, BUN/Creatinine Ratio Cancelled, Glucose Canc elled, Calcium Cancelled, Total Bilirubin Cancelled, AST Cancelled, ALT Cancelled, Alkaline Phosphatase Cancelled, Total Protein Cancelled, Albumin Cancelled, Globulin Cancelled, Albumin/Globulin Ratio Cancelled Current Medications Acetaminophen (Acetaminophen 325 Mg Tablet) 650 mg PO Q6H PRN PRN PRN Reason: Pain Score 1-10/Temp > 100.7 F Last Admin: 06/18/20 20:03 Dose: 650 mg Documented by: Acyclovir (Acyclovir 200 Mg Capsule) 400 mg PO BID [facility] Last Admin: 06/19/20 20:19 Dose: 400 mg Documented by: Albuterol Sulfate (Albuterol 2.5 Mg/3 Ml Vial.Neb.) 2.5 mg INHALATION Q2H PRN PRN PRN Reason: Shortness of Breath/Wheezing Last Admin: 06/17/20 04:09 Dose: 2.5 mg Documented by: Amiodarone HCl (Amiodarone 200 Mg Tablet) 200 mg PO BID [facility] Last Admin: 06/19/20 20:19 Dose: 200 mg Documented by: Apixaban (Apixaban 5 Mg Tablet) 5 mg PO BID [facility] Last Admin: 06/19/20 20:19 Dose: 5 mg Documented by: Chlorhexidine Gluconate (Chlorhexidine Gluc 2% Cloth 1 Each Towelette) 1 each TOPICAL DAILY [facility] Last Admin: 06/19/20 09:12 Dose: Not Given Documented by: Dexamethasone (Dexamethasone 4 Mg Tablet) 6 mg PO DAILY [facility] Stop: 06/22/20 10:01 Last Admin: 06/19/20 08:22 Dose: 6 mg Documented by: Finasteride (Finasteride 5 Mg Tablet) 5 mg PO DAILY [facility] Last Admin: 06/19/20 08:22 Dose: 5 mg Documented by: Fluticasone Propionate (Fluticasone 0.05% 1 [place] Nasal.Sry) 2 spray NASAL DAILY PRN PRN PRN Reason: ALLERGIES Sodium Chloride () 250 mls @ 15 mls/hr IV .[id number] PRN PRN Reason: Saline Flush Last Infusion: 06/16/20 00:09 Dose: Infused Documented by: Sodium Chloride () 250 mls @ 15 mls/hr IV .[id number] PRN PRN Reason: Additional IVPB Infusion Levothyroxine Sodium (Levothyroxine 100 Mcg Tablet) 100 mcg PO DAILY [facility] Last Admin: 06/19/20 08:21 Dose: 100 mcg Documented by: Losartan Potassium (Losartan Potassium 50 Mg Tablet) 50 mg PO DAILY [facility] Last Admin: 06/19/20 08:21 Dose: 50 mg Documented by: Melatonin (Melatonin 10 Mg Tablet) 5 mg PO QHS PRN PRN Reason: SLEEP Last Admin: 06/18/20 20:06 Dose: 5 mg Documented by: Ondansetron HCl (Ondansetron 4 Mg/2 Ml Vial) 4 mg IV Q8H PRN PRN PRN Reason: NAUSEA/VOMITING Senna/Docusate Sodium (Senna/Docusate Sodium 1 Tablet) 2 tablet PO BID PRN PRN PRN Reason: Constipation Sodium Chloride (0.9% Saline Lock 10 Ml Syringe) 10 - 40 ml IV UD PRN PRN Reason: SALINE FLUSH Last Admin: 06/17/20 21:48 Dose: 20 ml Documented by: Sodium Chloride (Sodium Chloride 0.65% 1 [place].Btl) 2 spray NASAL TID PRN PRN PRN Reason: NASAL DRYNESS Last Admin: 06/19/20 08:22 Dose: 2 spray Documented by: STROKE Vital Signs/Narrative: Vital Signs Pulse Resp Pulse Ox 06/20/20 07:05 58 L 18 88 06/20/20 03:49 53 L Medical Necessity - Tobacco Use Smoking Status: Never smoker Tobacco Use: Non-smoker Assessment/Plan All Active Problems (Last Reviewed 02/24/20 @ 10:06 by Yashira Estrada) Perirectal abscess (Acute) Pneumonia due to COVID-19 virus (Acute) Hypoxemia (Acute) Chronic lymphoid leukemia (Resolved) Encounter for venous access device care (Acute) Encounter for care related to vascular access port (Acute) Skin lesion (Acute) Neutropenia (Resolved) Patient is a 74-year-old gentleman with multiple comorbidities including CLL and hypogammaglobulinemia on IVIG as outpatient presented with progressive shortness of breath diagnosed with acute hypoxic respiratory failure secondary to COVID-19 pneumonia 1. Acute hypoxic respiratory failure ?Secondary to COVID-19 pneumonia patient was initially managed in the ICU transferred to regular nursing floor. Patient had to be placed back on noninvasive ventilation BiPAP on on the morning of 06/20/2020 2. Acute COVID-19 pneumonia ?Patient has completed a course of remdesivir currently on oral Decadron. Consultation placed to both ID and pulmonary 3. New onset A. fib ?Presented with RVR rate is now controlled patient is on amiodarone as well as apixaban 4. Hypertension - Blood pressure controlled, home medications continued with dose adjustment as needed 5. Hypothyroidism - Patient is on levothyroxine home dose continued 6. CLL/hypogammaglobulinemia ?Patient is on IVIG as outpatient. Also on ibrutinib which is currently on hold 7. DVT prophylaxis ?Apixaban Inpatient E&M: [id number] [facility] L[facility]
[2020-06-20 07:46] LABS: Hematocrit 48.7 % (40-54); Mean Corp Hgb Conc 32.9 g/dL (32-36); Mean Corpuscular Hgb 29.5 pg (27.0-32.0); Mean Corpuscular Volume 89.7 fL (80-94); Mean Platelet Vol. 11.3 fl (6.2-12.0); POSITIVE COUNT YES; POSITIVE MORPHOLOGY YES; Platelet Count 252 K/mm3 (150-450); RBC Distribution Width SD 44.8 fl (35.1-43.9); Red Blood Count 5.43 M/mm3 (4.6-6.2); White Blood Count 20.4 K/mm3 (4.4-11.0)
[2020-06-20 07:47] LABS: Differential Indicated MANUAL DIFF
[2020-06-20] MEDS: Losartan Potassium 50 MG Tablet PO (07:49)
[2020-06-20] MEDS: APIXABAN 5 MG TABLET PO ×2 (07:50→21:57)
[2020-06-20] MEDS: Acyclovir 200 MG Capsule 400 MG PO ×2 (07:50→21:57)
[2020-06-20] MEDS: Levothyroxine 100 MCG Tablet PO (07:50)
[2020-06-20] MEDS: Amiodarone 200 MG Tablet PO ×2 (07:50→21:57)
[2020-06-20] MEDS: Finasteride 5 MG Tablet PO (07:50)
[2020-06-20] MEDS: dexAMETHasone 4 MG Tablet 6 MG PO (07:53)
[2020-06-20 08:05] LABS: Lymphocyte 5 % (19-41); Monocyte 8 % (0-10); Neutrophil-Band 1 % (0-5); Neutrophil-Segmented 86 % (47-70); Total Cells Counted 100 (MANUAL DIFF)
[2020-06-20 08:06] LABS: Platelet Estimate ADEQUATE (ADEQ); Red Cell Morphology NORM C+C NORMAL (NORM C&C)
[2020-06-20 08:07] LABS: Absolute Lymphocyte Count 1.02 X10^3/uL (0.83-4.51); Absolute Neutrophil Count 17.8 X10^3/uL (2.0-7.7)
[2020-06-20 08:17] LABS: ALB/GLOB Ratio 0.8 RATIO (0.9-2.4); AST(SGOT) 17 U/L (15-37); Alanine Aminotransfer ALT/SGPT 57 U/L (16-61); Albumin, Serum 2.4 g/dL (3.2-5.0); Alkaline Phosphatase 205 U/L (45-117); Anion Gap 4 (5-15); BUN 34 mg/dL (7-18); BUN/Creat Ratio 30.6 RATIO (10-20); Calcium,Total 8.2 mg/dL (8.5-10.1); Chloride 105 mmol/L (98-107); Creatinine, Serum 1.11 mg/dL (0.70-1.30); EST Glomerular Filtration Rate 69 mL/min (>60); Est Glom Filt Rate - Afr Amer 83 mL/min (>60); Estimated Creatinine Clearance 60.29 ml/min; Globulin 3.1 g/dL (2.2-4.2); Glucose 81 mg/dL (74-106); Potassium 4.3 mmol/L (3.5-5.1); Protein, Total 5.5 g/dL (6.4-8.2); Sodium Level 138 mmol/L (136-145)
[2020-06-20] MEDS: Albuterol 2.5 MG/3 ML VIAL.NEB. INHALATION (09:19)
[2020-06-20] MEDS: 0.9% Saline Lock 10 ML Syringe IV ×2 (12:02→21:58)
[2020-06-20] MEDS: Furosemide 40 MG/4 ML Vial IV (12:02)
[2020-06-20 13:39] LABS: Pathologist Review Reviewed
--- NOTE | 2020-06-20 15:07 | CHAPLAIN ---
Type of Pastoral Visit ___ Initial Visit _x__ Follow-up Visit ___ On-call Visit ___ General Patient Visit ___ Spiritual Assessment ___ Family Conference ___ Bereavement ___ Rapid Response ___ Code Blue _x__ Other (describe below) Pastoral Care Referral From _x__ Patient ___ Family ___ Nurse ___ Physician ___ It Technician ___ Lease Administrator ___ Other (describe below) Sacrament/Intervention _x__ Active listening ___ Anointing ___ Hoahaoism ___ Bereavement ___ Communion ___ Jessica exploration ___ ___ Life review _x__ Prayer ___ Reconciliation ___ Sacrament of Sick _x__ Supportive presence ___ Wedding ___ Other (describe below) Pastoral Comments phone call into patient room who is in isolation; patient welcomes spiritual care support call and visit; pt reports that recovery is slow; pt says daughters are staying with his for support; pt is man of jessica and looks to God for help; pt requests prayers for recovery
[2020-06-21] VITALS (22 sets, daily range): BP systolic 126–176; BP diastolic 70–96; PULSE 59–98; RESP 12–20; TEMP 36.2–36.6; O2SAT 90–100
[2020-06-21 05:47] LABS: Hematocrit 49.1 % (40-54); Hemoglobin 15.5 g/dL (13.0-16.5); Mean Corp Hgb Conc 31.6 g/dL (32-36); Mean Corpuscular Hgb 28.9 pg (27.0-32.0); Mean Corpuscular Volume 91.4 fL (80-94); Mean Platelet Vol. 11.2 fl (6.2-12.0); POSITIVE COUNT YES; POSITIVE DIFFERENTIAL YES; POSITIVE MORPHOLOGY YES; Platelet Count 235 K/mm3 (150-450); RBC Distribution Width CV 14.3 % (11.6-14.6); RBC Distribution Width SD 47.4 fl (35.1-43.9); Red Blood Count 5.37 M/mm3 (4.6-6.2); White Blood Count 18.2 K/mm3 (4.4-11.0)
[2020-06-21 05:48] LABS: Differential Indicated MANUAL DIFF
[2020-06-21 06:06] LABS: Absolute Neutrophil Count 17.1 X10^3/uL (2.0-7.7); Lymphocyte 2 % (19-41); Metamyelocyte 1 % (0-1); Monocyte 3 % (0-10); Neutrophil-Band 3 % (0-5); Neutrophil-Segmented 91 % (47-70); Total Cells Counted 100 (MANUAL DIFF)
[2020-06-21 06:07] LABS: Absolute Lymphocyte Count 0.36 X10^3/uL (0.83-4.51); Platelet Estimate ADEQUATE (ADEQ); Red Cell Morphology NORM C+C NORMAL (NORM C&C)
[2020-06-21 06:15] LABS: ALB/GLOB Ratio 0.8 RATIO (0.9-2.4); AST(SGOT) 13 U/L (15-37); Alanine Aminotransfer ALT/SGPT 43 U/L (16-61); Albumin, Serum 2.4 g/dL (3.2-5.0); Alkaline Phosphatase 200 U/L (45-117); Anion Gap 4 (5-15); BUN 39 mg/dL (7-18); BUN/Creat Ratio 29.1 RATIO (10-20); Calcium,Total 8.5 mg/dL (8.5-10.1); Chloride 102 mmol/L (98-107); Creatinine, Serum 1.34 mg/dL (0.70-1.30); EST Glomerular Filtration Rate 55 mL/min (>60); Est Glom Filt Rate - Afr Amer 67 mL/min (>60); Estimated Creatinine Clearance 49.94 ml/min; Glucose 110 mg/dL (74-106); Potassium 4.6 mmol/L (3.5-5.1); Protein, Total 5.4 g/dL (6.4-8.2); Sodium Level 138 mmol/L (136-145)
--- NOTE | 2020-06-21 06:17 | PCM.PN.PUL ---
Patient Problems: Active and Suspected Problems (Last Reviewed 02/24/20 @ 10:06 by Yashira Estrada) Pneumonia due to COVID-19 virus (Acute) Hypoxemia (Acute) Encounter for venous access device care (Acute) Subjective: The patient was seen and examined at the bedside this morning. Events from the last 24 hours have been reviewed. The patient is currently afebrile, hemodynamically stable and maintaining appropriate oxygen saturations on Airvo heated high flow. The patient did tolerate AVAPS overnight. White count remains elevated at 18,000. Creatinine has increased to 1.34 this morning. The patient has completed his treatment course of remdesivir. He remains on Decadron and systemic anticoagulation with Eliquis. He is currently documented to be overall net -4.7 L for the hospital admission. The patient did receive a one-time dose of IV Lasix yesterday. Objective: The patient's most recent lab work, culture data and imaging studies have all been personally reviewed. Coronavirus PCR was positive on June 10. - Physical Exam Vitals/I&O's: Vital Signs Temp Pulse Resp BP Pulse Ox 97.7 F L 64 15 161/83 H 95 06/21/20 03:43 06/21/20 05:00 06/21/20 05:00 06/21/20 03:43 06/21/20 05:00 Oxygen Flow Rate (L/min) [ 0 AMBULATING on Room Air] Oxygen Flow Rate (L/min) [ 6 AMBULATION with Oxygen] Oxygen Flow Rate (L/min) [At 0 REST on Room Air] Oxygen Flow Rate (L/min) 60 Oxygen Delivery Method Bi-pap Weight: 180 lb 1.883 oz Body Mass Index (BMI) 26.4 Intake and Output for Last 24 Hours 06/19/20 06/20/20 06/21/20 23:59 23:59 23:59 Intake Total 540 / 540 1100 / 1100 Output Total 3250 / 3800 2500 / 2500 100 / 100 Balance -2710 / -3260 -1400 / -1400 -100 / -100 General: Alert, Cooperative HEENT: Atraumatic, PERRLA, Normocephalic Oral: No Gingival or Mucosal Lesions/ Ulcerations Neck: Supple, No Nodes, Trachea Midline Lungs: No rhonchi, No wheeze, No rales, Diminished Cardiovascular: Regular rate, Regular Rhythm Abdomen: Bowel Sounds Present, Soft, Non Tender Extremities: No clubbing, No cyanosis, No edema Skin: No breakdown Musculoskeletal: No Tenderness to Palpation of Joints or Extremities, No Muscle Wasting Lymphatic: No Cervical, Supraclavicular, or Inguinal Adenopathy Neurological: Cranial nerves II-XII grossly intact, Neuro grossly intact Psych/Mental Status: Normal Affect, Appropriate Labs (Last 48 Hours) 06/19/20 06/20/20 06/20/20 04:35 05:16 05:16 WBC Cancelled Corrected WBC Cancelled RBC Cancelled Hgb Cancelled Hct Cancelled MCV Cancelled MCH Cancelled MCHC Cancelled RDW Std Deviation Cancelled RDW Coeff of Jesús Cancelled Plt Count Cancelled MPV Cancelled Immature Gran % (Auto) Cancelled Neut % (Auto) Cancelled Lymph % (Auto) Cancelled [place] % (Auto) Cancelled Eos % (Auto) Cancelled Baso % (Auto) Cancelled Absolute Neuts (auto) 13.7 H Cancelled Absolute Lymphs (auto) 0.75 L Cancelled Total Counted 100 Cancelled Neutrophils % (Manual) 91 H Cancelled Band Neutrophils % Cancelled Lymphocytes % (Manual) 5 L Cancelled Monocytes % (Manual) 4 Cancelled Eosinophils % (Manual) Cancelled Basophils % (Manual) Cancelled Metamyelocytes % Cancelled Myelocytes % Cancelled Promyelocytes % Cancelled Blast Cells % Cancelled Plasma Cell % (Manual) Cancelled Other Cells % Cancelled Nucleated RBC % Cancelled Nucleated RBCs/100 WBC Cancelled Differential Comment Cancelled Diff Path Review Reviewed Cancelled Hypersegmented Neuts Cancelled Atypical Lymphocytes Cancelled Reactive Lymphocytes Cancelled Smudge Cells Cancelled Toxic Granulation Cancelled Toxic Vacuolation Cancelled Dohle Bodies Cancelled Shanta Rods Cancelled Platelet Estimate ADEQUATE Cancelled Plt Morphology Comment Cancelled RBC Morphology NORM C+C Cancelled Polychromasia Cancelled Hypochromasia Cancelled Poikilocytosis Cancelled Basophilic Stippling Cancelled Anisocytosis Cancelled Microcytosis Cancelled Macrocytosis Cancelled Spherocytes Cancelled Sickle Cells Cancelled Target Cells Cancelled Tear Drop Cells Cancelled Ovalocytes Cancelled Stomatocytes Cancelled Mck[place] Bodies Cancelled [place] Cells Cancelled Bite Cells Cancelled Crenated Cell Cancelled Acanthocytes (Spur) Cancelled Rouleaux Cancelled Schistocytes Cancelled Sodium Cancelled Potassium Cancelled Chloride Cancelled Carbon Dioxide Cancelled Anion Gap Cancelled BUN Cancelled Creatinine Cancelled Estim Creat Clear Calc Cancelled Est GFR (MDRD) Af Amer Cancelled Est GFR (MDRD) Non-Af Cancelled BUN/Creatinine Ratio Cancelled Glucose Cancelled Calcium Cancelled Total Bilirubin Cancelled AST Cancelled ALT Cancelled Alkaline Phosphatase Cancelled Total Protein Cancelled Albumin Cancelled Globulin Cancelled Albumin/Globulin Ratio Cancelled 06/20/20 06/20/20 06/21/20 07:15 07:15 05:30 WBC 20.4 H 18.2 H Corrected WBC RBC 5.43 5.37 Hgb 16.0 15.5 Hct 48.7 49.1 MCV 89.7 91.4 MCH 29.5 28.9 MCHC 32.9 31.6 L RDW Std Deviation 44.8 H 47.4 H RDW Coeff of Jesús 14.0 14.3 Plt Count 252 235 MPV 11.3 11.2 Immature Gran % (Auto) Neut % (Auto) Not Reportable Not Reportable Lymph % (Auto) [place] % (Auto) Eos % (Auto) Baso % (Auto) Absolute Neuts (auto) 17.8 H 17.1 H Absolute Lymphs (auto) 1.02 0.36 L Total Counted 100 100 Neutrophils % (Manual) 86 H 91 H Band Neutrophils % 1 3 Lymphocytes % (Manual) 5 L 2 L Monocytes % (Manual) 8 3 Eosinophils % (Manual) Basophils % (Manual) Metamyelocytes % 1 Myelocytes % Promyelocytes % Blast Cells % Plasma Cell % (Manual) Other Cells % Nucleated RBC % Nucleated RBCs/100 WBC Differential Comment Diff Path Review May foll May foll Hypersegmented Neuts Atypical Lymphocytes Reactive Lymphocytes Smudge Cells Toxic Granulation Toxic Vacuolation Dohle Bodies Shanta Rods Platelet Estimate ADEQUATE ADEQUATE Plt Morphology Comment RBC Morphology NORM C+C NORM C+C Polychromasia Hypochromasia Poikilocytosis Basophilic Stippling Anisocytosis Microcytosis Macrocytosis Spherocytes Sickle Cells Target Cells Tear Drop Cells Ovalocytes Stomatocytes Mckay-[place] Bodies [place] Cells Bite Cells Crenated Cell Acanthocytes (Spur) Rouleaux Schistocytes Sodium 138 Potassium 4.3 Chloride 105 Carbon Dioxide 29.0 Anion Gap 4 L BUN 34 H Creatinine 1.11 Estim Creat Clear Calc 60.29 Est GFR (MDRD) Af Amer 83 Est GFR (MDRD) Non-Af 69 BUN/Creatinine Ratio 30.6 H Glucose 81 Calcium 8.2 L Total Bilirubin 1.30 H AST 17 ALT 57 Alkaline Phosphatase 205 H Total Protein 5.5 L Albumin 2.4 L Globulin 3.1 Albumin/Globulin Ratio 0.8 L 06/21/20 05:30 WBC Corrected WBC RBC Hgb Hct MCV MCH MCHC RDW Std Deviation RDW Coeff of Jesús Plt Count MPV Immature Gran % (Auto) Neut % (Auto) Lymph % (Auto) [place] % (Auto) Eos % (Auto) Baso % (Auto) Absolute Neuts (auto) Absolute Lymphs (auto) Total Counted Neutrophils % (Manual) Band Neutrophils % Lymphocytes % (Manual) Monocytes % (Manual) Eosinophils % (Manual) Basophils % (Manual) Metamyelocytes % Myelocytes % Promyelocytes % Blast Cells % Plasma Cell % (Manual) Other Cells % Nucleated RBC % Nucleated RBCs/100 WBC Differential Comment Diff Path Review Hypersegmented Neuts Atypical Lymphocytes Reactive Lymphocytes Smudge Cells Toxic Granulation Toxic Vacuolation Dohle Bodies Shanta Rods Platelet Estimate Plt Morphology Comment RBC Morphology Polychromasia Hypochromasia Poikilocytosis Basophilic Stippling Anisocytosis Microcytosis Macrocytosis Spherocytes Sickle Cells Target Cells Tear Drop Cells Ovalocytes Stomatocytes Mckay-[place] Bodies Sh[place] Cells Bite Cells Crenated Cell Acanthocytes (Spur) Rouleaux Schistocytes Sodium 138 Potassium 4.6 Chloride 102 Carbon Dioxide 32.0 Anion Gap 4 L BUN 39 H Creatinine 1.34 H Estim Creat Clear Calc 49.94 Est GFR (MDRD) Af Amer 67 Est GFR (MDRD) Non-Af 55 L BUN/Creatinine Ratio 29.1 H Glucose 110 H Calcium 8.5 Total Bilirubin 1.20 H AST 13 L ALT 43 Alkaline Phosphatase 200 H Total Protein 5.4 L Albumin 2.4 L Globulin 3.0 Albumin/Globulin Ratio 0.8 L Clinical Impression(s) from Imaging Studies Chest CTA 06/13/20 10:40 IMPRESSION: Bilateral pulmonary infiltrates worse in the right hemithorax. No evidence of pulmonary emboli. Electronically Signed: Bowen Jones MD at 11:43 EST , Service support , Chest X-Ray 06/17/20 04:10 IMPRESSION: Severe bilateral airspace disease right greater than left consistent with Covid 19 pneumonia. Findings appear to be similar to that of the chest CT June 13, 2020. at 0456 Reported and signed by: Louis Vazquez MD Electronically Signed: Louis Vazquez MD at 4:54 EST Tel , Service support , Current Medications Acetaminophen (Acetaminophen 325 Mg Tablet) 650 mg PO Q6H PRN PRN PRN Reason: Pain Score 1-10/Temp > 100.7 F Last Admin: 06/18/20 20:03 Dose: 650 mg Documented by: Acyclovir (Acyclovir 200 Mg Capsule) 400 mg PO BID [facility] Last Admin: 06/20/20 21:57 Dose: 400 mg Documented by: Albuterol Sulfate (Albuterol 2.5 Mg/3 Ml Vial.Neb.) 2.5 mg INHALATION Q2H PRN PRN PRN Reason: Shortness of Breath/Wheezing Last Admin: 06/20/20 09:19 Dose: 2.5 mg Documented by: Amiodarone HCl (Amiodarone 200 Mg Tablet) 200 mg PO BID [facility] Last Admin: 06/20/20 21:57 Dose: 200 mg Documented by: Apixaban (Apixaban 5 Mg Tablet) 5 mg PO BID [facility] Last Admin: 06/20/20 21:57 Dose: 5 mg Documented by: Chlorhexidine Gluconate (Chlorhexidine Gluc 2% Cloth 1 Each Towelette) 1 each TOPICAL DAILY [facility] Last Admin: 06/20/20 07:56 Dose: Not Given Documented by: Dexamethasone (Dexamethasone 4 Mg Tablet) 6 mg PO DAILY [facility] Stop: 06/22/20 10:01 Last Admin: 06/20/20 07:53 Dose: 6 mg Documented by: Finasteride (Finasteride 5 Mg Tablet) 5 mg PO DAILY [facility] Last Admin: 06/20/20 07:50 Dose: 5 mg Documented by: Fluticasone Propionate (Fluticasone 0.05% 1 [place] Nasal.Sry) 2 spray NASAL DAILY PRN PRN PRN Reason: ALLERGIES Sodium Chloride () 250 mls @ 15 mls/hr IV .[id number] PRN PRN Reason: Saline Flush Last Infusion: 06/16/20 00:09 Dose: Infused Documented by: Sodium Chloride () 250 mls @ 15 mls/hr IV .[id number] PRN PRN Reason: Additional IVPB Infusion Levothyroxine Sodium (Levothyroxine 100 Mcg Tablet) 100 mcg PO DAILY [facility] Last Admin: 06/20/20 07:50 Dose: 100 mcg Documented by: Losartan Potassium (Losartan Potassium 50 Mg Tablet) 50 mg PO DAILY [facility] Last Admin: 06/20/20 07:49 Dose: 50 mg Documented by: Melatonin (Melatonin 10 Mg Tablet) 5 mg PO QHS PRN PRN Reason: SLEEP Last Admin: 06/18/20 20:06 Dose: 5 mg Documented by: Ondansetron HCl (Ondansetron 4 Mg/2 Ml Vial) 4 mg IV Q8H PRN PRN PRN Reason: NAUSEA/VOMITING Senna/Docusate Sodium (Senna/Docusate Sodium 1 Tablet) 2 tablet PO BID PRN PRN PRN Reason: Constipation Sodium Chloride (0.9% Saline Lock 10 Ml Syringe) 10 - 40 ml IV UD PRN PRN Reason: SALINE FLUSH Last Admin: 06/20/20 21:58 Dose: 10 ml Documented by: Sodium Chloride (Sodium Chloride 0.65% 1 [place].Btl) 2 spray NASAL TID PRN PRN PRN Reason: NASAL DRYNESS Last Admin: 06/19/20 08:22 Dose: 2 spray Documented by: Medical Necessity - Tobacco Use Smoking Status: Never smoker Tobacco Use: Non-smoker Assessment/Plan All Active Problems (Last Reviewed 02/24/20 @ 10:06 by Yashira Estrada) Perirectal abscess (Acute) Pneumonia due to COVID-19 virus (Acute) Hypoxemia (Acute) Chronic lymphoid leukemia (Resolved) Encounter for venous access device care (Acute) Encounter for care related to vascular access port (Acute) Skin lesion (Acute) Neutropenia (Resolved) RECOMMENDATIONS: 1. Continue to wean FiO2 to maintain oxygen saturations at or above 90%. 2. Continue amiodarone and systemic anticoagulation with Eliquis. 3. Continue Decadron to complete 10-day treatment course. 4. Continue to hold IV Lasix. Recheck renal function tomorrow morning. IMPRESSIONS: 1. Acute hypoxemic respiratory failure secondary to COVID-19 pneumonia Although the patient does not have a significant pulmonary history, he is immunosuppressed at baseline. Plan to continue current supportive measures including supplemental oxygen to maintain saturations at or above 90%. The patient has already completed a treatment course of remdesivir and will remain on Decadron accordingly. The patient will remain systemic anticoagulated on Eliquis as well. Diuretics are now on hold due to the interval development of acute kidney injury. 2. Acute kidney injury Likely secondary to overdiuresis. Continue to hold Lasix. Hold off on giving any IV fluids today. Recheck chemistry profile tomorrow morning. 3. New onset atrial fibrillation/indeterminate troponin Likely precipitated by presenting hypoxemia. Plan to continue supportive measures including amiodarone and Eliquis. 4. 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 Continue to hold Imbruvica. This note was generated with [employer] dictation software. It may contain incorrect words, spelling, and punctuation that were not noted in checking the note before signing. Inpatient E&M: [id number] [facility] L3
--- NOTE | 2020-06-21 07:23 | PCM.PN.HOSP ---
Patient Problems: Active and Suspected Problems (Last Reviewed 02/24/20 @ 10:06 by Yashira Estrada) Pneumonia due to COVID-19 virus (Acute) Hypoxemia (Acute) Encounter for venous access device care (Acute) Reason for Visit: Acute hypoxic respiratory failure COVID-19 pneumonia Subjective: Patient is a 74-year-old gentleman with multiple comorbidities including CLL and hypogammaglobulinemia on IVIG as outpatient presented with progressive shortness of breath diagnosed with acute hypoxic respiratory failure secondary to COVID-19 pneumonia 06/21/2020; patient seen complains of feeling extremely fatigued with poor appetite. Still requiring high flow oxygen Airvo Objective: GENERAL: Dyspneic at rest HEENT: Atraumatic; EYES; Anicteric, Normal Conjunctiva NECK; supple, normal thyroid, RESPIRATORY: Diminished to auscultation CARDIOVASCULAR: Regular S1 S2, GI: soft, normoactive bowel sounds, : No Renal angle tenderness; EXTREMITIES: No edema, no clubbing, MUSCULOSKELETAL: no muscle waisting NEURO: Awake; no lateralizing signs. SKIN: No Rash PSYCH; appears anxious Vitals/I&O's: Vital Signs Temp Pulse Resp BP Pulse Ox 97.7 F L 61 15 145/85 H 99 06/21/20 03:43 06/21/20 06:36 06/21/20 06:36 06/21/20 06:36 06/21/20 06:36 Oxygen Flow Rate (L/min) [ 0 AMBULATING on Room Air] Oxygen Flow Rate (L/min) [ 6 AMBULATION with Oxygen] Oxygen Flow Rate (L/min) [At 0 REST on Room Air] Oxygen Flow Rate (L/min) 60 Oxygen Delivery Method Bi-pap Weight: 80.9 kg Body Mass Index (BMI) 26.4 Intake and Output for Last 24 Hours 06/19/20 06/20/20 06/21/20 23:59 23:59 23:59 Intake Total 540 / 540 1100 / 1100 Output Total 3250 / 3800 2500 / 2500 100 / 100 Balance -2710 / -3260 -1400 / -1400 -100 / -100 Microbiology Past 72 Hours 06/13/20 10:12 Blood Culture (Wb) - Anticubital Right Blood Culture - Final No growth in 5 days. 06/13/20 09:40 Blood Culture (Wb) - Anticubital Left Blood Culture - Final No growth in 5 days. Laboratory Results 06/19/20 04:35: Diff Path Review Reviewed 06/20/20 07:15: Sodium 138, Potassium 4.3, Chloride 105, Carbon Dioxide 29.0, Anion Gap 4 L, BUN 34 H, Creatinine 1.11, Estim Creat Clear Calc 60.29, Est GFR (MDRD) Af Amer 83, Est GFR (MDRD) Non-Af 69, BUN/Creatinine Ratio 30.6 H, Glucose 81, Calcium 8.2 L, Total Bilirubin 1.30 H, AST 17, ALT 57, Alkaline Phosphatase 205 H, Total Protein 5.5 L, Albumin 2.4 L, Globulin 3.1, Albumin/Globulin Ratio 0.8 L 06/20/20 07:15: WBC 20.4 H, RBC 5.43, Hgb 16.0, Hct 48.7, MCV 89.7, MCH 29.5, MCHC 32.9, RDW Std Deviation 44.8 H, RDW Coeff of Jes[place] 14.0, Plt Count 252, MPV 11.3, Neut % (Auto) Not Reportable, Absolute Neuts (auto) 17.8 H, Absolute Lymphs (auto) 1.02, Total Counted 100, Neutrophils % (Manual) 86 H, Band Neutrophils % 1, Lymphocytes % (Manual) 5 L, Monocytes % (Manual) 8, Diff Path Review September christina, Platelet Estimate ADEQUATE, RBC Morphology NORM [facility] 06/21/20 05:30: WBC 18.2 H, RBC 5.37, Hgb 15.5, Hct 49.1, MCV 91.4, MCH 28.9, MCHC 31.6 L, RDW Std Deviation 47.4 H, RDW Coeff of [place] 14.3, Plt Count 235, MPV 11.2, Neut % (Auto) Not Reportable, Absolute Neuts (auto) 17.1 H, Absolute Lymphs (auto) 0.36 L, Total Counted 100, Neutrophils % (Manual) 91 H, Band Neutrophils % 3, Lymphocytes % (Manual) 2 L, Monocytes % (Manual) 3, Metamyelocytes % 1, Diff Path Review May christina, Platelet Estimate ADEQUATE, RBC Morphology NORM [facility] 06/21/20 05:30: Sodium 138, Potassium 4.6, Chloride 102, Carbon Dioxide 32.0, Anion Gap 4 L, BUN 39 H, Creatinine 1.34 H, Estim Creat Clear Calc 49.94, Est GFR (MDRD) Af Amer 67, Est GFR (MDRD) Non-Af 55 L, BUN/Creatinine Ratio 29.1 H, Glucose 110 H, Calcium 8.5, Total Bilirubin 1.20 H, AST 13 L, ALT 43, Alkaline Phosphatase 200 H, Total Protein 5.4 L, Albumin 2.4 L, Globulin 3.0, Albumin/Globulin Ratio 0.8 L Current Medications Acetaminophen (Acetaminophen 325 Mg Tablet) 650 mg PO Q6H PRN PRN PRN Reason: Pain Score 1-10/Temp > 100.7 F Last Admin: 06/18/20 20:03 Dose: 650 mg Documented by: Acyclovir (Acyclovir 200 Mg Capsule) 400 mg PO BID [facility] Last Admin: 06/20/20 21:57 Dose: 400 mg Documented by: Albuterol Sulfate (Albuterol 2.5 Mg/3 Ml Vial.Neb.) 2.5 mg INHALATION Q2H PRN PRN PRN Reason: Shortness of Breath/Wheezing Last Admin: 06/20/20 09:19 Dose: 2.5 mg Documented by: Amiodarone HCl (Amiodarone 200 Mg Tablet) 200 mg PO BID [facility] Last Admin: 06/20/20 21:57 Dose: 200 mg Documented by: Apixaban (Apixaban 5 Mg Tablet) 5 mg PO BID [facility] Last Admin: 06/20/20 21:57 Dose: 5 mg Documented by: Chlorhexidine Gluconate (Chlorhexidine Gluc 2% Cloth 1 Each [place]) 1 each TOPICAL DAILY [facility] Last Admin: 06/20/20 07:56 Dose: Not Given Documented by: Dexamethasone (Dexamethasone 4 Mg Tablet) 6 mg PO DAILY [facility] Stop: 06/22/20 10:01 Last Admin: 06/20/20 07:53 Dose: 6 mg Documented by: Finasteride (Finasteride 5 Mg Tablet) 5 mg PO DAILY [facility] Last Admin: 06/20/20 07:50 Dose: 5 mg Documented by: Fluticasone Propionate (Fluticasone 0.05% 1 [place] Nasal.Sry) 2 spray NASAL DAILY PRN PRN PRN Reason: ALLERGIES Sodium Chloride () 250 mls @ 15 mls/hr IV .[id number] PRN PRN Reason: Saline Flush Last Infusion: 06/16/20 00:09 Dose: Infused Documented by: Sodium Chloride () 250 mls @ 15 mls/hr IV .[id number] PRN PRN Reason: Additional IVPB Infusion Levothyroxine Sodium (Levothyroxine 100 Mcg Tablet) 100 mcg PO DAILY [facility] Last Admin: 06/20/20 07:50 Dose: 100 mcg Documented by: Losartan Potassium (Losartan Potassium 50 Mg Tablet) 50 mg PO DAILY [facility] Last Admin: 06/20/20 07:49 Dose: 50 mg Documented by: Melatonin (Melatonin 10 Mg Tablet) 5 mg PO QHS PRN PRN Reason: SLEEP Last Admin: 06/18/20 20:06 Dose: 5 mg Documented by: Ondansetron HCl (Ondansetron 4 Mg/2 Ml Vial) 4 mg IV Q8H PRN PRN PRN Reason: NAUSEA/VOMITING Senna/Docusate Sodium (Senna/Docusate Sodium 1 Tablet) 2 tablet PO BID PRN PRN PRN Reason: Constipation Sodium Chloride (0.9% Saline Lock 10 Ml Syringe) 10 - 40 ml IV UD PRN PRN Reason: SALINE FLUSH Last Admin: 06/20/20 21:58 Dose: 10 ml Documented by: Sodium Chloride (Sodium Chloride 0.65% 1 [place].Btl) 2 spray NASAL TID PRN PRN PRN Reason: NASAL DRYNESS Last Admin: 06/19/20 08:22 Dose: 2 spray Documented by: STROKE Vital Signs/Narrative: Vital Signs Temp Pulse Resp BP BP Pulse Ox 06/21/20 06:36 61 15 145/85 H 99 06/21/20 05:59 60 06/21/20 05:00 64 15 95 06/21/20 03:48 59 L 16 98 06/21/20 03:43 97.7 F L 61 19 H 161/83 H 99 Medical Necessity - Tobacco Use Smoking Status: Never smoker Tobacco Use: Non-smoker Assessment/Plan All Active Problems (Last Reviewed 02/24/20 @ 10:06 by Yashira Estrada) Perirectal abscess (Acute) Pneumonia due to COVID-19 virus (Acute) Hypoxemia (Acute) Chronic lymphoid leukemia (Resolved) Encounter for venous access device care (Acute) Encounter for care related to vascular access port (Acute) Skin lesion (Acute) Neutropenia (Resolved) Patient is a 74-year-old gentleman with multiple comorbidities including CLL and hypogammaglobulinemia on IVIG as outpatient presented with progressive shortness of breath diagnosed with acute hypoxic respiratory failure secondary to COVID-19 pneumonia 1. Acute hypoxic respiratory failure ?Secondary to COVID-19 pneumonia patient was initially managed in the ICU transferred to regular nursing floor. Patient had to be placed back on noninvasive ventilation BiPAP on on the morning of 06/20/2020 - 06/21/2020; patient seen complains of feeling extremely fatigued with poor appetite. Still requiring high flow oxygen Airvo 2. Acute COVID-19 pneumonia ?Patient has completed a course of remdesivir currently on oral Decadron. Consultation placed to both ID and pulmonary 3. New onset A. fib ?Presented with RVR rate is now controlled patient is on amiodarone as well as apixaban 4. Hypertension - Blood pressure controlled, home medications continued with dose adjustment as needed 5. Hypothyroidism - Patient is on levothyroxine home dose continued 6. CLL/hypogammaglobulinemia ?Patient is on IVIG as outpatient. Also on ibrutinib which is currently on hold 7. DVT prophylaxis ?Apixaban 8. Acute renal failure ?Patient did receive Lasix monitoring with daily BMPs Inpatient E&M: [id number] [facility] Hosp L3
[2020-06-21] MEDS: Losartan Potassium 50 MG Tablet PO (10:02)
[2020-06-21] MEDS: Amiodarone 200 MG Tablet PO ×2 (10:02→20:16)
[2020-06-21] MEDS: Finasteride 5 MG Tablet PO (10:03)
[2020-06-21] MEDS: dexAMETHasone 4 MG Tablet 6 MG PO (10:03)
[2020-06-21] MEDS: APIXABAN 5 MG TABLET PO ×2 (10:03→20:16)
[2020-06-21] MEDS: Acyclovir 200 MG Capsule 400 MG PO ×2 (10:03→20:16)
[2020-06-21] MEDS: Levothyroxine 100 MCG Tablet PO (10:03)
[2020-06-21 12:51] LABS: Pathologist Review Reviewed
[2020-06-21 12:53] LABS: Pathologist Review Reviewed
[2020-06-22] VITALS (13 sets, daily range): BP systolic 120–152; BP diastolic 69–91; PULSE 62–97; RESP 12–24; TEMP 36.1–36.7; O2SAT 91–97
[2020-06-22 06:16] LABS: Hematocrit 47.4 % (40-54); Mean Corp Hgb Conc 31.6 g/dL (32-36); Mean Corpuscular Hgb 28.8 pg (27.0-32.0); Mean Platelet Vol. 10.8 fl (6.2-12.0); POSITIVE COUNT YES; POSITIVE DIFFERENTIAL YES; POSITIVE MORPHOLOGY YES; Platelet Count 214 K/mm3 (150-450); RBC Distribution Width CV 14.2 % (11.6-14.6); RBC Distribution Width SD 46.7 fl (35.1-43.9); Red Blood Count 5.21 M/mm3 (4.6-6.2); White Blood Count 15.6 K/mm3 (4.4-11.0)
[2020-06-22 06:29] LABS: Differential Indicated MANUAL DIFF
[2020-06-22 06:44] LABS: Absolute Lymphocyte Count 0.62 X10^3/uL (0.83-4.51); Absolute Neutrophil Count 14.2 X10^3/uL (2.0-7.7); Burr Cells 2+; Lymphocyte 4 % (19-41); Metamyelocyte 2 % (0-1); Monocyte 3 % (0-10); Neutrophil-Band 3 % (0-5); Neutrophil-Segmented 88 % (47-70); Platelet Estimate ADEQUATE (ADEQ); Total Cells Counted 100 (MANUAL DIFF)
--- NOTE | 2020-06-22 06:51 | PN_ITS ---
Patient Problems: Active and Suspected Problems (Last Reviewed 02/24/20 @ 10:06 by Yashira Estrada) Pneumonia due to COVID-19 virus (Acute) Hypoxemia (Acute) Encounter for venous access device care (Acute) Subjective: The patient was seen and examined at the bedside this morning. Events from the last 24 hours have been reviewed. The patient is currently afebrile, hemodynamically stable and maintaining appropriate oxygen saturations on Airvo heated high flow. The patient is currently documented to be overall net -6.7 L for the hospital admission. The patient has completed his treatment course of remdesivir. He remains on Decadron and systemic anticoagulation with Eliquis. The patient does seem a bit discouraged this morning regarding his overall lack of improvement. Objective: The patient's most recent lab work, culture data and imaging studies have all been personally reviewed. Coronavirus PCR was positive on June 10. - Physical Exam Vitals/I&O's: Vital Signs Temp Pulse Resp BP Pulse Ox 97.8 F 79 19 H 150/86 H 91 06/22/20 02:30 06/22/20 04:43 06/22/20 04:43 06/22/20 02:30 06/22/20 04:43 Oxygen Flow Rate (L/min) [ 0 AMBULATING on Room Air] Oxygen Flow Rate (L/min) [ 6 AMBULATION with Oxygen] Oxygen Flow Rate (L/min) [At 0 REST on Room Air] Oxygen Flow Rate (L/min) 50 Oxygen Delivery Method Bi-pap Weight: 170 lb 3.15 oz Body Mass Index (BMI) 26.4 Intake and Output for Last 24 Hours 06/20/20 06/21/20 06/22/20 23:59 23:59 23:59 Intake Total 1100 / 1100 240 / 240 0 / 0 Output Total 2500 / 2500 850 / 850 0 / 0 Balance -1400 / -1400 -610 / -610 0 / 0 General: Alert, Cooperative, No apparent distress HEENT: Atraumatic, PERRLA, Normocephalic Oral: No Gingival or Mucosal Lesions/ Ulcerations Neck: Supple, No Nodes, Trachea Midline Lungs: No rhonchi, No wheeze, No rales, Diminished Cardiovascular: Regular rate, Regular Rhythm Abdomen: Bowel Sounds Present, Soft, Non Tender Extremities: No clubbing, No cyanosis, No edema Skin: No breakdown Musculoskeletal: No Tenderness to Palpation of Joints or Extremities, No Muscle Wasting Lymphatic: No Cervical, Supraclavicular, or Inguinal Adenopathy Neurological: Cranial nerves II-XII grossly intact, Neuro grossly intact Psych/Mental Status: Anxious Labs (Last 48 Hours) 06/19/20 06/20/20 06/20/20 04:35 07:15 07:15 WBC 20.4 H RBC 5.43 Hgb 16.0 Hct 48.7 MCV 89.7 MCH 29.5 MCHC 32.9 RDW Std Deviation 44.8 H RDW Coeff of Jesús 14.0 Plt Count 252 MPV 11.3 Neut % (Auto) Not Reportable Absolute Neuts (auto) 17.8 H Absolute Lymphs (auto) 1.02 Total Counted 100 Neutrophils % (Manual) 86 H Band Neutrophils % 1 Lymphocytes % (Manual) 5 L Monocytes % (Manual) 8 Metamyelocytes % Diff Path Review Reviewed Reviewed Platelet Estimate ADEQUATE RBC Morphology NORM C+C [place] Cells Sodium 138 Potassium 4.3 Chloride 105 Carbon Dioxide 29.0 Anion Gap 4 L BUN 34 H Creatinine 1.11 Estim Creat Clear Calc 60.29 Est GFR (MDRD) Af Amer 83 Est GFR (MDRD) Non-Af 69 BUN/Creatinine Ratio 30.6 H Glucose 81 Calcium 8.2 L Magnesium Total Bilirubin 1.30 H AST 17 ALT 57 Alkaline Phosphatase 205 H Total Protein 5.5 L Albumin 2.4 L Globulin 3.1 Albumin/Globulin Ratio 0.8 L 06/21/20 06/21/20 06/22/20 05:30 05:30 06:04 WBC 18.2 H 15.6 H RBC 5.37 5.21 Hgb 15.5 15.0 Hct 49.1 47.4 MCV 91.4 91.0 MCH 28.9 28.8 MCHC 31.6 L 31.6 L RDW Std Deviation 47.4 H 46.7 H RDW Coeff of Jesús 14.3 14.2 Plt Count 235 214 MPV 11.2 10.8 Neut % (Auto) Not Reportable Not Reportable Absolute Neuts (auto) 17.1 H 14.2 H Absolute Lymphs (auto) 0.36 L 0.62 L Total Counted 100 100 Neutrophils % (Manual) 91 H 88 H Band Neutrophils % 3 3 Lymphocytes % (Manual) 2 L 4 L Monocytes % (Manual) 3 3 Metamyelocytes % 1 2 H Diff Path Review Reviewed May foll Platelet Estimate ADEQUATE ADEQUATE RBC Morphology NORM C+C [place] 2+ Sodium 138 Potassium 4.6 Chloride 102 Carbon Dioxide 32.0 Anion Gap 4 L BUN 39 H Creatinine 1.34 H Estim Creat Clear Calc 49.94 Est GFR (MDRD) Af Amer 67 Est GFR (MDRD) Non-Af 55 L BUN/Creatinine Ratio 29.1 H Glucose 110 H Calcium 8.5 Magnesium Total Bilirubin 1.20 H AST 13 L ALT 43 Alkaline Phosphatase 200 H Total Protein 5.4 L Albumin 2.4 L Globulin 3.0 Albumin/Globulin Ratio 0.8 L 06/22/20 06:04 WBC RBC Hgb Hct MCV MCH MCHC RDW Std Deviation RDW Coeff of Jesús Plt Count MPV Neut % (Auto) Absolute Neuts (auto) Absolute Lymphs (auto) Total Counted Neutrophils % (Manual) Band Neutrophils % Lymphocytes % (Manual) Monocytes % (Manual) Metamyelocytes % Diff Path Review Platelet Estimate RBC Morphology Sh[place] Cells Sodium 138 Potassium 4.5 Chloride 106 Carbon Dioxide 28.0 Anion Gap 4 L BUN 36 H Creatinine 1.16 Estim Creat Clear Calc 57.69 Est GFR (MDRD) Af Amer 79 Est GFR (MDRD) Non-Af 65 BUN/Creatinine Ratio 31.0 H Glucose 112 H Calcium 8.3 L Magnesium 2.5 Total Bilirubin 1.30 H AST 13 L ALT 42 Alkaline Phosphatase 171 H Total Protein 5.3 L Albumin 2.2 L Globulin 3.1 Albumin/Globulin Ratio 0.7 L Clinical Impression(s) from Imaging Studies Chest CTA 06/13/20 10:40 IMPRESSION: Bilateral pulmonary infiltrates worse in the right hemithorax. No evidence of pulmonary emboli. Electronically Signed: Bowen Jones MD at 11:43 EST , Service support , Chest X-Ray 06/17/20 04:10 IMPRESSION: Severe bilateral airspace disease right greater than left consistent with Covid 19 pneumonia. Findings appear to be similar to that of the chest CT June 13, 2020. at 0456 Reported and signed by: Louis Vazquez MD Electronically Signed: Louis Vazquez MD at 4:54 EST Tel , Service support , Current Medications Acetaminophen (Acetaminophen 325 Mg Tablet) 650 mg PO Q6H PRN PRN PRN Reason: Pain Score 1-10/Temp > 100.7 F Last Admin: 06/18/20 20:03 Dose: 650 mg Documented by: Acyclovir (Acyclovir 200 Mg Capsule) 400 mg PO BID [facility] Last Admin: 06/21/20 20:16 Dose: 400 mg Documented by: Albuterol Sulfate (Albuterol 2.5 Mg/3 Ml Vial.Neb.) 2.5 mg INHALATION Q2H PRN PRN PRN Reason: Shortness of Breath/Wheezing Last Admin: 06/20/20 09:19 Dose: 2.5 mg Documented by: Amiodarone HCl (Amiodarone 200 Mg Tablet) 200 mg PO BID [facility] Last Admin: 06/21/20 20:16 Dose: 200 mg Documented by: Apixaban (Apixaban 5 Mg Tablet) 5 mg PO BID [facility] Last Admin: 06/21/20 20:16 Dose: 5 mg Documented by: Dexamethasone (Dexamethasone 4 Mg Tablet) 6 mg PO DAILY [facility] Stop: 06/22/20 10:01 Last Admin: 06/21/20 10:03 Dose: 6 mg Documented by: Finasteride (Finasteride 5 Mg Tablet) 5 mg PO DAILY [facility] Last Admin: 06/21/20 10:03 Dose: 5 mg Documented by: Fluticasone Propionate (Fluticasone 0.05% 1 [place] Nasal.Sry) 2 spray NASAL DAILY PRN PRN PRN Reason: ALLERGIES Sodium Chloride () 250 mls @ 15 mls/hr IV .[id number] PRN PRN Reason: Saline Flush Last Infusion: 06/16/20 00:09 Dose: Infused Documented by: Sodium Chloride () 250 mls @ 15 mls/hr IV .[id number] PRN PRN Reason: Additional IVPB Infusion Levothyroxine Sodium (Levothyroxine 100 Mcg Tablet) 100 mcg PO DAILY [facility] Last Admin: 06/21/20 10:03 Dose: 100 mcg Documented by: Losartan Potassium (Losartan Potassium 50 Mg Tablet) 50 mg PO DAILY [facility] Last Admin: 06/21/20 10:02 Dose: 50 mg Documented by: Melatonin (Melatonin 10 Mg Tablet) 5 mg PO QHS PRN PRN Reason: SLEEP Last Admin: 06/18/20 20:06 Dose: 5 mg Documented by: Ondansetron HCl (Ondansetron 4 Mg/2 Ml Vial) 4 mg IV Q8H PRN PRN PRN Reason: NAUSEA/VOMITING Senna/Docusate Sodium (Senna/Docusate Sodium 1 Tablet) 2 tablet PO BID PRN PRN PRN Reason: Constipation Sodium Chloride (0.9% Saline Lock 10 Ml Syringe) 10 - 40 ml IV UD PRN PRN Reason: SALINE FLUSH Last Admin: 06/20/20 21:58 Dose: 10 ml Documented by: Sodium Chloride (Sodium Chloride 0.65% 1 [place].Btl) 2 spray NASAL TID PRN PRN PRN Reason: NASAL DRYNESS Last Admin: 06/19/20 08:22 Dose: 2 spray Documented by: Medical Necessity - Tobacco Use Smoking Status: Never smoker Tobacco Use: Non-smoker Assessment/Plan All Active Problems (Last Reviewed 02/24/20 @ 10:06 by Yashira Estrada) Perirectal abscess (Acute) Pneumonia due to COVID-19 virus (Acute) Hypoxemia (Acute) Chronic lymphoid leukemia (Resolved) Encounter for venous access device care (Acute) Encounter for care related to vascular access port (Acute) Skin lesion (Acute) Neutropenia (Resolved) RECOMMENDATIONS: 1. Continue to wean FiO2 to maintain oxygen saturations at or above 90%. 2. Continue amiodarone and systemic anticoagulation with Eliquis. 3. Continue Decadron to complete 10-day treatment course. 4. Continue noninvasive positive pressure ventilatory support on a nightly basis. IMPRESSIONS: 1. Acute hypoxemic respiratory failure secondary to COVID-19 pneumonia Although the patient does not have a significant pulmonary history, he is immunosuppressed at baseline. Plan to continue current supportive measures including supplemental oxygen to maintain saturations at or above 90%. The patient has already completed a treatment course of remdesivir and will remain on Decadron accordingly. The patient will remain systemic anticoagulated on Eliquis as well. 2. Acute kidney injury Improved. Likely secondary to overdiuresis. Continue to hold Lasix. 3. New onset atrial fibrillation/indeterminate troponin Likely precipitated by presenting hypoxemia. Plan to continue supportive measures including amiodarone and Eliquis. 4. 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 Continue to hold Imbruvica. This note was generated with [employer] dictation software. It may contain incorrect words, spelling, and punctuation that were not noted in checking the note before signing. Inpatient E&M: [id number] Subs Hosp L3
[2020-06-22 06:52] LABS: ALB/GLOB Ratio 0.7 RATIO (0.9-2.4); AST(SGOT) 13 U/L (15-37); Alanine Aminotransfer ALT/SGPT 42 U/L (16-61); Albumin, Serum 2.2 g/dL (3.2-5.0); Alkaline Phosphatase 171 U/L (45-117); Anion Gap 4 (5-15); BUN 36 mg/dL (7-18); Calcium,Total 8.3 mg/dL (8.5-10.1); Chloride 106 mmol/L (98-107); Creatinine, Serum 1.16 mg/dL (0.70-1.30); EST Glomerular Filtration Rate 65 mL/min (>60); Est Glom Filt Rate - Afr Amer 79 mL/min (>60); Estimated Creatinine Clearance 57.69 ml/min; Globulin 3.1 g/dL (2.2-4.2); Glucose 112 mg/dL (74-106); Magnesium 2.5 mg/dL (1.6-2.6); Potassium 4.5 mmol/L (3.5-5.1); Protein, Total 5.3 g/dL (6.4-8.2); Sodium Level 138 mmol/L (136-145)
--- NOTE | 2020-06-22 07:34 | PCM.PN.HOSP ---
Patient Problems: Active and Suspected Problems (Last Reviewed 02/24/20 @ 10:06 by Yashira Estrada) Pneumonia due to COVID-19 virus (Acute) Hypoxemia (Acute) Encounter for venous access device care (Acute) Reason for Visit: Acute COVID-19 pneumonia Acute hypoxic respiratory failure Subjective: Patient seen still remains on high flow oxygen. Also remains extremely anxious. An order was given for patient to receive 0.5 mg of Ativan. Updated patient's family who presents via FaceTime Objective: GENERAL: Dyspneic at rest HEENT: Atraumatic; EYES; Anicteric, Normal Conjunctiva NECK; supple, normal thyroid, RESPIRATORY: Diminished to auscultation CARDIOVASCULAR: Regular S1 S2, GI: soft, normoactive bowel sounds, : No Renal angle tenderness; EXTREMITIES: No edema, no clubbing, MUSCULOSKELETAL: no muscle waisting NEURO: Awake; no lateralizing signs. SKIN: No Rash PSYCH; appears anxious Vitals/I&O's: Vital Signs Temp Pulse Resp BP Pulse Ox 97.8 F 79 19 H 150/86 H 91 06/22/20 02:30 06/22/20 04:43 06/22/20 04:43 06/22/20 02:30 06/22/20 04:43 Oxygen Flow Rate (L/min) [ 0 AMBULATING on Room Air] Oxygen Flow Rate (L/min) [ 6 AMBULATION with Oxygen] Oxygen Flow Rate (L/min) [At 0 REST on Room Air] Oxygen Flow Rate (L/min) 50 Oxygen Delivery Method Bi-pap Weight: 77.2 kg Body Mass Index (BMI) 26.4 Intake and Output for Last 24 Hours 06/20/20 06/21/20 06/22/20 23:59 23:59 23:59 Intake Total 1100 / 1100 240 / 240 0 / 0 Output Total 2500 / 2500 850 / 850 0 / 0 Balance -1400 / -1400 -610 / -610 0 / 0 Laboratory Results 06/20/20 07:15: Diff Path Review Reviewed 06/21/20 05:30: Diff Path Review Reviewed 06/22/20 06:04: WBC 15.6 H, RBC 5.21, Hgb 15.0, Hct 47.4, MCV 91.0, MCH 28.8, MCHC 31.6 L, RDW Std Deviation 46.7 H, RDW Coeff of Jesús 14.2, Plt Count 214, MPV 10.8, Neut % (Auto) Not Reportable, Absolute Neuts (auto) 14.2 H, Absolute Lymphs (auto) 0.62 L, Total Counted 100, Neutrophils % (Manual) 88 H, Band Neutrophils % 3, Lymphocytes % (Manual) 4 L, Monocytes % (Manual) 3, Metamyelocytes % 2 H, Diff Path Review September, Platelet Estimate ADEQUATE, [place] Cells 2+ 06/22/20 06:04: Sodium 138, Potassium 4.5, Chloride 106, Carbon Dioxide 28.0, Anion Gap 4 L, BUN 36 H, Creatinine 1.16, Estim Creat Clear Calc 57.69, Est GFR (MDRD) Af Amer 79, Est GFR (MDRD) Non-Af 65, BUN/Creatinine Ratio 31.0 H, Glucose 112 H, Calcium 8.3 L, Magnesium 2.5, Total Bilirubin 1.30 H, AST 13 L, ALT 42, Alkaline Phosphatase 171 H, Total Protein 5.3 L, Albumin 2.2 L, Globulin 3.1, Albumin/Globulin Ratio 0.7 L Current Medications Acetaminophen (Acetaminophen 325 Mg Tablet) 650 mg PO Q6H PRN PRN PRN Reason: Pain Score 1-10/Temp > 100.7 F Last Admin: 06/18/20 20:03 Dose: 650 mg Documented by: Acyclovir (Acyclovir 200 Mg Capsule) 400 mg PO BID [facility] Last Admin: 06/21/20 20:16 Dose: 400 mg Documented by: Albuterol Sulfate (Albuterol 2.5 Mg/3 Ml Vial.Neb.) 2.5 mg INHALATION Q2H PRN PRN PRN Reason: Shortness of Breath/Wheezing Last Admin: 06/20/20 09:19 Dose: 2.5 mg Documented by: Amiodarone HCl (Amiodarone 200 Mg Tablet) 200 mg PO BID [facility] Last Admin: 06/21/20 20:16 Dose: 200 mg Documented by: Apixaban (Apixaban 5 Mg Tablet) 5 mg PO BID [facility] Last Admin: 06/21/20 20:16 Dose: 5 mg Documented by: Dexamethasone (Dexamethasone 4 Mg Tablet) 6 mg PO DAILY [facility] Stop: 06/22/20 10:01 Last Admin: 06/21/20 10:03 Dose: 6 mg Documented by: Finasteride (Finasteride 5 Mg Tablet) 5 mg PO DAILY [facility] Last Admin: 06/21/20 10:03 Dose: 5 mg Documented by: Fluticasone Propionate (Fluticasone 0.05% 1 [place] Nasal.Sry) 2 spray NASAL DAILY PRN PRN PRN Reason: ALLERGIES Sodium Chloride () 250 mls @ 15 mls/hr IV .[id number] PRN PRN Reason: Saline Flush Last Infusion: 06/16/20 00:09 Dose: Infused Documented by: Sodium Chloride () 250 mls @ 15 mls/hr IV .[id number] PRN PRN Reason: Additional IVPB Infusion Levothyroxine Sodium (Levothyroxine 100 Mcg Tablet) 100 mcg PO DAILY [facility] Last Admin: 06/21/20 10:03 Dose: 100 mcg Documented by: Losartan Potassium (Losartan Potassium 50 Mg Tablet) 50 mg PO DAILY [facility] Last Admin: 06/21/20 10:02 Dose: 50 mg Documented by: Melatonin (Melatonin 10 Mg Tablet) 5 mg PO QHS PRN PRN Reason: SLEEP Last Admin: 06/18/20 20:06 Dose: 5 mg Documented by: Ondansetron HCl (Ondansetron 4 Mg/2 Ml Vial) 4 mg IV Q8H PRN PRN PRN Reason: NAUSEA/VOMITING Senna/Docusate Sodium (Senna/Docusate Sodium 1 Tablet) 2 tablet PO BID PRN PRN PRN Reason: Constipation Sodium Chloride (0.9% Saline Lock 10 Ml Syringe) 10 - 40 ml IV UD PRN PRN Reason: SALINE FLUSH Last Admin: 06/20/20 21:58 Dose: 10 ml Documented by: Sodium Chloride (Sodium Chloride 0.65% 1 [place].Btl) 2 spray NASAL TID PRN PRN PRN Reason: NASAL DRYNESS Last Admin: 06/19/20 08:22 Dose: 2 spray Documented by: STROKE Vital Signs/Narrative: Vital Signs Pulse Resp Pulse Ox 06/22/20 04:43 79 19 H 91 Medical Necessity - Tobacco Use Smoking Status: Never smoker Tobacco Use: Non-smoker Assessment/Plan All Active Problems (Last Reviewed 02/24/20 @ 10:06 by Yashira Estrada) Perirectal abscess (Acute) Pneumonia due to COVID-19 virus (Acute) Hypoxemia (Acute) Chronic lymphoid leukemia (Resolved) Encounter for venous access device care (Acute) Encounter for care related to vascular access port (Acute) Skin lesion (Acute) Neutropenia (Resolved) Patient is a 74-year-old gentleman with multiple comorbidities including CLL and hypogammaglobulinemia on IVIG as outpatient presented with progressive shortness of breath diagnosed with acute hypoxic respiratory failure secondary to COVID-19 pneumonia 1. Acute hypoxic respiratory failure ?Secondary to COVID-19 pneumonia patient was initially managed in the ICU transferred to regular nursing floor. Patient had to be placed back on noninvasive ventilation BiPAP on on the morning of 06/20/2020 - 06/21/2020; patient seen complains of feeling extremely fatigued with poor appetite. Still requiring high flow oxygen Airvo -06/22/2020; Patient seen still remains on high flow oxygen. Also remains extremely anxious. An order was given for patient to receive 0.5 mg of Ativan. Updated patient's family who presents via FaceTime 2. Acute COVID-19 pneumonia ?Patient has completed a course of remdesivir currently on oral Decadron. Consultation placed to both ID and pulmonary 3. New onset A. fib ?Presented with RVR rate is now controlled patient is on amiodarone as well as apixaban 4. Hypertension - Blood pressure controlled, home medications continued with dose adjustment as needed 5. Hypothyroidism - Patient is on levothyroxine home dose continued 6. CLL/hypogammaglobulinemia ?Patient is on IVIG as outpatient. Also on ibrutinib which is currently on hold 7. DVT prophylaxis ?Apixaban 8. Acute renal failure ?Patient did receive Lasix monitoring with daily BMPs Inpatient E&M: 37622 [facility] Hosp L2
[2020-06-22] MEDS: LORazepam 2 MG/ML Syringe 0.5 MG IV (09:09)
[2020-06-22] MEDS: 0.9% Saline Lock 10 ML Syringe IV (09:10)
[2020-06-22] MEDS: Losartan Potassium 50 MG Tablet PO (09:13)
[2020-06-22] MEDS: Finasteride 5 MG Tablet PO (09:13)
[2020-06-22] MEDS: APIXABAN 5 MG TABLET PO ×2 (09:13→20:37)
[2020-06-22] MEDS: Amiodarone 200 MG Tablet PO ×2 (09:13→20:37)
[2020-06-22] MEDS: Levothyroxine 100 MCG Tablet PO (09:13)
[2020-06-22] MEDS: dexAMETHasone 4 MG Tablet 6 MG PO (09:14)
[2020-06-22] MEDS: Acyclovir 200 MG Capsule 400 MG PO ×2 (09:14→20:37)
--- NOTE | 2020-06-22 12:46 | NURSING ---
assisted pt to window - pts family came to wave at pt through the window. pt was happy to see his family.. spirits seemed to be lifted.. pt able to stand by window for a few minutes. Oxygen did drop to 75% on the airvo.. pt sat and took 4mins to recover to 89%.... after 10mins pt at 93% on airvo.. informed pt that if he would like to do this daily or how ever many times he wants to see his family that it is fine.
[2020-06-22 13:32] LABS: Pathologist Review Reviewed
[2020-06-22] MEDS: Acetaminophen 325 MG Tablet 650 MG PO (20:37)
[2020-06-23] VITALS (13 sets, daily range): BP systolic 120–156; BP diastolic 67–81; PULSE 63–96; RESP 12–20; TEMP 36.1–36.4; O2SAT 90–99
--- NOTE | 2020-06-23 06:52 | PCM.PN.PUL ---
Patient Problems: Active and Suspected Problems (Last Reviewed 02/24/20 @ 10:06 by Yashira Estrada) Pneumonia due to COVID-19 virus (Acute) Hypoxemia (Acute) Encounter for venous access device care (Acute) Subjective: The patient was seen and examined at the bedside this morning. Events from the last 24 hours have been reviewed. The patient is currently afebrile, hemodynamically stable and maintaining appropriate oxygen saturations on Airvo heated high flow with an FiO2 requirement of 87%. The patient once again tolerated noninvasive positive pressure ventilatory support overnight. He is without specific complaints this morning. Objective: The patient's most recent lab work, culture data and imaging studies have all been personally reviewed. Coronavirus PCR was positive on June 10. - Physical Exam Vitals/I&O's: Vital Signs Temp Pulse Resp BP Pulse Ox 96.9 F L 69 15 151/80 H 95 06/23/20 02:42 06/23/20 04:31 06/23/20 04:31 06/23/20 02:42 06/23/20 04:31 Oxygen Flow Rate (L/min) [ 0 AMBULATING on Room Air] Oxygen Flow Rate (L/min) [ 6 AMBULATION with Oxygen] Oxygen Flow Rate (L/min) [At 0 REST on Room Air] Oxygen Flow Rate (L/min) 50 Oxygen Delivery Method Bi-pap Weight: 168 lb 13.985 oz Body Mass Index (BMI) 26.4 Intake and Output for Last 24 Hours 06/21/20 06/22/20 06/23/20 23:59 23:59 23:59 Intake Total 240 / 240 0 / 0 Output Total 850 / 850 1000 / 1000 Balance -610 / -610 -1000 / -1000 General: Alert, Cooperative HEENT: Atraumatic, Normocephalic Oral: No Gingival or Mucosal Lesions/ Ulcerations Neck: Supple, No Nodes, Trachea Midline Lungs: No rhonchi, No wheeze, No rales, Diminished Cardiovascular: Regular rate, Regular Rhythm Abdomen: Bowel Sounds Present, Soft, Non Tender Extremities: No clubbing, No cyanosis, No edema Skin: No breakdown Musculoskeletal: No Tenderness to Palpation of Joints or Extremities, No Muscle Wasting Lymphatic: No Cervical, Supraclavicular, or Inguinal Adenopathy Neurological: Cranial nerves II-XII grossly intact, Neuro grossly intact Psych/Mental Status: Normal Affect, Appropriate Labs (Last 48 Hours) 06/20/20 06/21/20 06/22/20 07:15 05:30 06:04 WBC 15.6 H RBC 5.21 Hgb 15.0 Hct 47.4 MCV 91.0 MCH 28.8 MCHC 31.6 L RDW Std Deviation 46.7 H RDW Coeff of Jesús 14.2 Plt Count 214 MPV 10.8 Neut % (Auto) Not Reportable Absolute Neuts (auto) 14.2 H Absolute Lymphs (auto) 0.62 L Total Counted 100 Neutrophils % (Manual) 88 H Band Neutrophils % 3 Lymphocytes % (Manual) 4 L Monocytes % (Manual) 3 Metamyelocytes % 2 H Diff Path Review Reviewed Reviewed Reviewed Platelet Estimate ADEQUATE [place] Cells 2+ Sodium Potassium Chloride Carbon Dioxide Anion Gap BUN Creatinine Estim Creat Clear Calc Est GFR (MDRD) Af Amer Est GFR (MDRD) Non-Af BUN/Creatinine Ratio Glucose Calcium Magnesium Total Bilirubin AST ALT Alkaline Phosphatase Total Protein Albumin Globulin Albumin/Globulin Ratio 06/22/20 06:04 WBC RBC Hgb Hct MCV MCH MCHC RDW Std Deviation RDW Coeff of Jesús Plt Count MPV Neut % (Auto) Absolute Neuts (auto) Absolute Lymphs (auto) Total Counted Neutrophils % (Manual) Band Neutrophils % Lymphocytes % (Manual) Monocytes % (Manual) Metamyelocytes % Diff Path Review Platelet Estimate [place] Cells Sodium 138 Potassium 4.5 Chloride 106 Carbon Dioxide 28.0 Anion Gap 4 L BUN 36 H Creatinine 1.16 Estim Creat Clear Calc 57.69 Est GFR (MDRD) Af Amer 79 Est GFR (MDRD) Non-Af 65 BUN/Creatinine Ratio 31.0 H Glucose 112 H Calcium 8.3 L Magnesium 2.5 Total Bilirubin 1.30 H AST 13 L ALT 42 Alkaline Phosphatase 171 H Total Protein 5.3 L Albumin 2.2 L Globulin 3.1 Albumin/Globulin Ratio 0.7 L Clinical Impression(s) from Imaging Studies Chest CTA 06/13/20 10:40 IMPRESSION: Bilateral pulmonary infiltrates worse in the right hemithorax. No evidence of pulmonary emboli. Electronically Signed: Bowen Jones MD at 11:43 EST , Service support , Chest X-Ray 06/17/20 04:10 IMPRESSION: Severe bilateral airspace disease right greater than left consistent with Covid 19 pneumonia. Findings appear to be similar to that of the chest CT June 13, 2020. at 0456 Reported and signed by: Louis Vazquez MD Electronically Signed: Louis Vazquez MD at 4:54 EST Tel , Service support , Current Medications Acetaminophen (Acetaminophen 325 Mg Tablet) 650 mg PO Q6H PRN PRN PRN Reason: Pain Score 1-10/Temp > 100.7 F Last Admin: 06/22/20 20:37 Dose: 650 mg Documented by: Acyclovir (Acyclovir 200 Mg Capsule) 400 mg PO BID [facility] Last Admin: 06/22/20 20:37 Dose: 400 mg Documented by: Albuterol Sulfate (Albuterol 2.5 Mg/3 Ml Vial.Neb.) 2.5 mg INHALATION Q2H PRN PRN PRN Reason: Shortness of Breath/Wheezing Last Admin: 06/20/20 09:19 Dose: 2.5 mg Documented by: Amiodarone HCl (Amiodarone 200 Mg Tablet) 200 mg PO BID [facility] Last Admin: 06/22/20 20:37 Dose: 200 mg Documented by: Apixaban (Apixaban 5 Mg Tablet) 5 mg PO BID [facility] Last Admin: 06/22/20 20:37 Dose: 5 mg Documented by: Finasteride (Finasteride 5 Mg Tablet) 5 mg PO DAILY [facility] Last Admin: 06/22/20 09:13 Dose: 5 mg Documented by: Fluticasone Propionate (Fluticasone 0.05% 1 [place] Nasal.Sry) 2 spray NASAL DAILY PRN PRN PRN Reason: ALLERGIES Sodium Chloride () 250 mls @ 15 mls/hr IV .[id number] PRN PRN Reason: Saline Flush Last Infusion: 06/16/20 00:09 Dose: Infused Documented by: Sodium Chloride () 250 mls @ 15 mls/hr IV .[id number] PRN PRN Reason: Additional IVPB Infusion Levothyroxine Sodium (Levothyroxine 100 Mcg Tablet) 100 mcg PO DAILY [facility] Last Admin: 06/22/20 09:13 Dose: 100 mcg Documented by: Losartan Potassium (Losartan Potassium 50 Mg Tablet) 50 mg PO DAILY BIJAL Last Admin: 06/22/20 09:13 Dose: 50 mg Documented by: Melatonin (Melatonin 10 Mg Tablet) 5 mg PO QHS PRN PRN Reason: SLEEP Last Admin: 06/18/20 20:06 Dose: 5 mg Documented by: Ondansetron HCl (Ondansetron 4 Mg/2 Ml Vial) 4 mg IV Q8H PRN PRN PRN Reason: NAUSEA/VOMITING Senna/Docusate Sodium (Senna/Docusate Sodium 1 Tablet) 2 tablet PO BID PRN PRN PRN Reason: Constipation Sodium Chloride (0.9% Saline Lock 10 Ml Syringe) 10 - 40 ml IV UD PRN PRN Reason: SALINE FLUSH Last Admin: 06/22/20 09:10 Dose: 10 ml Documented by: Sodium Chloride (Sodium Chloride 0.65% 1 [place].Btl) 2 spray NASAL TID PRN PRN PRN Reason: NASAL DRYNESS Last Admin: 06/19/20 08:22 Dose: 2 spray Documented by: Medical Necessity - Tobacco Use Smoking Status: Never smoker Tobacco Use: Non-smoker Assessment/Plan All Active Problems (Last Reviewed 02/24/20 @ 10:06 by Yashira Estrada) Perirectal abscess (Acute) Pneumonia due to COVID-19 virus (Acute) Hypoxemia (Acute) Chronic lymphoid leukemia (Resolved) Encounter for venous access device care (Acute) Encounter for care related to vascular access port (Acute) Skin lesion (Acute) Neutropenia (Resolved) RECOMMENDATIONS: 1. Continue to wean FiO2 to maintain oxygen saturations at or above 90%. 2. Continue amiodarone and systemic anticoagulation with Eliquis. 3. Continue Decadron to complete 10-day treatment course. 4. Continue noninvasive positive pressure ventilatory support on a nightly basis. IMPRESSIONS: 1. Acute hypoxemic respiratory failure secondary to COVID-19 pneumonia Although the patient does not have a significant pulmonary history, he is immunosuppressed at baseline. Plan to continue current supportive measures including supplemental oxygen to maintain saturations at or above 90%. The patient has already completed a treatment course of remdesivir and will remain on Decadron accordingly. The patient will remain systemic anticoagulated on Eliquis as well. 2. Acute kidney injury Improved. Likely secondary to overdiuresis. Continue to hold Lasix. 3. New onset atrial fibrillation/indeterminate troponin Likely precipitated by presenting hypoxemia. Plan to continue supportive measures including amiodarone and Eliquis. 4. 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 Continue to hold Imbruvica. This note was generated with [employer] dictation software. It may contain incorrect words, spelling, and punctuation that were not noted in checking the note before signing. Inpatient E&M: [id number] Subs Hosp L3
[2020-06-23 07:17] LABS: Absolute Lymphocyte Count 0.58 X10^3/uL (0.83-4.51); Absolute Neutrophil Count 20.7 X10^3/uL (2.0-7.7); Basophil# 0.11 X10^3/uL; Basophil% 0.5 % (0-1); Hematocrit 50.1 % (40-54); Hemoglobin 15.9 g/dL (13.0-16.5); Lymphocyte # 0.58 X10^3/ul (4.0); Lymphocyte % 2.5 % (19-41); Mean Corp Hgb Conc 31.7 g/dL (32-36); Mean Corpuscular Hgb 29.2 pg (27.0-32.0); Mean Corpuscular Volume 92.1 fL (80-94); Mean Platelet Vol. 10.7 fl (6.2-12.0); Monocyte# 0.98 X10^3/uL; Monocyte% 4.2 % (0-10); NRBC Flagged by Analyzer 0 % (0-5); Neutrophil # 20.72 X10^3/uL (2.7-7.7); Neutrophil % 88.8 % (47-70); POSITIVE DIFFERENTIAL YES; Platelet Count 245 K/mm3 (150-450); RBC Distribution Width CV 14.4 % (11.6-14.6); RBC Distribution Width SD 47.6 fl (35.1-43.9); Red Blood Count 5.44 M/mm3 (4.6-6.2); White Blood Count 23.3 K/mm3 (4.4-11.0)
[2020-06-23 07:18] LABS: Differential Indicated SCAN CRITERIA MET
[2020-06-23 07:39] LABS: Anion Gap 3 (5-15); BUN 39 mg/dL (7-18); Calcium,Total 8.7 mg/dL (8.5-10.1); Chloride 104 mmol/L (98-107); EST Glomerular Filtration Rate 57 mL/min (>60); Est Glom Filt Rate - Afr Amer 69 mL/min (>60); Estimated Creatinine Clearance 51.47 ml/min; Glucose 111 mg/dL (74-106); Potassium 4.7 mmol/L (3.5-5.1); Sodium Level 138 mmol/L (136-145)
--- NOTE | 2020-06-23 07:44 | PN_ITS ---
Patient Problems: Active and Suspected Problems (Last Reviewed 02/24/20 @ 10:06 by Yashira Estrada) Pneumonia due to COVID-19 virus (Acute) Hypoxemia (Acute) Encounter for venous access device care (Acute) Reason for Visit: Acute COVID-19 pneumonia Acute hypoxic respiratory failure Subjective: Patient seen no significant change in overall condition. Still remains on high flow oxygen. He appears to be in a much better mood today. Did discuss with patient and family regarding long-term plans including possible transfer to a long-term acute care. Consult subsequently placed to case management to initiate the transfer Objective: GENERAL: Dyspneic at rest HEENT: Atraumatic; EYES; Anicteric, Normal Conjunctiva NECK; supple, normal thyroid, RESPIRATORY: Diminished to auscultation CARDIOVASCULAR: Regular S1 S2, GI: soft, normoactive bowel sounds, : No Renal angle tenderness; EXTREMITIES: No edema, no clubbing, MUSCULOSKELETAL: no muscle waisting NEURO: Awake; no lateralizing signs. SKIN: No Rash PSYCH; appears anxious Vitals/I&O's: Vital Signs Temp Pulse Resp BP Pulse Ox 96.9 F L 69 15 151/80 H 95 06/23/20 02:42 06/23/20 04:31 06/23/20 04:31 06/23/20 02:42 06/23/20 04:31 Oxygen Flow Rate (L/min) [ 0 AMBULATING on Room Air] Oxygen Flow Rate (L/min) [ 6 AMBULATION with Oxygen] Oxygen Flow Rate (L/min) [At 0 REST on Room Air] Oxygen Flow Rate (L/min) 50 Oxygen Delivery Method Bi-pap Weight: 76.6 kg Body Mass Index (BMI) 26.4 Intake and Output for Last 24 Hours 06/21/20 06/22/20 06/23/20 23:59 23:59 23:59 Intake Total 240 / 240 0 / 0 Output Total 850 / 850 1000 / 1000 Balance -610 / -610 -1000 / -1000 Laboratory Results 06/22/20 06:04: Diff Path Review Reviewed 06/23/20 07:04: WBC 23.3 H, RBC 5.44, Hgb 15.9, Hct 50.1, MCV 92.1, MCH 29.2, MCHC 31.7 L, RDW Std Deviation 47.6 H, RDW Coeff of Jesús 14.4, Plt Count 245, MPV 10.7, Immature Gran % (Auto) 4.000 H, Neut % (Auto) 88.8 H, Lymph % (Auto) 2.5 L , [place] % (Auto) 4.2, Eos % (Auto) 0.0, Baso % (Auto) 0.5, Absolute Neuts (auto) 20.7 H, Absolute Lymphs (auto) 0.58 L, Nucleated RBC % 0 06/23/20 07:04: Sodium 138, Potassium 4.7, Chloride 104, Carbon Dioxide 31.0, Anion Gap 3 L, BUN 39 H, Creatinine 1.30, Estim Creat Clear Calc 51.47, Est GFR (MDRD) Af Amer 69, Est GFR (MDRD) Non-Af 57 L, BUN/Creatinine Ratio 30.0 H, Glucose 111 H, Calcium 8.7 Current Medications Acetaminophen (Acetaminophen 325 Mg Tablet) 650 mg PO Q6H PRN PRN PRN Reason: Pain Score 1-10/Temp > 100.7 F Last Admin: 06/22/20 20:37 Dose: 650 mg Documented by: Acyclovir (Acyclovir 200 Mg Capsule) 400 mg PO BID [facility] Last Admin: 06/22/20 20:37 Dose: 400 mg Documented by: Albuterol Sulfate (Albuterol 2.5 Mg/3 Ml Vial.Neb.) 2.5 mg INHALATION Q2H PRN PRN PRN Reason: Shortness of Breath/Wheezing Last Admin: 06/20/20 09:19 Dose: 2.5 mg Documented by: Amiodarone HCl (Amiodarone 200 Mg Tablet) 200 mg PO BID [facility] Last Admin: 06/22/20 20:37 Dose: 200 mg Documented by: Apixaban (Apixaban 5 Mg Tablet) 5 mg PO BID [facility] Last Admin: 06/22/20 20:37 Dose: 5 mg Documented by: Finasteride (Finasteride 5 Mg Tablet) 5 mg PO DAILY [facility] Last Admin: 06/22/20 09:13 Dose: 5 mg Documented by: Fluticasone Propionate (Fluticasone 0.05% 1 [place] Nasal.Sry) 2 spray NASAL DAILY PRN PRN PRN Reason: ALLERGIES Sodium Chloride () 250 mls @ 15 mls/hr IV .[id number] PRN PRN Reason: Saline Flush Last Infusion: 06/16/20 00:09 Dose: Infused Documented by: Sodium Chloride () 250 mls @ 15 mls/hr IV .[id number] PRN PRN Reason: Additional IVPB Infusion Levothyroxine Sodium (Levothyroxine 100 Mcg Tablet) 100 mcg PO DAILY [facility] Last Admin: 06/22/20 09:13 Dose: 100 mcg Documented by: Losartan Potassium (Losartan Potassium 50 Mg Tablet) 50 mg PO DAILY [facility] Last Admin: 06/22/20 09:13 Dose: 50 mg Documented by: Melatonin (Melatonin 10 Mg Tablet) 5 mg PO QHS PRN PRN Reason: SLEEP Last Admin: 06/18/20 20:06 Dose: 5 mg Documented by: Ondansetron HCl (Ondansetron 4 Mg/2 Ml Vial) 4 mg IV Q8H PRN PRN PRN Reason: NAUSEA/VOMITING Senna/Docusate Sodium (Senna/Docusate Sodium 1 Tablet) 2 tablet PO BID PRN PRN PRN Reason: Constipation Sodium Chloride (0.9% Saline Lock 10 Ml Syringe) 10 - 40 ml IV UD PRN PRN Reason: SALINE FLUSH Last Admin: 06/22/20 09:10 Dose: 10 ml Documented by: Sodium Chloride (Sodium Chloride 0.65% 1 [place].Btl) 2 spray NASAL TID PRN PRN PRN Reason: NASAL DRYNESS Last Admin: 06/19/20 08:22 Dose: 2 spray Documented by: STROKE Vital Signs/Narrative: Vital Signs Pulse Resp Pulse Ox 06/23/20 04:31 69 15 95 06/23/20 03:53 63 Medical Necessity - Tobacco Use Smoking Status: Never smoker Tobacco Use: Non-smoker Assessment/Plan All Active Problems (Last Reviewed 02/24/20 @ 10:06 by Yashira Estrada) Perirectal abscess (Acute) Pneumonia due to COVID-19 virus (Acute) Hypoxemia (Acute) Chronic lymphoid leukemia (Resolved) Encounter for venous access device care (Acute) Encounter for care related to vascular access port (Acute) Skin lesion (Acute) Neutropenia (Resolved) Patient is a 74-year-old gentleman with multiple comorbidities including CLL and hypogammaglobulinemia on IVIG as outpatient presented with progressive shortness of breath diagnosed with acute hypoxic respiratory failure secondary to COVID-19 pneumonia 1. Acute hypoxic respiratory failure ?Secondary to COVID-19 pneumonia patient was initially managed in the ICU transferred to regular nursing floor. Patient had to be placed back on noninvasive ventilation BiPAP on on the morning of 06/20/2020 - 06/21/2020; patient seen complains of feeling extremely fatigued with poor appetite. Still requiring high flow oxygen Airvo -06/22/2020; Patient seen still remains on high flow oxygen. Also remains extremely anxious. An order was given for patient to receive 0.5 mg of Ativan. Updated patient's family who presents via FaceTime -06/23/2020 patient seen no significant change in overall condition. Still remains on high flow oxygen. He appears to be in a much better mood today. Did discuss with patient and family regarding long-term plans including possible transfer to a long-term acute care. Consult subsequently placed to case management to initiate the transfer 2. Acute COVID-19 pneumonia ?Patient has completed a course of remdesivir currently on oral Decadron. Consultation placed to both ID and pulmonary 3. New onset A. fib ?Presented with RVR rate is now controlled patient is on amiodarone as well as apixaban 4. Hypertension - Blood pressure controlled, home medications continued with dose adjustment as needed 5. Hypothyroidism - Patient is on levothyroxine home dose continued 6. CLL/hypogammaglobulinemia ?Patient is on IVIG as outpatient. Also on ibrutinib which is currently on hold 7. DVT prophylaxis ?Apixaban 8. Acute renal failure ?Patient did receive Lasix monitoring with daily BMPs 9. Physical deconditioning - Requested for PT OT eval and renal social worker to assist with discharge planning Inpatient E&M: [id number] Subs Hosp L2
[2020-06-23] MEDS: Finasteride 5 MG Tablet PO (09:16)
[2020-06-23] MEDS: Amiodarone 200 MG Tablet PO ×2 (09:16→21:10)
[2020-06-23] MEDS: Levothyroxine 100 MCG Tablet PO (09:16)
[2020-06-23] MEDS: Acyclovir 200 MG Capsule 400 MG PO ×2 (09:16→21:10)
[2020-06-23] MEDS: Losartan Potassium 50 MG Tablet PO (09:16)
[2020-06-23] MEDS: APIXABAN 5 MG TABLET PO ×2 (09:16→21:09)
--- NOTE | 2020-06-23 10:44 | CASEMGMT ---
CHRISTINE SHAH Note: Recommended LTACH referral be initiated. Call to patient's room. Pt was able to answer the phone and discuss LTACH. Patient states Dr. Gross spoke with him this am for this transition plan and patient is agreeable. List of LTACH's in geographic area reviewed with patient. [facility]. Pt would prefer [place] first, then [place]. Patient would like CHRISTINE SHAH to call to update. - called to , Kirsten. Discussed transition to LTACH and patient's choices. She is in agreement to referral to LTACH. -Referral faxed to Carolann Silverio @ [facility]. Called to update re: referral. Nazario HARGROVE RN AC
[2020-06-23] MEDS: MELATONIN 10 MG TABLET 5 MG PO (21:09)
[2020-06-24] VITALS (29 sets, daily range): BP systolic 88–156; BP diastolic 56–100; PULSE 77–105; RESP 12–32; TEMP 36.3–36.7; O2SAT 80–99
--- NOTE | 2020-06-24 07:20 | CPS ---
Increased Airvo from 50% to 55%, still on 50L. Informed Maria Guadalupe RN of this change.
--- NOTE | 2020-06-24 07:44 | PCM.PN.HOSP ---
Patient Problems: Active and Suspected Problems (Last Reviewed 02/24/20 @ 10:06 by Yashira Estrada) Pneumonia due to COVID-19 virus (Acute) Hypoxemia (Acute) Encounter for venous access device care (Acute) Reason for Visit: Acute COVID-19 pneumonia Acute hypoxic respiratory failure Subjective: Patient seen much more dyspneic compared to the previous day. Per nursing staff patient was unable the whole of last night. Patient FiO2 increased. Patient also appears depressed. Started patient on low-dose SSRI Objective: GENERAL: Dyspneic at rest HEENT: Atraumatic; EYES; Anicteric, Normal Conjunctiva NECK; supple, normal thyroid, RESPIRATORY: Diminished to auscultation CARDIOVASCULAR: Regular S1 S2, GI: soft, normoactive bowel sounds, : No Renal angle tenderness; EXTREMITIES: No edema, no clubbing, MUSCULOSKELETAL: no muscle waisting NEURO: Awake; no lateralizing signs. SKIN: No Rash PSYCH; appears anxious Vitals/I&O's: Vital Signs Temp Pulse Resp BP Pulse Ox 97.4 F L 77 18 133/75 H 95 06/24/20 03:21 06/24/20 04:00 06/24/20 03:21 06/24/20 03:21 06/24/20 05:42 Oxygen Flow Rate (L/min) [ 0 AMBULATING on Room Air] Oxygen Flow Rate (L/min) [ 6 AMBULATION with Oxygen] Oxygen Flow Rate (L/min) [At 0 REST on Room Air] Oxygen Flow Rate (L/min) 15 Oxygen Delivery Method Airvo Weight: 76.8 kg Body Mass Index (BMI) 26.4 Intake and Output for Last 24 Hours 06/22/20 06/23/20 06/24/20 23:59 23:59 23:59 Intake Total 0 / 0 200 / 200 Output Total 1000 / 1000 975 / 1275 500 / 500 Balance -1000 / -1000 -975 / -1275 -300 / -300 Laboratory Results 06/23/20 07:04: Differential Comment COMMENT Current Medications Acetaminophen (Acetaminophen 325 Mg Tablet) 650 mg PO Q6H PRN PRN PRN Reason: Pain Score 1-10/Temp > 100.7 F Last Admin: 06/22/20 20:37 Dose: 650 mg Documented by: Acyclovir (Acyclovir 200 Mg Capsule) 400 mg PO BID [facility] Last Admin: 06/23/20 21:10 Dose: 400 mg Documented by: Albuterol Sulfate (Albuterol 2.5 Mg/3 Ml Vial.Neb.) 2.5 mg INHALATION Q2H PRN PRN PRN Reason: Shortness of Breath/Wheezing Last Admin: 06/20/20 09:19 Dose: 2.5 mg Documented by: Amiodarone HCl (Amiodarone 200 Mg Tablet) 200 mg PO BID [facility] Last Admin: 06/23/20 21:10 Dose: 200 mg Documented by: Apixaban (Apixaban 5 Mg Tablet) 5 mg PO BID [facility] Last Admin: 06/23/20 21:09 Dose: 5 mg Documented by: Finasteride (Finasteride 5 Mg Tablet) 5 mg PO DAILY [facility] Last Admin: 06/23/20 09:16 Dose: 5 mg Documented by: Fluticasone Propionate (Fluticasone 0.05% 1 [place] Nasal.Sry) 2 spray NASAL DAILY PRN PRN PRN Reason: ALLERGIES Sodium Chloride () 250 mls @ 15 mls/hr IV .[id number] PRN PRN Reason: Saline Flush Last Infusion: 06/16/20 00:09 Dose: Infused Documented by: Sodium Chloride () 250 mls @ 15 mls/hr IV .[id number] PRN PRN Reason: Additional IVPB Infusion Levothyroxine Sodium (Levothyroxine 100 Mcg Tablet) 100 mcg PO DAILY [facility] Last Admin: 06/23/20 09:16 Dose: 100 mcg Documented by: Losartan Potassium (Losartan Potassium 50 Mg Tablet) 50 mg PO DAILY [facility] Last Admin: 06/23/20 09:16 Dose: 50 mg Documented by: Melatonin (Melatonin 10 Mg Tablet) 5 mg PO QHS PRN PRN Reason: SLEEP Last Admin: 06/23/20 21:09 Dose: 5 mg Documented by: Ondansetron HCl (Ondansetron 4 Mg/2 Ml Vial) 4 mg IV Q8H PRN PRN PRN Reason: NAUSEA/VOMITING Senna/Docusate Sodium (Senna/Docusate Sodium 1 Tablet) 2 tablet PO BID PRN PRN PRN Reason: Constipation Sodium Chloride (0.9% Saline Lock 10 Ml Syringe) 10 - 40 ml IV UD PRN PRN Reason: SALINE FLUSH Last Admin: 06/22/20 09:10 Dose: 10 ml Documented by: Sodium Chloride (Sodium Chloride 0.65% 1 [place].Btl) 2 spray NASAL TID PRN PRN PRN Reason: NASAL DRYNESS Last Admin: 06/19/20 08:22 Dose: 2 spray Documented by: STROKE Vital Signs/Narrative: Vital Signs Pulse Pulse Ox 06/24/20 05:42 95 06/24/20 04:00 77 Medical Necessity - Tobacco Use Smoking Status: Never smoker Tobacco Use: Non-smoker Assessment/Plan All Active Problems (Last Reviewed 02/24/20 @ 10:06 by Yashira Estrada) Perirectal abscess (Acute) Pneumonia due to COVID-19 virus (Acute) Hypoxemia (Acute) Chronic lymphoid leukemia (Resolved) Encounter for venous access device care (Acute) Encounter for care related to vascular access port (Acute) Skin lesion (Acute) Neutropenia (Resolved) Patient is a 74-year-old gentleman with multiple comorbidities including CLL and hypogammaglobulinemia on IVIG as outpatient presented with progressive shortness of breath diagnosed with acute hypoxic respiratory failure secondary to COVID-19 pneumonia 1. Acute hypoxic respiratory failure ?Secondary to COVID-19 pneumonia patient was initially managed in the ICU transferred to regular nursing floor. Patient had to be placed back on noninvasive ventilation BiPAP on on the morning of 06/20/2020 - 06/21/2020; patient seen complains of feeling extremely fatigued with poor appetite. Still requiring high flow oxygen Airvo -06/22/2020; Patient seen still remains on high flow oxygen. Also remains extremely anxious. An order was given for patient to receive 0.5 mg of Ativan. Updated patient's family who presents via FaceTime -06/23/2020 patient seen no significant change in overall condition. Still remains on high flow oxygen. He appears to be in a much better mood today. Did discuss with patient and family regarding long-term plans including possible transfer to a long-term acute care. Consult subsequently placed to case management to initiate the transfer - Patient seen much more dyspneic compared to the previous day. Per nursing staff patient was unable the whole of last night. Patient FiO2 increased. Patient also appears depressed. Started patient on low-dose SSRI 2. Acute COVID-19 pneumonia ?Patient has completed a course of remdesivir currently on oral Decadron. Consultation placed to both ID and pulmonary 3. New onset A. fib ?Presented with RVR rate is now controlled patient is on amiodarone as well as apixaban 4. Hypertension - Blood pressure controlled, home medications continued with dose adjustment as needed 5. Hypothyroidism - Patient is on levothyroxine home dose continued 6. CLL/hypogammaglobulinemia ?Patient is on IVIG as outpatient. Also on ibrutinib which is currently on hold 7. DVT prophylaxis ?Apixaban 8. Acute renal failure ?Patient did receive Lasix monitoring with daily BMPs 9. Physical deconditioning - Requested for PT OT eval and medical social worker to assist with discharge planning 10. Depression ?Patient started on low-dose SSRI Inpatient E&M: [id number] Subs Hosp L2
[2020-06-24 08:11] LABS: Hematocrit 48.9 % (40-54); Hemoglobin 15.5 g/dL (13.0-16.5); Mean Corp Hgb Conc 31.7 g/dL (32-36); Mean Corpuscular Hgb 29.1 pg (27.0-32.0); Mean Corpuscular Volume 91.9 fL (80-94); Mean Platelet Vol. 10.7 fl (6.2-12.0); Platelet Count 240 K/mm3 (150-450); RBC Distribution Width CV 14.6 % (11.6-14.6); RBC Distribution Width SD 48.9 fl (35.1-43.9); Red Blood Count 5.32 M/mm3 (4.6-6.2); White Blood Count 21.6 K/mm3 (4.4-11.0)
[2020-06-24 08:36] LABS: Anion Gap 5 (5-15); BUN 40 mg/dL (7-18); BUN/Creat Ratio 32.8 RATIO (10-20); Chloride 104 mmol/L (98-107); Creatinine, Serum 1.22 mg/dL (0.70-1.30); EST Glomerular Filtration Rate 62 mL/min (>60); Est Glom Filt Rate - Afr Amer 75 mL/min (>60); Estimated Creatinine Clearance 54.85 ml/min; Glucose 84 mg/dL (74-106); Magnesium 2.4 mg/dL (1.6-2.6); Potassium 4.2 mmol/L (3.5-5.1); Sodium Level 139 mmol/L (136-145)
[2020-06-24] MEDS: Acyclovir 200 MG Capsule 400 MG PO ×2 (10:20→21:07)
[2020-06-24] MEDS: APIXABAN 5 MG TABLET PO ×2 (10:21→21:07)
[2020-06-24] MEDS: Amiodarone 200 MG Tablet PO ×2 (10:21→21:07)
[2020-06-24] MEDS: Levothyroxine 100 MCG Tablet PO (10:21)
[2020-06-24] MEDS: Losartan Potassium 50 MG Tablet PO (10:21)
[2020-06-24] MEDS: Finasteride 5 MG Tablet PO (10:21)
--- NOTE | 2020-06-24 10:58 | NURSING ---
daughter last called after order recived for transfer to icu. pt on 100% bipap with avaps and resp rate still high 20's low 30's. spo2 95% though took 10min to come up. pt reported to resp that if its my time its my time. dr teresa aware
--- NOTE | 2020-06-24 11:17 | CPS ---
rt called to 213 due to sob. at time of visit patient was on airvo 60 lpm 80% with a sp02 of 84%. Patient had increased rr and sob. Patient placed back on bipap. Patients nurse informed and notifying doctor.
--- NOTE | 2020-06-24 11:49 | NURSING ---
pt transferred to icu via bed with all belongings. report given to padmini rn with no questions.
--- NOTE | 2020-06-24 13:08 | CASEMGMT ---
Addendum entered by Rakesh Porter 06/24/20 13:15: Carolann Bello @ [facility] notified that referral has been cancelled. Original Note: RN CM Note: Daughter had contacted RN CM, message left on phone that they would like referral for LTACH to [facility]. Insurance reviewed via [facility] PPO website and this facility is [facility]. Patient has transferred to ICU, so referral held for today. CM will continue to follow and assist with dc planning. Nazario JENKINSN RN ACM
--- NOTE | 2020-06-24 14:25 | CPS ---
Increased FiO2 to 85%.
--- NOTE | 2020-06-24 14:50 | CPS ---
Patient requested to come off of BiPAP mask and be placed on Airvo.
--- NOTE | 2020-06-24 15:00 | NURSING ---
pt called out and therapy in to try and work with pt but in talking desated to 87% pt asking to talk with dr. teresa and stated that do not want all this anymore or to be on a ventilator. pt wanting bipap off and ok to use nasal oxygen only. dr. teersa changed to dnr cc and family called and okd to come in to visit. cps in and pt on airvo 93% at this time. daughter last aware and tearful on phone but following pt's wishes at this time
[2020-06-24] MEDS: Escitalopram Oxalate 10 MG Tablet PO (15:10)
[2020-06-24] MEDS: 0.9% Saline Lock 10 ML Syringe IV (21:07)
[2020-06-25] VITALS (25 sets, daily range): BP systolic 107–158; BP diastolic 56–86; PULSE 83–97; RESP 16–23; TEMP 36.1–36.3; O2SAT 92–99
[2020-06-25 04:38] LABS: Hematocrit 44.7 % (40-54); Hemoglobin 13.9 g/dL (13.0-16.5); Mean Corp Hgb Conc 31.1 g/dL (32-36); Mean Corpuscular Hgb 28.4 pg (27.0-32.0); Mean Corpuscular Volume 91.2 fL (80-94); Mean Platelet Vol. 10.7 fl (6.2-12.0); Platelet Count 203 K/mm3 (150-450); RBC Distribution Width CV 14.8 % (11.6-14.6); RBC Distribution Width SD 48.7 fl (35.1-43.9); White Blood Count 21.8 K/mm3 (4.4-11.0)
[2020-06-25 04:51] LABS: Anion Gap 5 (5-15); BUN 42 mg/dL (7-18); BUN/Creat Ratio 30.9 RATIO (10-20); Calcium,Total 7.9 mg/dL (8.5-10.1); Chloride 105 mmol/L (98-107); Creatinine, Serum 1.36 mg/dL (0.70-1.30); EST Glomerular Filtration Rate 54 mL/min (>60); Est Glom Filt Rate - Afr Amer 66 mL/min (>60); Glucose 106 mg/dL (74-106); Potassium 4.4 mmol/L (3.5-5.1); Sodium Level 138 mmol/L (136-145)
--- NOTE | 2020-06-25 06:04 | PCM.PN.PUL ---
Patient Problems: Active and Suspected Problems (Last Reviewed 02/24/20 @ 10:06 by Yashira Estrada) Pneumonia due to COVID-19 virus (Acute) Hypoxemia (Acute) Encounter for venous access device care (Acute) Subjective: The patient was seen and examined at the bedside this morning. Events from the last 24 hours have been reviewed. The patient is currently afebrile, hemodynamically stable and maintaining appropriate oxygen saturations on Airvo heated high flow with an FiO2 requirement of 73%. The patient only tolerated BiPAP for approximately 4 hours yesterday prior to ripping off his mask. The patient reports to me this morning that he is tired and his breathing is labored and he is interested in pursuing hospice care services. Objective: The patient's most recent lab work, culture data and imaging studies have all been personally reviewed. Coronavirus PCR was positive on June 10. - Physical Exam Vitals/I&O's: Vital Signs Temp Pulse Resp BP Pulse Ox 96.9 F L 91 19 H 134/65 H 92 06/25/20 04:00 06/25/20 05:33 06/25/20 05:33 06/25/20 05:00 06/25/20 05:33 Oxygen Flow Rate (L/min) [ 0 AMBULATING on Room Air] Oxygen Flow Rate (L/min) [ 6 AMBULATION with Oxygen] Oxygen Flow Rate (L/min) [At 0 REST on Room Air] Oxygen Flow Rate (L/min) 60 Oxygen Delivery Method Airvo Weight: 167 lb 15.876 oz Body Mass Index (BMI) 26.4 Intake and Output for Last 24 Hours 06/23/20 06/24/20 06/25/20 23:59 23:59 23:59 Intake Total 420 / 420 120 / 120 Output Total 975 / 1275 600 / 600 250 / 250 Balance -975 / -1275 -180 / -180 -130 / -130 General: Alert, Cooperative, - - Fatigued in appearance HEENT: Atraumatic, Normocephalic Oral: No Gingival or Mucosal Lesions/ Ulcerations Neck: Supple, No Nodes, Trachea Midline Lungs: Diminished, Tachypneic Cardiovascular: Regular rate, Regular Rhythm Abdomen: Bowel Sounds Present, Soft, Non Tender Extremities: No clubbing, No cyanosis, No edema Skin: No breakdown Musculoskeletal: No Tenderness to Palpation of Joints or Extremities Lymphatic: No Cervical, Supraclavicular, or Inguinal Adenopathy Neurological: Cranial nerves II-XII grossly intact, Neuro grossly intact Psych/Mental Status: Flat Affect, Depressed Labs (Last 48 Hours) 06/23/20 06/23/20 06/24/20 07:04 07:04 08:02 WBC 23.3 H 21.6 H RBC 5.44 5.32 Hgb 15.9 15.5 Hct 50.1 48.9 MCV 92.1 91.9 MCH 29.2 29.1 MCHC 31.7 L 31.7 L RDW Std Deviation 47.6 H 48.9 H RDW Coeff of Jesús 14.4 14.6 Plt Count 245 240 MPV 10.7 10.7 Immature Gran % (Auto) 4.000 H Neut % (Auto) 88.8 H Lymph % (Auto) 2.5 L [place] % (Auto) 4.2 Eos % (Auto) 0.0 Baso % (Auto) 0.5 Absolute Neuts (auto) 20.7 H Absolute Lymphs (auto) 0.58 L Nucleated RBC % 0 Differential Comment COMMENT Sodium 138 Potassium 4.7 Chloride 104 Carbon Dioxide 31.0 Anion Gap 3 L BUN 39 H Creatinine 1.30 Estim Creat Clear Calc 51.47 Est GFR (MDRD) Af Amer 69 Est GFR (MDRD) Non-Af 57 L BUN/Creatinine Ratio 30.0 H Glucose 111 H Calcium 8.7 Magnesium 06/24/20 06/25/20 06/25/20 08:02 04:20 04:20 WBC 21.8 H RBC 4.90 Hgb 13.9 Hct 44.7 MCV 91.2 MCH 28.4 MCHC 31.1 L RDW Std Deviation 48.7 H RDW Coeff of Jesús 14.8 H Plt Count 203 MPV 10.7 Immature Gran % (Auto) Neut % (Auto) Lymph % (Auto) [place] % (Auto) Eos % (Auto) Baso % (Auto) Absolute Neuts (auto) Absolute Lymphs (auto) Nucleated RBC % Differential Comment Sodium 139 138 Potassium 4.2 4.4 Chloride 104 105 Carbon Dioxide 30.0 28.0 Anion Gap 5 5 BUN 40 H 42 H Creatinine 1.22 1.36 H Estim Creat Clear Calc 54.85 49.20 Est GFR (MDRD) Af Amer 75 66 Est GFR (MDRD) Non-Af 62 54 L BUN/Creatinine Ratio 32.8 H 30.9 H Glucose 84 106 Calcium 8.0 L 7.9 L Magnesium 2.4 Clinical Impression(s) from Imaging Studies Chest CTA 06/13/20 10:40 IMPRESSION: Bilateral pulmonary infiltrates worse in the right hemithorax. No evidence of pulmonary emboli. Electronically Signed: Bowen Jones MD at 11:43 EST , Service support , Chest X-Ray 06/17/20 04:10 IMPRESSION: Severe bilateral airspace disease right greater than left consistent with Covid 19 pneumonia. Findings appear to be similar to that of the chest CT June 13, 2020. at 0456 Reported and signed by: Louis Vazquez MD Electronically Signed: Louis Vazquez MD at 4:54 EST Tel , Service support , Current Medications Acetaminophen (Acetaminophen 325 Mg Tablet) 650 mg PO Q6H PRN PRN PRN Reason: Pain Score 1-10/Temp > 100.7 F Last Admin: 06/22/20 20:37 Dose: 650 mg Documented by: Acyclovir (Acyclovir 200 Mg Capsule) 400 mg PO BID [facility] Last Admin: 06/24/20 21:07 Dose: 400 mg Documented by: Albuterol Sulfate (Albuterol 2.5 Mg/3 Ml Vial.Neb.) 2.5 mg INHALATION Q2H PRN PRN PRN Reason: Shortness of Breath/Wheezing Last Admin: 06/20/20 09:19 Dose: 2.5 mg Documented by: Amiodarone HCl (Amiodarone 200 Mg Tablet) 200 mg PO BID [facility] Last Admin: 06/24/20 21:07 Dose: 200 mg Documented by: Apixaban (Apixaban 5 Mg Tablet) 5 mg PO BID [facility] Last Admin: 06/24/20 21:07 Dose: 5 mg Documented by: Escitalopram Oxalate (Escitalopram Oxalate 10 Mg Tablet) 10 mg PO DAILY [facility] Last Admin: 06/24/20 15:10 Dose: 10 mg Documented by: Finasteride (Finasteride 5 Mg Tablet) 5 mg PO DAILY [facility] Last Admin: 06/24/20 10:21 Dose: 5 mg Documented by: Fluticasone Propionate (Fluticasone 0.05% 1 [place] Nasal.Sry) 2 spray NASAL DAILY PRN PRN PRN Reason: ALLERGIES Sodium Chloride () 250 mls @ 15 mls/hr IV .[id number] PRN PRN Reason: Saline Flush Last Infusion: 06/16/20 00:09 Dose: Infused Documented by: Sodium Chloride () 250 mls @ 15 mls/hr IV .[id number] PRN PRN Reason: Additional IVPB Infusion Levothyroxine Sodium (Levothyroxine 100 Mcg Tablet) 100 mcg PO DAILY [facility] Last Admin: 06/24/20 10:21 Dose: 100 mcg Documented by: Losartan Potassium (Losartan Potassium 50 Mg Tablet) 50 mg PO DAILY [facility] Last Admin: 06/24/20 10:21 Dose: 50 mg Documented by: Melatonin (Melatonin 10 Mg Tablet) 5 mg PO QHS PRN PRN Reason: SLEEP Last Admin: 06/23/20 21:09 Dose: 5 mg Documented by: Ondansetron HCl (Ondansetron 4 Mg/2 Ml Vial) 4 mg IV Q8H PRN PRN PRN Reason: NAUSEA/VOMITING Senna/Docusate Sodium (Senna/Docusate Sodium 1 Tablet) 2 tablet PO BID PRN PRN PRN Reason: Constipation Sodium Chloride (0.9% Saline Lock 10 Ml Syringe) 10 - 40 ml IV UD PRN PRN Reason: SALINE FLUSH Last Admin: 06/24/20 21:07 Dose: 20 ml Documented by: Sodium Chloride (Sodium Chloride 0.65% 1 [place].Btl) 2 spray NASAL TID PRN PRN PRN Reason: NASAL DRYNESS Last Admin: 06/19/20 08:22 Dose: 2 spray Documented by: Medical Necessity - Tobacco Use Smoking Status: Never smoker Tobacco Use: Non-smoker Assessment/Plan All Active Problems (Last Reviewed 02/24/20 @ 10:06 by Yashira Estrada) Perirectal abscess (Acute) Pneumonia due to COVID-19 virus (Acute) Hypoxemia (Acute) Chronic lymphoid leukemia (Resolved) Encounter for venous access device care (Acute) Encounter for care related to vascular access port (Acute) Skin lesion (Acute) Neutropenia (Resolved) RECOMMENDATIONS: 1. Continue to wean FiO2 to maintain oxygen saturations at or above 90%. 2. Continue amiodarone and systemic anticoagulation with Eliquis. 3. Continue noninvasive positive pressure ventilatory support on a nightly basis, as tolerated. 4. Consider referral to hospice care services, per patient request. IMPRESSIONS: 1. Acute hypoxemic respiratory failure secondary to COVID-19 pneumonia Although the patient does not have a significant pulmonary history, he is immunosuppressed at baseline. Plan to continue current supportive measures including supplemental oxygen to maintain saturations at or above 90%. The patient has already completed a treatment course of remdesivir and Decadron. The patient will remain systemic anticoagulated on Eliquis as well. 2. Acute kidney injury Improved. Likely secondary to overdiuresis. Continue to hold Lasix. 3. New onset atrial fibrillation/indeterminate troponin Likely precipitated by presenting hypoxemia. Plan to continue supportive measures including amiodarone and Eliquis. 4. 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 Continue to hold Imbruvica. This note was generated with [email or web address] dictation software. It may contain incorrect words, spelling, and punctuation that were not noted in checking the note before signing. Inpatient E&M: [id number] Subs Hosp L2
--- NOTE | 2020-06-25 07:18 | PCM.PN.HOSP ---
Patient Problems: Active and Suspected Problems (Last Reviewed 02/24/20 @ 10:06 by Yashira Estrada) Pneumonia due to COVID-19 virus (Acute) Hypoxemia (Acute) Encounter for venous access device care (Acute) Reason for Visit: Acute COVID-19 pneumonia Acute hypoxic respiratory failure Subjective: Patient seen was transferred to the intensive care unit following deterioration in his respiratory status. Patient felt stated he wanted to remain DNR CCA with intubation. Patient however changed his mind and instead elected for DNR CC with no intubation. He changed his mind 1 more time in the evening change in his CODE STATUS to DNR comfort care. He is requesting hospice consultation this a.m. Objective: GENERAL: Dyspneic at rest HEENT: Atraumatic; EYES; Anicteric, Normal Conjunctiva NECK; supple, normal thyroid, RESPIRATORY: Diminished to auscultation CARDIOVASCULAR: Regular S1 S2, GI: soft, normoactive bowel sounds, : No Renal angle tenderness; EXTREMITIES: No edema, no clubbing, MUSCULOSKELETAL: no muscle waisting NEURO: Awake; no lateralizing signs. SKIN: No Rash PSYCH; appears anxious Vitals/I&O's: Vital Signs Temp Pulse Resp BP Pulse Ox 96.9 F L 86 18 134/78 H 94 06/25/20 04:00 06/25/20 07:00 06/25/20 07:00 06/25/20 07:00 06/25/20 07:00 Oxygen Flow Rate (L/min) [ 0 AMBULATING on Room Air] Oxygen Flow Rate (L/min) [ 6 AMBULATION with Oxygen] Oxygen Flow Rate (L/min) [At 0 REST on Room Air] Oxygen Flow Rate (L/min) 60 Oxygen Delivery Method Airvo Weight: 76.2 kg Body Mass Index (BMI) 26.4 Intake and Output for Last 24 Hours 06/23/20 06/24/20 06/25/20 23:59 23:59 23:59 Intake Total 420 / 420 120 / 120 Output Total 975 / 1275 600 / 600 250 / 250 Balance -975 / -1275 -180 / -180 -130 / -130 Laboratory Results 06/24/20 08:02: WBC 21.6 H, RBC 5.32, Hgb 15.5, Hct 48.9, MCV 91.9, MCH 29.1, MCHC 31.7 L, RDW Std Deviation 48.9 H, RDW Coeff of Jesús 14.6, Plt Count 240, MPV 10.7 06/24/20 08:02: Sodium 139, Potassium 4.2, Chloride 104, Carbon Dioxide 30.0, Anion Gap 5, BUN 40 H, Creatinine 1.22, Estim Creat Clear Calc 54.85, Est GFR (MDRD) Af Amer 75, Est GFR (MDRD) Non-Af 62, BUN/Creatinine Ratio 32.8 H, Glucose 84, Calcium 8.0 L, Magnesium 2.4 06/25/20 04:20: WBC 21.8 H, RBC 4.90, Hgb 13.9, Hct 44.7, MCV 91.2, MCH 28.4, MCHC 31.1 L, RDW Std Deviation 48.7 H, RDW Coeff of [place] 14.8 H, Plt Count 203, MPV 10.7 06/25/20 04:20: Sodium 138, Potassium 4.4, Chloride 105, Carbon Dioxide 28.0, Anion Gap 5, BUN 42 H, Creatinine 1.36 H, Estim Creat Clear Calc 49.20, Est GFR (MDRD) Af Amer 66, Est GFR (MDRD) Non-Af 54 L, BUN/Creatinine Ratio 30.9 H, Glucose 106, Calcium 7.9 L Current Medications Acetaminophen (Acetaminophen 325 Mg Tablet) 650 mg PO Q6H PRN PRN PRN Reason: Pain Score 1-10/Temp > 100.7 F Last Admin: 06/22/20 20:37 Dose: 650 mg Documented by: Acyclovir (Acyclovir 200 Mg Capsule) 400 mg PO BID [facility] Last Admin: 06/24/20 21:07 Dose: 400 mg Documented by: Albuterol Sulfate (Albuterol 2.5 Mg/3 Ml Vial.Neb.) 2.5 mg INHALATION Q2H PRN PRN PRN Reason: Shortness of Breath/Wheezing Last Admin: 06/20/20 09:19 Dose: 2.5 mg Documented by: Amiodarone HCl (Amiodarone 200 Mg Tablet) 200 mg PO BID [facility] Last Admin: 06/24/20 21:07 Dose: 200 mg Documented by: Apixaban (Apixaban 5 Mg Tablet) 5 mg PO BID [facility] Last Admin: 06/24/20 21:07 Dose: 5 mg Documented by: Escitalopram Oxalate (Escitalopram Oxalate 10 Mg Tablet) 10 mg PO DAILY [facility] Last Admin: 06/24/20 15:10 Dose: 10 mg Documented by: Finasteride (Finasteride 5 Mg Tablet) 5 mg PO DAILY [facility] Last Admin: 06/24/20 10:21 Dose: 5 mg Documented by: Fluticasone Propionate (Fluticasone 0.05% 1 [place] Nasal.Sry) 2 spray NASAL DAILY PRN PRN PRN Reason: ALLERGIES Sodium Chloride () 250 mls @ 15 mls/hr IV .[id number] PRN PRN Reason: Saline Flush Last Infusion: 06/16/20 00:09 Dose: Infused Documented by: Sodium Chloride () 250 mls @ 15 mls/hr IV .[id number] PRN PRN Reason: Additional IVPB Infusion Levothyroxine Sodium (Levothyroxine 100 Mcg Tablet) 100 mcg PO DAILY [facility] Last Admin: 06/24/20 10:21 Dose: 100 mcg Documented by: Losartan Potassium (Losartan Potassium 50 Mg Tablet) 50 mg PO DAILY [facility] Last Admin: 06/24/20 10:21 Dose: 50 mg Documented by: Melatonin (Melatonin 10 Mg Tablet) 5 mg PO QHS PRN PRN Reason: SLEEP Last Admin: 06/23/20 21:09 Dose: 5 mg Documented by: Ondansetron HCl (Ondansetron 4 Mg/2 Ml Vial) 4 mg IV Q8H PRN PRN PRN Reason: NAUSEA/VOMITING Senna/Docusate Sodium (Senna/Docusate Sodium 1 Tablet) 2 tablet PO BID PRN PRN PRN Reason: Constipation Sodium Chloride (0.9% Saline Lock 10 Ml Syringe) 10 - 40 ml IV UD PRN PRN Reason: SALINE FLUSH Last Admin: 06/24/20 21:07 Dose: 20 ml Documented by: Sodium Chloride (Sodium Chloride 0.65% 1 [place].Btl) 2 spray NASAL TID PRN PRN PRN Reason: NASAL DRYNESS Last Admin: 06/19/20 08:22 Dose: 2 spray Documented by: STROKE Vital Signs/Narrative: Vital Signs Temp Pulse Resp BP Pulse Ox 06/25/20 07:00 86 18 134/78 H 94 06/25/20 06:00 84 16 133/70 H 95 06/25/20 05:33 91 19 H 92 06/25/20 05:00 84 17 134/65 H 96 06/25/20 04:00 96.9 F L 85 18 128/60 H 96 06/25/20 03:31 90 Medical Necessity - Tobacco Use Smoking Status: Never smoker Tobacco Use: Non-smoker Assessment/Plan All Active Problems (Last Reviewed 02/24/20 @ 10:06 by Yashira Estrada) Perirectal abscess (Acute) Pneumonia due to COVID-19 virus (Acute) Hypoxemia (Acute) Chronic lymphoid leukemia (Resolved) Encounter for venous access device care (Acute) Encounter for care related to vascular access port (Acute) Skin lesion (Acute) Neutropenia (Resolved) Patient is a 74-year-old gentleman with multiple comorbidities including CLL and hypogammaglobulinemia on IVIG as outpatient presented with progressive shortness of breath diagnosed with acute hypoxic respiratory failure secondary to COVID-19 pneumonia 1. Acute hypoxic respiratory failure ?Secondary to COVID-19 pneumonia patient was initially managed in the ICU transferred to regular nursing floor. Patient had to be placed back on noninvasive ventilation BiPAP on on the morning of 06/20/2020 - 06/21/2020; patient seen complains of feeling extremely fatigued with poor appetite. Still requiring high flow oxygen Airvo -06/22/2020; Patient seen still remains on high flow oxygen. Also remains extremely anxious. An order was given for patient to receive 0.5 mg of Ativan. Updated patient's family who presents via FaceTime -06/23/2020 patient seen no significant change in overall condition. Still remains on high flow oxygen. He appears to be in a much better mood today. Did discuss with patient and family regarding long-term plans including possible transfer to a long-term acute care. Consult subsequently placed to case management to initiate the transfer - Patient seen much more dyspneic compared to the previous day. Per nursing staff patient was unable the whole of last night. Patient FiO2 increased. Patient also appears depressed. Started patient on low-dose SSRI -06/25/2020; Patient seen was transferred to the intensive care unit following deterioration in his respiratory status. 2. Acute COVID-19 pneumonia ?Patient has completed a course of remdesivir currently on oral Decadron. Consultation placed to both ID and pulmonary 3. New onset A. fib ?Presented with RVR rate is now controlled patient is on amiodarone as well as apixaban 4. Hypertension - Blood pressure controlled, home medications continued with dose adjustment as needed 5. Hypothyroidism - Patient is on levothyroxine home dose continued 6. CLL/hypogammaglobulinemia ?Patient is on IVIG as outpatient. Also on ibrutinib which is currently on hold 7. DVT prophylaxis ?Apixaban 8. Acute renal failure ?Patient did receive Lasix monitoring with daily BMPs 9. Physical deconditioning - Requested for PT OT eval and web content & social media manager to assist with discharge planning 10. Depression ?Patient started on low-dose SSRI Advance planning; extensive discussion with patient and family regarding patient CODE STATUS patient felt stated he wanted to remain DNR CCA with intubation. Patient however changed his mind and instead elected for DNR CC with no intubation. He changed his mind 1 more time in the evening change in his CODE STATUS to DNR comfort care. He is requesting hospice consultation this a.m. time spent on discussion was 35 minutes Inpatient E&M: 44052 Subs Hosp L2 Procedures: 31277 Advncd Care Plan 30 Min Multi Select Codes - Hospitalists' Procedures Procedures: 25478 Advncd Care Plan addl 30 Min
[2020-06-25] MEDS: Levothyroxine 100 MCG Tablet PO (08:51)
[2020-06-25] MEDS: Escitalopram Oxalate 10 MG Tablet PO (08:51)
[2020-06-25] MEDS: APIXABAN 5 MG TABLET PO (08:51)
[2020-06-25] MEDS: Amiodarone 200 MG Tablet PO (08:51)
[2020-06-25] MEDS: Losartan Potassium 50 MG Tablet PO (08:51)
[2020-06-25] MEDS: Finasteride 5 MG Tablet PO (08:51)
[2020-06-25] MEDS: Acyclovir 200 MG Capsule 400 MG PO (08:51)
--- NOTE | 2020-06-25 15:35 | PCM.DC ---
- Discharge Diagnoses Current Active Problems: Current Active and Chronic Problems (Last Reviewed 02/24/20 @ 10:06 by Yashira Estrada) Pneumonia due to COVID-19 virus (Acute) Hypoxemia (Acute) Hypertension (Chronic) Encounter for venous access device care (Acute) Hypogammaglobulinemia, acquired (Chronic) Chronic lymphocytic leukemia in remission (Chronic) You will use the following diet at home:: No restrictions Discharge Activity: Return to Normal Activity Allergies/Adverse Reactions: Allergies Penicillins Adverse Reaction (Severe, Verified 06/13/20 09:37) Abd cramps/diarrhea Medications to take at Discharge Ibrutinib [Imbruvica] 420 mg PO DAILY 02/08/15 Fluticasone 0.05% [Flonase Nasal [place]] 2 spray NASAL PRN PRN 07/03/16 Finasteride [Proscar] 5 mg PO DAILY 10/30/17 Acyclovir [Zovirax] 400 mg PO BID 09/26/18 biotin 1 mg capsule 1 mg PO DAILY 10/29/18 Valsartan [Diovan] 160 mg PO DAILY 11/07/18 Levothyroxine [Synthroid] 100 mcg PO DAILY 04/21/19 Acetaminophen [Tylenol Tablet] 650 mg PO Q6H PRN PRN tab 06/25/20 Albuterol Aerosols [Ventolin Aerosols] 2.5 mg INHALATION Q2H PRN PRN vial.neb. 06/25/20 Amiodarone HCl [Cordarone] 200 mg PO BID tab 06/25/20 Apixaban [Eliquis] 5 mg PO BID tab 06/25/20 Escitalopram Oxalate [Lexapro] 10 mg PO DAILY tab 06/25/20 Melatonin 5 mg PO QHS PRN tab 06/25/20 Senna/Docusate Sodium [Senokot-S] 2 tab PO BID PRN PRN tab 06/25/20 Sodium Chloride 0.65% [[place] Nasal [place]] 2 spray NASAL TID PRN PRN spray.btl 06/25/20 Primary Care Physician: Julio Guzman NON GARMENT SEWING MACHINE OPERATOR, NON GARMENT SEWING MACHINE OPERATOR-C [Primary Care Provider] - Test Results: Test results from this visit will be discussed in further detail at your follow-up appointment, if applicable. Proposed Discharge Date: 06/25/20
--- NOTE | 2020-06-25 15:39 | DS.PCM_ITS ---
Discharge Date and Diagnosis - Problem List Patient Problems: Active and Suspected Problems (Last Reviewed 02/24/20 @ 10:06 by Yashira Estrada) Pneumonia due to COVID-19 virus (Acute) Hypoxemia (Acute) Encounter for venous access device care (Acute) Date of Admission: 06/13/20 Date of Discharge: 06/25/20 - Primary Discharge Diagnosis Acute Problems: Active Problems (Last Reviewed 02/24/20 @ 10:06 by Yashira Estrada) Pneumonia due to COVID-19 virus (Acute) Hypoxemia (Acute) Encounter for venous access device care (Acute) - Secondary Discharge Diagnosis Chronic Problems: Chronic Problems (Last Reviewed 02/24/20 @ 10:06 by Yashira Estrada) Hypertension (Chronic) Hypogammaglobulinemia, acquired (Chronic) Chronic lymphocytic leukemia (Chronic) Chronic lymphocytic leukemia in remission (Chronic) Hospital Course and Treatment Imaging Results: Clinical Impression(s) from Imaging Studies Chest CTA 06/13/20 10:40 IMPRESSION: Bilateral pulmonary infiltrates worse in the right hemithorax. No evidence of pulmonary emboli. Electronically Signed: Bowen Jones MD at 11:43 EST , Service support , Chest X-Ray 06/17/20 04:10 IMPRESSION: Severe bilateral airspace disease right greater than left consistent with Covid 19 pneumonia. Findings appear to be similar to that of the chest CT June 13, 2020. at 0456 Reported and signed by: Louis Vazquez MD Electronically Signed: Louis Vazquez MD at 4:54 EST Tel , Service support , Summary of Care Provided: Patient is a 74-year-old gentleman with multiple comorbidities including CLL and hypogammaglobulinemia on IVIG as outpatient presented with progressive shortness of breath diagnosed with acute hypoxic respiratory failure secondary to COVID-19 pneumonia 1. Acute hypoxic respiratory failure ?Secondary to COVID-19 pneumonia patient was initially managed in the ICU transferred to regular nursing floor. Patient had to be placed back on noninvasive ventilation BiPAP on on the morning of 06/20/2020 - 06/21/2020; patient seen complains of feeling extremely fatigued with poor appetite. Still requiring high flow oxygen Airvo -06/22/2020; Patient seen still remains on high flow oxygen. Also remains extremely anxious. An order was given for patient to receive 0.5 mg of Ativan. Updated patient's family who presents via FaceTime -06/23/2020 patient seen no significant change in overall condition. Still remains on high flow oxygen. He appears to be in a much better mood today. Did discuss with patient and family regarding long-term plans including possible transfer to a long-term acute care. Consult subsequently placed to case management to initiate the transfer - Patient seen much more dyspneic compared to the previous day. Per nursing staff patient was unable the whole of last night. Patient FiO2 increased. Patient also appears depressed. Started patient on low-dose SSRI -06/25/2020; Patient seen was transferred to the intensive care unit following deterioration in his respiratory status. -1321; after discussion with patient and family and per patient's request patient requested hospice consultation. Consult was placed patient will be transferred to hospice in the medical facility for symptom management 2. Acute COVID-19 pneumonia ?Patient has completed a course of remdesivir currently on oral Decadron. Consultation placed to both ID and pulmonary 3. New onset A. fib ?Presented with RVR rate is now controlled patient is on amiodarone as well as apixaban 4. Hypertension - Blood pressure controlled, home medications continued with dose adjustment as needed 5. Hypothyroidism - Patient is on levothyroxine home dose continued 6. CLL/hypogammaglobulinemia ?Patient is on IVIG as outpatient. Also on ibrutinib which is currently on hold 7. DVT prophylaxis ?Apixaban 8. Acute renal failure ?Patient did receive Lasix monitoring with daily BMPs 9. Physical deconditioning - Requested for PT OT eval and social worker assistant to assist with discharge planning 10. Depression ?Patient started on low-dose SSRI Patient Problems: Active and Suspected Problems (Last Reviewed 02/24/20 @ 10:06 by Yashira Estrada) Pneumonia due to COVID-19 virus (Acute) Hypoxemia (Acute) Encounter for venous access device care (Acute) Objective: GENERAL: Dyspneic at rest HEENT: Atraumatic; EYES; Anicteric, Normal Conjunctiva NECK; supple, normal thyroid, RESPIRATORY: Diminished to auscultation CARDIOVASCULAR: Regular S1 S2, GI: soft, normoactive bowel sounds, : No Renal angle tenderness; EXTREMITIES: No edema, no clubbing, MUSCULOSKELETAL: no muscle waisting NEURO: Awake; no lateralizing signs. SKIN: No Rash PSYCH; appears anxious - Physical Exam Vitals/I&O's: Vital Signs Temp Pulse Resp BP Pulse Ox 97.4 F L 83 19 H 117/56 L 97 06/25/20 12:00 06/25/20 15:00 06/25/20 15:00 06/25/20 15:00 06/25/20 15:00 Oxygen Flow Rate (L/min) [ 0 AMBULATING on Room Air] Oxygen Flow Rate (L/min) [ 6 AMBULATION with Oxygen] Oxygen Flow Rate (L/min) [At 0 REST on Room Air] Oxygen Flow Rate (L/min) 10 Oxygen Delivery Method Nasal [place] Weight: 76.2 kg Body Mass Index (BMI) 26.4 Intake and Output for Last 24 Hours 06/23/20 06/24/20 06/25/20 23:59 23:59 23:59 Intake Total 420 / 420 370 / 370 Output Total 975 / 1275 600 / 600 350 / 350 Balance -975 / -1275 -180 / -180 Laboratory Results 06/25/20 04:20: WBC 21.8 H, RBC 4.90, Hgb 13.9, Hct 44.7, MCV 91.2, MCH 28.4, MCHC 31.1 L, RDW Std Deviation 48.7 H, RDW Coeff of Jesús 14.8 H, Plt Count 203, MPV 10.7 06/25/20 04:20: Sodium 138, Potassium 4.4, Chloride 105, Carbon Dioxide 28.0, Anion Gap 5, BUN 42 H, Creatinine 1.36 H, Estim Creat Clear Calc 49.20, Est GFR (MDRD) Af Amer 66, Est GFR (MDRD) Non-Af 54 L, BUN/Creatinine Ratio 30.9 H, Glucose 106, Calcium 7.9 L Current Medications Acetaminophen (Acetaminophen 325 Mg Tablet) 650 mg PO Q6H PRN PRN PRN Reason: Pain Score 1-10/Temp > 100.7 F Last Admin: 06/22/20 20:37 Dose: 650 mg Documented by: Acyclovir (Acyclovir 200 Mg Capsule) 400 mg PO BID [facility] Last Admin: 06/25/20 08:51 Dose: 400 mg Documented by: Albuterol Sulfate (Albuterol 2.5 Mg/3 Ml Vial.Neb.) 2.5 mg INHALATION Q2H PRN PRN PRN Reason: Shortness of Breath/Wheezing Last Admin: 06/20/20 09:19 Dose: 2.5 mg Documented by: Amiodarone HCl (Amiodarone 200 Mg Tablet) 200 mg PO BID [facility] Last Admin: 06/25/20 08:51 Dose: 200 mg Documented by: Apixaban (Apixaban 5 Mg Tablet) 5 mg PO BID [facility] Last Admin: 06/25/20 08:51 Dose: 5 mg Documented by: Escitalopram Oxalate (Escitalopram Oxalate 10 Mg Tablet) 10 mg PO DAILY [facility] Last Admin: 06/25/20 08:51 Dose: 10 mg Documented by: Finasteride (Finasteride 5 Mg Tablet) 5 mg PO DAILY [facility] Last Admin: 06/25/20 08:51 Dose: 5 mg Documented by: Fluticasone Propionate (Fluticasone 0.05% 1 [place] Nasal.Sry) 2 spray NASAL DAILY PRN PRN PRN Reason: ALLERGIES Sodium Chloride () 250 mls @ 15 mls/hr IV .[id number] PRN PRN Reason: Saline Flush Last Infusion: 06/16/20 00:09 Dose: Infused Documented by: Sodium Chloride () 250 mls @ 15 mls/hr IV .[id number] PRN PRN Reason: Additional IVPB Infusion Levothyroxine Sodium (Levothyroxine 100 Mcg Tablet) 100 mcg PO DAILY [facility] Last Admin: 06/25/20 08:51 Dose: 100 mcg Documented by: Losartan Potassium (Losartan Potassium 50 Mg Tablet) 50 mg PO DAILY [facility] Last Admin: 06/25/20 08:51 Dose: 50 mg Documented by: Melatonin (Melatonin 10 Mg Tablet) 5 mg PO QHS PRN PRN Reason: SLEEP Last Admin: 06/23/20 21:09 Dose: 5 mg Documented by: Ondansetron HCl (Ondansetron 4 Mg/2 Ml Vial) 4 mg IV Q8H PRN PRN PRN Reason: NAUSEA/VOMITING Senna/Docusate Sodium (Senna/Docusate Sodium 1 Tablet) 2 tablet PO BID PRN PRN PRN Reason: Constipation Sodium Chloride (0.9% Saline Lock 10 Ml Syringe) 10 - 40 ml IV UD PRN PRN Reason: SALINE FLUSH Last Admin: 06/24/20 21:07 Dose: 20 ml Documented by: Sodium Chloride (Sodium Chloride 0.65% 1 [place].Btl) 2 spray NASAL TID PRN PRN PRN Reason: NASAL DRYNESS Last Admin: 06/19/20 08:22 Dose: 2 spray Documented by: Discharge Diet: No Restrictions Discharge Activity: Return to Normal Activity Home Medications: Medications to take at Discharge Ibrutinib [Imbruvica] 420 mg PO DAILY 02/08/15 Fluticasone 0.05% [Flonase Nasal [place]] 2 spray NASAL PRN PRN 07/03/16 Finasteride [Proscar] 5 mg PO DAILY 10/30/17 Acyclovir [Zovirax] 400 mg PO BID 09/26/18 biotin 1 mg capsule 1 mg PO DAILY 10/29/18 Valsartan [Diovan] 160 mg PO DAILY 11/07/18 Levothyroxine [Synthroid] 100 mcg PO DAILY 04/21/19 Acetaminophen [Tylenol Tablet] 650 mg PO Q6H PRN PRN tab 06/25/20 Albuterol Aerosols [Ventolin Aerosols] 2.5 mg INHALATION Q2H PRN PRN vial.neb. 06/25/20 Amiodarone HCl [Cordarone] 200 mg PO BID tab 06/25/20 Apixaban [Eliquis] 5 mg PO BID tab 06/25/20 Escitalopram Oxalate [Lexapro] 10 mg PO DAILY tab 06/25/20 Melatonin 5 mg PO QHS PRN tab 06/25/20 Senna/Docusate Sodium [Senokot-S] 2 tab PO BID PRN PRN tab 06/25/20 Sodium Chloride 0.65% [[place] Nasal [place]] 2 spray NASAL TID PRN PRN spray.btl 06/25/20 Primary Care Physician: Julio Guzman MAINTENANCE MACHINE REPAIRER, MAINTENANCE MACHINE REPAIRER-C [Primary Care Provider] - Disposition: Hospice Medical Facility Minutes spent on discharge:: 35 Patient Condition:: Stable Medical Necessity - Tobacco Use Smoking Status: Never smoker Tobacco Use: Non-smoker Meaningful Use Info Meaningful Use Diagnoses (Choose all that apply): None applicable Inpatient E&M: 54604 Disch Hosp
== END 2020-06-25 17:50 | disposition hospice, inpatient (51) | DRG 177 ==
LOC: ED 12:17 → ICU 12:57 → MS2 06-19 09:09 → ICU 06-24 12:04
PROVIDERS: Internal Medicine Critical Care Medicine; Internal Medicine Infectious Disease; Admitting Provider Internal Medicine; Emergency Provider Emergency Medicine; PCP Nurse Practitioner Family; Visit Provider Internal Medicine
DX: U07.1 COVID-19 (principal); J12.82 Pneumonia due to coronavirus disease 2019; J96.01 Acute respiratory failure with hypoxia; D80.1 Nonfamilial hypogammaglobulinemia; C91.11 Chronic lymphocytic leukemia of B-cell type in remission; D84.821 Immunodeficiency due to drugs; I24.8 Other forms of acute ischemic heart disease; I47.2 Ventricular tachycardia; I12.9 Hypertensive chronic kidney disease with stage 1 through stage 4 chronic kidney disease, or unspecified chronic kidney disease; N18.2 Chronic kidney disease, stage 2 (mild); N28.9 Disorder of kidney and ureter, unspecified; I48.91 Unspecified atrial fibrillation; R00.1 Bradycardia, unspecified; E78.5 Hyperlipidemia, unspecified; E03.9 Hypothyroidism, unspecified; F32.9 Major depressive disorder, single episode, unspecified; Z79.890 Hormone replacement therapy; Z79.899 Other long term (current) drug therapy; Z87.01 Personal history of pneumonia (recurrent)
CPT/HCPCS: 36415; 71045; 71275; 80048; 80053; 83605; 83735; 83880; 84100; 84443; 84484; 85025; 85027; 85379; 87040; 87633; 87635; 93005; 94003; 94640; 94660; 97110; 97116; 97162; 97166; 97530; 97535; 97802; 97803; 99251; 99285; C9803; J7030; J7050; Q9967; U0005; A4216; G0463; J1940; U0003